=== PATIENT | male | born 1945 | race Hispanic/Latino ===

== ENCOUNTER 2016-06-27 02:05 | Inpatient (IN) | payer MEDICARE, OTHER ==
--- NOTE | 2016-06-27 02:25 | ED PDOC ---
Arrival/HPI - General Chief Complaint: Shortness Of Breath Time Seen by Provider: 06/27/16 02:22 Historian: Patient - History of Present Illness Narrative History of Present Illness (Text): 06/27/16 02:25 Kishor Osuna is a 70 year old male, whose past medical history includes CHF, atrial fibrillation, hypertension, hyperlipidemia, and diabetes, who presents to the emergency department after he woke up tonight with shortness of breath and some orthopnea. Patient states he has been compliant with his medications. Patient denies any fever, chills, chest pain, nausea, vomiting, diarrhea, urinary symptoms, back pain, neck pain, headache, dizziness, or any other complaints. PMD: Dr. Kaylee Ling Aerodynamic Consultant: Dr. Chris, Dr. Moss Time/Duration: Other (tonight) Symptom Onset: Gradual Symptom Course: Unchanged Activities at Onset: Rest, Light Context: Home Past Medical History - Provider Review Nursing Documentation Reviewed: Yes - Infectious Disease Hx of Infectious Diseases: None - Tetanus Immunization Tetanus Immunization: Unknown - Cardiac Hx Cardiac Arrhythmia: Yes Hx Congestive Heart Failure: Yes Hx Hypertension: Yes Other/Comment: stents - Pulmonary Hx Respiratory Disorders: Yes Other/Comment: smoker- 1PPD - Neurological Hx Neurological Disorder: Yes (SYNCOPE 08-20-12) Hx Dizziness: Yes - HEENT Hx HEENT Disorder: Yes (LASER SURGERY /CATARACTS BILATERAL) Hx Deafness: No - Renal Hx Renal Disorder: Yes - Endocrine/Metabolic Hx Diabetes Mellitus Type 2: Yes - Hematological/Oncological Other/Comment: h/o RLE DVT - Integumentary Hx Dermatological Disorder: No - Musculoskeletal/Rheumatological Hx Falls: No - Gastrointestinal Hx Gastrointestinal Disorders: Yes (gerd) - Genitourinary/Gynecological Hx Genitourinary Disorders: (pt denies) - Psychiatric Hx Emotional Abuse: No Hx Physical Abuse: No Hx Substance Use: No - Surgical History Hx Cardiac Catheterization: Yes Hx Coronary Stent: Yes Other/Comment: pt denies laser eye sx, left upper arm picc for iv abx in hospital and for home abx for r great toe infection/gangrene - Anesthesia Hx Anesthesia: Yes Hx Anesthesia Reactions: No Hx Malignant Hyperthermia: No - Suicidal Assessment Feels Threatened In Home Enviroment: No Family/Social History - Physician Review Nursing Documentation Reviewed: Yes Family/Social History: No Known Family HX Smoking Status: Former Smoker Hx Alcohol Use: Yes (social) Hx Substance Use: No Allergies/Home Meds Allergies/Adverse Reactions: Allergies No Known Allergies Allergy (Verified 01/03/16 07:11) Home Medications: Home Meds Medication Instructions Recorded Confirmed Atorvastatin [Lipitor] 20 mg PO DAILY 07/19/15 01/03/16 Carvedilol [Coreg] 3.12 mg PO BID 07/19/15 01/06/16 Aspirin [Ecotrin] 81 mg PO DAILY 08/26/15 01/06/16 Warfarin Sodium [Jantoven] 6 mg PO DAILY 08/26/15 01/03/16 Isosorbide Mononitrate [Imdur] 30 mg PO DAILY 08/28/15 01/06/16 Furosemide [Lasix] 40 mg PO TID 01/03/16 01/06/16 Review of Systems - Physician Review All systems were reviewed & negative as marked: Yes - Review of Systems Constitutional: Normal. absent: Fevers Eyes: Normal ENT: Normal Respiratory: SOB. absent: Cough Cardiovascular: Normal. absent: Chest Pain Gastrointestinal: Normal. absent: Abdominal Pain, Diarrhea, Nausea, Vomiting Genitourinary Male: Normal. absent: Dysuria, Frequency, Hematuria, Urinary Output Changes Musculoskeletal: Normal. absent: Back Pain Skin: Normal. absent: Rash Neurological: Normal. absent: Headache, Dizziness Endocrine: Normal Hemo/Lymphatic: Normal Psychiatric: Normal Physical Exam Vital Signs Reviewed: Yes Vital Signs Temp Pulse Resp BP Pulse Ox 06/27/16 04:15 178/64 H 06/27/16 04:13 60 16 175/64 H 97 06/27/16 02:16 98.8 F 67 20 185/77 H 95 Temperature: Afebrile Blood Pressure: Hypertensive Pulse: Regular Respiratory Rate: Normal Appearance: Positive for: Well-Appearing, Non-Toxic, Comfortable Pain Distress: None Mental Status: Positive for: Alert and Oriented X 3 - Systems Exam Head: Present: Atraumatic, Normocephalic Pupils: Present: PERRL Extroacular Muscles: Present: EOMI Conjunctiva: Present: Normal Ears: Present: NORMAL TM Mouth: Present: Moist Mucous Membranes Neck: Present: Normal Range of Motion Respiratory/Chest: Present: Rales (fine crepitations at bases). No: Respiratory Distress, Accessory Muscle Use Cardiovascular: Present: Regular Rate and Rhythm, Normal S1, S2. No: Murmurs Abdomen: Present: Normal Bowel Sounds. No: Tenderness, Distention, Peritoneal Signs Back: Present: Normal Inspection Upper Extremity: Present: Normal Inspection. No: Cyanosis, Edema Lower Extremity: Present: Normal Inspection. No: Edema Neurological: Present: GCS=15, CN II-XII Intact, Speech Normal Skin: Present: Warm, Dry, Normal Color. No: Rashes Psychiatric: Present: Alert, Oriented x 3, Normal Insight, Normal Concentration Medical Decision Making ED Course and Treatment: 06/27/16 02:25 Impression: 70 year old male complaining of shortness of breath tonight. Differential Diagnosis include but are not limited to: CHF Plan: -- EKG -- CXR -- Labs, cardiac enzymes, BNP -- Reassess and disposition Prior Visits: Notes and results from previous visits were reviewed. Progress Notes: Reviewed EKG, a fib at 80 bpm. Occasional PVC. Non-specific ST/T wave changes. 06/27/16 03:23 Reviewed radiology, CXR shows minimally increased pulmonary vascular markings. 06/27/16 04:00 Reviewed labs, BNP: [id number]. 06/27/16 04:[address] Ling, who is aware and agrees with plan. Accepts pt in her service. Pt will be admitted to Telemetry for CHF. Requests Dr. Moss on consult. - Lab Interpretations Lab Results: 06/27/16 02:55 06/27/16 02:55 Lab Results 06/27/16 02:55: WBC 7.9, RBC 3.52, Hgb 8.6 L, Hct 27.3 L, MCV 77.6 L, MCH 24.4 L , MCHC 31.5, RDW 18.6 H, Plt Count 233, MPV 11.0, PT 37.0 H*, INR 3.43 H, APTT 43.6 H, Sodium 144, Potassium 4.3, Chloride 102, Carbon Dioxide 24, Anion Gap 22 H, BUN 93 H, Creatinine 2.2 H, Est GFR ( Amer) 36, Est GFR (Non-Af Amer) 30, Random Glucose 183 H, Calcium 8.7, Total Bilirubin 0.8, AST 20, ALT 29 , Alkaline Phosphatase 92, Lactate Dehydrogenase 604, Total Creatine Kinase 98, Troponin I Pending, NT-Pro-B Natriuret Pep 22121 H, Total Protein 7.4, Albumin 4.0, Globulin 3.5, Albumin/Globulin Ratio 1.1 I have reviewed the lab results: Yes - RAD Interpretation Radiology Orders: 06/27/16 02:25 CHEST PORTABLE [RAD] Stat Fruit Worker: ED Physician - EKG Interpretation Interpreted by ED Physician: Yes Type: 12 lead EKG - Medication Orders Current Medication Orders: Discontinued Medications Furosemide (Lasix) 40 mg IVP ONCE ONE Stop: 06/27/16 04:10 Last Admin: 06/27/16 04:15 Dose: 40 MG MAR Blood Pressure Document 06/27/16 04:15 EKEOO (Rec: 06/27/16 04:15 [id number]) Blood Pressure Blood Pressure (100/60-150/90 mm Hg) 178/64 IVP Administration Document 06/27/16 04:15 EKEOO (Rec: 06/27/16 04:15 [email or web address] [id number]) Charges for Administration # of IVP Administrations 1 - Scribe Statement The provider has reviewed the documentation as recorded by the Juan Carlos Martin Provider Attestation: All medical record entries made by the Laviniaibcalvin were at my direction and personally dictated by me. I have reviewed the chart and agree that the record accurately reflects my personal performance of the history, physical exam, medical decision making, and the department course for this patient. I have also personally directed, reviewed, and agree with the discharge instructions and disposition. Disposition/Present on Arrival - Present on Arrival Any Indicators Present on Arrival: No History of DVT/PE: No History of Uncontrolled Diabetes: No Urinary Catheter: No History of Decub. Ulcer: No History Surgical Site Infection Following: None - Disposition Have Diagnosis and Disposition been Completed?: Yes Diagnosis: Congestive heart failure Disposition: HOSPITALIZED Disposition Time: 04:30 Patient Plan: Admission Condition: STABLE Discharge Instructions (ExitCare): Heart Failure (ED)
[2016-06-27 03:19] LABS: HEMATOCRIT 27.3 % (42.0-52.0); MEAN CELL VOLUME 77.6 fL (80.0-105.0); MEAN CORPUSCULAR HEMOGLOBIN 24.4 pg (25.0-35.0); MEAN CORPUSCULAR HGB CONC 31.5 g/dl (31.0-37.0); RED CELL DISTRIBUTION WIDTH 18.6 % (11.5-14.5); WHITE BLOOD COUNT 7.9 10^3/ul (4.5-11.0)
[2016-06-27 03:27] LABS: INR 3.43 (0.93-1.08); PARTIAL THROMBOPLASTIN TIME 43.6 Seconds (23.7-30.8)
[2016-06-27 03:38] LABS: ALB/GLOB RATIO 1.1 (1.1-1.8); BILIRUBIN,TOTAL 0.8 mg/dL (0.2-1.3); CALCIUM 8.7 mg/dL (8.4-10.5); POTASSIUM 4.3 mmol/L (3.6-5.0); TOTAL PROTEIN 7.4 g/dL (5.8-8.3)
[2016-06-27 04:46] LABS: TROPONIN I 0.1 ng/mL
[2016-06-27 08:16] VITALS: BMI 36.4
--- NOTE | 2016-06-27 08:42 | RAD ---
HISTORY: sob COMPARISON: 01/03/2016 FINDINGS: LUNGS: No active pulmonary disease. PLEURA: No significant pleural effusion identified, no pneumothorax apparent. CARDIOVASCULAR: Mild cardiomegaly OSSEOUS STRUCTURES: No significant abnormalities. VISUALIZED UPPER ABDOMEN: Normal. OTHER FINDINGS: None. IMPRESSION: No active disease.
--- NOTE | 2016-06-27 10:08 | CON ---
DATE: 06/27/2016 INDICATIONS: Shortness of breath. This is a 70-year-old man, known to me, admitted through the Emergency Room with episodes of shortness of breath, first on Monday and then last night, which woke him from sleep. There was no chest pain. There was some palpitations noted. The shortness of breath subsided. This morning, he is resting comfortably in bed, without symptoms. There was no orthopnea, PND, syncope, presyncope, lightheadedness, dizziness, vertigo, edema, claudication, abdominal pain, nausea, vomiting, diarrhea, constipation, melena, fever, chills , cough, sputum production, hemoptysis. PAST MEDICAL HISTORY: Complex. He has known coronary artery disease. He underwent a cardiac catheterization with coronary intervention in 07/2015. At that time, 2 drug-eluting stents were placed in the LAD. At that time, he was also noted to have moderate diffuse coronary disease involving other vessels and moderate LV dysfunction. His ejection fraction at that time was about 33%. Echocardiogram showed mild to moderate aortic stenosis, but there was no significant gradient noted at the time of catheterization. He has atrial fibrillation, diabetes, hypertension, hyperlipidemia, obesity, peripheral vascular disease, peripheral vascular intervention, osteomyelitis, discogenic disease, carpal tunnel syndrome, Dupuytren's contracture. He is a former smoker. There is no history of rheumatic fever, stroke, TIA or gout. MEDICATIONS: At the time of admission include hydralazine, aspirin, Imdur, warfarin, Lasix. ALLERGIES: There are no medication allergies. SOCIAL HISTORY: He lives at home. He is a former smoker. He does not drink alcohol. He is ambulatory. FAMILY HISTORY: Noncontributory. REVIEW OF SYSTEMS: Ten-point otherwise unremarkable except as noted above. PHYSICAL EXAMINATION: GENERAL: He is a well-developed male, sitting on his bed, in the intensive care unit, in no acute distress. VITAL SIGNS: Notable for atrial fibrillation at 53-67 beats per minute. He is afebrile. Blood pressure 169/72, respirations 16-24, O2 sat 95%-90% on room air. HEENT: Reveals no neck vein distention, thyromegaly, or carotid bruits. Mucous membranes moist. Conjunctivae pink. NECK: Supple. CHEST: Lung cornelius clear. HEART: Revealed an irregular rhythm, normal first and second heart sounds. Soft systolic murmur along the left sternal border and in the aortic space. PMI not palpable. ABDOMEN: Soft, obese, benign. Bowel sounds present. No mass, organomegaly, tenderness, rebound, guarding, CVA tenderness, palpable abdominal aortic aneurysm. EXTREMITIES: Revealed no cyanosis, clubbing, or edema. NEUROLOGIC: Awake, alert, oriented and intact. PSYCHIATRIC: Normal as to mood and affect. SKIN: Warm and dry. No rash or cellulitis. IMAGING AND LABORATORY RESULTS: A chest x-ray is a portable study. It reveals no active disease. EKG demonstrates atrial fibrillation with ST segment depression in V5, V6, increased as compared to an old EKG. White count normal, platelet count normal, hemoglobin 8.6, hematocrit 27.3. INR 3.43, PT 37, PTT 43.6. Electrolytes, BUN noted. BUN is 93, creatinine is 2.2. Blood sugar 183. LFTs unremarkable. CK 98. Troponin 0.10. BNP 10,600. IMPRESSION: The patient is a 70-year-old man admitted with a couple of episodes of nocturnal dyspnea. He has a history of coronary artery disease and left anterior descending stents about a year ago. He also has left ventricular dysfunction, hypertension, diabetes, obesity, atrial fibrillation on warfarin, chronic kidney disease, peripheral vascular disease. At this time, I agree with plans. He is in the intensive care unit. We will get serial EKGs and cardiac enzymes. I will review his old records. I will continue his usual medications including hydralazine, aspirin, Imdur and furosemide IV. I will hold warfarin. We will monitor INRs. I will get an echocardiogram. I will follow along with you. I will make additional recommendations based on his clinical course. At this point, it is likely that we will recommend cardiac catheterization to clarify his current coronary anatomy given the symptoms and EKG changes. Fredi Moss MD cc: [id number] TT: 06/27/2016 10:07:53 Confirmation # [id number] Dictation # [id number] en ROCKY
[2016-06-27] MEDS: Insulin Reg-LOW-Coverage SC SCH ×3 (11:09→21:39)
[2016-06-27 11:17] LABS: IRON 24 ug/dL (45-180)
--- NOTE | 2016-06-27 12:19 | HP ---
HISTORY OF PRESENT ILLNESS: This is a 70-year-old male was examined in ICU bed 6. He presented to the [facility] Emergency Room with shortness of breath, which first occurred on Monday evening, and then recurred last evening, awakening him from a sound sleep. He denied any chest pain or palpitation. He stated in the Emergency Room, after receiving parenteral Lasix, the shortness of breath subsided, and the patient was admitted for further evaluation of the above. PAST MEDICAL HISTORY: Extensive and includes atherosclerotic heart disease, status post coronary artery catheterization in 07/2015 at which time he had 2 drug-eluting stents placed in his left anterior descending coronary artery. He has a history of moderate diffuse coronary artery disease, moderate left ventricular dysfunction with an ejection fraction calculated at approximately 33 %. He has valvular heart disease including aortic stenosis, chronic atrial fibrillation for which he takes Coumadin, diabetes mellitus, chronic hypertension, hyperlipidemia, morbid obesity, peripheral vascular disease, chronic renal failure - stage IV, peripheral vascular intervention with stenting for osteomyelitis of his right great toe. He has a history of spinal arthritis, carpal tunnel syndrome, degenerative arthritis, and gout. SOCIAL HISTORY: The patient is a social drinker, a former smoker. No history of IV drug misuse. He is a retired postal employee. FAMILY HISTORY: Noncontributory. ALLERGIES: He has no known allergies to medications. OUTPATIENT MEDICATIONS: Included Ecotrin 81 mg p.o. daily, Imdur 30 mg p.o. daily, Lasix 80 mg p.o. t.i.d., Coumadin 6 mg p.o. daily, Imdur 30 mg p.o. daily , and hydralazine 100 mg p.o. t.i.d. It should be noted that the patient could not tolerate LUIS inhibitors secondary to hyperkalemia nor beta-blockers secondary to bradycardia. REVIEW OF SYSTEMS: HEAD: No headache or seizure. EYES: No change in visual acuity. EARS: No hearing loss. THROAT: No swallowing difficulty. NECK: No stiffness. CARDIOVASCULAR: Chronic atrial fibrillation, chronic hypertension, atherosclerotic heart disease, status post coronary artery stenting. PULMONARY: No hemoptysis. GASTROINTESTINAL: No hematemesis, no melena. GENITOURINARY: Chronic renal failure, stage IV. VASCULAR: History of peripheral vascular disease and stenting. ENDOCRINE: History of diabetes mellitus, hyperlipidemia. HEMATOLOGIC: Chronic anemia. NEUROLOGIC: Spinal arthritis. No knowledge of stroke. PHYSICAL EXAMINATION: VITAL SIGNS: Temperature 98.1. Monitor shows atrial fibrillation, respirations 24, pulse 50, blood pressure 169/72, pulse ox 96%. HEENT: Normocephalic, atraumatic. Eyes: No icterus. Ears clear. Throat not injected. NECK: Supple. HEART: Irregular S1, S2 with a soft systolic ejection murmur at the left sternal border. LUNGS: With occasional rhonchi and basilar crackles. ABDOMEN: Obese, nontender, without palpable organomegaly. EXTREMITIES: 1+ edema. VASCULAR: Legs warm to touch. PSYCHOLOGIC: Alert and anxious. NEUROLOGIC: Grossly intact. LABORATORY DATA: White count 7900, hemoglobin 8.6, hematocrit 27.3, MCV 77.6, platelets 233,000. PT/INR elevated at 3.43. Sodium 144, K 4.3, chloride 102, bicarb 24. BUN 93, creatinine 2.2. Estimated GFR 30 mL per minute. Random blood sugar 183, bilirubin 0.8, AST 20, ALT 29, alk phos 92. BNP 10,600. CPK normal at 98. Troponin 0.1. EKG reportedly shows nonspecific ST-T wave changes, chronic atrial fibrillation. Chest x-ray showed no active pulmonary disease. IMPRESSION: A 70-year-old male with nocturnal dyspnea, atherosclerotic heart disease, history of coronary artery stents, left ventricular dysfunction, chronic hypertension, diabetes mellitus, obesity, atrial fibrillation on Coumadin, chronic renal insufficiency - stage IV, peripheral vascular disease, anemia of chronic disease, hyperlipidemia, degenerative arthritis, morbid obesity. PLAN: To maintain the patient in critical care. He will need serial EKGs, cardiac isoenzymes. Cardiology, Dr. Moss, is on his case reviewing his old medical records and agrees with continuing medications as outlined including hydralazine, Ecotrin, Imdur, and IV Lasix. Oral Coumadin is on hold pending PT/ INR. He is ordering an echocardiogram and feels that the patient may need a coronary catheterization given his symptomatology. I have ordered ferritin, folic acid, iron, and TIBC, vitamin B12 levels for completeness sake. He will have a fasting lipid level in the morning. He will have a repeat serum and urine immunoelectrophoresis, a repeat CBC in the morning, and INR daily. Patient has repeatedly declined endoscopy and colonoscopy in the past. Pending the results of his anemia workup, I will review this with Dr. Abiel Mcdonald from hematology and discuss whether or not the patient will need to be started on Procrit through his guidance. All of this was reviewed in detail with Dr. Moss, the patient and his nurse, Cherry Bernstein, and the patient's overall prognosis is stable at present. Meena Ling MD cc: [id number] TT: 06/27/2016 12:18:26 jn MTDD
[2016-06-27 12:31] LABS: TROPONIN I 0.46 ng/mL
--- NOTE | 2016-06-27 12:54 | CARD ---
APPROVED REPORT EKG Measurement Heart [id number] <Conclusion> Atrial fibrillation with premature ventricular or aberrantly conducted complexes ST & T wave abnormality, consider lateral ischemia or digitalis effect Abnormal ECG
[2016-06-27 17:01] LABS: FOLATE 17.5 ng/mL
[2016-06-28 06:25] LABS: HEMATOCRIT 28.2 % (42.0-52.0); MEAN CELL VOLUME 77.5 fL (80.0-105.0); MEAN CORPUSCULAR HEMOGLOBIN 24.2 pg (25.0-35.0); MEAN CORPUSCULAR HGB CONC 31.2 g/dl (31.0-37.0); RED CELL DISTRIBUTION WIDTH 18.4 % (11.5-14.5)
[2016-06-28 06:28] LABS: INR 3.04 (0.93-1.08)
[2016-06-28 07:27] LABS: CALCIUM 8.9 mg/dL (8.4-10.5); POTASSIUM 4.6 mmol/L (3.6-5.0)
[2016-06-28] MEDS ORDERED: Phytonadione 10 mg/ml Inj (Adult) SC ONE ×2 (08:00→13:00)
--- NOTE | 2016-06-28 08:26 | CP.PCM.PN ---
Subjective - Date & Time of Evaluation Date of Evaluation: 06/28/16 Time of Evaluation: 08:00 - Subjective Subjective: Stable on 3R now. No CP or SOB. He feels OK. V/S noted. PE: Lungs clear Cor.: S1S2, JAKOB Abd.: soft Ext.: no edema Neuro.: alert Labs noted. Trops + , INR 3.04, BMP noted. Cr. = 2.0. Lipids noted. LDL = 60. ECG today pending. Objective - Vital Signs/Intake and Output Vital Signs (last 24 hours): Temp Pulse Resp BP Pulse Ox 87.3 F L 61 20 135/56 L 97 06/27/16 16:00 06/28/16 02:00 06/27/16 16:00 06/27/16 18:35 06/27/16 16:00 Intake and Output: 06/28/16 06/28/16 06:59 18:59 Intake Total 540 Balance 540 - Medications Medications: Current Medications Acetylcysteine (Acetylcysteine 20%) 3 ml PO BID [facility] Aspirin (Aspirin Chewable) 81 mg PO DAILY [facility] Last Admin: 06/27/16 10:01 Dose: 81 mg Furosemide (Lasix) 80 mg PO TID [facility] Last Admin: 06/27/16 18:35 Dose: Not Given Hydralazine HCl (Apresoline) 100 mg PO TID [facility] Last Admin: 06/27/16 18:35 Dose: Not Given Insulin Human Regular (Humulin R Low) 0 units SC [facility] PRN Reason: Protocol Last Admin: 06/27/16 21:39 Dose: Not Given Isosorbide Mononitrate (Imdur) 30 mg PO DAILY [facility] Last Admin: 06/27/16 10:01 Dose: 30 mg Phytonadione (Vitamin K Inj) 10 mg SC ONCE ONE Stop: 06/28/16 13:01 - Labs Labs: 06/28/16 05:00 06/28/16 05:00 PT 32.8 Seconds (9.9-11.8) H* 06/28/16 05:00 INR 3.04 (0.93-1.08) H 06/28/16 05:00 APTT 43.6 Seconds (23.7-30.8) H 06/27/16 02:55 Assessment and Plan - Assessment and Plan (Free Text) Plan: Assessment: SOB/+ trops, R/O NE CAD/PCI LAD 07/19 LVD, EF ~ 33% , mild at cath 07/19 Echo 01/19: mild LVD, Mild to mod. ., Mild MR, Mild to moderate TR, Mod. to sev. PH AF on warfarin Anemia HBP CKD HLD AD/PVI Obesity Oseomyelitis Former Smoker Discogenic Disease Carpal Tunnel Syndrome Duputryen's Contracture Plan: Cardiac cath to define current cor. dalila. Increased renal risk D/W pt. and Dr. Ling. Vit K today- 2 doses. If INR reversed by AM will proceed with cath tomorrow AM. Case d/w Dr. Ling. Pre-cath prophylaxis for CKD as per Dr. Ling. Await ECG today. OOB ad alphonso.
[2016-06-28] MEDS: Insulin Reg-LOW-Coverage SC SCH ×4 (09:28→22:16)
--- NOTE | 2016-06-28 11:27 | CARD ---
APPROVED REPORT EKG Measurement Heart [id number] <Conclusion> Atrial fibrillation ST & T wave abnormality, consider lateral ischemia or digitalis effect Abnormal ECG
[2016-06-28] MEDS ORDERED: Iron Sucrose 100 mg/5 ml Inj IVP ONE (13:20)
--- NOTE | 2016-06-28 13:59 | CON ---
DATE: 06/28/2016 This is a 70-year-old man with anemia. PAST MEDICAL HISTORY: The patient has extensive medical history including stents and cardiac cathete rization, renal insufficiency, etc. and also anemia. PHYSICAL EXAMINATION: SKIN: No petechiae, no bruises. HEENT: Anicteric. NODES: None palpable in the axillary, cervical, supraclavicular or inguinal regions. LUNGS: Clear at present. No vertebral tenderness. The patient is able to lie down flat. HEART: S1, S2. ABDOMEN: Shows an obese man. No liver, no spleen, no tenderness, no ascites. EXTREMITIES: No edema. CENTRAL NERVOUS SYSTEM: No focal finding. Hemoglobin was 8.5 with an MCV of 77. Creatinine of 2 with a BUN of 82. Iron saturation of 7% with a ferritin 37. The issue here, as I explained to the patient and daughter, is his iron deficiency or his renal insuf ficiency. He has refused colonoscopy and upper endoscopy in the past. What we will do is give him I V iron. I started him on Venofer tonight. Probably give him a second shot tomorrow. I will see him as an outpatient. They have my phone number etc., to call me once he gets out of the hospital. We will recheck the iron levels and see if there is any response to the iron. If none, then I will arra nge for him to get Procrit as an outpatient, but first we have to give the iron first and the ferriti n could be high just as a nonspecific inflammatory process. So, he has my phone number and address t o get to my office and we are going to start him on the IV iron today and tomorrow. Abiel Harry VELEZ cc: [id number] TT: 06/28/2016 13:59:03 Confirmation # [id number] Dictation # [id number]
--- NOTE | 2016-06-28 15:15 | PN ---
DATE: 06/28/2016 This 70-year-old male was examined at his bedside and his case was reviewed in detail with his nurse, [place], his family at his bedside, as well as the patient. The patient has been chest pain free since admission. He was seen earlier today by Dr. Moss who is reading the patient for cardiac catheterization in the morning. Of note, his Coumadin is on hold and Dr. Moss is reversing his elevated PT/INR with subQ vitamin K. plate roller shows atrial fibrillation. PHYSICAL EXAMINATION: VITAL SIGNS: Temperature is 98.8, respirations 20, pulse 63 and blood pressure 138/84 with a pulse ox of 97% on room air. His urine output was 600 in with 450 mL out in the last shift. HEAD: Normocephalic, atraumatic. EYES: No icterus. EARS: Clear. THROAT: Noninjected. NECK: Supple. HEART: Irregular S1, S2. LUNGS: Decreased breath sounds at the bases. No wheezing. ABDOMEN: Obese, nontender. EXTREMITIES: 1+ edema. SKIN: Without rash. NEUROLOGIC: Intact. PSYCHOLOGICAL: Chronic anxiety. VASCULAR: Legs warm to touch. LABORATORY DATA: White count 11,000, hemoglobin 8.8, hematocrit 28.8, platelets 228,000. PT/INR 3.04. Sodium 142, K 4.6, chloride 103, bicarbonate 25, BUN 82, creatinine 2.0, random blood sugar was 116. Estimated GFR 33 mL per minute. Cholesterol 141, triglycerides 157, LDL 60. Vitamin B12 level 257 and folic acid 17.5, percent saturation 7, ferritin 37. IMPRESSION: A 70-year-old male with chronic atrial fibrillation and atherosclerotic heart disease, history of coronary stent, chronic atrial fibrillation with a supertherapeutic PT/INR and also chronic renal failure stage IV, with type 2 diabetes mellitus, anemia of probable iron deficiency and chronic disease, degenerative arthritis and elevated PT/INR on outpatient Coumadin. PLAN: At present is to consult Dr. Abiel Mcdonald from hematology to see if the patient will benefit from Procrit supplementation given his chronic renal failure and anemia. The patient is ordered to have vitamin K as per Dr. Moss. He will have a repeat PT/INR in the morning. He is being given Mucomyst to stabilize his renal function in the setting of a proposed-cardiac catheterization and his oral Lasix has been switched to IV Lasix in the setting of shortness of breath and trace edema of his legs. He will be given gentle IV fluids of 0.9 saline at 70 mL per hour starting 10 p.m. tonight precardiac cath and patient once again in the presence of his family has declined a GI evaluation for his anemia. They are all aware that this could be a sign of undiagnosed gastrointestinal cancer; however, the patient declines any further consideration of endoscopy or colonoscopy at this time. He will have a repeat PT/INR in the a.m., CBC in the a.m. and basic metabolic panel in the a.m., and I will discuss cardiac findings and additional recommendations as per cardiology and hematology with the patient after cardiac catheterization and pending his workup as outlined. This was all discussed with the family in detail. Meena Ling MD cc: [id number] TT: 06/28/2016 15:14:16 Confirmation # [id number] Dictation # [id number] [email or web address]
[2016-06-28 19:15] LABS: INR 2.81 (0.93-1.08)
[2016-06-28] MEDS ORDERED: Phytonadione 10 mg/ml Inj (Adult) SC STA (20:54)
[2016-06-28] MEDS: Sodium Chloride 0.9% 1,000 ML IV SCH (22:18)
[2016-06-29] MEDS ORDERED: Sodium Bicarbonate (8.4%) 50 Meq Syringe IVP ONE (04:36)
[2016-06-29 06:36] LABS: ADD MANUAL DIFF? NO
[2016-06-29 06:51] LABS: INR 1.81 (0.93-1.08)
[2016-06-29 06:57] LABS: POTASSIUM 4.3 mmol/L (3.6-5.0)
[2016-06-29] MEDS ORDERED: Lidocaine 2% Inj (20ml) ONE (07:07)
[2016-06-29] MEDS ORDERED: Midazolam 2 MG/2 ML VIAL ONE ×2 (07:07→08:00)
[2016-06-29] MEDS ORDERED: Iodixanol 320 MG/ML 200 ML BOTTLE IV ONE (07:08)
[2016-06-29] MEDS ORDERED: Iodixanol 320 MG/ML 100 ML BOTTLE IV ONE (07:08)
[2016-06-29] MEDS ORDERED: Iohexol 350mgl/ml 50 ML ONE (07:08)
[2016-06-29 07:13] LABS: BASO # 0.03 K/mm3 (0.0-2.0); BASO % 0.2 % (0.0-3.0); EOS # 0.1 (0.0-0.7); EOS % 0.8 % (1.5-5.0); GRAN # 9.95 (1.4-6.5); GRAN % 82.6 % (50.0-68.0); HEMATOCRIT 29.1 % (42.0-52.0); LYMPH # 0.5 (1.2-3.4); LYMPH % 4.1 % (22.0-35.0); MEAN CELL VOLUME 76.2 fL (80.0-105.0); MEAN CORPUSCULAR HEMOGLOBIN 23.6 pg (25.0-35.0); MEAN CORPUSCULAR HGB CONC 30.9 g/dl (31.0-37.0); MEAN PLATELET VOLUME 11.2 fl (7.0-11.0); MONO # 1.5 (0.1-0.6); MONO % 12.3 % (1.0-6.0); PLATELET COUNT 245 10^3/uL (120.0-450.0); RED CELL DISTRIBUTION WIDTH 18.6 % (11.5-14.5); WHITE BLOOD COUNT 12.1 10^3/ul (4.5-11.0)
[2016-06-29] MEDS: Insulin Reg-LOW-Coverage SC SCH ×4 (08:40→21:44)
[2016-06-29] MEDS ORDERED: Mannitol 12.5 gm/50 ml Inj IV ONE (08:54)
--- NOTE | 2016-06-29 11:21 | CARDCATH ---
PROCEDURE DATE: 06/29/2016 HISTORY: This is a 70-year-old man with a history of known coronary artery disease and chronic atria l fibrillation, as well as LV dysfunction, who was admitted with worsening dyspnea and mildly elevate d troponin. A cardiac catheterization was advised. He had undergone prior PCI of his LAD last year. INDICATION: As above. PROCEDURES: 1. Selective left and right coronary angiography. 2. Left ventriculography. 3. Right femoral arteriography. 4. Angio-Seal deployment. FINDINGS: HEMODYNAMICS: The aortic pressure was 180/70 with a left ventricular pressure of 190/30. A 10-mm ao rtic valve gradient was noted. CORONARY ANGIOGRAPHY: 1. The left mainstem showed some mild distal tapering. 2. Left anterior descending artery was moderately calcified throughout its course. Previously place d stents in the mid segment of the vessel were widely patent with no evidence of restenosis. Mild di ffuse irregularities were noted in the distal LAD. The diagonal branches had evidence of mild to mod erate diffuse disease. 3. Left circumflex artery was a moderate-sized vessel, and had a 40% lesion in its early mid portion . The first obtuse marginal branch was of moderate size and bifurcated into 2 moderate-sized vessels . The obtuse marginal had moderate diffuse disease throughout its course. The second obtuse margina l branch was fairly small. The third obtuse marginal branch was large and had minimal irregularities . 4. The right coronary artery was dominant and had mild calcifications present in the proximal segmen t. There was a 40% stenosis present in the mid portion of the vessel. The posterior descending will ry and posterolateral branches had mild disease. LEFT VENTRICULOGRAPHY: A hand injection was performed in the left ventricle revealing evidence of mo derately diffuse hypokinesis with an overall ejection fraction of 40%. Mitral regurgitation was not assessed. RIGHT FEMORAL ARTERIOGRAPHY: Right femoral arteriogram revealed no evidence of significant disease a nd appropriate level of arterial puncture. The puncture site was then closed with deployment of an A ngio-Seal device. CONCLUSION: 1. Patent LAD stents. Mild to moderate diffuse RCA and LAD disease. 2. Moderately-reduced LV systolic function. 3. Mild aortic stenosis. RECOMMENDATIONS: Intensified medical therapy is advised at this time. Repeat echocardiogram will be performed. Continued cardiac risk factor control is advised. Kishor Chris MD cc:Meena Ling MD [id number] TT: 06/29/2016 11:21:06 jn
[2016-06-29] MEDS: Acetylcysteine 20% Inhal Soln (4ml) PO SCH ×2 (11:22→17:36)
--- NOTE | 2016-06-29 11:34 | PN ---
DATE: 06/29/2016 SUBJECTIVE: This 70-year-old male was examined at his bedside and his case was reviewed with his family at the bedside and Dr. Kishor Chris from cardiology. He has completed his cardiac cath earlier this morning, which revealed mild to moderate coronary artery atherosclerotic disease. His 2 coronary stents were reportedly wide open and there was no evidence of new critical stenosis noted on this cardiac cath this morning. He is also noted to have mitral regurgitation and aortic stenosis and an ejection fraction of approximately 35% . Dr. Chris states that this will be treated with medication adjustment, and he is ordering a 2D echocardiogram to get a better evaluation of his cardiac valvular disease as well as his ejection fraction. The patient tolerated gentle IV hydration with IV bicarb, IV Lasix and IV mannitol pericardiac procedure because of his chronic renal insufficiency, stage IV. He was seen by Dr. Abiel Mcdonald from hematology, who is evaluating his anemia at present. PHYSICAL EXAMINATION: VITAL SIGNS: On the baker bench, he is in atrial fibrillation. His vital signs are temperature 98.6, respirations 18, pulse 68 and blood pressure 146/67 , pulse ox was 97% on room air. HEAD: Normocephalic, atraumatic. EYES: Show no icterus. EARS: Clear. THROAT: Noninjected. NECK: Supple. HEART: Irregular S1, S2. LUNGS: With decreased breath sounds at the bases. ABDOMEN: Obese. EXTREMITIES: Decreased edema. SKIN: Without rash. NEUROLOGIC: Intact. PSYCHOLOGICAL: Alert. VASCULAR: Legs warm to touch. LABORATORY DATA: White count 12,100, hemoglobin 9, hematocrit 29.1, platelets 245,000. PT/INR 1.81, Sodium 141, K 4.3, chloride 101, bicarb 22, BUN 78, creatinine 2.1, random blood sugar was 120, cholesterol 141, triglycerides 157, LDL 60, HDL 36. Serum immunoelectrophoresis showed no monoclonal proteins. IMPRESSION: A 70-year-old male with atherosclerotic heart disease; cardiomyopathy; chronic congestive heart failure; chronic renal failure, stage IV; chronic hypertension; atrial fibrillation on Coumadin; type 2 diabetes mellitus; degenerative arthritis; anemia; history of gout. PLAN: At present is to continue medications including Mucomyst 3 mL p.o. b.i.d. , which he will take for an additional 24 hours, hydralazine 100 mg p.o. t.i.d. , Ecotrin 81 mg p.o. daily, Coumadin 6 mg p.o. daily, regular low dose insulin coverage before meals and at bedtime, Imdur 60 mg p.o. daily, Lasix 80 mg IV t.i.d., metoprolol tartrate 25 mg b.i.d., 0.9 saline at 70 mL per hour until 10: 00 a.m. tomorrow. He continues on nasal O2 p.r.n. He has an order for a 2D echocardiogram, heart healthy renal diabetic diet. He has an order for a basic metabolic panel, a uric acid level and an INR. I will place a consultation with Dr. Miguel Angel Cosme from orthopedics regarding his degenerative knee arthritis complaints, and all of this has been reviewed with the patient and his family at the bedside. They are aware that they will need to follow up with Dr. Chris as an outpatient from a cardiac standpoint, Dr. Mcdonald from hematology, and that he will be monitored closely regarding his renal failure and may need dialysis in his future. This has been a chronic ongoing issue and he remains clinically stable at this time. Meena Ling MD cc: [id number] TT: 06/29/2016 11:33:32 Confirmation # [id number] Dictation # [id number] an [email or web address]
--- NOTE | 2016-06-29 11:36 | PN ---
DATE: 06/29/2016 SUBJECTIVE: The patient is seen resting comfortably. Cardiac catheterization is planned for this mo rning. He is somewhat anxious. CURRENT MEDICATIONS: Include Mucomyst, hydralazine, aspirin, warfarin which has been placed on hold, insulin coverage, Imdur 30 mg daily, Lasix 80 mg t.i.d. and IV fluids. OBJECTIVE: GENERAL: He is a middle-aged man who is comfortable at the present time. VITAL SIGNS: His blood pressure is 150/70, the pulse is 72, in atrial fibrillation, respirations are 14. Recent temperature is 99.2. HEENT: No JVD. CHEST: A few scattered rhonchi heard. HEART: PMI displaced laterally with an irregularly irregular rhythm. Systolic murmur at the base as well as at the lower left sternal border and apex. ABDOMEN: Soft, nontender, normoactive bowel sounds. EXTREMITIES: 1-2+ leg edema. His right ankle and first toe appear swollen and erythematous. LABORATORY DATA: Potassium 4.3, BUN and creatinine are 78 and 2.1, hemoglobin and hematocrit are 9 a nd 29.1 with a white count 12.1, platelet count 245,000. INR this morning is 1.8. IMPRESSION: 1. Recent decompensating congestive heart failure, acute on chronic. 2. Mildly elevated troponin, possibly consistent with mild myocardial injury. 3. Coronary artery disease, status post known coronary disease and percutaneous coronary interventio n of left anterior descending. 4. Left ventricular dysfunction. 5. Mild aortic stenosis. 6. Mitral and tricuspid regurgitation. 7. Chronic atrial fibrillation. 8. Anemia. RECOMMENDATIONS: Cardiac catheterization will be performed this morning. If there is evidence of in -stent restenosis or progression of coronary artery disease, PCI will be planned. Risks and benefits have been discussed with him and his daughters prior to proceeding. Further plans will be made base d upon those findings. Kishor Chris MD cc: [id number] TT: 06/29/2016 11:35:51 Confirmation # [id number] Dictation # [id number] lavon
[2016-06-29] MEDS: Sodium Chloride 0.9% 1,000 ML IV SCH (13:57)
[2016-06-29] MEDS ORDERED: Bupivacaine 0.5% Inj(30mL) IJ ONE (14:11)
[2016-06-29] MEDS ORDERED: MethylPREDNISolone Depo 40 mg/ml Inj IM ONE (14:11)
[2016-06-29] MEDS ORDERED: Morphine 2 mg/ml ISec IVP STA (17:27)
--- NOTE | 2016-06-29 18:38 | CON ---
DATE: 06/29/2016 ROOM: 360, bed 1. HISTORY OF PRESENT ILLNESS: Seen for right knee pain with past history of gout with swollen knee. He also has history of heart disease and because of tremendous pain in his right knee I sort of encouraged him to get the arthrocentesis done. Aspirated 60 mL of sero turbid fluid from the right knee. No signs of purulence, no signs of blood. Once we evacuated the right knee of the effusion the improvment was remarkable for symptomatic relief. I sent a specimen for culture, cell count, and crystals. Will start physical therapy tomorrow, but he just had a cardiac catheterization, so that will dictate what he does tomorrow. So, he should feel better from the effusion of his right knee and will wait for the culture, crystals, and cell count to come back in the morning. FINAL DIAGNOSES: 1. Inflammatory arthritis, right knee. 2. Suspect gouty srthritis. Miguel Angel Cosme DO cc: [id number] TT: 06/29/2016 18:38:30 Confirmation # [id number] Dictation # [id number] [email or web address] [email or web address]
[2016-06-29] MEDS ORDERED: Oxycodone/Acetaminophen 5/325 mg Tab PO STA (20:05)
[2016-06-30 08:00] LABS: HEMATOCRIT 29.1 % (42.0-52.0); MEAN CELL VOLUME 76.4 fL (80.0-105.0); MEAN CORPUSCULAR HEMOGLOBIN 23.6 pg (25.0-35.0); MEAN CORPUSCULAR HGB CONC 30.9 g/dl (31.0-37.0); MEAN PLATELET VOLUME 11.9 fl (7.0-11.0); RED CELL DISTRIBUTION WIDTH 18.5 % (11.5-14.5); WHITE BLOOD COUNT 16.2 10^3/ul (4.5-11.0)
[2016-06-30 08:07] LABS: INR 1.38 (0.93-1.08)
[2016-06-30 08:21] LABS: CALCIUM 8.8 mg/dL (8.4-10.5); POTASSIUM 4.4 mmol/L (3.6-5.0)
[2016-06-30] MEDS: Insulin Reg-LOW-Coverage SC SCH ×4 (09:15→21:51)
[2016-06-30] MEDS: Acetylcysteine 20% Inhal Soln (4ml) PO SCH (09:15)
--- NOTE | 2016-06-30 09:25 | CP.PCM.PN ---
Subjective - Date & Time of Evaluation Date of Evaluation: 06/30/16 Time of Evaluation: 07:00 - Subjective Subjective: Stable on 3R now. S/P cardiac cath yesterday. Results noted>continued medical therpy advised. No CP or SOB. He feels OK. Right knee tapped yesterday. V/S noted. PE: Lungs clear Cor.: S1S2, JAKOB Abd.: soft Ext.: no edema Neuro.: alert I/O= 2660/900 Labs noted.INR = 1.38, Cr.= 2.1 Cath data noted. Objective - Vital Signs/Intake and Output Vital Signs (last 24 hours): Temp Pulse Resp BP Pulse Ox 97.7 F 67 18 138/58 L 96 06/30/16 06:00 06/30/16 06:00 06/30/16 06:00 06/30/16 06:00 06/30/16 06:00 Intake and Output: 06/30/16 06/30/16 06:59 18:59 Intake Total 1660 Output Total 900 Balance 760 - Medications Medications: Current Medications Acetaminophen (Tylenol 325mg Tab) 650 mg PO Q6H PRN PRN Reason: Pain, severe (8-10) Last Admin: 06/29/16 09:07 Dose: 650 mg Acetylcysteine (Acetylcysteine 20%) 3 ml PO BID [facility] Last Admin: 06/29/16 17:36 Dose: 3 ml Aspirin (Aspirin Chewable) 81 mg PO DAILY [facility] Last Admin: 06/28/16 09:28 Dose: 81 mg Furosemide (Lasix) 80 mg IVP TID [facility] Last Admin: 06/29/16 17:16 Dose: 80 mg Hydralazine HCl (Apresoline) 100 mg PO TID [facility] Last Admin: 06/29/16 17:16 Dose: 100 mg Sodium Chloride (Sodium Chloride 0.9%) 1,000 mls @ 70 mls/hr IV .[id number] [facility] Stop: 06/30/16 10:00 Last Admin: 06/29/16 13:57 Dose: 70 mls/hr Insulin Human Regular (Humulin R Low) 0 units SC ACHS [facility] PRN Reason: Protocol Last Admin: 06/29/16 21:44 Dose: Not Given Isosorbide Mononitrate (Imdur) 60 mg PO DAILY [facility] Last Admin: 06/29/16 11:21 Dose: 60 mg Metoprolol Tartrate (Lopressor) 25 mg PO BRKDIN [facility]AYL[facility] Last Admin: 06/29/16 17:16 Dose: 25 mg Warfarin Sodium (Coumadin) 6 mg PO 1800 [facility] PRN Reason: Protocol Last Admin: 06/29/16 17:16 Dose: 6 mg - Labs Labs: 06/30/16 06:30 06/30/16 07:00 PT 14.9 Seconds (9.9-11.8) H 06/30/16 06:30 INR 1.38 (0.93-1.08) H 06/30/16 06:30 APTT 43.6 Seconds (23.7-30.8) H 06/27/16 02:55 Assessment and Plan - Assessment and Plan (Free Text) Plan: Assessment: SOB/+ trops, R/O SC Cath 06/29/16: Patent stents and moderate diffuse CAD, Mild CAD/PCI LAD 07/19 LVD, EF ~ 33% , mild at cath 07/19, 06/29/16 Echo 01/19: mild LVD, Mild to mod. ., Mild MR, Mild to moderate TR, Mod. to sev. PH AF on warfarin Anemia HBP CKD HLD AD/PVI Obesity Oseomyelitis Former Smoker Discogenic Disease Carpal Tunnel Syndrome Duputryen's Contracture Right knee effusion, R/O gout, etc. Plan: Resume warfarin > 10 mg. today. Monitor INRs. Monitor renal fx. , I/O, labs, etc. Renal protection therapy as per Dr. Ling As per Dr. Mcdonald and Ortho. Continue medical tx. for CAD and LVD Cardiology F/U as out-pt.
[2016-06-30 11:47] LABS: FLUID TYPE SYNOVIAL FLUID
[2016-06-30 12:00] LABS: SYNOVIAL FLUID LYMPHOCYTE 5.7 % (0-0); SYNOVIAL FLUID NEUTROPHIL 94.3 % (0-0)
[2016-06-30 12:01] LABS: SYNOVIAL FLUID TOTAL COUNT 100 (0-0)
--- NOTE | 2016-06-30 12:51 | PN ---
DATE: 06/30/2016 This 70-year-old male was examined at the bedside in the presence of his daughter Gisella and his wif calvin. The patient was out of bed to chair and his case was also reviewed in detail with his nurse, Adelita Valdes. The patient remains chest pain free, status post cardiac catheterization yesterday which revealed moderate coronary artery disease, stable atherosclerotic heart disease, patent coronary ender nts and valvular heart disease. The patient has chronic cardiomyopathy, congestive heart failure and is being treated with parenteral Lasix in the setting of right heart failure and peripheral edema. The patient required an emergent orthopedic evaluation by Dr. Miguel Angel Cosme yesterday because o f pain in his right knee felt to be consistent with acute gouty arthritis. The patient underwent flu id drainage and an installation of cortisone and at present is able to ambulate with a walker. PHYSICAL EXAMINATION: VITAL SIGNS: He remains in an atrial fibrillation rhythm on the monitor. His temperature is 97.7, r espirations 18, pulse 67, and blood pressure 138/58. Pulse ox is 96% on room air. HEAD: Normocephalic, atraumatic. EYES: Show no icterus. EARS: Clear. THROAT: Noninjected. NECK: Supple. HEART: Irregular S1, S2. LUNGS: Clear. ABDOMEN: Obese, nontender, no palpable organomegaly, no rebound, no guarding, no tenderness. EXTREMITIES: Decreased edema. SKIN: Without rash or ulcer. VASCULAR: Legs warm to touch. PSYCHOLOGICAL: Alert. NEUROLOGIC: Intact. LABORATORY DATA: White count 16,200, hemoglobin 9, hematocrit 29.1, platelets 251,000. PT/INR 1.38. Sodium 140, K 4.4, chloride 101, bicarb 22, BUN 82, creatinine 2.1, random blood sugar 151. IMPRESSION: A 70-year-old male with atherosclerotic heart disease, chronic congestive heart failure, cardiomyopathy, aortic stenosis, mitral regurgitation, chronic renal failure stage IV, anemia of chr onic disease, history of degenerative arthritis, peripheral vascular disease, recurrent gout, atrial fibrillation on oral Coumadin, now with a subtherapeutic PT/INR, improving pedal edema, chronic hyper tension and now with a newly noted elevated white blood cell count in the absence of obvious fever or source of infection. PLAN: At present, as discussed with the patient, his family and nurse will be to obtain a blood and urine culture while awaiting his right knee fluid culture results as well. He is ordered to have a d ose of Coumadin 10 mg p.o. today and a repeat PT/INR in the a.m. He will have a basic metabolic pane l and a CBC in the a.m. I have ordered a consultation with Dr. Miguel Lopez from infectious disease [facility] because of newly noted elevated white blood cell count. He will be followed by Joe Cosme from orthopedics, Dr. Abiel Mcdonald from hematology regarding his anemia, Dr. Flores from cardiology, and will have physical therapy for ambulation safety. He remains on his a ntihypertensives including hydralazine, baby aspirin, colchicine 0.3 mg p.o. daily for an elevated ur ic acid level yesterday of 13.9, and painful right knee arthritis. He also continues on Coumadin wit h daily PT/INR, regular low dose insulin protocol a.c. meals and at bedtime, Imdur 60 mg p.o. daily, Lasix 80 mg IV t.i.d., metoprolol tartrate 25 mg p.o. b.i.d. He has an order for a heart healthy astrid al diabetic diet. He has orders for Ever bandages to both legs daily to remove at bedtime. Ultimate plan will be for discharge to home when medically stable. The patient and his family are aware of hi s multiple medical problems including cardiomyopathy, congestive heart failure, atherosclerotic heart disease, chronic renal failure stage IV, and anemia in the setting of peripheral vascular disease an d that dialysis will be in his future. They were apprised of all of the above and their need to foll ow up with the consultants as outlined. Meena Ling MD cc: [id number] TT: 06/30/2016 12:50:52 Confirmation # [id number] Dictation # [id number] [email or web address]
--- NOTE | 2016-06-30 20:24 | CP.PCM.CON ---
History of Present Illness - History of Present Illness History of Present Illness: Infectious Disease Consultation: June 30, 2016 70 yo male who presented with severe SOB on initial admission. The patient had elevation of WBC. Yesterday the patient had cardiac cath as well as aspiration of the right knee. Supportive care. Started on Rocephin for the time being. PMHx: hypertension, obesity, diabetes mellitus, hyperlipidemia, chronic renal insufficiency, atherosclerotic heart disease, chronic atrial fibrillation, degenerative arthritis PSHx: debridement of the foot. Social Hx: positive tobacco, and social EtOH use. No illicit drug use. Retired postal employee. Allergies: NKDA Active Medications Acetylcysteine (Acetylcysteine 20%) 3 ml PO BID [facility] Stop: 11/18/14 18:00 Amlodipine Besylate (Norvasc) 10 mg PO DAILY [facility] Last Admin: 11/14/14 11:38 Dose: 10 mg Atorvastatin Calcium (Lipitor) 10 mg PO DIN [facility] Hydralazine HCl (Apresoline) 50 mg PO TID [facility] Sodium Chloride (Sodium Chloride 0.45%) 1,000 mls @ 75 mls/hr IV .[id number] [facility] Last Admin: 11/14/14 11:39 Dose: 75 mls/hr Ampicillin Sodium/Sulbactam (Sodium 3 gm/ Sodium Chloride) 100 mls @ 200 mls/ hr IVPB Q6 [facility] Insulin Human Regular (Humulin R Low) 0 units SC ACHS [facility] PRN Reason: Protocol Last Admin: 11/14/14 12:44 Dose: Not Given Lisinopril (Zestril) 10 mg PO DAILY [facility] Last Admin: 11/14/14 11:38 Dose: 10 mg Mupirocin (Bactroban Ointment) 0 gm TOP BID [facility] Nicotine (Nicoderm Cq) 1 patch TD DAILY [facility] Family Hx: none given ROS: no fevers, chills, cough, nausea, vomiting, diarrhea, headaches, dizziness, chest pain, abdominal pain, loss of consciousness, vision loss, hearing loss, melena, hematuria, hematemesis, hematochezia, depression, or anxiety. Past Patient History - Infectious Disease Hx of Infectious Diseases: None - Tetanus Immunizations Tetanus Immunization: Unknown - Past Social History Smoking Status: Former Smoker - CARDIAC Hx Congestive Heart Failure: Yes Hx Hypertension: Yes - PULMONARY Hx Respiratory Disorders: Yes Other/Comment: smoker- 1PPD - NEUROLOGICAL Hx Neurological Disorder: Yes (SYNCOPE 08-20-12) Hx Dizziness: Yes - HEENT Hx HEENT Problems: Yes (LASER SURGERY /CATARACTS BILATERAL) Hx Deafness: No - RENAL Hx Chronic Kidney Disease: Yes - ENDOCRINE/METABOLIC Hx Diabetes Mellitus Type 2: Yes - HEMATOLOGICAL/ONCOLOGICAL Hx Blood Transfusions: No Hx Blood Transfusion Reaction: No - INTEGUMENTARY Hx Dermatological Problems: No - MUSCULOSKELETAL/RHEUMATOLOGICAL Hx Falls: No - GASTROINTESTINAL Hx Gastrointestinal Disorders: Yes (gerd) - GENITOURINARY/GYNECOLOGICAL Hx Genitourinary Disorders: (pt denies) - PSYCHIATRIC Hx Substance Use: No - SURGICAL HISTORY Hx Surgeries: Yes - ANESTHESIA Hx Anesthesia Reactions: No Hx Malignant Hyperthermia: No Meds Allergies/Adverse Reactions: Allergies Allergy/AdvReac Type Severity Reaction Status Date / Time No Known Allergies Allergy Verified 01/03/16 07:11 - Medications Medications: Current Medications Acetaminophen (Tylenol 325mg Tab) 650 mg PO Q6H PRN PRN Reason: Pain, severe (8-10) Last Admin: 06/29/16 09:07 Dose: 650 mg Aspirin (Aspirin Chewable) 81 mg PO DAILY [facility] Last Admin: 06/30/16 09:13 Dose: 81 mg Colchicine (Colocrys) 0.3 mg PO DAILY [facility] Furosemide (Lasix) 80 mg IVP TID [facility] Last Admin: 06/30/16 18:00 Dose: 80 mg Hydralazine HCl (Apresoline) 100 mg PO TID [facility] Last Admin: 06/30/16 17:58 Dose: 100 mg Insulin Human Regular (Humulin R Low) 0 units SC ACHS [facility] PRN Reason: Protocol Last Admin: 06/30/16 17:53 Dose: Not Given Isosorbide Mononitrate (Imdur) 60 mg PO DAILY [facility] Last Admin: 06/30/16 09:14 Dose: 60 mg Metoprolol Tartrate (Lopressor) 25 mg PO BRKDIN [facility] Last Admin: 06/30/16 17:58 Dose: 25 mg Warfarin Sodium (Coumadin) 6 mg PO 1800 [facility] PRN Reason: Protocol Last Admin: 06/29/16 17:16 Dose: 6 mg Physical Exam - Constitutional Appears: Non-toxic, No Acute Distress, Chronically Ill - Head Exam Head Exam: ATRAUMATIC, NORMOCEPHALIC - Eye Exam Eye Exam: EOMI, PERRL Pupil Exam: NORMAL ACCOMODATION, PERRL - ENT Exam ENT Exam: Mucous Membranes Moist, Normal External Ear Exam, TM's Normal Bilaterally - Neck Exam Neck exam: Positive for: Full Rom, Normal Inspection - Respiratory Exam Respiratory Exam: Clear to Auscultation Bilateral, NORMAL BREATHING PATTERN. absent: Rales, Rhonchi, Wheezes - Cardiovascular Exam Cardiovascular Exam: REGULAR RHYTHM, RRR, +S1, +S2 - GI/Abdominal Exam GI & Abdominal Exam: Normal Bowel Sounds, Soft. absent: Distended, Tenderness - Extremities Exam Extremities exam: Positive for: full ROM. Negative for: joint swelling, pedal edema - Neurological Exam Neurological exam: Alert, CN II-XII Intact, Oriented x3 - Psychiatric Exam Psychiatric exam: Normal Affect, Normal Mood - Skin Skin Exam: Intact, Normal Color Results - Vital Signs Recent Vital Signs: Last Vital Signs Temp 97.7 F 06/30/16 06:00 Pulse 61 06/30/16 18:00 Resp 18 06/30/16 06:00 BP 125/68 06/30/16 18:00 Pulse Ox 96 06/30/16 06:00 - Labs Result Diagrams: 06/30/16 06:30 06/30/16 07:00 Labs: Laboratory Results - last 24 hr 06/29/16 06/30/16 06/30/16 16:35 06:30 06:30 WBC 16.2 H D RBC 3.81 Hgb 9.0 L Hct 29.1 L MCV 76.4 L MCH 23.6 L MCHC 30.9 L RDW 18.5 H Plt Count 251 MPV 11.9 H PT 14.9 H INR 1.38 H Sodium Potassium Chloride Carbon Dioxide Anion Gap BUN Creatinine Est GFR ( Amer) Est GFR (Non-Af Amer) Random Glucose Calcium Fluid Type Synovial fluid Fluid Source Cancelled Fluid Appearance Cancelled Fluid WBC Cancelled Fluid RBC Cancelled Fluid Tot Cell Count Cancelled Fluid Neutrophils Cancelled Fluid Lymphocytes Cancelled Fld Monocyte/Macrophag Cancelled Fluid Comment Cancelled Synovial WBC 97094.0 H Synovial RBC 90274.0 H Synovial Neutrophils 94.3 H Synovial Lymphocytes 5.7 H Synov Monos/Macrophage Synovial Fluid Comment 06/30/16 07:00 WBC RBC Hgb Hct MCV MCH MCHC RDW Plt Count MPV PT INR Sodium 140 Potassium 4.4 Chloride 101 Carbon Dioxide 21 Anion Gap 22 H BUN 82 H Creatinine 2.1 H Est GFR ( Amer) 38 Est GFR (Non-Af Amer) 31 Random Glucose 151 H Calcium 8.8 Fluid Type Fluid Source Fluid Appearance Fluid WBC Fluid RBC Fluid Tot Cell Count Fluid Neutrophils Fluid Lymphocytes Fld Monocyte/Macrophag Fluid Comment Synovial WBC Synovial RBC Synovial Neutrophils Synovial Lymphocytes Synov Monos/Macrophage Synovial Fluid Comment Assessment & Plan - Assessment and Plan (Free Text) Assessment: 70 yo male with several procedures performed yesterday. The patient with leukocytosis up to 16.2 today. The elevation may be secondary to the procedures done that includes cardiac cath and aspiration of the right knee. The right knee aspiration is strongly suggestive of gout. Rocephin started empirically. The patient's active gout can also elevate the patient's WBC. Otherwise, the patient has no major complaints. He was initially admitted for Shortness of Breath. Thank you for allowing me to participate in the care of the patient, we will follow with you.
[2016-06-30] MEDS: Sodium Chloride 0.9% 1,000 ML IV SCH (23:40)
[2016-07-01 06:19] LABS: ADD MANUAL DIFF? NO
[2016-07-01 06:23] LABS: BASO # 0.01 K/mm3 (0.0-2.0); BASO % 0.1 % (0.0-3.0); EOS % 0.1 % (1.5-5.0); GRAN # 12.83 (1.4-6.5); GRAN % 89.1 % (50.0-68.0); HEMATOCRIT 27.2 % (42.0-52.0); LYMPH # 0.5 (1.2-3.4); LYMPH % 3.6 % (22.0-35.0); MEAN CELL VOLUME 75.6 fL (80.0-105.0); MEAN CORPUSCULAR HEMOGLOBIN 23.9 pg (25.0-35.0); MEAN CORPUSCULAR HGB CONC 31.6 g/dl (31.0-37.0); MEAN PLATELET VOLUME 11.8 fl (7.0-11.0); MONO % 7.1 % (1.0-6.0); PLATELET COUNT 261 10^3/uL (120.0-450.0); RED CELL DISTRIBUTION WIDTH 18.4 % (11.5-14.5); WHITE BLOOD COUNT 14.4 10^3/ul (4.5-11.0)
[2016-07-01 06:36] LABS: INR 1.24 (0.93-1.08)
[2016-07-01 06:58] LABS: CALCIUM 8.7 mg/dL (8.4-10.5); POTASSIUM 4.3 mmol/L (3.6-5.0)
[2016-07-01] MEDS: Insulin Reg-LOW-Coverage SC SCH ×4 (08:41→22:06)
--- NOTE | 2016-07-01 14:39 | PN ---
DATE: 07/01/2016 This 70-year-old male was examined at his bedside and his case was reviewed in detail with his nurse, Meena Stroud. The patient had an episode of dizziness last evening associated with atrial fibrillation and bradycardia. He was seen by the house doctor. No orders were adjusted and the patient states the vertigo is improved; however, on the director of cardiac cath lab, his pulse rate remains in the low to mid 40s. He was restarted on beta blockers by Dr. Chris after cardiac cath. The patient denies any active chest pain. I have spoken with Dr. Chris and he agrees with stopping Metoprolol given his symptomatic bradycardia status. PHYSICAL EXAMINATION: VITAL SIGNS: Temperature is afebrile, respirations are 16, pulse 42, blood pressure 125/68, pulse ox is 100%. HEAD: Normocephalic, atraumatic. EYES: No icterus. EARS: Clear. THROAT: Not injected. NECK: Supple. HEART: Irregular S1, S2. LUNGS: With no wheezing. ABDOMEN: Obese. EXTREMITIES: Decreased edema. SKIN: Without rash. NEUROLOGIC: Intact. PSYCHOLOGICAL: Alert and anxious. VASCULAR: Legs warm to touch. LABORATORY DATA: White count 14,400, previously 16,200, hemoglobin 8.6, hematocrit 27.2, platelets 261,000. PT/INR 1.24. Sodium 134, K 4.3, chloride 95, bicarb 22, BUN 103, creatinine 2.8. Estimated GFR 23 mL per minute. IMPRESSION: A 70-year-old male with multiple medical problems including congestive heart failure, cardiomyopathy, atherosclerotic heart disease, valvular heart disease, chronic hypertension, now with bradycardia, acute gout, subtherapeutic PT/INR on oral Coumadin, type 2 diabetes mellitus, leukocytosis, chronic hypertension, chronic renal failure stage IV, anemia, degenerative arthritis and obesity. PLAN: I have asked Nurse Meena Stroud to stop his Metoprolol given his symptomatic bradycardia. The patient will continue on hydralazine 100 mg p.o. t.i.d., Ecotrin 81 mg p.o. daily, colchicine 0.3 mg p.o. daily, dose reduced for his renal failure. He will receive Coumadin 15 mg p.o. x 1 dose today with an INR in the a.m. He continues on regular low dose insulin coverage before meals and at bedtime, Imdur 60 mg p.o. daily. His Lasix has been switched to p.o., 80 mg p.o. t.i.d. He continues on 1 gram of IV Rocephin daily. His microbiology reports showed blood cultures with no growth at 24 hours and synovial fluid with no growth at 48 hours and a urine culture is pending. Tomorrow morning, he will need a basic metabolic panel with CBC and INR and pending his clinical progress, discharge planning will be entertained. I did review all of the above with Dr. Chris who agrees the patient should remain hospitalized given his symptomatic bradycardia at present and risk of fall. Meena Ling MD cc: [id number] TT: 07/01/2016 14:38:55 Confirmation # [id number] Dictation # [id number] tn MTDD
--- NOTE | 2016-07-01 16:59 | CP.PCM.PN ---
Subjective - Date & Time of Evaluation Date of Evaluation: 07/01/16 Time of Evaluation: 15:15 - Subjective Subjective: Infectious Disease Follow Up: July 01, 2016 70 yo male who presented with severe SOB on initial admission. The patient had elevation of WBC. Yesterday the patient had cardiac cath as well as aspiration of the right knee. Supportive care. Started on Rocephin for the time being. Awaiting final cultures. Mild leukocytosis. Reported as still having symptomatic bradycardia. Objective - Vital Signs/Intake and Output Vital Signs (last 24 hours): Temp Pulse Resp BP Pulse Ox 98.6 F 44 L 18 136/82 100 06/30/16 16:00 07/01/16 05:55 06/30/16 16:00 07/01/16 09:14 06/30/16 16:00 Intake and Output: 07/01/16 07/01/16 06:59 18:59 Intake Total 540 840 Output Total 600 300 Balance -60 540 - Medications Medications: Current Medications Acetaminophen (Tylenol 325mg Tab) 650 mg PO Q6H PRN PRN Reason: Pain, severe (8-10) Last Admin: 06/30/16 20:19 Dose: 650 mg Aspirin (Aspirin Chewable) 81 mg PO DAILY [facility] Last Admin: 07/01/16 09:15 Dose: 81 mg Colchicine (Colocrys) 0.3 mg PO DAILY [facility] Last Admin: 07/01/16 09:16 Dose: 0.3 mg Furosemide (Lasix) 80 mg PO TID [facility] Last Admin: 07/01/16 14:33 Dose: Not Given Hydralazine HCl (Apresoline) 100 mg PO TID [facility] Last Admin: 07/01/16 14:32 Dose: Not Given Ceftriaxone Sodium (Rocephin 1 Gram Ivpb) 1 gm in 100 mls @ 100 mls/hr IVPB DAILY [facility] PRN Reason: Protocol Insulin Human Regular (Humulin R Low) 0 units SC ACHS [facility] PRN Reason: Protocol Last Admin: 07/01/16 12:35 Dose: 1 units Isosorbide Mononitrate (Imdur) 60 mg PO DAILY [facility] Last Admin: 07/01/16 09:16 Dose: 60 mg Warfarin Sodium (Coumadin) 6 mg PO 1800 [facility] PRN Reason: Protocol Last Admin: 06/29/16 17:16 Dose: 6 mg Warfarin Sodium (Coumadin) 15 mg PO 1800 [facility] PRN Reason: Protocol - Labs Labs: 07/01/16 06:00 07/01/16 06:00 PT 13.4 Seconds (9.9-11.8) H 07/01/16 06:00 INR 1.24 (0.93-1.08) H 07/01/16 06:00 APTT 43.6 Seconds (23.7-30.8) H 06/27/16 02:55 - Constitutional Appears: Non-toxic, No Acute Distress, Chronically Ill - Head Exam Head Exam: ATRAUMATIC, NORMOCEPHALIC - Eye Exam Eye Exam: EOMI, PERRL Pupil Exam: NORMAL ACCOMODATION, PERRL - ENT Exam ENT Exam: Mucous Membranes Moist, Normal External Ear Exam, TM's Normal Bilaterally - Neck Exam Neck Exam: Full ROM, Normal Inspection - Respiratory Exam Respiratory Exam: Clear to Ausculation Bilateral, NORMAL BREATHING PATTERN. absent: Rales, Rhonchi, Wheezes - Cardiovascular Exam Cardiovascular Exam: Bradycardia, +S1, +S2 - GI/Abdominal Exam GI & Abdominal Exam: Soft, Normal Bowel Sounds. absent: Distended, Tenderness - Extremities Exam Extremities Exam: Full ROM, Normal Inspection - Neurological Exam Neurological Exam: Alert, Awake, CN II-XII Intact, Oriented x3 - Psychiatric Exam Psychiatric exam: Normal Affect, Normal Mood - Skin Skin Exam: Intact, Normal Color Assessment and Plan - Assessment and Plan (Free Text) Assessment: 70 yo male with several procedures performed two days ago as well as active gout. The patient with leukocytosis up to 14.0 today compared to 16.2 yesterday. The elevation may be secondary to the procedures done that includes cardiac cath and aspiration of the right knee. The right knee aspiration is strongly suggestive of gout. Rocephin started empirically. The patient's active gout can also elevate the patient's WBC. Otherwise, the patient has no major complaints. He was initially admitted for Shortness of Breath. Still with symptomatic bradycardia. Thank you for allowing me to participate in the care of the patient, we will follow with you.
--- NOTE | 2016-07-01 18:38 | PN ---
DATE: 07/01/2016 SUBJECTIVE: The patient is seen sitting in bed on 3R. He had some lightheadedness last evening and was noted to have a marked bradycardia with a ventricular rate in the 30s. He feels somewhat better this morning. He denies any chest pain. His leg edema is improved. His right knee pain has also im proved following intra-articular injection. CURRENT MEDICATIONS: Include hydralazine 100 mg t.i.d., aspirin, colchicine, Coumadin, insulin cover age, Imdur 60 mg daily, Lasix 80 mg t.i.d., Rocephin, and metoprolol 25 mg b.i.d. OBJECTIVE: GENERAL: He is a middle-aged man who appears comfortable at rest. VITAL SIGNS: His blood pressure is 136/82 with a pulse of 46 in atrial fibrillation, respirations ar e 14. HEENT: No JVD. CHEST: A few scattered rhonchi heard. HEART: PMI displaced laterally with diminished tones noted. A systolic murmur is noted at the base radiating to the carotids as well as a systolic murmur at the lower left sternal border. ABDOMEN: Soft, nontender, normoactive bowel sounds. EXTREMITIES: Revealed mild cellulitic changes with 1+ ankle edema. DIAGNOSTIC DATA: Potassium 4.3, BUN and creatinine are 103 and 2.8. White count 14.4, hemoglobin an d hematocrit 8.6 and 27.2 with a MCV of 75, and platelet count is 261,000. IMPRESSION: 1. Recent decompensated congestive heart failure, clinically improved. 2. Coronary artery disease with patent stents noted at catheterization. 3. Mild aortic stenosis. 4. Pulmonary hypertension with mild to moderate tricuspid regurgitation and mild mitral regurgitatio n. 5. Chronic atrial fibrillation with a slow ventricular response due to excessive sensitivity to beta rola. 6. Chronic renal insufficiency, somewhat worsened possibly due to recent contrast exposure as well a s continued diuretic use. RECOMMENDATIONS: Metoprolol will be discontinued at this time. All negative chronotropic agents argenis l be avoided. Furosemide will be held for now and a repeat BMP ordered for the morning. Continued m edical therapy for his coronary and valvular heart disease is advised at this time. We will continue to follow and make further recommendations as appropriate. Kishor Chris MD cc: [id number] TT: 07/01/2016 18:37:41 Confirmation # [id number] Dictation # [id number] cn
[2016-07-02 08:06] LABS: HEMATOCRIT 28.3 % (42.0-52.0); MEAN CELL VOLUME 75.3 fL (80.0-105.0); MEAN CORPUSCULAR HEMOGLOBIN 23.7 pg (25.0-35.0); MEAN CORPUSCULAR HGB CONC 31.4 g/dl (31.0-37.0); MEAN PLATELET VOLUME 11.7 fl (7.0-11.0); RED CELL DISTRIBUTION WIDTH 18.6 % (11.5-14.5); WHITE BLOOD COUNT 10.1 10^3/ul (4.5-11.0)
[2016-07-02 08:09] LABS: INR 1.23 (0.93-1.08)
[2016-07-02] MEDS: Insulin Reg-LOW-Coverage SC SCH ×4 (08:22→21:59)
[2016-07-02 08:35] LABS: CALCIUM 8.3 mg/dL (8.4-10.5); POTASSIUM 4.3 mmol/L (3.6-5.0)
[2016-07-02] MEDS: cefTRIAXone 1 gm 1 GM/100 ML BAG IVPB SCH (09:55)
--- NOTE | 2016-07-02 12:07 | PN ---
DATE: 07/02/2016 SUBJECTIVE: The patient is seen sitting in a chair on remote telemetry. He is feeling better. He i s anxious to go home. His knee pain is improved. He has had no recurrent lightheadedness. He remai ns bradycardiac. His BUN and creatinine had risen yesterday and his Lasix was placed on hold. CURRENT MEDICATIONS: Include hydralazine 100 mg t.i.d., aspirin, colchicine, Coumadin, insulin cover age, Imdur 60 mg daily, Lasix was 80 mg t.i.d., but placed on hold, Rocephin and Tylenol. OBJECTIVE: GENERAL: He is a middle-aged man who appears comfortable at rest. VITAL SIGNS: His blood pressure is 160/70 with a pulse of 46 in atrial fibrillation, respirations ar e 16. He is afebrile. HEENT: No JVD. CHEST: A few scattered rhonchi were heard. No rales noted. HEART: PMI displaced laterally with diminished heart tones and a systolic murmur at the base radiati ng to the carotids as well as a systolic murmur over the lower left sternal border. ABDOMEN: Soft, nontender with normoactive bowel sounds. EXTREMITIES: 1+ ankle edema. DIAGNOSTIC DATA: Potassium 4.3, BUN and creatinine are 117 and 2.7, white count is 10.1, hemoglobin and hematocrit 8.9 and 28.7 with platelet count of 283,000. IMPRESSION: 1. Recent decompensated congestive heart failure, acute on chronic, predominantly systolic, clinical ly improved at present. 2. Coronary artery disease with patent coronary stents. 3. Mild aortic stenosis. 4. Pulmonary hypertension with mild to moderate tricuspid regurgitation. 5. Chronic atrial fibrillation with slow ventricular response. 6. Chronic renal insufficiency, mildly worsened after recent intensified diuretic therapy and contra st exposure. RECOMMENDATIONS: His current cardiac medications should continue and negative chronotropic agents wi ll be withheld. Compression stocking use was advised. Sodium restriction should continue. Resumpti on of diuretic therapy once his renal function has plateaued would be appropriate. From a cardiac st andpoint, he appears stable for discharge home and close outpatient followup will be arranged. Kishor Chris MD cc: [id number] TT: 07/02/2016 12:07:10 Confirmation # [id number] Dictation # [id number] tn
[2016-07-02] MEDS ORDERED: Oxycodone/Acetaminophen 5/325 mg Tab PO PRN (12:29)
--- NOTE | 2016-07-02 12:45 | PN ---
DATE: 07/02/2016 This 70-year-old male was examined at his bedside. His case was reviewed with his 2 daughters, Chiquis and Gisella, who were at the bedside as well. I have also reviewed this case in detail with Dr. Kishor Chris from cardiology. At present, the patient has had his metoprolol discontinued in the setting of symptomatic bradycardia. The patient also is growing gram-negative zoe in his urine culture, sensitivity and identification to follow. This is of concern since he had a fever and elevated white count post-cardiac catheterization and is now on IV Rocephin under the direction of Dr. Miguel Lopez from infectious disease. His PT/INR remains subtherapeutic after his Coumadin was reversed with vitamin K and the patient is now receiving daily dosing of Coumadin with daily INR levels. The patient denied any chest pain, shortness of breath and is now being followed by Dr. Abiel Mcdonald from hematology because of anemia in the setting of advanced renal insufficiency. highway design engineer shows chronic atrial fibrillation. PHYSICAL EXAMINATION VITAL SIGNS: Pulse rate is 45. Temperature 97.5, respirations 17, blood pressure 165/71 with a pulse ox of 99% on room air. HEAD: Normocephalic, atraumatic. EYES: No icterus. EARS: Clear. THROAT: Noninjected. NECK: Supple. HEART: Irregular S1, S2. LUNGS: Clear. ABDOMEN: Obese. EXTREMITIES: No edema. SKIN: Without rash. NEUROLOGIC: Intact. PSYCHOLOGICAL: Alert and anxious. VASCULAR: Feet warm to touch. LABORATORY DATA: PT/INR 1.23. White count 10,100, hemoglobin 8.9, hematocrit 28.3, platelets 283,000. Sodium 135, K 4.3, chloride 98, bicarbonate 20, BUN 117, creatinine 2.7, random blood sugar is 111, estimated GFR is 24 mL per minute. IMPRESSION: A 70-year-old male with atherosclerotic heart disease, status post coronary catheterization which revealed patent coronary stents, cardiomyopathy, medical coronary artery disease, valvular heart disease including mitral regurgitation, tricuspid regurgitation and aortic stenosis with comorbidities of chronic renal failure stage IV, anemia of chronic disease, acute gouty arthritis, chronic atrial fibrillation with a subtherapeutic INR at present, type 2 diabetes mellitus, chronic hypertension, urinary tract infection, anxiety neurosis, obesity. PLAN: At present is to continue hydralazine 100 mg p.o. t.i.d., colchicine 0.3 mg p.o. daily for an additional 24 hours. He will receive Coumadin 15 mg p.o. tonight with a PT/INR level for the morning. He continues on insulin coverage a.c. meals and at bedtime, Imdur 60 mg p.o. daily, Lasix 80 mg p.o. t.i.d is presently on hold. and Rocephin 1 gram IV q. 24 pending urine C and S ID and sensitivity. He continues on a heart healthy renal diabetic diet. As discussed with Dr. Chris from cardiology, we will lower his Lasix to 80 mg b.i.d.when resumed given his recent bump in the BUN consistent with prerenal azotemia and as discussed with his 2 daughters we will repeat his basic metabolic panel, INR in a.m. and once sensitivities are revealed for his urinary infection, we will switch him to oral antibiotics and hopefully discharge to home. The patient and daughters are aware that they will need to closely follow up with cardiology and hematology has outpatient as well given his anemia and cardiomyopathy and that dialysis is in his future. Meena Ling MD cc: [phone] TT: 07/02/2016 12:44:39 Confirmation # [id number] Dictation # [id number] jn MTDD
[2016-07-02] MEDS: Oxycodone/Acetaminophen 5/325 mg Tab PO PRN (12:58)
--- NOTE | 2016-07-02 16:45 | CP.PCM.PN ---
Subjective - Date & Time of Evaluation Date of Evaluation: 07/02/16 Time of Evaluation: 16:00 - Subjective Subjective: Infectious Disease Follow Up: July 02, 2016 70 yo male who presented with severe SOB on initial admission. The patient had elevation of WBC. Yesterday the patient had cardiac cath as well as aspiration of the right knee. Supportive care. Started on Rocephin for the time being. Awaiting final cultures. Mild leukocytosis. Reported as still having symptomatic bradycardia. The patient's urine cultures are showing gram negative rods > 100,000 CFU/ml. The patient is denying complaints. Objective - Vital Signs/Intake and Output Vital Signs (last 24 hours): Temp Pulse Resp BP Pulse Ox 97.8 F 53 L 18 144/66 98 07/02/16 16:06 07/02/16 16:06 07/02/16 16:06 07/02/16 16:06 07/02/16 16:06 Intake and Output: 07/02/16 07/02/16 06:59 18:59 Intake Total 540 840 Output Total 600 Balance -60 840 - Medications Medications: Current Medications Acetaminophen (Tylenol 325mg Tab) 650 mg PO Q6H PRN PRN Reason: Pain, severe (8-10) Last Admin: 07/01/16 17:00 Dose: 650 mg Colchicine (Colocrys) 0.3 mg PO DAILY [facility] Last Admin: 07/02/16 09:56 Dose: 0.3 mg Furosemide (Lasix) 80 mg PO BID [facility] Hydralazine HCl (Apresoline) 100 mg PO TID [facility] Last Admin: 07/02/16 13:00 Dose: 100 mg Ceftriaxone Sodium (Rocephin 1 Gram Ivpb) 1 gm in 100 mls @ 100 mls/hr IVPB DAILY [facility] PRN Reason: Protocol Last Admin: 07/02/16 09:55 Dose: 100 mls/hr Insulin Human Regular (Humulin R Low) 0 units SC ACHS [facility] PRN Reason: Protocol Last Admin: 07/02/16 11:42 Dose: 3 units Isosorbide Mononitrate (Imdur) 60 mg PO DAILY [facility] Last Admin: 07/02/16 09:55 Dose: 60 mg Oxycodone/Acetaminophen (Percocet 5/325 Mg Tab) 1 tab PO Q12H PRN PRN Reason: Pain, severe (8-10) Stop: 07/05/16 12:46 Last Admin: 07/02/16 12:58 Dose: 1 tab Warfarin Sodium (Coumadin) 15 mg PO 1800 [facility] PRN Reason: Protocol Last Admin: 07/01/16 17:00 Dose: 15 mg - Labs Labs: 07/02/16 07:00 07/02/16 07:00 PT 13.3 Seconds (9.9-11.8) H 07/02/16 07:00 INR 1.23 (0.93-1.08) H 07/02/16 07:00 APTT 43.6 Seconds (23.7-30.8) H 06/27/16 02:55 - Constitutional Appears: Non-toxic, No Acute Distress, Chronically Ill - Head Exam Head Exam: ATRAUMATIC, NORMOCEPHALIC - Eye Exam Eye Exam: EOMI, PERRL Pupil Exam: NORMAL ACCOMODATION, PERRL - ENT Exam ENT Exam: Mucous Membranes Moist, Normal External Ear Exam, TM's Normal Bilaterally - Neck Exam Neck Exam: Full ROM, Normal Inspection - Respiratory Exam Respiratory Exam: Clear to Ausculation Bilateral, NORMAL BREATHING PATTERN. absent: Rales, Rhonchi, Wheezes - Cardiovascular Exam Cardiovascular Exam: Bradycardia, RRR, +S1, +S2 - GI/Abdominal Exam GI & Abdominal Exam: Soft, Normal Bowel Sounds. absent: Distended, Tenderness - Extremities Exam Extremities Exam: Full ROM, Normal Inspection - Neurological Exam Neurological Exam: Alert, Awake, CN II-XII Intact, Oriented x3 - Psychiatric Exam Psychiatric exam: Normal Affect, Normal Mood - Skin Skin Exam: Intact, Normal Color Assessment and Plan - Assessment and Plan (Free Text) Assessment: 70 yo male with several procedures performed two days ago as well as active gout. The patient with leukocytosis up to 14.0 today compared to 16.2 yesterday. The elevation may be secondary to the procedures done that includes cardiac cath and aspiration of the right knee. The right knee aspiration is strongly suggestive of gout. Rocephin started empirically. The patient's active gout can also elevate the patient's WBC. Otherwise, the patient has no major complaints. He was initially admitted for Shortness of Breath. Still with symptomatic bradycardia. Patient urine cultures today showed gram negative rods. Patient remains on Rocephin for antibiotic treatment. Awaiting final identification... usual length of treatment for uncomplicated UTI is 3-5 days. Thank you for allowing me to participate in the care of the patient, we will follow with you.
[2016-07-03 00:18] VITALS: RESP 20; O2SAT 99
[2016-07-03] MEDS: Oxycodone/Acetaminophen 5/325 mg Tab PO PRN ×2 (01:03→11:44)
[2016-07-03 07:38] LABS: INR 1.39 (0.93-1.08)
[2016-07-03 07:44] LABS: CALCIUM 8.3 mg/dL (8.4-10.5); POTASSIUM 4.3 mmol/L (3.6-5.0)
[2016-07-03] MEDS: Insulin Reg-LOW-Coverage SC SCH ×2 (07:54→12:08)
[2016-07-03 08:55] VITALS: BP 163/73; PULSE 61; TEMP 97.2
--- NOTE | 2016-07-03 09:07 | PN ---
DATE: 07/03/2016 SUBJECTIVE: The patient is seen lying in bed, on remote telemetry. He is comfortable at the present time. He has had no further lightheadedness. Morning labs are pending. His heart rate ranges from 45-65, in atrial fibrillation. Overall, he feels well except for his gouty pain. CURRENT MEDICATIONS: Remain hydralazine 100 mg t.i.d., colchicine 0.3 mg daily, Coumadin, insulin, I mdur 60 mg daily, Rocephin and Percocet. Lasix remains on hold. OBJECTIVE: GENERAL: He is an overweight, middle-aged man. VITAL SIGNS: His blood pressure is 168/70 with a pulse of 60, in atrial fibrillation, respirations a re 14. He is afebrile. HEENT: No JVD. CHEST: Clear to auscultation and percussion. HEART: PMI displaced laterally with a systolic murmur at the base as well as the lower left sternal border. ABDOMEN: Soft, obese, nontender with normoactive bowel sounds. EXTREMITIES: Revealed trace ankle edema. DIAGNOSTIC DATA: Morning blood work pending. IMPRESSION: 1. Recent decompensated congestive heart failure, acute on chronic, predominantly systolic. Appears clinically improved at present and euvolemic. 2. Coronary artery disease with patent coronary stents. 3. Mild aortic stenosis. 4. Chronic atrial fibrillation with a slow ventricular response, likely has intrinsic conduction sys tem disease. 5. Pulmonary hypertension. 6. Chronic renal insufficiency, worsened following contrast exposure and continued diuretic use. RECOMMENDATIONS: 1. His current cardiac medications should be continued. Chronotropic agents should be avoided. Out patient monitoring of his renal function is advised. As he appears euvolemic, I would advise withhol ding diuretic therapy for at least 1-2 days and monitoring renal function. 2. Continued sodium and fluid restriction was advised. Increased activity as able is recommended as well. Close outpatient followup will be arranged. From a cardiac standpoint, he appears stable for discharge home today. Kishor Chris MD cc: [phone] TT: 07/03/2016 09:07:04 Confirmation # [id number] Dictation # [id number]
[2016-07-03] MEDS: cefTRIAXone 1 gm 1 GM/100 ML BAG IVPB SCH (10:06)
--- NOTE | 2016-07-03 14:15 | CP.PCM.PN ---
Subjective - Date & Time of Evaluation Date of Evaluation: 07/03/16 Time of Evaluation: 11:55 - Subjective Subjective: Infectious Disease Follow Up: July 03, 2016 70 yo male who presented with severe SOB on initial admission. The patient had elevation of WBC. Yesterday the patient had cardiac cath as well as aspiration of the right knee. Supportive care. Started on Rocephin for the time being. Awaiting final cultures. Mild leukocytosis. Reported as still having symptomatic bradycardia. The patient's urine cultures are showing gram negative rods > 100,000 CFU/ml identified as Proteus sensitive to Ceftriaxone. The patient is denying complaints. Objective - Vital Signs/Intake and Output Vital Signs (last 24 hours): Temp Pulse Resp BP Pulse Ox 97.2 F L 61 20 163/73 H 99 07/03/16 06:00 07/03/16 10:07 07/03/16 06:00 07/03/16 10:07 07/03/16 06:00 Intake and Output: 07/03/16 07/03/16 06:59 18:59 Intake Total 300 Output Total 800 Balance -500 - Labs Labs: 07/02/16 07:00 07/03/16 07:00 PT 15.0 Seconds (9.9-11.8) H 07/03/16 07:00 INR 1.39 (0.93-1.08) H 07/03/16 07:00 APTT 43.6 Seconds (23.7-30.8) H 06/27/16 02:55 - Constitutional Appears: Non-toxic, No Acute Distress, Chronically Ill - Head Exam Head Exam: ATRAUMATIC, NORMOCEPHALIC - Eye Exam Eye Exam: EOMI, PERRL Pupil Exam: NORMAL ACCOMODATION, PERRL - ENT Exam ENT Exam: Mucous Membranes Moist, Normal External Ear Exam, TM's Normal Bilaterally - Neck Exam Neck Exam: Full ROM, Normal Inspection - Respiratory Exam Respiratory Exam: Clear to Ausculation Bilateral, NORMAL BREATHING PATTERN. absent: Rales, Rhonchi, Wheezes - Cardiovascular Exam Cardiovascular Exam: Bradycardia, REGULAR RHYTHM, RRR, +S1, +S2 - GI/Abdominal Exam GI & Abdominal Exam: Soft, Normal Bowel Sounds. absent: Distended, Tenderness - Extremities Exam Extremities Exam: Full ROM, Normal Inspection - Neurological Exam Neurological Exam: Alert, Awake, CN II-XII Intact, Oriented x3 - Psychiatric Exam Psychiatric exam: Normal Affect, Normal Mood - Skin Skin Exam: Intact, Normal Color Assessment and Plan - Assessment and Plan (Free Text) Assessment: 70 yo male with several procedures performed two days ago as well as active gout. The patient with leukocytosis up to 14.0 today compared to 16.2 yesterday. The elevation may be secondary to the procedures done that includes cardiac cath and aspiration of the right knee. The right knee aspiration is strongly suggestive of gout. Rocephin started empirically. The patient's active gout can also elevate the patient's WBC. Otherwise, the patient has no major complaints. He was initially admitted for Shortness of Breath. Still with symptomatic bradycardia. Patient urine cultures today showed gram negative rods. Patient remains on Rocephin for antibiotic treatment. Awaiting final identification... usual length of treatment for uncomplicated UTI is 3-5 days. Identification of Proteus in urine culture that was sensitive to Ceftriaxone. He is on day 4 of Rocephin and would not need any further antibiotics on discharge. Thank you for allowing me to participate in the care of the patient, we will follow with you.
--- NOTE | 2016-07-03 18:25 | DS ---
FINAL DIAGNOSES: Congestive heart failure, improved; chronic cardiomyopathy; stable atherosclerotic heart disease; mitral regurgitation; aortic stenosis; tricuspid regurgitation; chronic hypertension; acute gouty arthritis; chronic atrial fibrillation on Coumadin; type 2 diabetes mellitus; chronic renal failure stage IV; urinary infection, anemia; obesity. DISPOSITION: Home. FOLLOWUP: With Dr. Abiel Mcdonald from hematology regarding chronic anemia. Follow up with Dr. Kishor Chris from cardiology. DISCHARGE DIET: Renal, 2 g sodium, 2 g potassium, 60 gram protein, 1200 mL p.o. fluid restriction daily. DISCHARGE MEDICATIONS: Keflex 500 mg p.o. b.i.d. #10, no refills, Imdur 60 mg p.o. daily, Lasix 80 mg p.o. b.i.d., Coumadin 12 mg p.o. daily x 3 days, then Coumadin 6 mg p.o. daily and hydralazine 100 mg p.o. t.i.d. SUMMARY: This is a 70-year-old male who was admitted to the [facility] with shortness of breath in the setting of decompensated congestive heart failure and concerns of unstable angina. The patient was treated with adjustment of cardiac medication, parenteral diuretics. He received cardiac catheterization, renal protocol with Mucomyst, IV Lasix, bicarbonate and mannitol and underwent cardiac catheterization that showed medical atherosclerotic heart disease. Medications were adjusted. The patient had a post-cardiac catheterization fever and leukocytosis that was evaluated by Dr. Miguel Lopez from infectious disease and felt to be consistent with gouty arthritis, and patient was also noted to have a urinary tract infection which at the time of discharge was Proteus mirabilis sensitive to cefazolin. This was discussed with Dr. Miguel Lopez, and the patient was given a prescription for Keflex 500 mg p.o. b.i.d. to complete an additional 5-day course and of note, the patient had received IV Rocephin while in the hospital for the past 5 days as well. The patient is also scheduled to follow up with Dr. Abiel Mcdonald from hematology regarding his anemia and further treatment options for the above including possible Procrit. At the time of discharge, temperature was 97.2, respirations 20, pulse 61 and blood pressure 163/73 with a pulse ox of 99% on room air. Discharge labs show white count 10,100, hemoglobin 8.9, hematocrit 28.3, platelets 283,000. PT/INR 1.39, sodium 136, K 4.3, chloride 102, bicarbonate 22 , BUN 116, creatinine 2.5, random blood sugar was 96. The patient had no monoclonal proteins noted on serum immunoelectrophoresis. He is ambulating independently. He will wear anti-embolism stockings and remove them at bedtime at home. All of the above has been reviewed in detail with the patient at his bedside as well as his nurse, Susie Coto, and the patient will be monitored closely as an outpatient in my office. As always, the patient has been told for any change in signs and symptoms to present directly to the [facility] ER. Overall prognosis remains stable at present. The patient and family are aware of all of his multiple comorbidities and that dialysis is in his future and that he may possibly need a permanent pacemaker given his episodes of bradycardia that will be treated with the discontinuation of all beta blockers, and of note, the patient can have no LUIS inhibitors given history of hyperkalemia with these drugs in the past as well. Patient was advised to schedule an outpatient urology follow up with Dr. Morales as well. Meena Ling MD cc: [phone] TT: 07/03/2016 18:24:41 mn [id number]
== END 2016-07-03 12:33 | disposition home or self-care (01) | DRG 286 ==
LOC: ED 02:05 → ERH 04:26 → CCU 07:34 → 3RNO 11:35 → 2RSO 06-29 08:37 → 3RNO 06-29 15:30
PROVIDERS: ADMIT Internal Medicine; ATTEND Internal Medicine
PROC: 4A023N7 Measurement of Cardiac Sampling and Pressure, Left Heart, Percutaneous Approach (ICD-10-PCS; principal; 2016-06-29)
PROC: B2051ZZ Plain Radiography of Left Heart using Low Osmolar Contrast (ICD-10-PCS; 2016-06-29)
PROC: B2011ZZ Plain Radiography of Multiple Coronary Arteries using Low Osmolar Contrast (ICD-10-PCS; 2016-06-29)
PROC: 0S9C3ZX Drainage of Right Knee Joint, Percutaneous Approach, Diagnostic (ICD-10-PCS; 2016-06-29)
DX: I13.0 Hypertensive heart and chronic kidney disease with heart failure and stage 1 through stage 4 chronic kidney disease, or unspecified chronic kidney disease (principal); I50.23 Acute on chronic systolic (congestive) heart failure; N18.4 Chronic kidney disease, stage 4 (severe); I42.9 Cardiomyopathy, unspecified; E11.51 Type 2 diabetes mellitus with diabetic peripheral angiopathy without gangrene; E11.22 Type 2 diabetes mellitus with diabetic chronic kidney disease; N39.0 Urinary tract infection, site not specified; I27.2 Other secondary pulmonary hypertension; I08.3 Combined rheumatic disorders of mitral, aortic and tricuspid valves; E11.69 Type 2 diabetes mellitus with other specified complication; I25.10 Atherosclerotic heart disease of native coronary artery without angina pectoris; I48.2 Chronic atrial fibrillation; M10.061 Idiopathic gout, right knee; E78.5 Hyperlipidemia, unspecified; F41.1 Generalized anxiety disorder; B96.4 Proteus (mirabilis) (morganii) as the cause of diseases classified elsewhere; D63.8 Anemia in other chronic diseases classified elsewhere; E66.9 Obesity, unspecified; M46.90 Unspecified inflammatory spondylopathy, site unspecified; Z68.36 Body mass index [BMI] 36.0-36.9, adult; Z95.5 Presence of coronary angioplasty implant and graft; Z87.891 Personal history of nicotine dependence

== ENCOUNTER 2016-07-14 12:18 | Inpatient (IN) | payer MEDICARE, OTHER ==
[2016-07-14 12:27] VITALS: BMI 36.3
[2016-07-14] MEDS ORDERED: Sodium Chloride 0.9% 1,000 ML IV STA (13:27)
--- NOTE | 2016-07-14 13:47 | ED PDOC ---
Arrival/HPI - General Chief Complaint: Dizziness/Lightheaded Time Seen by Provider: 07/14/16 12:42 Historian: Patient - History of Present Illness Narrative History of Present Illness (Text): 07/14/16 13:42 A 70 year old male, whose past medical history includes chronic kidney disease and anemia, presents to the emergency department complaining of nausea, lightheadedness and near-syncope prior to arrival. Patient reports his symptoms began after receiving an iron transfusion in his oncologist office. On evaluation, patient is asymptomatic and states his symptoms have spontaneously resolved. Patient denies any fever, chills, vomiting, abdominal pain, urinary symptoms, chest pain, shortness of breath, headache or any other complaints. PMD: Dr. Ling Time/Duration: Prior to Arrival Symptom Course: Resolved Quality: Other Context: Other Past Medical History - Provider Review Nursing Documentation Reviewed: Yes - Infectious Disease Hx of Infectious Diseases: None - Tetanus Immunization Tetanus Immunization: Unknown - Cardiac Hx Cardiac Disorders: Yes Hx Congestive Heart Failure: Yes Hx Hypertension: Yes - Pulmonary Hx Respiratory Disorders: No - Neurological Hx Neurological Disorder: Yes (SYNCOPE 08-20-12) Hx Dizziness: Yes - HEENT Hx HEENT Disorder: Yes (LASER SURGERY /CATARACTS BILATERAL) Hx Deafness: No - Renal Hx Renal Disorder: Yes - Endocrine/Metabolic Hx Endocrine Disorders: Yes Hx Diabetes Mellitus Type 2: Yes - Hematological/Oncological Hx Blood Disorders: Yes Hx Anemia: Yes Hx Blood Transfusions: No Hx Blood Transfusion Reaction: No - Integumentary Hx Dermatological Disorder: No - Musculoskeletal/Rheumatological Hx Musculoskeletal Disorders: No Hx Falls: No - Gastrointestinal Hx Gastrointestinal Disorders: Yes (gerd) - Genitourinary/Gynecological Hx Genitourinary Disorders: (pt denies) - Psychiatric Hx Psychophysiologic Disorder: No Hx Emotional Abuse: No Hx Physical Abuse: No Hx Substance Use: No - Surgical History Hx Cardiac Catheterization: Yes Hx Coronary Stent: Yes - Anesthesia Hx Anesthesia Reactions: No Hx Malignant Hyperthermia: No - Suicidal Assessment Feels Threatened In Home Enviroment: No Family/Social History - Physician Review Nursing Documentation Reviewed: Yes Family/Social History: No Known Family HX Smoking Status: Former Smoker Hx Alcohol Use: No Hx Substance Use: No Allergies/Home Meds Allergies/Adverse Reactions: Allergies No Known Allergies Allergy (Verified 07/14/16 12:26) Home Medications: Home Meds Medication Instructions Recorded Confirmed Warfarin Sodium [Jantoven] 6 mg PO DAILY 08/26/15 07/14/16 Furosemide [Lasix] 80 mg PO TID 06/27/16 07/14/16 Isosorbide Mononitrate [Imdur] 30 mg PO DAILY 07/03/16 07/14/16 Atorvastatin [Lipitor] 10 mg PO DAILY 07/14/16 07/14/16 Physical Exam - Physical Exam Narrative Physical Exam (Text): - Review of Systems Constitutional: Normal. absent: Fatigue, Weight Change, Fevers Eyes: Normal ENT: Normal Respiratory: Normal absent: SOB, Cough, Sputum Cardiovascular: (+) Near Syncope absent: Chest pain, Palpitations Gastrointestinal: (+) Nausea absent: Abdominal pain, Diarrhea, Vomiting Genitourinary: Normal. absent: Dysuria, Frequency, Hematuria Musculoskeletal: Normal. absent: Arthralgias, Back Pain, Neck Pain Skin: Normal Neurological: (+) Lightheadedness absent: Focal Weakness Endocrine: Normal Hemo/Lymphatic: Normal Psychiatric: Normal - Physical exam Patient appears age appropriate, speaking full sentences without difficulty - Systems Exam Head: Present: Atraumatic, Normocephalic Pupils: Present: PERRL Extraocular Muscles: Present: EOMI Conjunctiva: Present: Normal Mouth: Present: Moist Mucous Membranes Neck: Present: Normal Range of Motion. No: MIDLINE TENDERNESS, Paraspinal Tenderness Respiratory/Chest: Present: Clear to Auscultation, Good Air Exchange. No: Respiratory Distress, Accessory Muscle Use, Tachypnic Cardiovascular: Present: Regular Rate and Rhythm, Normal S1, S2, Peripheral Pulses Present. No: Murmurs Abdomen: Present: Normal Bowel Sounds, No: Tenderness, Peritoneal Signs, Rebound, Guarding, Distention Back: Present: Normal Inspection. No: Midline Tenderness, Paraspinal Tenderness Upper Extremity: Present: Normal Inspection. No: Cyanosis, Edema Lower Extremity: Present: Normal Inspection. No: Edema Neurological: Present: GCS=15, Speech Normal, cranial nerves II through XII fully intact with no cerebellar abnormality, neuro-sensory fully intact. No focal neurological deficits. Skin: Present: Warm, Dry, Normal Color. No: Rashes Lymphatic: Present: OX3, NI, NC Psychiatric: Present: Alert, Oriented x 3, Normal Insight, Normal Concentration Vital Signs Reviewed: Yes Vital Signs Temp Pulse Resp BP Pulse Ox 07/14/16 14:35 55 L 16 147/60 98 07/14/16 12:50 58 L 18 134/60 98 07/14/16 12:27 98.8 F 56 L 16 146/72 98 Temperature: Afebrile Blood Pressure: Normal Pulse: Bradycardic Respiratory Rate: Normal Appearance: Positive for: Well-Appearing, Non-Toxic, Comfortable Pain Distress: None Mental Status: Positive for: Alert and Oriented X 3 Finger Stick Blood Glucose: 128 Medical Decision Making ED Course and Treatment: 07/14/16 13:42 Impression: A 70 year old male with nausea, lightheadedness and near syncope after iron transfusion. On evaluation, patient feels better and states his symptoms have spontaneously resolved. Physical exam unremarkable. Differential Diagnosis included but are not limited to: Anemia vs. Dehydration vs. Near syncope Plan: -- Head CT -- Chest xray -- Labs -- Urinalysis -- IV fluids -- Reassess and disposition Progress Notes: EKG shows irregular bradycardia atrial fibrillation at [address]- segment elevations, normal intervals. Interpreted by me. Report Date : 07/14/2016 14:48:09 PROCEDURE: CT HEAD WITHOUT CONTRAST. Dictator : Nickolas Abdalla MD IMPRESSION: No intracranial mass, hemorrhage or evidence of acute infarct. 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 Old right basal ganglia lacunar infarct. 07/14/16 16:[address] Moss, pt's web production designer, recommends obs in the hospital pt aware of and agrees with plan awaiting callback from Dr. Ling 07/14/16 16:[address] Ling, asked to remote/tele obs under her service pt asymptomatic at this time - Lab Interpretations Lab Results: 07/14/16 13:50 07/14/16 13:50 Lab Results 07/14/16 15:30: Urine Color Light yellow, Urine Appearance Clear, Urine pH 6.0, Ur Specific [place] 1.015, Urine Protein Trace H, Urine Glucose (UA) Negative, Urine Ketones Negative, Urine Blood Negative, Urine Nitrate Negative, Urine Bilirubin Negative, Urine Urobilinogen 0.2, Ur Leukocyte Esterase Negative, Urine RBC 0 - 2, Urine WBC 0 - 2, Ur Epithelial Cells 0 - 2, Urine Bacteria Trace 07/14/16 13:50: PT 27.2 H, INR 2.52 H, APTT 44.6 H 07/14/16 13:50: Sodium 137, Potassium 4.7, Chloride 100, Carbon Dioxide 25, Anion Gap 17, BUN 77 H, Creatinine 2.4 H, Est GFR ( Amer) 33, Est GFR ( Non-Af Amer) 27, Random Glucose 115 H, Calcium 8.7, Total Bilirubin 0.6, AST 26 , ALT 29, Alkaline Phosphatase 77, Lactate Dehydrogenase 597, Total Creatine Kinase 81, Troponin I 0.06 D, Total Protein 7.6, Albumin 3.9, Globulin 3.7, Albumin/Globulin Ratio 1.1 07/14/16 13:50: WBC 9.6, RBC 3.80, Hgb 9.1 L, Hct 29.1 L, MCV 76.6 L, MCH 23.9 L , MCHC 31.3, RDW 19.3 H, Plt Count 214, MPV 11.9 H, Gran % 82.5 H, Lymph % (Auto ) 5.6 L, [place] % (Auto) 8.3 H, Eos % (Auto) 3.3, Baso % (Auto) 0.3, Gran # 7.95 H , Lymph # 0.5 L, [place] # 0.8 H, Eos # 0.3, Baso # 0.03 07/14/16 12:49: POC Glucose (mg/dL) 128 H I have reviewed the lab results: Yes - RAD Interpretation Radiology Orders: 07/14/16 13:27 HEAD W/O CONTRAST [CT] Stat 07/14/16 13:29 CHEST PORTABLE [RAD] Stat [place] Waitress/Waiter: Radiologist - Medication Orders Current Medication Orders: Discontinued Medications Sodium Chloride (Sodium Chloride 0.9%) 1,000 mls @ 1,000 mls/hr IV .Q1H STA Stop: 07/14/16 14:26 Last Admin: 07/14/16 13:58 Dose: 1,000 mls/hr - Scribe Statement The provider has reviewed the documentation as recorded by the Laviniaibcalvin Castrejon Provider Scribe Attestation: All medical record entries made by the Scribe were at my direction and personally dictated by me. I have reviewed the chart and agree that the record accurately reflects my personal performance of the history, physical exam, medical decision making, and the department course for this patient. I have also personally directed, reviewed, and agree with the discharge instructions and disposition. Disposition/Present on Arrival - Present on Arrival Any Indicators Present on Arrival: No History of DVT/PE: No History of Uncontrolled Diabetes: No Urinary Catheter: No History of Decub. Ulcer: No History Surgical Site Infection Following: None - Disposition Have Diagnosis and Disposition been Completed?: Yes Diagnosis: Near syncope Disposition: HOSPITALIZED Disposition Time: 16:12 Patient Plan: Observation Patient Problems: Current Active Problems Problem Status Onset Near syncope Acute Condition: FAIR Referrals: Meena Ling MD [Primary Care Provider] - Follow up with primary
[2016-07-14 14:07] LABS: ADD MANUAL DIFF? NO
[2016-07-14 14:12] LABS: BASO # 0.03 K/mm3 (0.0-2.0); BASO % 0.3 % (0.0-3.0); EOS # 0.3 (0.0-0.7); EOS % 3.3 % (1.5-5.0); GRAN # 7.95 (1.4-6.5); GRAN % 82.5 % (50.0-68.0); HEMATOCRIT 29.1 % (42.0-52.0); LYMPH # 0.5 (1.2-3.4); LYMPH % 5.6 % (22.0-35.0); MEAN CELL VOLUME 76.6 fL (80.0-105.0); MEAN CORPUSCULAR HEMOGLOBIN 23.9 pg (25.0-35.0); MEAN CORPUSCULAR HGB CONC 31.3 g/dl (31.0-37.0); MEAN PLATELET VOLUME 11.9 fl (7.0-11.0); MONO # 0.8 (0.1-0.6); MONO % 8.3 % (1.0-6.0); PLATELET COUNT 214 10^3/uL (120.0-450.0); RED CELL DISTRIBUTION WIDTH 19.3 % (11.5-14.5); WHITE BLOOD COUNT 9.6 10^3/ul (4.5-11.0)
[2016-07-14 14:21] LABS: ALB/GLOB RATIO 1.1 (1.1-1.8); BILIRUBIN,TOTAL 0.6 mg/dL (0.2-1.3); CALCIUM 8.7 mg/dL (8.4-10.5); POTASSIUM 4.7 mmol/L (3.6-5.0); TOTAL PROTEIN 7.6 g/dL (5.8-8.3)
[2016-07-14 14:33] LABS: TROPONIN I 0.06 ng/mL
--- NOTE | 2016-07-14 14:49 | CT ---
PROCEDURE: CT HEAD WITHOUT CONTRAST. HISTORY: near syncope COMPARISON: None available. TECHNIQUE: Axial computed tomography images were obtained through the head/brain without intravenous contrast. Radiation dose: Total exam DLP = 677.45 mGy-cm. This CT exam was performed using one or more of the following dose reduction techniques: Automated exposure control, adjustment of the mA and/or kV according to patient size, and/or use of iterative reconstruction technique. FINDINGS: HEMORRHAGE: No intracranial hemorrhage. BRAIN: No mass effect or edema. Mild diffuse age-appropriate cerebral atrophy. 2 old pontine lacunar infarcts, 1 right parasagittal 1 parasagittal. Old right basal ganglia lacune. No evidence of acute infarct. VENTRICLES: Unremarkable. No hydrocephalus. CALVARIUM: Unremarkable. PARANASAL SINUSES: Unremarkable as visualized. No significant inflammatory changes. MASTOID AIR CELLS: Unremarkable as visualized. No inflammatory changes. OTHER FINDINGS: None. IMPRESSION: No intracranial mass, hemorrhage or evidence of acute infarct. 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 Old right basal ganglia lacunar infarct.
[2016-07-14 15:05] LABS: INR 2.52 (0.93-1.08); PARTIAL THROMBOPLASTIN TIME 44.6 Seconds (23.7-30.8)
--- NOTE | 2016-07-14 15:34 | RAD ---
HISTORY: cough COMPARISON: 06/27/2016 FINDINGS: LUNGS: No active pulmonary disease. PLEURA: No significant pleural effusion identified, no pneumothorax apparent. CARDIOVASCULAR: Normal. OSSEOUS STRUCTURES: No significant abnormalities. VISUALIZED UPPER ABDOMEN: Normal. OTHER FINDINGS: None. IMPRESSION: No active disease.
[2016-07-14 16:02] LABS: URINE BILIRUBIN NEGATIVE (NEGATIVE); URINE BLOOD NEGATIVE (NEGATIVE); URINE GLUCOSE (UA) NEGATIVE (NEGATIVE); URINE KETONE NEGATIVE (NEGATIVE); URINE LEUKOCYTE ESTERASE NEGATIVE Leu/uL (NEGATIVE); URINE PROTEIN TRACE mg/dL (<30 mg/dL); URINE UROBILINOGEN 0.2 E.U./dL (<1 E.U./dL)
[2016-07-14 16:22] LABS: URINE APPEARANCE CLEAR (CLEAR); URINE COLOR LIGHT YELLOW (YELLOW)
[2016-07-14 16:23] LABS: URINE BACTERIA TRACE (NEG); URINE EPITHELIAL CELLS 0 - 2 /hpf (0-5); URINE RBC 0 - 2 /hpf (0-2); URINE WBC 0 - 2 /hpf (0-6)
[2016-07-14] MEDS ORDERED: Nitroglycerin 2% Ointment Foilpak UD TOP PRN (22:01)
--- NOTE | 2016-07-15 00:25 | HP ---
HISTORY OF PRESENT ILLNESS: This 70-year-old male was examined in the presence of his daughter, Chiquis, after presenting to the [facility] for a near syncopal episode. He was in Dr. Abiel Mcdonald's medical office earlier today receiving a parenteral iron infusion for his anemia when he suddenly became nauseous, lightheaded and dizzy and had a near syncopal episode. The patient was given fluids, orange juice. He declined ambulance transport and was brought to the [facility] ER by his family for further evaluation where he is now being admitted to the cardiac unit for a near syncopal episode. PAST MEDICAL HISTORY: Extensive and includes atherosclerotic heart disease, cardiomyopathy, chronic atrial fibrillation on Coumadin, chronic renal failure stage IV, anemia of chronic disease, history of degenerative arthritis, obesity , gout and repeated refusals for any further evaluation of anemia including endoscopy or colonoscopy despite repeated advisement to do so. The patient's family members are aware of his refusals for a GI workup as well. The patient is status post cataract repair. He has a history of peripheral vascular disease of the legs. He is status post a right leg stent. He is closely monitored by his outside sales inspector as well. REVIEW OF SYSTEMS: HEAD: As per HPI. EYES: Bilateral cataract repair. EARS: No hearing loss. THROAT: No swallowing difficulty. NECK: No stiffness. CARDIAC: Atherosclerotic heart disease, chronic hypertension, chronic atrial fibrillation on oral Coumadin, cardiomyopathy, history of congestive heart failure and mitral valve regurgitation, as well as mild aortic stenosis. PULMONARY: No cough, no hemoptysis. GASTROINTESTINAL: No hematemesis, no melena. GENITOURINARY: No history of hematuria. Chronic renal failure stage 4. SKIN: Without rash. NEUROLOGICAL: No knowledge of stroke. VASCULAR: He has peripheral vascular disease. ENDOCRINE: Has diet controlled diabetes mellitus. HEMATOLOGICAL: Has chronic anemia, follows with Dr. Abiel Mcdonald from hematology. SOCIAL HISTORY: He is a former smoker, social drinker, non-IV drug misuser. He is a retired postman. ALLERGIES: No known allergies to medication. OUTPATIENT MEDICATIONS: Including Imdur, Lasix, Coumadin, and hydralazine. FAMILY HISTORY: Noncontributory. PHYSICAL EXAMINATION: VITAL SIGNS: Temperature 98.8, respirations 16, pulse 65, blood pressure 140/76 , pulse ox 99% on room air. HEENT: Normocephalic, atraumatic. Eyes show no icterus. Ears are clear. Throat not injected. NECK: Supple. HEART: Irregular S1, S2. No pathological rubs, murmurs, or gallops. LUNGS: Clear. ABDOMEN: Obese. EXTREMITIES: No pitting edema, no cyanosis, no clubbing. SKIN: Without rash. NEUROLOGICAL: Intact. PSYCHOLOGICAL: Alert. VASCULAR: Legs warm to touch. LABORATORY DATA: White count 9600, hemoglobin 9.1, hematocrit 29.1, platelets 214,000. PT/INR 2.52. Sodium 137, K 4.7, chloride 100, bicarbonate 25, BUN 77 , creatinine 2.4, random blood sugar 128. All liver function testing normal including bilirubin 0.6, AST 26, ALT 29, alkaline phosphatase 77. CPK normal 81 , troponin 0.06. Urinalysis: Trace protein, 0-2 rbc's. compliance monitor shows Atrial fibrillation, CT of the head: No acute infarct. EKG: Chronic atrial fibrillation with nonspecific ST-T wave changes. Chest x-ray: No active disease. IMPRESSION: A 70-year-old male with a near syncopal episode while receiving IV iron infusion in the outpatient office of Dr. Abiel Mcdonald from hematology, also with comorbidities of chronic hypertension, chronic renal failure stage IV, chronic anemia, atrial fibrillation on outpatient Coumadin with therapeutic level, stable atherosclerotic heart disease, history of cardiomyopathy, congestive heart failure, mitral regurgitation, aortic stenosis, degenerative arthritis, peripheral vascular disease and diet controlled diabetes mellitus. PLAN: Admit to the cardiac unit. Recent lipid panel was acceptable. There is a consultation with Dr. Fredi Moss from cardiology requested regarding his near syncope. He will continue on hydralazine 100 mg p.o. t.i.d., Coumadin 6 mg p.o. daily, Imdur 60 mg p.o. daily, Lasix 80 mg p.o. t.i.d., nitroglycerin topically to chest wall p.r.n. accelerated hypertension, Tylenol p.r.n. pain or fever. I have ordered a carotid ultrasound for completeness sake. He has had his diet changed to renal, diabetic, heart healthy. He will be monitored for fall precautions and has an order for physical therapy, ambulation safety and additional testing will be entertained based on his clinical progress and test results. All of this has been discussed in great detail with the patient and his daughter at the bedside. Overall prognosis, though stable, remains guarded at present. Meena Ling MD cc: [id number] TT: 07/15/2016 00:25:09 everette HIDALGO
--- NOTE | 2016-07-15 09:05 | CON ---
DATE: 07/15/2016 INDICATIONS: Near syncope. This is a 70-year-old man known to me with episode of severe nausea, dizziness, near syncope at Dr. Mcdonald's office where he was receiving IV iron therapy. He received 1 bag of iron infused and then began noticing a nausea, weakness, diaphoresis and feeling that he might pass out. He did not pass out, however, although he does not remember some aspects of the episode. He was given orange juice and fluids. He gradually felt better. He was brought by his family to the Emergency Room. At that time of his arrival, he felt normal. He underwent evaluation and was admitted to remote telemetry for observation. This morning, he feels well without any symptoms whatsoever. There was no chest pain, orthopnea, PND, fever, chills, cough, sputum production, hemoptysis, abdominal pain, diarrhea, constipation, melena. He did experience shortness of breath and nausea, but he did not vomit. PAST MEDICAL HISTORY: Complex. He has known coronary artery disease. He underwent LAD coronary intervention with drug-eluting stents in 2016. More recently, he underwent a cardiac catheterization, which demonstrated patent stents, diffuse coronary disease, moderate LV dysfunction and mild aortic stenosis. He has chronic atrial fibrillation, diabetes, hypertension, anemia, hyperlipidemia, obesity, peripheral vascular disease with peripheral vascular intervention, osteoarthritis, discogenic disease, carpal tunnel syndrome, Dupuytren's contracture. He is a former smoker. CT scan of the head demonstrates lacunar infarcts, but no new changes. MEDICATIONS: At the time of admission include hydralazine, Imdur, warfarin, Lasix and Lipitor. ALLERGIES: There are no medication allergies. SOCIAL HISTORY: He lives at home. He is ambulatory. He is a former smoker. He does not drink alcohol significantly. FAMILY HISTORY: Noncontributory. REVIEW OF SYSTEMS: A 10-point is otherwise unremarkable except as noted above. PHYSICAL EXAMINATION: GENERAL: He is a well-developed male, sitting on his bed on 3R, in no acute distress. VITAL SIGNS: Unremarkable. He is in atrial fibrillation, sometimes with heart rates in the 40s, but also in the 80s. He is afebrile. Blood pressure 166/74, respirations 20, O2 sat 97%. HEENT: Reveals no neck vein distention, thyromegaly, carotid bruit. Mucous membranes moist. Conjunctivae pink. NECK: Supple. LUNG VARGAS: Clear. HEART: Revealed an irregular rhythm, normal first and second heart sounds, systolic ejection murmur in the aortic space and along the left sternal border. PMI not palpable. ABDOMEN: Benign. Bowel sounds present. No mass, organomegaly, tenderness, rebound, guarding, CVA tenderness or palpable abdominal aortic aneurysm. EXTREMITIES: Revealed no cyanosis, clubbing, or edema. NEUROLOGIC: He is awake, alert and oriented. PSYCHIATRIC: Normal as to mood and affect. SKIN: Warm and dry. No rash or cellulitis. LABORATORY AND IMAGING: CT scan of the head reveals no intracranial mass, hemorrhage or acute infarct, old pontine lacunar infarcts, old right basal ganglia lacunar infarct. Portable chest x-ray reveals no active disease. EKG is not available at this time. I will track it down. White count normal, platelet count normal, hemoglobin 9.1, hematocrit 29.1. PT 27.2, INR 2.52, PTT 44.6. Electrolytes unremarkable. BUN 77, creatinine 2.4, blood sugar 128. LFTs unremarkable. CK normal. Troponin normal. Urinalysis noted. IMPRESSION: The patient is a 70-year-old man who experienced nausea, shortness of breath, near syncope episode just after receiving intravenous IV infusion at Dr. Mcdonald's office. His symptoms slowly subsided. In the hospital, he has demonstrated atrial fibrillation with slow to medium heart rates. He has a history of coronary artery disease, left anterior descending stents and mild aortic stenosis. At this time, I agree with current plans. He is on telemetry. He will be checked for postural vital signs. His blood sugars will be monitored. Carotid ultrasound has been ordered. I will order an echocardiogram to follow up on what has been mild aortic stenosis. I will check his EKG. We will continue current medications including hydralazine, warfarin, isosorbide, Lasix. He got IV fluids. He will be followed by Dr. Mcdonald. We will check stool for occult blood. I will follow along with you and make additional recommendations based on his clinical course. Fredi Moss MD cc: [id number] TT: 07/15/2016 09:05:06 Confirmation # [id number] Dictation # [id number] en MTDJoe
--- NOTE | 2016-07-15 11:16 | PN ---
DATE: 07/15/2016 This 70-year-old male was examined at his bedside in the presence of his daughter, Chiquis, and his other daughter, Chelsey, and the case was reviewed with the patient, his family and Dr. Moss from cardiology. He was admitted with a near syncopal episode that occurred as an outpatient yesterday and since admission has been in chronic atrial fibrillation on the monitor with episodes of bradycardia where his pulse rate falls to the 40s and low 50s. This has happened on previous hospitalizations. The patient is on no beta blockers at present. The patient had a near syncopal episode yesterday in the outpatient office of Dr. Abiel Mcdonald. The patient denies any chest pain, shortness of breath, fever or chills and is in an atrial fibrillation rhythm on the monitor. PHYSICAL EXAMINATION: VITAL SIGNS: Latest vital signs showing a temperature 98.8, respirations 20, pulse 57 and blood pressure 151/65 with a pulse ox of 99%. HEAD: Normocephalic, atraumatic. EYES: Show no icterus. EARS: Clear. THROAT: Noninjected. NECK: Supple. HEART: Irregular S1, S2 with a soft systolic ejection murmur at the left sternal border. LUNGS: Clear. ABDOMEN: Obese. EXTREMITIES: No edema. SKIN: Without rash. NEUROLOGIC: Intact. PSYCHOLOGICAL: Alert. VASCULAR: Legs warm to touch. LABORATORY DATA: Show white count 9600, hemoglobin 9.1, hematocrit 29.1, platelets 214,000. PT/INR 2.52. Sodium 137, K 4.7, chloride 100, bicarbonate 25, BUN 77, creatinine 2.4, random blood sugar is 115. All liver function testing is normal including bilirubin 0.6, AST 26, ALT 29 and alkaline phosphatase 77. IMPRESSION: A 70-year-old male with a near syncopal episode as an outpatient with comorbidities of stable atherosclerotic heart disease, history of chronic atrial fibrillation on Coumadin with a therapeutic PT/INR at present, history of mitral regurgitation, aortic stenosis, cardiomyopathy, diet controlled diabetes mellitus, chronic renal failure, stage IV, chronic hypertension, anemia of chronic disease, degenerative arthritis and obesity. PLAN: At present, as discussed with Dr. Moss, is to maintain the patient on the cardiac unit. He will continue on hydralazine 100 mg p.o. t.i.d., Coumadin 6 mg p.o. daily, regular low dose insulin protocol a.c. meals and at bedtime, Imdur 60 mg p.o. daily, Lasix 80 mg p.o. t.i.d. and Tylenol p.r.n. pain. He has been ordered to have a carotid ultrasound, an EKG, a 2D echocardiogram and a heart healthy renal diet. He is ordered to have a stool for occult blood for completeness sake. He will be ambulated on the unit with the assistance of his family. He will have repeat laboratories in the morning and will be monitored cautiously regarding his cardiac rhythm and pulse rate on the cardiac cath rn. Ultimate interventions and decisions will be made pending his clinical progress and all the above was discussed in great detail with the patient, his family and Dr. Moss. Meena Ling MD cc: [id number] TT: 07/15/2016 11:15:35 Confirmation # [id number] Dictation # [id number] lavon HIDALGO
--- NOTE | 2016-07-15 11:48 | CARD ---
APPROVED REPORT EKG Measurement Heart [id number] <Conclusion> Atrial fibrillation PRWP Nonspecific T wave abnormality
[2016-07-15] MEDS: Insulin Reg-LOW-Coverage SC SCH ×3 (12:33→21:34)
--- NOTE | 2016-07-15 13:08 | CARD ---
APPROVED REPORT EKG Measurement Heart [id number] <Conclusion> Atrial fibrillation with slow ventricular response PRWP Nonspecific ST and T wave abnormality
--- NOTE | 2016-07-15 13:54 | CON ---
DATE: 07/15/2016 HISTORY OF PRESENT ILLNESS: This is a 70-year-old man with anemia. The patient has many medical prob lems including chronic renal insufficiency, arteriosclerosis affecting his heart. He has atrial fibr illation and he has stents put in. He was also shown to have anemia. This was secondary to both iro n deficiency as well as renal insufficiency, so we gave him IV iron while he was in the hospital [facility] 2 weeks ago. We also gave him a unit of blood. He came to the office yesterday for IV iron. He r eceived 1 full bag of the iron and was about to receive his 2nd when he suddenly started developing c lampy feelings and sweating and shortness of breath. His blood pressure dropped down to about 90/60, but more interestingly, his pulse was around 55 while that happened. We gave him the IV hydration a nd pretty quickly, within 5 minutes, the blood pressure came back up to about 120 and he felt better. Also gave him some sugar. We called the ambulance. He came here and interestingly enough, last ni ght his pulse dropped down to about 40 without symptoms. PHYSICAL EXAMINATION: SKIN: No petechiae, no bruises. HEENT: Anicteric. NODES: None palpable in the axillary, cervical, supraclavicular or inguinal regions. LUNGS: Clear at present. No vertebral tenderness. No rales, rhonchi, or wheezing. HEART: Irregularly irregular. ABDOMEN: Shows no liver, no spleen, no tenderness. EXTREMITIES: No edema. CENTRAL NERVOUS SYSTEM: No focal finding. It appears that his problems were really cardiac. This did not make sense for an iron reaction that usually manifests itself in a different way and it seems that he very well may need a pacemaker. I wi ll leave that to the biosolids management technician. The patient's family knows to call me in about 3 weeks to check h is iron and Procrit levels. Abiel Mcdonald MD cc: [id number] TT: 07/15/2016 13:53:54 Confirmation # [id number] Dictation # [id number] lavon
--- NOTE | 2016-07-15 18:10 | US ---
PROCEDURE: Bilateral carotid artery duplex ultrasound HISTORY: Carotid stenosis syncope PHYSICIAN(S): Nickolas Cespedes MD. TECHNIQUE: Duplex sonography and color-flow Doppler were used to evaluate the carotid bifurcations and limited segments of the vertebral arteries bilaterally. FINDINGS: There is mild to moderate smooth heterogeneous plaque noted at the carotid bifurcations bilaterally. The peak systolic velocity in the proximal right internal carotid artery is 91 cm/sec. This corresponds to a 20 to 39% proximal right ICA stenosis. Normal systolic velocities are noted in the proximal right external carotid artery. There is antegrade flow in the right vertebral artery. The proximal left internal carotid artery is obscured by shadowing plaque. The peak systolic velocity in the proximal left internal carotid artery is 89 cm/sec. This corresponds to a 20 to 39% proximal left ICA stenosis. Normal systolic velocities are noted in the proximal left external carotid artery. There is antegrade flow in the left vertebral artery. IMPRESSION: 1. Bilateral 20-39% proximal ICA stenoses. 2. Antegrade flow in both vertebral arteries.
[2016-07-16 07:28] LABS: HEMATOCRIT 27.7 % (42.0-52.0); MEAN CELL VOLUME 76.3 fL (80.0-105.0); MEAN CORPUSCULAR HGB CONC 31.4 g/dl (31.0-37.0); MEAN PLATELET VOLUME 11.6 fl (7.0-11.0); RED CELL DISTRIBUTION WIDTH 19.2 % (11.5-14.5); WHITE BLOOD COUNT 8.5 10^3/ul (4.5-11.0)
[2016-07-16 07:37] LABS: CALCIUM 8.6 mg/dL (8.4-10.5); POTASSIUM 4.3 mmol/L (3.6-5.0)
--- NOTE | 2016-07-16 07:37 | CP.PCM.PN ---
Subjective - Date & Time of Evaluation Date of Evaluation: 07/16/16 Time of Evaluation: 07:00 - Subjective Subjective: Stable on 3R. No CP or SOB. No dizziness or syncope. V/S noted. AF with VR 40 - 50's PE: Lungs: clear Cor.: irreg S1S2, sys. murmur Abd.: obese, benign Ext.: no edema Neuro.: alert I/O= 1440/850 Labs pending Echo: prelim: good LV fx. with mod. MR. See final report case D/W Dr. Ling yesterday. I contacted Dr. Lamas and he will implant PPM tentaively on Monday PM if all agree. I spoke with Mr. Osuna and his daughter today and they are in agreement. Objective - Vital Signs/Intake and Output Vital Signs (last 24 hours): Temp Pulse Resp BP Pulse Ox 98 F 58 L 18 122/51 L 98 07/15/16 16:00 07/16/16 06:00 07/15/16 16:00 07/15/16 17:52 07/15/16 16:00 Intake and Output: 07/16/16 07/16/16 06:59 18:59 Intake Total 840 Output Total 850 Balance -10 - Medications Medications: Current Medications Acetaminophen (Tylenol 325mg Tab) 650 mg PO Q6H PRN PRN Reason: pain or fever Last Admin: 07/16/16 05:28 Dose: 650 mg Furosemide (Lasix) 80 mg PO TID [facility] Last Admin: 07/15/16 17:52 Dose: 80 mg Hydralazine HCl (Apresoline) 100 mg PO TID [facility] Last Admin: 07/15/16 17:52 Dose: 100 mg Insulin Human Regular (Humulin R Low) 0 units SC ACHS [facility] PRN Reason: Protocol Last Admin: 07/15/16 21:34 Dose: Not Given Isosorbide Mononitrate (Imdur) 60 mg PO DAILY [facility] Last Admin: 07/15/16 10:52 Dose: 60 mg Lorazepam (Ativan) 0.5 mg PO HS [facility] PRN Reason: Protocol Last Admin: 07/15/16 21:07 Dose: 0.5 mg Nitroglycerin (Nitro-Bid 2% Oint) 1 ea TOP Q4H PRN PRN Reason: accelerated hypertension Warfarin Sodium (Coumadin) 6 mg PO 1800 [facility] PRN Reason: Protocol - Labs Labs: PT 27.2 Seconds (9.9-11.8) H 07/14/16 13:50 INR 2.52 (0.93-1.08) H 07/14/16 13:50 APTT 44.6 Seconds (23.7-30.8) H 07/14/16 13:50 Assessment and Plan - Assessment and Plan (Free Text) Plan: Assessment: Near syncopal episode after IV iron tx. (nausea, diaphoresis, SOB with hypotension and P 50's) AF with VR 40's - 50's CAD/OR/PCI 2015 , moderate Diabetes HBP Anemia, Fe deficiency HLD PVD/PVI Discogenic disease Carpal Tunnel surgery Duputryn's Contracture Former Smoker Plan: PPM planned for Monday PM with EP emery. by Dr. Lamas at [facility]. Continue tel. Hold warfarin. Monitor INR's Will check echo OOB Check AM labs. As per Dr. Ling and Dr. Mcdonald.
[2016-07-16] MEDS: Insulin Reg-LOW-Coverage SC SCH ×4 (07:39→21:07)
[2016-07-16 07:40] LABS: INR 2.31 (0.93-1.08)
--- NOTE | 2016-07-16 09:12 | CARD ---
APPROVED REPORT EXAM: Two-dimensional and M-mode echocardiogram with Doppler and color Doppler. INDICATION NEAR SYNCOPE/ 2D DIMENSIONS Left Atrium (2D)6.0 (1.6-4.0cm)IVSd1.3 (0.7-1.1cm) LVDd5.0 (3.9-5.9cm)LVOT Diameter2.4 (1.8-2.4cm) PWd1.3 (0.7-1.1cm)LVDs3.7 (2.5-4.0cm) FS (%) 25.9 %LVEF (%)50.0 (>50%) M-Mode DIMENSIONS Aortic Root3.70 (2.2-3.7cm)Aortic Cusp Exc.0.60 (1.5-2.0cm) Aortic Valve AoV Peak Tfvlrodq518.0cm/sAoV VTI83.1cmAO Peak GR.44mmHg LVOT Peak Geczfkcq73.0cm/sLVOT VTI18.90cmAO Mean GR.25mmHg FRENCH (VMAX)1.89fl0BSF (VTI)1.03cm2 Mitral Valve E/A ratio0.0 TDI E/Lateral E'0.0E/Medial E'0.0 Pulmonary Valve PV Peak Dxdecvdb32.5cm/sPV Peak Grad.3mmHg Tricuspid Valve TR Peak Nzevwikt656cz/sRAP UJHIYMRC60djBtIR Peak Gr.45mmHg [id number] LEFT VENTRICLE The left ventricle is normal size. There is mild concentric left ventricular hypertrophy. The left ventricular function is normal. The left ventricular ejection fraction is within the normal range. There is normal LV segmental wall motion. ATRIA The left atrium size is normal. The right atrium size is normal. The interatrial septum is intact with no evidence for an atrial septal defect. AORTIC VALVE The aortic valve is moderately calcified. There is moderate valvular aortic stenosis. MITRAL VALVE The mitral valve is normal in structure. The mitral valve is moderately thickened but opens well. Mitral annular calcification is moderate. Mitral regurgitation is mild to moderate. TRICUSPID VALVE The tricuspid valve is normal in structure. There is moderate tricuspid regurgitation. There is moderate pulmonary hypertension. PULMONIC VALVE The pulmonic valve is not well visualized. GREAT VESSELS The aortic root is normal in size. PERICARDIAL EFFUSION There is no pericardial effusion. <Conclusion> The left ventricle is normal size. There is mild concentric left ventricular hypertrophy. The left ventricular function is normal. The aortic valve is moderately calcified. There is moderate valvular aortic stenosis. Mitral regurgitation is mild to moderate. Mitral annular calcification is moderate. There is moderate tricuspid regurgitation. There is moderate pulmonary hypertension.
[2016-07-16] MEDS: guaiFENesin 100 mg/5 ml Syrup UD PO PRN (16:46)
--- NOTE | 2016-07-16 17:58 | PN ---
DATE: 07/16/2016 SUBJECTIVE: This 70-year-old male was examined at his bedside and his case was reviewed in detail with his nurse and his and daughter, Chiquis, at the bedside. The patient was seen earlier today by Dr. Fredi Moss from cardiology who has arranged for elective pacemaker placement for this patient on Tuesday 07/18. All questions were discussed and answered with the patient and family at bedside by Dr. Moss and the patient is in agreement with the elective placement of permanent pacemaker given his recurrent bradycardia and near syncope episodes. At present, he remains in atrial fibrillation rhythm on the groundwater monitoring technician. PHYSICAL EXAMINATION: VITAL SIGNS: Temperature 99.5, respirations 19, pulse 52, and blood pressure 149/60 with a pulse ox of 96% on room air. HEAD: Normocephalic, atraumatic. EYES: Show no icterus. EARS: Clear. THROAT: Noninjected. NECK: Supple. HEART: Irregular S1, S2. LUNGS: Clear. ABDOMEN: Obese, nontender, without palpable organomegaly. EXTREMITIES: Show no clubbing, no cyanosis, no edema. SKIN: His right ankle is showing evidence of recurrent gout. VASCULAR: Legs warm to touch. PSYCHOLOGICAL: Alert and oriented x 3. NEUROLOGIC: Grossly intact. LABORATORY DATA: Show white count 8500, hemoglobin 8.7, hematocrit 27.7, platelets 208,000 with a PT/INR 2.31. Uric acid level was indeed elevated at 13.5. Sodium 138, K 4.3, chloride 101, bicarb 22, BUN 70, creatinine 2.2. Random blood sugar 154. Urinalysis is unremarkable. Echocardiogram confirmed mitral regurgitation and aortic stenosis. Carotid ultrasound showed no evidence of carotid artery stenosis. Chest x-ray showed no active disease. EKG showed atrial fibrillation with nonspecific ST-T wave changes. IMPRESSION: A 70-year-old male with a near syncopal attack in the setting of recurrent bradyarrhythmias, chronic hypertension, chronic renal failure stage IV , acute gout, chronic atrial fibrillation, diet controlled type 2 diabetes mellitus, atherosclerotic heart disease, status post coronary artery stents, chronic hypertension, morbid obesity, degenerative arthritis and history of peripheral vascular disease. PLAN: At present is to continue renal heart healthy diabetic diet. He continues on hydralazine 100 mg p.o. t.i.d., colchicine 0.6 mg p.o. stat and 0.3 mg p.o. daily for the next few days, Coumadin 6 mg p.o. daily is on hold in anticipation of his permanent pacemaker placement on Monday and the Coumadin has been indeed stopped by Dr. Fredi Moss from cardiology in anticipation of this procedure. The patient will continue on regular low dose insulin coverage a.c. meals and at bedtime, Imdur 60 mg p.o. daily, Lasix 80 mg p.o. t.i.d., Robitussin 5 mL p.o. q. 6 hours p.r.n. cough and he is on fall precautions and is ordered to have a repeat PT/INR in the a.m. All of the above has been discussed in detail with the patient, his , his daughter, his nurse and Dr. Moss from cardiology. His overall prognosis remains stable at present. Meena Ling MD cc: [id number] TT: 07/16/2016 17:57:13 Confirmation # [id number] Dictation # [id number] MTDD
[2016-07-17 07:39] LABS: INR 1.87 (0.93-1.08)
--- NOTE | 2016-07-17 07:53 | CP.PCM.PN ---
Subjective - Date & Time of Evaluation Date of Evaluation: 07/17/16 Time of Evaluation: 07:00 - Subjective Subjective: Stable on 3R. No CP or SOB. No dizziness or syncope. V/S noted. AF with VR 50'2 - 80's PE: Lungs: clear Cor.: irreg S1S2, sys. murmur Abd.: obese, benign Ext.: no edema Neuro.: alert I/O= 480/900 Labs noted: H/H=8.7/27.7, INR = 1.87 Echo: NL LV fx. with mild conc. LVH, mod. , mild to mod. MR, mod. TR and PH. Objective - Vital Signs/Intake and Output Vital Signs (last 24 hours): Temp Pulse Resp BP Pulse Ox 99.0 F 81 18 142/64 96 07/17/16 00:00 07/17/16 06:00 07/17/16 00:00 07/17/16 00:00 07/17/16 00:00 Intake and Output: 07/17/16 07/17/16 06:59 18:59 Intake Total 480 Output Total 900 Balance -420 - Medications Medications: Current Medications Acetaminophen (Tylenol 325mg Tab) 650 mg PO Q6H PRN PRN Reason: pain or fever Last Admin: 07/16/16 22:06 Dose: 650 mg Colchicine (Colocrys) 0.3 mg PO DAILY [facility] Furosemide (Lasix) 80 mg PO TID [facility] Last Admin: 07/16/16 17:28 Dose: 80 mg Guaifenesin (Robitussin) 100 mg PO Q6H PRN PRN Reason: Cough Last Admin: 07/16/16 16:46 Dose: 100 mg Hydralazine HCl (Apresoline) 100 mg PO TID [facility] Last Admin: 07/16/16 17:25 Dose: 100 mg Insulin Human Regular (Humulin R Low) 0 units SC ACHS [facility] PRN Reason: Protocol Last Admin: 07/16/16 21:07 Dose: Not Given Isosorbide Mononitrate (Imdur) 60 mg PO DAILY [facility] Last Admin: 07/16/16 10:29 Dose: 60 mg Lorazepam (Ativan) 0.5 mg PO HS [facility] PRN Reason: Protocol Last Admin: 07/16/16 21:07 Dose: 0.5 mg Nitroglycerin (Nitro-Bid 2% Oint) 1 ea TOP Q4H PRN PRN Reason: accelerated hypertension Warfarin Sodium (Coumadin) 6 mg PO 1800 [facility] PRN Reason: Protocol - Labs Labs: 07/16/16 07:20 07/16/16 07:20 PT 20.2 Seconds (9.9-11.8) H 07/17/16 07:00 INR 1.87 (0.93-1.08) H 07/17/16 07:00 APTT 44.6 Seconds (23.7-30.8) H 07/14/16 13:50 Assessment and Plan - Assessment and Plan (Free Text) Plan: Assessment: Near syncopal episode after IV iron tx. (nausea, diaphoresis, SOB with hypotension and P 50's) AF with VR 40's - 50's H/O remote syncope CAD/AR/PCI LAD 2015 , moderate with mild/mod MR, mod. TR and PH on echo Diabetes HBP Anemia, Fe deficiency HLD PVD/PVI Discogenic disease Carpal Tunnel surgery Dupuytren's Contracture Former Smoker Plan: PPM planned for Monday PM with EP emery. by Dr. Lamas at [facility]. Continue tel. Hold warfarin. Monitor INR's OOB As per Dr. Ling and Dr. Mcdonald.
[2016-07-17] MEDS: Insulin Reg-LOW-Coverage SC SCH ×4 (08:11→22:07)
[2016-07-17] MEDS: guaiFENesin 100 mg/5 ml Syrup UD PO PRN (11:26)
--- NOTE | 2016-07-17 12:43 | US ---
PROCEDURE: Ultrasound of the Kidneys HISTORY: CRF COMPARISON: None available. TECHNIQUE: Sonogram of the kidneys. FINDINGS: RIGHT KIDNEY: Measures: 10.3 x 5.6 x 5.2 cm. Normal in size. Mild thinning of the cortex which appears minimally echogenic. No stone, solid mass lesion or hydronephrosis visualized. LEFT KIDNEY: Measures: 10.6 x 6.2 x 6.4 cm. Normal in size. Mild thinning of the cortex which appears minimally echogenic. No stone, solid mass lesion or hydronephrosis visualized. OTHER FINDINGS: None. IMPRESSION: No acute findings.
[2016-07-17 16:50] VITALS: RESP 18
--- NOTE | 2016-07-17 19:42 | PN ---
DATE: 07/17/2016 HISTORY OF PRESENT ILLNESS: This 70-year-old male was examined at his bedside. He remains on the ct rdiac unit in the setting of a near syncopal episode and recurrent bradyarrhythmia in the setting of chronic atrial fibrillation, atherosclerotic heart disease and valvular heart disease as well. The p atient is being readied for a permanent pacemaker placement under the direction of Dr. Fredi almaguer [facility] cardiology and the patient is aware and in agreement with this decision. Also, his Coumadin manav ins on hold given the preparation for a permanent pacemaker within the next 24 hours. The patient is feeling better on treatment for his acute gout episode. He remains in an atrial fibrillation rhythm on the cardiac cath tech. PHYSICAL EXAMINATION: VITAL SIGNS: His pulse at present is 60 and irregular. The remainder of his vital signs show temper ature 98.9, respirations 18, blood pressure 127/55 with a pulse ox of 95% on room air. HEAD: Normocephalic, atraumatic. EYES: No icterus. EARS: Clear. THROAT: Noninjected. NECK: Supple. HEART: Irregular S1, S2. LUNGS: Clear. ABDOMEN: Obese. EXTREMITIES: No edema. SKIN: Without rash. NEUROLOGIC: Intact. PSYCHOLOGICAL: Alert. VASCULAR: Legs warm to touch. LABORATORY DATA: White count 8500, hemoglobin 8.7, hematocrit 27.7, platelets 208,000. PT/INR 1.87 with Coumadin on hold. Sodium 138, K 4.3, chloride 101, bicarb 22, BUN 70, creatinine 2.2. Random b lood sugar 154. Uric acid level 13.5. Urinalysis unremarkable. Renal ultrasound consistent with me dical renal disease, no acute findings and no evidence of stone, solid mass, lesion or hydronephrosis . IMPRESSION: A 70-year-old male with near syncopal episode in the setting of recurrent bradyarrhythmi as on no beta blockers with comorbidities of chronic renal failure stage IV, anemia of chronic diseas e, chronic hypertension, atherosclerotic heart disease, status post coronary stents with history of a ortic stenosis, mitral regurgitation, acute gouty arthritis, chronic atrial fibrillation, diet-contro lled type 2 diabetes mellitus, degenerative arthritis, obesity and anxiety neurosis. PLAN: At present is to continue renal heart healthy diabetic diet. He will receive Lasix 80 mg p.o. t.i.d., indomethacin 25 mg p.o.d. for 3 doses only, Imdur 60 mg p.o. daily, regular low dose insulin coverage before meals and at bedtime, colchicine 0.3 mg p.o. daily for his acute gout attack, hydral azine 100 mg p.o. t.i.d. and Ativan 0.5 mg p.o. at bedtime. He remains on fall precautions, is being ambulated to the bathroom for bathroom privileges, is awaiting clearance from Dr. Moss for transpo rt to [facility] for his permanent pacemaker tomorrow and then will require close followup wi th Dr. Mcdonald from hematology regarding his anemia of chronic disease in the setting of chronic renal failure and the use of Procrit shots through his office as well. All of this has been explained in d etail to the patient, co-consultants and his family members at bedside. Meena Ling MD cc: [phone] TT: 07/17/2016 19:41:28 Confirmation # [id number] Dictation # [id number]
[2016-07-18] MEDS: Insulin Reg-LOW-Coverage SC SCH (07:30)
--- NOTE | 2016-07-18 08:17 | CP.PCM.PN ---
Subjective - Date & Time of Evaluation Date of Evaluation: 07/18/16 Time of Evaluation: 07:00 - Subjective Subjective: Stable on 3R. No CP or SOB. No dizziness or syncope. V/S noted. AF with VR 40'2 - 80's PE: Lungs: clear Cor.: irreg S1S2, sys. murmur Abd.: obese, benign Ext.: no edema Neuro.: alert Labs 07/16 noted: H/H=8.7/27.7, INR = 1.87 Echo: NL LV fx. with mild conc. LVH, mod. , mild to mod. MR, mod. TR and PH. Objective - Vital Signs/Intake and Output Vital Signs (last 24 hours): Temp Pulse Resp BP Pulse Ox 98.9 F 45 L 18 127/55 L 95 07/17/16 16:50 07/18/16 02:00 07/17/16 16:50 07/17/16 17:13 07/17/16 16:50 Intake and Output: 07/18/16 07/18/16 06:59 18:59 Intake Total 360 Output Total 800 Balance -440 - Medications Medications: Current Medications Acetaminophen (Tylenol 325mg Tab) 650 mg PO Q6H PRN PRN Reason: pain or fever Last Admin: 07/16/16 22:06 Dose: 650 mg Colchicine (Colocrys) 0.3 mg PO DAILY [facility] Last Admin: 07/17/16 10:37 Dose: 0.3 mg Furosemide (Lasix) 80 mg PO TID [facility] Last Admin: 07/17/16 17:13 Dose: 80 mg Guaifenesin (Robitussin) 100 mg PO Q6H PRN PRN Reason: Cough Last Admin: 07/17/16 11:26 Dose: 100 mg Hydralazine HCl (Apresoline) 100 mg PO TID [facility] Last Admin: 07/17/16 17:13 Dose: 100 mg Indomethacin (Indocin) 25 mg PO TID [facility] Stop: 07/18/16 10:00 Last Admin: 07/17/16 17:14 Dose: 25 mg Insulin Human Regular (Humulin R Low) 0 units SC ACHS [facility] PRN Reason: Protocol Last Admin: 07/17/16 22:07 Dose: Not Given Isosorbide Mononitrate (Imdur) 60 mg PO DAILY [facility] Last Admin: 07/17/16 10:37 Dose: 60 mg Lorazepam (Ativan) 0.5 mg PO HS [facility] PRN Reason: Protocol Last Admin: 07/17/16 22:10 Dose: 0.5 mg Warfarin Sodium (Coumadin) 6 mg PO 1800 [facility] PRN Reason: Protocol - Labs Labs: 07/16/16 07:20 07/16/16 07:20 PT 20.2 Seconds (9.9-11.8) H 07/17/16 07:00 INR 1.87 (0.93-1.08) H 07/17/16 07:00 APTT 44.6 Seconds (23.7-30.8) H 07/14/16 13:50 Assessment and Plan - Assessment and Plan (Free Text) Plan: Assessment: Near syncopal episode after IV iron tx. (nausea, diaphoresis, SOB with hypotension and P 50's) AF with VR 40's - 50's H/O remote syncope CAD/NE/PCI LAD 2015 , moderate with mild/mod MR, mod. TR and PH on echo Diabetes HBP Anemia, Fe deficiency HLD PVD/PVI Discogenic disease Carpal Tunnel surgery Dupuytren's Contracture Former Smoker Plan: PPM planned for later today with EP emery. by Dr. Lamas at [facility]. PPM F/U to be arranged. As per Dr. Ling and Dr. Mcdonald.
[2016-07-18] MEDS: guaiFENesin 100 mg/5 ml Syrup UD PO PRN (09:47)
[2016-07-18 09:48] VITALS: BP 152/71
[2016-07-18 09:59] VITALS: TEMP 97.5; O2SAT 100
[2016-07-18 11:11] VITALS: PULSE 48
--- NOTE | 2016-07-18 12:39 | CP.PCM.PN ---
Subjective - Date & Time of Evaluation Date of Evaluation: 07/18/16 Time of Evaluation: 12:35 - Subjective Subjective: Pt is being transferred to [facility] for EP evaluation and PPM insertion. Transfer form filled. Objective - Vital Signs/Intake and Output Vital Signs (last 24 hours): Temp Pulse Resp BP Pulse Ox 97.5 F L 48 L 18 152/71 H 100 07/18/16 06:00 07/18/16 11:05 07/18/16 06:00 07/18/16 09:46 07/18/16 06:00 Intake and Output: 07/18/16 07/18/16 06:59 18:59 Intake Total 360 Output Total 800 Balance -440 - Medications Medications: Current Medications Acetaminophen (Tylenol 325mg Tab) 650 mg PO Q6H PRN PRN Reason: pain or fever Last Admin: 07/16/16 22:06 Dose: 650 mg Colchicine (Colocrys) 0.3 mg PO DAILY [facility] Last Admin: 07/18/16 09:46 Dose: 0.3 mg Furosemide (Lasix) 80 mg PO TID [facility] Last Admin: 07/18/16 09:46 Dose: 80 mg Guaifenesin (Robitussin) 100 mg PO Q6H PRN PRN Reason: Cough Last Admin: 07/18/16 09:47 Dose: 100 mg Hydralazine HCl (Apresoline) 100 mg PO TID [facility] Last Admin: 07/18/16 09:45 Dose: 100 mg Insulin Human Regular (Humulin R Low) 0 units SC ACHS [facility] PRN Reason: Protocol Last Admin: 07/18/16 07:30 Dose: Not Given Isosorbide Mononitrate (Imdur) 60 mg PO DAILY [facility] Last Admin: 07/18/16 09:46 Dose: 60 mg Lorazepam (Ativan) 0.5 mg PO HS [facility] PRN Reason: Protocol Last Admin: 07/17/16 22:10 Dose: 0.5 mg Warfarin Sodium (Coumadin) 6 mg PO 1800 [facility] PRN Reason: Protocol - Labs Labs: 07/16/16 07:20 07/16/16 07:20 PT 20.2 Seconds (9.9-11.8) H 07/17/16 07:00 INR 1.87 (0.93-1.08) H 07/17/16 07:00 APTT 44.6 Seconds (23.7-30.8) H 07/14/16 13:50
--- NOTE | 2016-07-19 08:04 | DS ---
FINAL DIAGNOSES: Near syncope, chronic atrial fibrillation, bradyarrhythmia, chronic renal failure s tage IV, anemia of chronic disease, type 2 diabetes mellitus, stable atherosclerotic heart disease, h istory of moderate aortic stenosis, moderate mitral regurgitation, obesity, gout, degenerative arthri tis. DISPOSITION: [facility] to the service of Dr. Lamas, drum loader and unloader, for EP electrophysiologi nathan evaluation, as well as permanent pacemaker placement. CONSULTANTS: Dr. Fredi Moss from cardiology, Dr. Abiel Mcdonald from hematology. DISCHARGE MEDICATIONS: Includes hydralazine 100 mg p.o. t.i.d., Coumadin is currently on hold to be resumed at 6 mg p.o. daily when cleared by Dr. Lamas, Imdur 60 mg p.o. daily, Lasix 80 mg p.o. t.i.d . SUMMARY: This 70-year-old male was receiving an IV iron infusion at the office of Dr. Abiel Mcdonald whe n he became weak, dizzy, diaphoretic and was noted to have hypotension and a slow pulse and was sent to [facility] for further evaluation of the above. He was seen by Dr. Fredi Moss and m lissa on the cardiac kiran where he was noted to have episodes of bradyarrhythmia in the setting of chronic atrial fibrillation. It was decided by cardiology that the patient would benefit from an el ectrophysiological study as well as a permanent pacemaker placement at this time given his history of recurrent near syncope and bradyarrhythmia in his past. At the time of his transfer, his vital sign s were temperature 97.5, respirations 18, pulse 48, blood pressure 152/71 with a pulse ox of 100%. T he patient's labs showed white count 8500, hemoglobin 8.7, hematocrit 27.7, platelets 208,000. PT/IN R on 07/17 was 1.87. Sodium 138, K 4.3, chloride 101, bicarb 22, BUN 70, creatinine 2.2, random bloo d sugar 87. The patient had a renal ultrasound during this hospital admission which revealed echogen ic kidneys consistent with chronic medical renal disease with no evidence of hydronephrosis, mass, st one or any lesions. At the time of transfer, the patient and his daughter, Chiquis, was at his bedside . The patient will follow up in my office next week for a repeat PT/INR on Coumadin. He has instruc tions to follow up with Dr. Fredi Moss, his drum loader and unloader, and Dr. Abiel Mcdonald regarding his anemia o f chronic disease and Procrit shots through his office. All of this was discussed in detail and the patient was advised for any change in signs and symptoms to present directly to the [facility] enter ER. Meena Ling MD cc: [phone] TT: 07/18/2016 19:36:50 ri 07/19/2016 07:03:57
== END 2016-07-18 14:12 | disposition short-term general hospital (02) | DRG 309 ==
LOC: ED 12:18 → ERH 16:53 → 3RNO 20:09 → OBSVTOIN 22:00
PROVIDERS: ADMIT Internal Medicine; ATTEND Internal Medicine
DX: R00.1 Bradycardia, unspecified (principal); I48.2 Chronic atrial fibrillation; N18.4 Chronic kidney disease, stage 4 (severe); I13.0 Hypertensive heart and chronic kidney disease with heart failure and stage 1 through stage 4 chronic kidney disease, or unspecified chronic kidney disease; E11.22 Type 2 diabetes mellitus with diabetic chronic kidney disease; I50.9 Heart failure, unspecified; I42.9 Cardiomyopathy, unspecified; D63.1 Anemia in chronic kidney disease; D50.9 Iron deficiency anemia, unspecified; I25.10 Atherosclerotic heart disease of native coronary artery without angina pectoris; E66.01 Morbid (severe) obesity due to excess calories; M10.9 Gout, unspecified; E11.51 Type 2 diabetes mellitus with diabetic peripheral angiopathy without gangrene; E78.5 Hyperlipidemia, unspecified; I08.0 Rheumatic disorders of both mitral and aortic valves; M19.90 Unspecified osteoarthritis, unspecified site; Z79.01 Long term (current) use of anticoagulants; M72.0 Palmar fascial fibromatosis [Dupuytren]; Z68.36 Body mass index [BMI] 36.0-36.9, adult; Z95.5 Presence of coronary angioplasty implant and graft; Z87.891 Personal history of nicotine dependence

== ENCOUNTER 2016-11-01 06:19 | Inpatient (IN) | payer MEDICARE, OTHER ==
--- NOTE | 2016-11-01 06:47 | ED PDOC ---
Arrival/HPI - General Chief Complaint: Shortness Of Breath Time Seen by Provider: 11/01/16 06:29 - History of Present Illness Narrative History of Present Illness (Text): 11/01/16 06:40 Pt. to ED PMHX CHF,atrial fibrillation,pacemaker,HTN,hyperlipidemia,DM with c/o SOB this morning.Pt. denies any chest pain.States has been noticing increased edema of legs and hands.No leg pain.No hx. of any fever/chills or cough. Past Medical History - Provider Review Nursing Documentation Reviewed: Yes - Travel History Have you recently traveled outside [place] w/in the past 3 mons?: No - Infectious Disease Hx of Infectious Diseases: None - Tetanus Immunization Tetanus Immunization: Unknown - Cardiac Hx Cardiac Disorders: Yes Hx Cardiac Arrhythmia: Yes (afib, bradycardia) Hx Congestive Heart Failure: Yes Hx Hypertension: Yes - Pulmonary Hx Respiratory Disorders: No - Neurological Hx Neurological Disorder: No - HEENT Hx HEENT Disorder: No - Renal Hx Renal Disorder: Yes (renal insuffiency) - Endocrine/Metabolic Hx Endocrine Disorders: Yes Hx Diabetes Mellitus Type 2: Yes (diet controlled) - Hematological/Oncological Hx Blood Disorders: Yes Hx Anemia: Yes - Integumentary Hx Dermatological Disorder: No - Musculoskeletal/Rheumatological Hx Musculoskeletal Disorders: Yes Hx Falls: Yes Hx Gout: Yes (bilateral knees) Hx Unsteady Gait: Yes (weak knees from recent gout) - Gastrointestinal Hx Gastrointestinal Disorders: No - Genitourinary/Gynecological Hx Genitourinary Disorders: No - Psychiatric Hx Psychophysiologic Disorder: No Hx Substance Use: No - Surgical History Hx Cardiac Catheterization: Yes Hx Coronary Stent: Yes - Anesthesia Hx Anesthesia Reactions: No Hx Malignant Hyperthermia: No - Suicidal Assessment Feels Threatened In Home Enviroment: No Family/Social History - Physician Review Nursing Documentation Reviewed: Yes Family/Social History: Diabetes, Hypertension Smoking Status: Former Smoker Hx Alcohol Use: No Hx Substance Use: No Allergies/Home Meds Allergies/Adverse Reactions: Allergies No Known Allergies Allergy (Verified 11/01/16 06:52) Home Medications: Home Meds Medication Instructions Recorded Confirmed Warfarin Sodium [Jantoven] 3 mg PO DAILY 08/26/15 11/01/16 Furosemide [Lasix] 80 mg PO TID 06/27/16 11/01/16 Isosorbide Mononitrate [Imdur] 60 mg PO DAILY 07/03/16 11/01/16 Atorvastatin [Lipitor] 10 mg PO QPM 07/14/16 11/01/16 Review of Systems - Review of Systems Constitutional: Normal Eyes: Normal ENT: Normal Respiratory: SOB Cardiovascular: Normal Gastrointestinal: Normal Genitourinary Male: Normal Musculoskeletal: Normal Skin: Normal Neurological: Normal Endocrine: Normal Hemo/Lymphatic: Normal Psychiatric: Normal Physical Exam Vital Signs Temp Pulse Resp BP Pulse Ox 11/01/16 06:36 98.6 F 86 16 141/61 93 L Temperature: Afebrile Blood Pressure: Normal Pulse: Regular Respiratory Rate: Normal Appearance: Positive for: Well-Appearing, Non-Toxic, Comfortable Pain Distress: None Mental Status: Positive for: Alert and Oriented X 3 - Systems Exam Head: Present: Atraumatic, Normocephalic Pupils: Present: PERRL Extroacular Muscles: Present: EOMI Conjunctiva: Present: Normal Mouth: Present: Moist Mucous Membranes Pharnyx: Present: Normal Neck: Present: Normal Range of Motion Respiratory/Chest: Present: Good Air Exchange, Rhonchi. No: Respiratory Distress, Accessory Muscle Use Cardiovascular: Present: Regular Rate and Rhythm, Normal S1, S2. No: Murmurs Abdomen: Present: Normal Bowel Sounds. No: Tenderness, Distention, Peritoneal Signs Back: Present: Normal Inspection Upper Extremity: Present: Normal Inspection, Edema (hands). No: Cyanosis Lower Extremity: Present: Normal Inspection, Edema, Normal ROM, Neurovascularly Intact. No: Aldo's Sign Neurological: Present: GCS=15, CN II-XII Intact, Speech Normal, Motor Func Grossly Intact, Normal Sensory Function Skin: Present: Warm, Dry, Normal Color. No: Rashes Psychiatric: Present: Alert, Oriented x 3, Normal Insight, Normal Concentration Medical Decision Making ED Course and Treatment: 11/01/16 06:57 Diff.dx. CHF/pneumonia/acute coronary syndrome - RAD Interpretation Radiology Orders: 11/01/16 06:42 CHEST PORTABLE [RAD] Stat - EKG Interpretation EKG Interpretation (Text): 11/01/16 06:50 Sinus rhythm@ 71 1st degree av block/demand pacemaker Interpreted by ED Physician: Yes Type: 12 lead EKG - Transfer of Care Patient signed out to Dr:Bailee Hi Pending Labs:: Labs/CXR/reassess/final disposition Disposition/Present on Arrival - Present on Arrival Any Indicators Present on Arrival: No History of DVT/PE: No History of Uncontrolled Diabetes: Yes Urinary Catheter: No History Surgical Site Infection Following: None - Disposition Have Diagnosis and Disposition been Completed?: No Diagnosis: Dyspnea Disposition Time: 07:00 Condition: STABLE
[2016-11-01 07:15] LABS: HEMATOCRIT 24.8 % (42.0-52.0); MEAN CELL VOLUME 78.2 fl (80.0-105.0); MEAN CORPUSCULAR HEMOGLOBIN 23.7 pg (25.0-35.0); MEAN CORPUSCULAR HGB CONC 30.2 g/dl (31.0-37.0); MEAN PLATELET VOLUME 11.3 fl (7.0-11.0); RED CELL DISTRIBUTION WIDTH 19.6 % (11.5-14.5); WHITE BLOOD COUNT 8.6 10^3/ul (4.5-11.0)
--- NOTE | 2016-11-01 07:22 | ED PDOC ---
Physical Exam Vital Signs Temp Pulse Resp BP Pulse Ox 11/01/16 10:11 98.1 F 70 16 130/62 100 11/01/16 08:16 137/61 11/01/16 07:23 16 142/64 97 11/01/16 07:01 18 11/01/16 06:36 98.6 F 86 16 141/61 93 L Medical Decision Making ED Course and Treatment: 11/01/16 07:22 Signed out to me by Dr. Cote, follow-up on labs and Chest X-ray, reevaluate and disposition. 11/01/2016 08:29 Chest X-ray IMPRESSION: Worsening pulmonary venous congestion. Spot persistent severe cardiomegaly. Dictator : Radha Low MD 11/01/16 8:32 Patient's Hgb was low at 7.5. Rectal exam showed no hemorrohids but noted positive guaic. Brown stool. Case discussed with Dr. Ling who agreed to admit to remote telemetry for CHF and GI Bleed. 11/01/16 9:28 Hbg repeat still low in the 7's. 2 units of PRBC's ordered. Consent obtained by me with RN witness. Additional lasix was given since patient is on 80mg TID. Patient is now comfortable and will be admitted to remote telemetry. - Lab Interpretations Lab Results: 11/01/16 06:59 11/01/16 06:59 Lab Results 11/01/16 06:59: WBC 8.6, RBC 3.17 L, Hgb 7.5 L, Hct 24.8 L, MCV 78.2 L, MCH 23.7 L, MCHC 30.2 L, RDW 19.6 H, Plt Count 273, MPV 11.3 H 11/01/16 06:59: Sodium 144, Potassium 4.9, Chloride 106, Carbon Dioxide 21, Anion Gap 22 H, BUN 94 H, Creatinine 2.6 H, Est GFR ( Amer) 30, Est GFR ( Non-Af Amer) 25, Random Glucose 154 H, Calcium 8.4, Total Bilirubin 0.5, AST 32 , ALT 29, Alkaline Phosphatase 88, Lactate Dehydrogenase 707 H, Total Creatine Kinase 107, Troponin I 0.07, NT-Pro-B Natriuret Pep 51955 H, Total Protein 6.8, Albumin 3.7, Globulin 3.1, Albumin/Globulin Ratio 1.2 11/01/16 06:59: PT 20.2 H, INR 1.87 H, APTT 36.9 H I have reviewed the lab results: Yes - RAD Interpretation Radiology Orders: 11/01/16 06:42 CHEST PORTABLE [RAD] Stat - Medication Orders Current Medication Orders: Discontinued Medications Furosemide (Lasix) 40 mg IVP STAT [facility] Stop: 11/01/16 08:05 Last Admin: 11/01/16 08:16 Dose: 40 mg Furosemide (Lasix) 40 mg IVP STAT [facility] Stop: 11/01/16 10:09 Disposition/Present on Arrival - Present on Arrival Any Indicators Present on Arrival: No History of DVT/PE: No History of Uncontrolled Diabetes: Yes Urinary Catheter: No History of Decub. Ulcer: No History Surgical Site Infection Following: None - Disposition Have Diagnosis and Disposition been Completed?: Yes Diagnosis: Congestive heart failure, GI (gastrointestinal bleed) Disposition: HOSPITALIZED Disposition Time: 08:32 Patient Plan: Admission Patient Problems: Current Active Problems Problem Status Onset Dyspnea Acute Condition: STABLE
[2016-11-01 07:28] LABS: INR 1.87 (0.93-1.08); PARTIAL THROMBOPLASTIN TIME 36.9 Seconds (23.7-30.8)
[2016-11-01 07:31] LABS: ALB/GLOB RATIO 1.2 (1.1-1.8); BILIRUBIN,TOTAL 0.5 mg/dL (0.2-1.3); CALCIUM 8.4 mg/dL (8.4-10.5); POTASSIUM 4.9 mmol/L (3.6-5.0); TOTAL PROTEIN 6.8 g/dL (5.8-8.3)
[2016-11-01 07:42] LABS: TROPONIN I 0.07 ng/mL
--- NOTE | 2016-11-01 08:30 | RAD ---
HISTORY: Shortness of breath COMPARISON: 07/14/2016. FINDINGS: LUNGS: There is severe pulmonary venous congestion, worse since the prior examination. PLEURA: No significant pleural effusion identified, no pneumothorax apparent. CARDIOVASCULAR: There is persistent severe cardiomegaly and prominent central vasculature. There is a left-sided unipolar transvenous permanent pacing device. Atherosclerotic aortic arch calcifications are present. OSSEOUS STRUCTURES: No significant abnormalities. VISUALIZED UPPER ABDOMEN: Normal. OTHER FINDINGS: None. IMPRESSION: Worsening pulmonary venous congestion. Spot persistent severe cardiomegaly.
[2016-11-01 09:23] LABS: BASO # 0.04 K/mm3 (0.0-2.0); BASO % 0.4 % (0.0-3.0); EOS # 0.3 (0.0-0.7); EOS % 3.1 % (1.5-5.0); GRAN # 7.66 (1.4-6.5); GRAN % 83.7 % (50.0-68.0); HEMATOCRIT 24.9 % (42.0-52.0); LYMPH # 0.6 (1.2-3.4); LYMPH % 6.4 % (22.0-35.0); MEAN CELL VOLUME 77.6 fl (80.0-105.0); MEAN CORPUSCULAR HEMOGLOBIN 23.4 pg (25.0-35.0); MEAN CORPUSCULAR HGB CONC 30.1 g/dl (31.0-37.0); MEAN PLATELET VOLUME 10.9 fl (7.0-11.0); MONO # 0.6 (0.1-0.6); MONO % 6.4 % (1.0-6.0); RED CELL DISTRIBUTION WIDTH 19.7 % (11.5-14.5); WHITE BLOOD COUNT 9.2 10^3/ul (4.5-11.0)
[2016-11-01] MEDS ORDERED: Nitroglycerin 2% Ointment Foilpak UD TOP PRN (10:29)
--- NOTE | 2016-11-01 11:44 | CARD ---
APPROVED REPORT EKG Measurement Heart [id number] <Conclusion> Ventricular paced rhythm Underlying atrial fibrillation Baseline artifact Abnormal ECG
[2016-11-01] MEDS: Insulin Reg-LOW-Coverage SC SCH ×3 (11:47→21:57)
[2016-11-01 12:57] VITALS: BMI 36.1
[2016-11-01] MEDS ORDERED: Pneumococcal 23-Valent Vaccine IM ONE (12:57)
--- NOTE | 2016-11-01 15:04 | CP.PCM.CON ---
<Monique Lora - Last Filed: 11/01/16 15:01> History of Present Illness - History of Present Illness History of Present Illness: Seen and examined at this afternoon, chart reviewed. Request for GI consult is for GI bleed. HPI: This is a 70-year old male with a past medical Atrial Fibrillation on warfarin, CHF, CAD, status post cardiac, pacemaker chronic Anemia was brought to the ER by his son for complaints of shortness of breath this morning and increasing edema of. On admission, the patient had blood work drawn and found to have hbg of 7.5. The patient denies any melena, bright red blood pe, or hematemesis. on exam in the ER he was found to have positive guaiac. Currently he is receiving his first unit of PRBC. He denies nausea, vomiting , acid reflux, or abdominal pain. Denies weight loss or loss of appetite. He does complain knee pains and takes Excedrin, 2-3 doses as needed. He denies having endoscopy or colonoscopy. He tells me that he is only agreeable to have upper endoscopy done. Past medical history: atrial fibrillation, CHF, CAD, [place],, hypertension, renal insufficiency, diabetes mellitus type II/diet controlled, chronic anemia, gout Surgical history: Pacemaker, July 2016, cardiac catheterization: June 2016 reveal patent LAD, no new stents Family history: Diabetes mellitus and hypertension Social history: Former smoker, denies EtOH or substance abuse Medications: Reviewed as per MAR, significant for warfarin, last dose 10/31/16 ROS: Systems reviewed with positive findings, see HPI Past Patient History - Infectious Disease Hx of Infectious Diseases: None - Tetanus Immunizations Tetanus Immunization: Unknown - Past Social History Smoking Status: Never Smoked - CARDIAC Hx Cardiac Disorders: Yes Hx Cardia Arrhythmia: Yes (afib, bradycardia) Hx Congestive Heart Failure: Yes Hx Hypertension: Yes - PULMONARY Hx Respiratory Disorders: Yes (smoked cigarettes h/o ppd.quit.) - NEUROLOGICAL Hx Neurological Disorder: Yes (near syncope) - HEENT Hx HEENT Problems: No - RENAL Hx Chronic Kidney Disease: Yes (renal insuffiency,ckd 3) - ENDOCRINE/METABOLIC Hx Endocrine Disorders: Yes Hx Diabetes Mellitus Type 2: Yes (diet controlled) - HEMATOLOGICAL/ONCOLOGICAL Hx Blood Disorders: Yes Hx Anemia: Yes (Blood transfusion 11-01-16) - INTEGUMENTARY Hx Dermatological Problems: Yes Other/Comment: 11-01-16 Bilateral le edema pitting mainly to ankle area,stubbed fingers. - MUSCULOSKELETAL/RHEUMATOLOGICAL Hx Musculoskeletal Disorders: Yes Hx Falls: Yes Hx Gout: Yes (bilateral knees) Hx Osteomyelitis: Yes (right foot hallux) Hx Unsteady Gait: Yes (weak knees from recent gout) - GASTROINTESTINAL Hx Gastrointestinal Disorders: No - GENITOURINARY/GYNECOLOGICAL Hx Genitourinary Disorders: No - PSYCHIATRIC Hx Psychophysiologic Disorder: No Hx Substance Use: No - SURGICAL HISTORY Hx Surgeries: Yes (pacemaker left chest wall July 2016,cardiac stnets x 2 ,1 leg stent.) Hx Cardiac Catheterization: Yes Hx Coronary Stent: Yes (x2) - ANESTHESIA Hx Anesthesia Reactions: No Hx Malignant Hyperthermia: No Meds Allergies/Adverse Reactions: Allergies Allergy/AdvReac Type Severity Reaction Status Date / Time No Known Allergies Allergy Verified 11/01/16 11:30 - Medications Medications: Current Medications Acetaminophen (Tylenol 325mg Tab) 650 mg PO Q6H PRN PRN Reason: Fever >100.4 F Last Admin: 11/01/16 10:41 Dose: 650 mg Atorvastatin Calcium (Lipitor) 10 mg PO DIN [facility] Furosemide (Lasix) 80 mg IV Q8H [facility] Last Admin: 11/01/16 11:46 Dose: Not Given Hydralazine HCl (Apresoline) 100 mg PO TID [facility] Pantoprazole Sodium 20 mg/ (Sodium Chloride) 100 mls @ 400 mls/hr IV DAILY [facility] Insulin Human Regular (Humulin R Low) 0 units SC ACHS [facility] PRN Reason: Protocol Last Admin: 11/01/16 11:47 Dose: Not Given Isosorbide Mononitrate (Imdur) 60 mg PO DAILY [facility] Lorazepam (Ativan) 0.5 mg PO Q6H PRN PRN Reason: Anxiety Nitroglycerin (Nitro-Bid 2% Oint) 1 ea TOP Q4H PRN PRN Reason: accelerated hypertension Ondansetron HCl (Zofran Inj) 4 mg IVP Q6H PRN PRN Reason: Nausea/Vomiting Physical Exam - Constitutional Appears: No Acute Distress - Head Exam Head Exam: NORMOCEPHALIC - Eye Exam Eye Exam: Normal appearance. absent: Scleral icterus - ENT Exam ENT Exam: Mucous Membranes Moist - Neck Exam Neck exam: Positive for: Normal Inspection - Respiratory Exam Respiratory Exam: Decreased Breath Sounds, Rhonchi, NORMAL BREATHING PATTERN. absent: Wheezes, Respiratory Distress - Cardiovascular Exam Cardiovascular Exam: +S1, +S2 - GI/Abdominal Exam GI & Abdominal Exam: Normal Bowel Sounds, Soft. absent: Guarding ( daily stopping all 4 yesterday he had screening outside), Organomegaly, Rebound, Tenderness - Extremities Exam Extremities exam: Positive for: pedal edema, pedal pulses present. Negative for : calf tenderness - Neurological Exam Neurological exam: Alert, Oriented x3 - Skin Skin Exam: Dry, Warm Results - Vital Signs Recent Vital Signs: Last Vital Signs Temp 98.2 F 11/01/16 13:19 Pulse 71 11/01/16 13:19 Resp 20 11/01/16 13:19 BP 147/70 11/01/16 13:19 Pulse Ox 98 11/01/16 10:55 - Labs Result Diagrams: 11/01/16 09:15 11/01/16 06:59 Labs: Laboratory Results - last 24 hr 11/01/16 11/01/16 11/01/16 09:15 09:15 09:40 WBC 9.2 RBC 3.21 L Hgb 7.5 L Hct 24.9 L MCV 77.6 L MCH 23.4 L MCHC 30.1 L RDW 19.7 H Plt Count 274 MPV 10.9 Gran % 83.7 H Lymph % (Auto) 6.4 L [place] % (Auto) 6.4 H Eos % (Auto) 3.1 Baso % (Auto) 0.4 Gran # 7.66 H Lymph # 0.6 L [place] # 0.6 Eos # 0.3 Baso # 0.04 POC Glucose (mg/dL) Blood Type O POSITIVE Blood Type Confirm O POSITIVE Antibody Screen Negative Crossmatch See Detail BBK History Checked No verified bt 11/01/16 11:18 WBC RBC Hgb Hct MCV MCH MCHC RDW Plt Count MPV Gran % Lymph % (Auto) [place] % (Auto) Eos % (Auto) Baso % (Auto) Gran # Lymph # [place] # Eos # Baso # POC Glucose (mg/dL) 135 H Blood Type Blood Type Confirm Antibody Screen Crossmatch BBK History Checked Assessment & Plan - Assessment and Plan (Free Text) Assessment: Assessment: Anemia,could be multifactoral, renal insuffiency, rule out peptic ulcer disease , angiodysplasia Guaic positive Atrial fibrillation, on warfarin CHF, elevated BNP CAD, cardiac stents Pacemaker Gout DM, type II Renal insufficiency PLAN: blood transfusion in progress Continue low-dose Protonix monitor H/H off Warfarin Benefit from GI workup when optimal, patient will only agree to have EGD done, does not want colonoscopy will request for ct scan A&P w/ONLY oral contrast on Lasix monitor electrolytes Thank you for this consult and for allowing us to participate in your patient care, will make further recommendation based upon clinical course. Seen and discussed w/ Dr. Claudio. <Romi Claudio V - Last Filed: 11/02/16 01:07> Meds - Medications Medications: Current Medications Acetaminophen (Tylenol 325mg Tab) 650 mg PO Q6H PRN PRN Reason: Fever >100.4 F Last Admin: 11/01/16 18:38 Dose: 650 mg Atorvastatin Calcium (Lipitor) 10 mg PO DIN [facility] Last Admin: 11/01/16 18:39 Dose: 10 mg Furosemide (Lasix) 80 mg IVP Q8H [facility] Last Admin: 11/01/16 18:45 Dose: 80 mg Hydralazine HCl (Apresoline) 100 mg PO TID [facility] Last Admin: 11/01/16 18:38 Dose: 100 mg Pantoprazole Sodium 20 mg/ (Sodium Chloride) 100 mls @ 400 mls/hr IV DAILY [facility] Insulin Human Regular (Humulin R Low) 0 units SC ACHS [facility] PRN Reason: Protocol Last Admin: 11/01/16 21:57 Dose: Not Given Isosorbide Mononitrate (Imdur) 60 mg PO DAILY [facility] Lorazepam (Ativan) 0.5 mg PO Q6H PRN PRN Reason: Anxiety Nitroglycerin (Nitro-Bid 2% Oint) 1 ea TOP Q4H PRN PRN Reason: accelerated hypertension Ondansetron HCl (Zofran Inj) 4 mg IVP Q6H PRN PRN Reason: Nausea/Vomiting Results - Vital Signs Recent Vital Signs: Last Vital Signs Temp 98.6 F 11/01/16 18:25 Pulse 70 11/01/16 18:38 Resp 19 11/01/16 18:25 BP 134/70 11/01/16 18:45 Pulse Ox 98 11/01/16 10:55 - Labs Result Diagrams: 11/01/16 09:15 08/29/17 06:59 Labs: Laboratory Results - last 24 hr 11/01/16 11/01/16 11/01/16 09:15 09:15 09:40 WBC 9.2 RBC 3.21 L Hgb 7.5 L Hct 24.9 L MCV 77.6 L MCH 23.4 L MCHC 30.1 L RDW 19.7 H Plt Count 274 MPV 10.9 Gran % 83.7 H Lymph % (Auto) 6.4 L [place] % (Auto) 6.4 H Eos % (Auto) 3.1 Baso % (Auto) 0.4 Gran # 7.66 H Lymph # 0.6 L [place] # 0.6 Eos # 0.3 Baso # 0.04 POC Glucose (mg/dL) Blood Type O POSITIVE Blood Type Confirm O POSITIVE Antibody Screen Negative Crossmatch See Detail BBK History Checked No verified bt 11/01/16 11/01/16 11/01/16 11:18 16:08 21:53 WBC RBC Hgb Hct MCV MCH MCHC RDW Plt Count MPV Gran % Lymph % (Auto) [place] % (Auto) Eos % (Auto) Baso % (Auto) Gran # Lymph # [place] # Eos # Baso # POC Glucose (mg/dL) 135 H 148 H 115 H Blood Type Blood Type Confirm Antibody Screen Crossmatch BBK History Checked Attending/Attestation - Attestation I have personally seen and examined this patient.: Yes I have fully participated in the care of the patient.: Yes I have reviewed all pertinent clinical information: Yes Notes (Text): This patient was seen and evaluated earlier. This is an addendum to GI consultation report dictated by Monique Smith APN this 70-year-old patient with a history of diabetes mellitus, chronic kidney disease,hypertension admitted with shortness of breath. Patient was found to Elevated BNP, anemic with a hemoglobin of 10.5, and guaiac-positive stool. Patient denies any bright red blood per rectum, or melena. Patient never had endoscopy or colonoscopy before. Physical examination did not reveal any obvious mass or tenderness softly distended abdomen Impression 1 Symptomatic anemia and drop in blood count probably multifactorial patient has chronic kidney disease which could also contribute in addition to the occult GI bleeding 2. Occult GI bleeding 3. other comorbidities include Coronary artery disease CHF and chronic kidney disease diabetes mellitus plan 1. Follow the hemoglobin and hematocrit 2. Empiric therapy with the PPI 3. We'll request a CT of the abdomen and pelvis with only by mouth contrast 4. Would recommend EGD and colonoscopy after. Discussed with the patient at length . Patient was adamantly refusing colonoscopy but he is agreeable for upper GI endoscopy Thank you very much for allowing us to participate in the care of the patient
--- NOTE | 2016-11-01 15:32 | HP ---
DATE: 11/01/2016 HISTORY OF PRESENT ILLNESS: This 70-year-old male was examined at his bedside in the presence of his family. He presented to [facility] ER this morning complaining of shortness of breath where he was noted to have an advanced anemia in the setting of guaiac positive stools. The patient was admitted to the cardiac unit for acute systolic congestive heart failure in the setting of anemia secondary to GI bleeding and he awaiting blood cell transfusion at present. PAST MEDICAL HISTORY: Significant for arteriosclerotic heart disease, valvular heart disease, permanent pacemaker placement, history of systolic congestive heart failure, history of chronic atrial fibrillation for which the patient takes outpatient Coumadin and also with history of arteriosclerotic heart disease, hyperlipidemia, obesity, chronic renal failure stage IV, anemia of chronic disease. SOCIAL HISTORY: He is a current nonsmoker. He is a former social drinker and non IV drug misuser. He is a retired postal employee. FAMILY HISTORY: Noncontributory. ALLERGIES: HE HAS NO KNOWN ALLERGIES TO MEDICATIONS. REVIEW OF SYSTEMS: HEAD: Review, no headache or seizures. EYE: Review, no change in visual acuity. EAR: Review, no hearing loss. THROAT: Review, no swallowing difficulty. NECK: Review, no stiffness. CARDIAC: Review, As per HPI. PULMONARY: Mild shortness of breath. No cough. No hemoptysis. GASTROINTESTINAL: He denies hematemesis or melena. GENITOURINARY: Chronic renal failure stage IV. No dysuria. SKIN: Without rash. NEUROLOGICAL: No knowledge of stroke. VASCULAR: History of PVD and leg stents in his legs. OUTPATIENT MEDICATIONS: Include hydralazine, Coumadin, Imdur, Lasix and Lipitor. PHYSICAL EXAMINATION: GENERAL: At present, the patient is in atrial fibrillation on the director of cardiac rehabilitation. VITAL SIGNS: Show temperature 98, respirations 18, pulse 74, blood pressure 130/62 with a pulse ox of 100% on room air. HEENT: Head is normocephalic and atraumatic. Eyes, no icterus. Ears clear. Throat non-injected. NECK: Supple. HEART: Iregular, S1, S2. LUNGS: With basilar rales. ABDOMEN: Obese, nontender without palpable organomegaly. No rebound. No guarding. No tenderness. EXTREMITIES: No clubbing, no cyanosis, no edema. SKIN: Without rash. NEUROLOGICAL: Intact. PSYCHOLOGICAL: Alert and oriented x3. VASCULAR: Legs warm to touch. Stool was reportedly guaiac positive in ER by Dr. Hi. LABORATORY DATA: White count 9200, hemoglobin 7.5, hematocrit 24.9, and platelets 274,000. PT/INR 1.87, PTT 36.9. Sodium 144, potassium 4.9, chloride 106, bicarbonate 21, BUN 94, creatinine 2.6, and random blood sugar was 135. All liver function testing was normal including bilirubin 0.5, AST 32, ALT 29, and alkaline phosphatase 88. BNP 17,800. CPK normal 1.07. EKG showed atrial fibrillation. Chest x-ray showed cardiomegaly and congestive heart failure. IMPRESSION: This is a 70-year-old male with multiple medical problems as listed above, now with acute systolic congestive heart failure in the setting of anemia and guaiac positive stools with comorbidities of chronic hypertension, chronic renal failure stage IV, anemia of chronic disease, insulin dependent diabetes mellitus, atherosclerotic heart disease, valvular heart disease, permanent pacemaker placement and history of guaiac positive stools and acute on chronic anemia. PLAN: At present is to maintain the patient on the cardiac unit. He will have a renal heart-healthy diabetic diet. He is ordered to receive 2 units of packed red blood cells and medications including hydralazine 100 mg p.o. t.i.d., Ativan 0.5 mg p.o. 6 hours p.r.n anxiety, regular low-dose insulin protocol a.c. meals and bedtime, Imdur 60 mg p.o. daily, Lasix 80 mg IV q. 8, Lipitor 10 mg p.o. daily, Nitro paste 1 inch to chest wall q. 4 hours p.r.n accelerated hypertension, if systolic blood pressure greater than 160 or diastolic blood pressure greater than 100, Protonix 20 mg IV daily and laboratories including basic metabolic panel and hemoglobin and hematocrit in the a.m. I will place the consultation with Dr. Romi Claudio from . All of this has been discussed with the patient and his family members at the bedside. All questions were answered. Meena Ling MD [facility] # [id number] MTDD
--- NOTE | 2016-11-01 21:27 | CP.PCM.PN ---
Subjective - Date & Time of Evaluation Date of Evaluation: 11/01/16 Time of Evaluation: 21:26 - Subjective Subjective: Patient was seen at bedside. Complains of right hand and right shoulder pain for one week. Gives history of swelling of both ankles and gout. Received tylenol which is ineffective as per him. Has no other complaints at this time. ROS: Negative except as mentioned above. This 70 year old white male was admitted sob, guiac positive stool, anemia,CHF. Has PMH of ASHD, valvular heart disease, PPM,CHF, atrial fibrillation, HLD, obesity, anemia, chronic renal failure stage IV. Objective - Vital Signs/Intake and Output Vital Signs (last 24 hours): Temp Pulse Resp BP Pulse Ox 98.6 F 70 19 134/70 98 11/01/16 18:25 11/01/16 18:38 11/01/16 18:25 11/01/16 18:45 11/01/16 10:55 Intake and Output: 11/01/16 11/02/16 18:59 06:59 Intake Total 830 Output Total 780 Balance 50 - Medications Medications: Current Medications Acetaminophen (Tylenol 325mg Tab) 650 mg PO Q6H PRN PRN Reason: Fever >100.4 F Last Admin: 11/01/16 18:38 Dose: 650 mg Atorvastatin Calcium (Lipitor) 10 mg PO DIN [facility] Last Admin: 11/01/16 18:39 Dose: 10 mg Furosemide (Lasix) 80 mg IVP Q8H [facility] Last Admin: 11/01/16 18:45 Dose: 80 mg Hydralazine HCl (Apresoline) 100 mg PO TID [facility] Last Admin: 11/01/16 18:38 Dose: 100 mg Pantoprazole Sodium 20 mg/ (Sodium Chloride) 100 mls @ 400 mls/hr IV DAILY [facility] Insulin Human Regular (Humulin R Low) 0 units SC ACHS [facility] PRN Reason: Protocol Last Admin: 11/01/16 16:11 Dose: Not Given Isosorbide Mononitrate (Imdur) 60 mg PO DAILY [facility] Lorazepam (Ativan) 0.5 mg PO Q6H PRN PRN Reason: Anxiety Nitroglycerin (Nitro-Bid 2% Oint) 1 ea TOP Q4H PRN PRN Reason: accelerated hypertension Ondansetron HCl (Zofran Inj) 4 mg IVP Q6H PRN PRN Reason: Nausea/Vomiting - Labs Labs: 11/01/16 09:15 PT 20.2 Seconds (9.9-11.8) H 11/01/16 06:59 INR 1.87 (0.93-1.08) H 11/01/16 06:59 APTT 36.9 Seconds (23.7-30.8) H 11/01/16 06:59 Most Recent Lab Values WBC 9.2 10^3/ul (4.5-11.0) 11/01/16 09:15 RBC 3.21 10^6/uL (3.5-6.1) L 11/01/16 09:15 Hgb 7.5 g/dL (14.0-18.0) L 11/01/16 09:15 Hct 24.9 % (42.0-52.0) L 11/01/16 09:15 MCV 77.6 fl (80.0-105.0) L 11/01/16 09:15 MCH 23.4 pg (25.0-35.0) L 11/01/16 09:15 MCHC 30.1 g/dl (31.0-37.0) L 11/01/16 09:15 RDW 19.7 % (11.5-14.5) H 11/01/16 09:15 Plt Count 274 10^3/uL (120.0-450.0) 11/01/16 09:15 MPV 10.9 fl (7.0-11.0) 11/01/16 09:15 Gran % 83.7 % (50.0-68.0) H 11/01/16 09:15 Lymph % (Auto) 6.4 % (22.0-35.0) L 11/01/16 09:15 Johnson % (Auto) 6.4 % (1.0-6.0) H 11/01/16 09:15 Eos % (Auto) 3.1 % (1.5-5.0) 11/01/16 09:15 Baso % (Auto) 0.4 % (0.0-3.0) 11/01/16 09:15 Gran # 7.66 (1.4-6.5) H 11/01/16 09:15 Lymph # 0.6 (1.2-3.4) L 11/01/16 09:15 Johnson # 0.6 (0.1-0.6) 11/01/16 09:15 Eos # 0.3 (0.0-0.7) 11/01/16 09:15 Baso # 0.04 K/mm3 (0.0-2.0) 11/01/16 09:15 PT 20.2 Seconds (9.9-11.8) H 11/01/16 06:59 INR 1.87 (0.93-1.08) H 11/01/16 06:59 APTT 36.9 Seconds (23.7-30.8) H 11/01/16 06:59 Sodium 144 mmol/L (132-148) 11/01/16 06:59 Potassium 4.9 mmol/L (3.6-5.0) 11/01/16 06:59 Chloride 106 mmol/L (98-107) 11/01/16 06:59 Carbon Dioxide 21 mmol/L (21-33) 11/01/16 06:59 Anion Gap 22 (10-20) H 11/01/16 06:59 BUN 94 mg/dL (7-21) H 11/01/16 06:59 Creatinine 2.6 mg/dL (0.5-1.4) H 11/01/16 06:59 Est GFR ( Amer) 30 11/01/16 06:59 Est GFR (Non-Af Amer) 25 11/01/16 06:59 POC Glucose (mg/dL) 115 mg/dL (65-110) H 11/01/16 21:53 Random Glucose 154 mg/dL (70-110) H 11/01/16 06:59 Calcium 8.4 mg/dL (8.4-10.5) 11/01/16 06:59 Total Bilirubin 0.5 mg/dL (0.2-1.3) 11/01/16 06:59 AST 32 U/L (15-59) 11/01/16 06:59 ALT 29 U/L (7-56) 11/01/16 06:59 Alkaline Phosphatase 88 U/L (38-133) 11/01/16 06:59 Lactate Dehydrogenase 707 U/L (333-699) H 11/01/16 06:59 Total Creatine Kinase 107 U/L (35-230) 11/01/16 06:59 Troponin I 0.07 ng/mL 11/01/16 06:59 NT-Pro-B Natriuret Pep 49455 pg/mL (0-450) H 11/01/16 06:59 Total Protein 6.8 g/dL (5.8-8.3) 11/01/16 06:59 Albumin 3.7 g/dL (3.0-4.8) 11/01/16 06:59 Globulin 3.1 gm/dL 11/01/16 06:59 Albumin/Globulin Ratio 1.2 (1.1-1.8) 11/01/16 06:59 Blood Type O POSITIVE 11/01/16 09:15 Blood Type Confirm O POSITIVE 11/01/16 09:40 Antibody Screen Negative 11/01/16 09:15 Crossmatch See Detail 11/01/16 09:15 BBK History Checked No verified bt 11/01/16 09:15 - Constitutional Appears: Well, No Acute Distress - Head Exam Head Exam: ATRAUMATIC, NORMAL INSPECTION, NORMOCEPHALIC Additional comments: Obese person. - Eye Exam Eye Exam: Normal appearance - ENT Exam ENT Exam: Normal External Ear Exam - Respiratory Exam Respiratory Exam: NORMAL BREATHING PATTERN - Cardiovascular Exam Cardiovascular Exam: absent: JVD - GI/Abdominal Exam GI & Abdominal Exam: absent: Distended - Rectal Exam Rectal Exam: Deferred - Exam Additional comments: Deferred. - Extremities Exam Extremities Exam: Normal Inspection Additional comments: Right shoulder and right wrist examinations are normal. - Back Exam Back Exam: NORMAL INSPECTION - Neurological Exam Neurological Exam: Alert, Awake, Oriented x3 - Psychiatric Exam Psychiatric exam: Normal Affect, Normal Mood - Skin Skin Exam: Normal Color Assessment and Plan - Assessment and Plan (Free Text) Assessment: Right shoulder pain. Right wrist pain. Gout. Obesity. ASHD. Valvular heart disease. PPM. CHF. Atrial fibrillation. HLD. Anemia. Chronic renal failure state IV. Plan: Ultram 50 mg PO stat. Continue present management.
[2016-11-02 07:20] LABS: HEMATOCRIT 29.5 % (42.0-52.0)
[2016-11-02 07:24] LABS: POTASSIUM 4.7 mmol/L (3.6-5.0)
[2016-11-02] MEDS ORDERED: Barium Sulfate Susp 2.1% w/v, 2.0% w/w 450 mL Bottle PO ONE ×2 (07:24)
[2016-11-02] MEDS: Insulin Reg-LOW-Coverage SC SCH ×4 (08:07→21:25)
[2016-11-02] MEDS: Pantoprazole 20 MG in Sodium Chloride 0.9% 100 ML IV SCH (09:22)
[2016-11-02 12:21] LABS: RETIC% 1.43 % (0.5-1.5)
--- NOTE | 2016-11-02 12:35 | CT ---
PROCEDURE: CT Abdomen and Pelvis without intravenous contrast HISTORY: gi bleed/anemia COMPARISON: None. TECHNIQUE: Without contrast.. Contrast Dose: Radiation dose: Total exam DLP = 1237 mGy-cm. This CT exam was performed using one or more of the following dose reduction techniques: Automated exposure control, adjustment of the mA and/or kV according to patient size, and/or use of iterative reconstruction technique. FINDINGS: LOWER THORAX: Unremarkable. LIVER: Unremarkable. No gross lesion or ductal dilatation. GALLBLADDER AND BILE DUCTS: Unremarkable. PANCREAS: Unremarkable. No gross lesion or ductal dilatation. SPLEEN: Unremarkable. ADRENALS: Unremarkable. No mass. KIDNEYS AND URETERS: Unremarkable. No hydronephrosis. No solid mass. VASCULATURE: Unremarkable. No aortic aneurysm. BOWEL: Unremarkable. No obstruction. No gross mural thickening. Mild diverticulosis. APPENDIX: Unremarkable. Normal appendix. PERITONEUM: Unremarkable. No free fluid. No free air. LYMPH NODES: Unremarkable. No enlarged lymph nodes. BLADDER: Unremarkable. REPRODUCTIVE: Unremarkable. BONES: Disc degeneration and anterior subluxation L5-S1 OTHER FINDINGS: None. IMPRESSION: No acute findings
[2016-11-02 12:48] LABS: IRON 28 ug/dL (45-180)
--- NOTE | 2016-11-02 14:40 | CP.PCM.PN ---
Subjective - Date & Time of Evaluation Date of Evaluation: 11/02/16 Time of Evaluation: 09:20 - Subjective Subjective: Seen and examined at the bedside earlier today. The chart was reviewed. No acute overnight events reported. He was drinking oral contrast for CT scan of abdomen and pelvis. no reports of overt GI bleed, the patient stated he had a bowel movement did not notice any melena or bright red blood per rectum. Denies nausea, vomiting, or abdominal pain. Occasional SOB on exertion, but improved. Objective - Vital Signs/Intake and Output Vital Signs (last 24 hours): Temp Pulse Resp BP Pulse Ox 98.8 F 70 18 134/73 100 11/02/16 13:54 11/02/16 13:59 11/02/16 13:54 11/02/16 13:59 11/02/16 06:00 Intake and Output: 11/02/16 11/02/16 06:59 18:59 Intake Total 780 Output Total 880 Balance -100 - Medications Medications: Current Medications Acetaminophen (Tylenol 325mg Tab) 650 mg PO Q6H PRN PRN Reason: Fever >100.4 F Last Admin: 11/01/16 18:38 Dose: 650 mg Atorvastatin Calcium (Lipitor) 10 mg PO DIN [facility] Last Admin: 11/01/16 18:39 Dose: 10 mg Furosemide (Lasix) 80 mg IVP Q8H [facility] Last Admin: 11/02/16 11:22 Dose: 80 mg Hydralazine HCl (Apresoline) 100 mg PO TID [facility] Last Admin: 11/02/16 13:59 Dose: 100 mg Pantoprazole Sodium 20 mg/ (Sodium Chloride) 100 mls @ 400 mls/hr IV DAILY [facility] Last Admin: 11/02/16 09:22 Dose: 400 mls/hr Insulin Human Regular (Humulin R Low) 0 units SC ACHS [facility] PRN Reason: Protocol Last Admin: 11/02/16 11:44 Dose: Not Given Isosorbide Mononitrate (Imdur) 60 mg PO DAILY [facility] Last Admin: 11/02/16 09:22 Dose: 60 mg Lorazepam (Ativan) 0.5 mg PO Q6H PRN PRN Reason: Anxiety Last Admin: 11/02/16 13:13 Dose: 0.5 mg Nitroglycerin (Nitro-Bid 2% Oint) 1 ea TOP Q4H PRN PRN Reason: accelerated hypertension Ondansetron HCl (Zofran Inj) 4 mg IVP Q6H PRN PRN Reason: Nausea/Vomiting - Labs Labs: 11/02/16 06:30 11/02/16 06:30 PT 20.2 Seconds (9.9-11.8) H 11/01/16 06:59 INR 1.87 (0.93-1.08) H 11/01/16 06:59 APTT 36.9 Seconds (23.7-30.8) H 11/01/16 06:59 - Constitutional Appears: No Acute Distress - Eye Exam Eye Exam: Normal appearance. absent: Scleral icterus - ENT Exam ENT Exam: Mucous Membranes Moist - Respiratory Exam Respiratory Exam: Decreased Breath Sounds, Rales, NORMAL BREATHING PATTERN. absent: Wheezes, Respiratory Distress - Cardiovascular Exam Cardiovascular Exam: +S1, +S2 - GI/Abdominal Exam GI & Abdominal Exam: Soft, Normal Bowel Sounds. absent: Guarding, Tenderness, Rebound - Extremities Exam Extremities Exam: Normal Capillary Refill, Pedal Edema. 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 Patient still refuses colonoscopy, only agree for endoscopy. Discussed w/ Dr. Escobar covering Dr. Claudio.
--- NOTE | 2016-11-02 15:54 | PN ---
SUBJECTIVE: This 70-year-old male was examined at his bedside. His case was reviewed with himself, his family, and nursing, Nan Cameron, registered nurse. The patient remains in an atrial fibrillation rhythm alternating with paced rhythm and denies any chest pain, fever, shortness of breath, chills, nausea, vomiting, hematemesis or melena. Of note, he has been seen by Dr. Romi Claudio from , who was recommended endoscopy, colonoscopy, and abdominal and pelvic CAT scan with oral contrast. The patient at present is refusing any endoscopy or colonoscopy, but has completed the CT of the abdomen,results of which are currently pending. He denies any bright red blood per rectum. He has received 2 units of packed red blood cells and denies any shortness of breath. PHYSICAL EXAMINATION: VITAL SIGNS: Temperature 98, respirations 16, pulse 61, and blood pressure 156/70 with a pulse ox of 100% on room air. HEENT: Head is normocephalic and atraumatic. Eyes no icterus. Ears clear. Throat non-injected. NECK: Supple. HEART: Irregular. S1 and S2. LUNGS: Have no wheezing, no rales. ABDOMEN: Obese, nontender. No palpable organomegaly. EXTREMITIES: No clubbing, no cyanosis, no edema. SKIN: Without rash. NEUROLOGICAL: Intact. PSYCHOLOGICAL: Alert and oriented x3. VASCULAR: Legs are warm to touch. LABORATORY DATA: Hemoglobin initially 7.5 with hematocrit of 24.8, status post 2 units of packed red blood cells, hemoglobin 8.9, hematocrit 29.5. PT/INR 1.87. Sodium 143, potassium 4.7, chloride 105, bicarbonate 22, BUN 81, creatinine 2.2, and random blood sugar was 113. All liver function testing was normal including bilirubin 0.5, AST 32, ALT 29, and alkaline phosphatase 88. IMPRESSION: A 70-year-old male admitted with decompensated acute systolic congestive heart failure in the setting of advanced anemia and guaiac positive stools, cause of gastrointestinal bleeding undetermined at present in a patient with [id number] anemia in the setting of chronic renal failure stage IV, chronic hypertension, stable arteriosclerotic heart disease, history of coronary artery stent, history of permanent pacemaker placement and valvular heart disease, as well as chronic congestive heart failure, stable, also with hyperlipidemia, degenerative arthritis. PLAN: At present is to proceed with an additional 1 unit packed red blood cell for O2 carrying capacity in this patient with high risk for cardiac compromise given his cardiac risk factors. Also, we will continue hydralazine 100 mg p.o. t.i.d., insulin protocol, low dose regular insulin protocol a.c. meals and at bedtime, Imdur 60 mg p.o. daily, Lasix 80 mg IV q.8, Lipitor 10 mg p.o. at dinnertime, Protonix 20 mg IV daily, and Zofran 4 mg IV q.6 hours p.r.n. nausea and vomiting. The patient is awaiting the result of abdominopelvic CT with oral contrast. He continues on renal diabetic heart healthy diet. He is ordered to receive physical and occupational therapy for reconditioning and gait training and has stated he will sign AMA after the blood cell transfusion which I have asked the patient in the presence of his family to reconsider and to cooperate with GI regarding testing as outlined. If the patient does sign AMA, he has been advised for any change in signs and symptoms to present directly to the [facility] ER. Meena Ling MD MTDD
--- NOTE | 2016-11-03 00:13 | CP.PCM.PN ---
Subjective - Date & Time of Evaluation Date of Evaluation: 11/03/16 Time of Evaluation: 00:12 - Subjective Subjective: Patient seen because he complained of right hand and right shoulder pain. Pain is mild , has been present for about a week. States that his PMD told him that he has gout. Has no other complaints. Denies weakness, numbness. Medical record was reviewed. This 70 year old white male was admitted sob, guiac positive stool, anemia,CHF. Has PMH of ASHD, valvular heart disease, PPM,CHF, atrial fibrillation, HLD, obesity, anemia, chronic renal failure stage IV. Objective - Vital Signs/Intake and Output Vital Signs (last 24 hours): Temp Pulse Resp BP Pulse Ox 99 F 71 16 142/82 100 11/02/16 20:48 11/02/16 22:00 11/02/16 17:46 11/02/16 18:30 11/02/16 06:00 Intake and Output: 11/02/16 11/03/16 18:59 06:59 Intake Total 1105 Output Total 880 Balance 225 - Medications Medications: Current Medications Acetaminophen (Tylenol 325mg Tab) 650 mg PO Q6H PRN PRN Reason: Fever >100.4 F Last Admin: 11/02/16 20:48 Dose: 650 mg Atorvastatin Calcium (Lipitor) 10 mg PO DIN [facility] Last Admin: 11/02/16 18:31 Dose: 10 mg Furosemide (Lasix) 80 mg IVP Q8H [facility] Last Admin: 11/02/16 18:30 Dose: 80 mg Hydralazine HCl (Apresoline) 100 mg PO TID [facility] Last Admin: 11/02/16 18:29 Dose: 100 mg Pantoprazole Sodium 20 mg/ (Sodium Chloride) 100 mls @ 400 mls/hr IV DAILY [facility] Last Admin: 11/02/16 09:22 Dose: 400 mls/hr Insulin Human Regular (Humulin R Low) 0 units SC ACHS [facility] PRN Reason: Protocol Last Admin: 11/02/16 21:25 Dose: Not Given Isosorbide Mononitrate (Imdur) 60 mg PO DAILY [facility] Last Admin: 11/02/16 09:22 Dose: 60 mg Lorazepam (Ativan) 0.5 mg PO Q6H PRN PRN Reason: Anxiety Last Admin: 11/02/16 20:50 Dose: 0.5 mg Nitroglycerin (Nitro-Bid 2% Oint) 1 ea TOP Q4H PRN PRN Reason: accelerated hypertension Ondansetron HCl (Zofran Inj) 4 mg IVP Q6H PRN PRN Reason: Nausea/Vomiting - Labs Labs: 11/02/16 06:30 11/02/16 06:30 PT 20.2 Seconds (9.9-11.8) H 11/01/16 06:59 INR 1.87 (0.93-1.08) H 11/01/16 06:59 APTT 36.9 Seconds (23.7-30.8) H 11/01/16 06:59 - Constitutional Appears: Well, No Acute Distress - Head Exam Head Exam: ATRAUMATIC, NORMAL INSPECTION, NORMOCEPHALIC Additional comments: Obese. - Eye Exam Eye Exam: Normal appearance - ENT Exam ENT Exam: Mucous Membranes Dry - Neck Exam Neck Exam: Normal Inspection - Respiratory Exam Respiratory Exam: NORMAL BREATHING PATTERN - Cardiovascular Exam Cardiovascular Exam: absent: JVD - GI/Abdominal Exam GI & Abdominal Exam: absent: Distended - Rectal Exam Rectal Exam: Deferred - Exam Additional comments: Deferred. - Extremities Exam Extremities Exam: Normal Inspection - Back Exam Back Exam: NORMAL INSPECTION - Neurological Exam Neurological Exam: Alert, Oriented x3 - Psychiatric Exam Psychiatric exam: Normal Affect, Normal Mood - Skin Skin Exam: Normal Color Assessment and Plan - Assessment and Plan (Free Text) Assessment: Right hand pain. Right shoulder pain. History of gout. CHF. Anemia. ASHD. PPM. Atrial fibrillation. Valvular heart disease. HLD. Obesity. Chronic renal failure.Stage IV. Plan: Ultram 50 mg PO stat. Continue present management.
[2016-11-03 06:23] LABS: HEMATOCRIT 32.3 % (42.0-52.0)
[2016-11-03 06:28] LABS: INR 1.68 (0.93-1.08)
[2016-11-03] MEDS: Insulin Reg-LOW-Coverage SC SCH ×2 (08:38→12:34)
[2016-11-03] MEDS ORDERED: Etomidate 20 mg/10ml Inj IV ONE (10:07)
[2016-11-03 10:17] VITALS: TEMP 97
[2016-11-03 10:30] VITALS: RESP 23; O2SAT 99
[2016-11-03] MEDS ORDERED: Sodium Chloride 0.9% 1,000 ML IV SCH (10:30)
[2016-11-03 11:09] VITALS: BP 151/73
[2016-11-03] MEDS: Pantoprazole 20 MG in Sodium Chloride 0.9% 100 ML IV SCH (13:08)
[2016-11-03 14:51] VITALS: PULSE 73
--- NOTE | 2016-11-03 23:17 | DS ---
FINAL DIAGNOSES: Anemia of gastrointestinal bleeding; anemia of chronic disease; guaiac positive stools; endoscopy reportedly revealing gastritis; esophagitis, chronic hypertension; chronic renal failure stage IV; insulin dependent diabetes mellitus; hyperlipidemia; coronary artery disease, stable; history of permanent pacemaker; history of coronary stents; history of peripheral vascular disease; degenerative arthritis; morbid obesity and congestive heart failure. DISPOSITION: Home. Followup with my office within 1 week. The patient advised to follow up with Dr. Claudio of regarding incomplete GI testing while in the hospital and for pathology reports from his endoscopy. DISCHARGE DIET: 2 g sodium, heart healthy, renal diabetic. DISCHARGE MEDICATIONS: Lipitor 10 mg p.o. at bedtime, Lasix 80 mg p.o. t.i.d., Imdur 60 mg p.o. daily, Coumadin 4 mg p.o. at dinner time, as approved by , hydralazine 100 mg p.o. t.i.d., Pepcid 20 mg p.o. daily and ferrous gluconate 324 mg p.o. daily. SUMMARY: This is a 70-year-old male was admitted to [facility] with decompensated acute systolic congestive heart failure in the setting of anemia and guaiac positive stools. The patient had an abdominal CT with oral contrast that was unremarkable and underwent a upper endoscopy that reportedly showed gastritis, esophagitis and no other significant pathology. Despite multiple recommendations for colonoscopy in the setting of guaiac positive stools the patient adamantly refused this testing and he is clearly aware of the risks of colon cancer being undiagnosed with the lack of colonoscopy. I have discussed this case in detail with the patient's family, nursing and Dr. Claudio from . The patient has been cleared to resume Coumadin 4 mg p.o. daily while monitoring INR and hemoglobin and hematocrit. The patient has been advised for any obvious bright red blood per rectum or melanotic stools to represent to the [facility] ER for further evaluation of the above. He did receive blood cell transfusion in the hospital and at the time of discharge, he is in atrial fibrillation and paced rhythm on the quality assurance monitor body with temperature of 97, respirations 23, pulse 71, blood pressure 151/73 and pulse ox 99% on room air. Current labs showed hemoglobin 9.9, hematocrit 32.3, admission hemoglobin was 7.5 and hematocrit 24.8. PT/INR was 1.68 and iron was low at 28, TIBC 346 and percent saturation 8. Ferritin 64, B12 339 and folic acid 11. Random blood sugar at the time of discharge of was 106 and electrolytes showed sodium 143, K 4.7, chloride 105, bicarbonate 22, BUN 81, creatinine 2.2, and estimated GFR 30 mL per minute. The patient is discharged to home since he refuses to do any further testing and he is aware of undiagnosed cause of GI bleeding, risk for colon cancer and he desires to be treated in a supportive and compassionate conservative way at present. His family is aware of his decision as well. Meena Ling MD MTDD
== END 2016-11-03 15:53 | disposition home or self-care (01) | DRG 377 ==
LOC: ED 06:19 → ERH 08:32 → 2RSO 11:07
PROVIDERS: ADMIT Internal Medicine; ATTEND Internal Medicine
PROC: 30233N1 Transfusion of Nonautologous Red Blood Cells into Peripheral Vein, Percutaneous Approach (ICD-10-PCS; 2016-11-01)
PROC: 0DJ08ZZ Inspection of Upper Intestinal Tract, Via Natural or Artificial Opening Endoscopic (ICD-10-PCS; principal; 2016-11-03 10:30)
DX: K92.2 Gastrointestinal hemorrhage, unspecified (principal); I50.23 Acute on chronic systolic (congestive) heart failure; N18.4 Chronic kidney disease, stage 4 (severe); I13.0 Hypertensive heart and chronic kidney disease with heart failure and stage 1 through stage 4 chronic kidney disease, or unspecified chronic kidney disease; K25.9 Gastric ulcer, unspecified as acute or chronic, without hemorrhage or perforation; K20.9 Esophagitis, unspecified; K44.9 Diaphragmatic hernia without obstruction or gangrene; K29.70 Gastritis, unspecified, without bleeding; E11.22 Type 2 diabetes mellitus with diabetic chronic kidney disease; I48.2 Chronic atrial fibrillation; E11.51 Type 2 diabetes mellitus with diabetic peripheral angiopathy without gangrene; I25.10 Atherosclerotic heart disease of native coronary artery without angina pectoris; E78.5 Hyperlipidemia, unspecified; M10.9 Gout, unspecified; M25.511 Pain in right shoulder; M25.531 Pain in right wrist; M19.90 Unspecified osteoarthritis, unspecified site; D50.0 Iron deficiency anemia secondary to blood loss (chronic); D63.1 Anemia in chronic kidney disease; E66.01 Morbid (severe) obesity due to excess calories; Z79.01 Long term (current) use of anticoagulants; Z95.0 Presence of cardiac pacemaker; Z95.5 Presence of coronary angioplasty implant and graft; I25.2 Old myocardial infarction; Z68.36 Body mass index [BMI] 36.0-36.9, adult; Z79.4 Long term (current) use of insulin; Z87.891 Personal history of nicotine dependence

== ENCOUNTER 2016-12-14 05:16 | Inpatient (IN) | payer MEDICARE, OTHER ==
[2016-12-14 05:22] VITALS: BMI 34.4
[2016-12-14 05:56] LABS: BASO # 0.03 K/mm3 (0.0-2.0); BASO % 0.4 % (0.0-3.0); EOS # 0.4 (0.0-0.7); EOS % 4.6 % (1.5-5.0); GRAN # 6.27 (1.4-6.5); GRAN % 81.5 % (50.0-68.0); HEMATOCRIT 27.4 % (42.0-52.0); LYMPH # 0.6 (1.2-3.4); LYMPH % 7.9 % (22.0-35.0); MEAN CELL VOLUME 81.5 fl (80.0-105.0); MEAN CORPUSCULAR HGB CONC 30.7 g/dl (31.0-37.0); MEAN PLATELET VOLUME 10.9 fl (7.0-11.0); MONO # 0.4 (0.1-0.6); MONO % 5.6 % (1.0-6.0); RED CELL DISTRIBUTION WIDTH 20.4 % (11.5-14.5); WHITE BLOOD COUNT 7.7 10^3/ul (4.5-11.0)
[2016-12-14 06:01] LABS: VENOUS BLOOD GAS BASE EXCESS -5.9 mmol/L (0.0-2.0)
[2016-12-14 06:07] LABS: INR 2.3 (0.93-1.08); PARTIAL THROMBOPLASTIN TIME 43.9 Seconds (23.7-30.8)
[2016-12-14 06:08] LABS: ALB/GLOB RATIO 1.2 (1.1-1.8); BILIRUBIN,TOTAL 0.4 mg/dL (0.2-1.3); CALCIUM 8.5 mg/dL (8.4-10.5); POTASSIUM 4.6 mmol/L (3.6-5.0); TOTAL PROTEIN 6.7 g/dL (5.8-8.3)
[2016-12-14 06:20] LABS: TROPONIN I 0.08 ng/mL
--- NOTE | 2016-12-14 08:20 | RAD ---
HISTORY: sob COMPARISON: 11/01/2016 FINDINGS: LUNGS: The central pulmonary venous congestion is similar. No interval consolidation PLEURA: No significant pleural effusion identified; small right costophrenic angle pleural effusion not excluded-per its clipping No pneumothorax apparent. CARDIOVASCULAR: Cardiomegaly-unchanged unipolar pacemaker device in place as before OSSEOUS STRUCTURES: Thoracic spondylosis. VISUALIZED UPPER ABDOMEN: Normal. OTHER FINDINGS: None. IMPRESSION: Symmetrical pulmonary venous congestion-similar . Cardiomegaly-similar. Findings consistent with mild CHF. Pacemaker device in place as before
--- NOTE | 2016-12-14 10:13 | CARD ---
APPROVED REPORT EKG Measurement Heart [id number] <Conclusion> Atrial fibrillation ST & T wave abnormality, consider lateral ischemia or digitalis effect Abnormal ECG
[2016-12-14 10:35] LABS: IRON 38 ug/dL (45-180)
[2016-12-14] MEDS: Insulin Reg-LOW-Coverage SC SCH ×3 (11:55→21:28)
[2016-12-14] MEDS ORDERED: Nitroglycerin 2% Ointment Foilpak UD TOP PRN (12:12)
--- NOTE | 2016-12-14 15:23 | HP ---
HISTORY OF PRESENT ILLNESS: This 71-year-old male presented to the [facility] ER earlier this morning complaining of shortness of breath. His past medical history is extensive and includes congestive heart failure, atherosclerotic heart disease, status post coronary stents, history of diabetes mellitus, peripheral vascular disease, anemia of chronic disease, history of gastritis and esophagitis, hyperlipidemia, degenerative arthritis, and gout. The patient states that approximately 2 days ago, he noticed the onset of increased lower extremity swelling. This was accompanied by nocturnal dyspnea and caused him to present to the [facility] for further evaluation of the above. He denies any chest pain, hemoptysis, jaw pain, diaphoresis, admits to dietary noncompliance with fluid restriction, and states that his last dose of Lasix was at 3 o'clock in the afternoon the day prior to admission. REVIEW OF SYSTEMS: On head review, no headache or seizure. Eye review, no change in visual acuity. Ear review, no hearing loss. Throat review, no swallowing difficulty. Neck review, no stiffness. Cardiac review, he has a history of mild to moderate aortic stenosis, [id number] mitral regurgitation of longstanding congestive heart failure, atherosclerotic heart disease, status post coronary artery stenting, also with history of stage IV chronic renal failure, anemia of chronic disease, history of anemia of GI bleeding, and history of endoscopy report showing nonbleeding gastric ulcers, esophagitis, and recurrent refusal for colonoscopy or followup endoscopy, history of type 2 diabetes mellitus, insulin dependent, hyperlipidemia, peripheral vascular disease, stable, and degenerative arthritis. FAMILY HISTORY: Noncontributory. SOCIAL HISTORY: He is a former smoker. He is a nondrinker, non IV drug misuser, and a retired postal employee. MEDICATIONS: On outpatient medication review, he takes Coumadin, Lasix, Lipitor, hydralazine, Imdur. He did complete a course of oral antacids and was recommended to take ferrous gluconate 1 tablet p.o. daily. ALLERGIES: HE HAS NO KNOWN ALLERGIES TO MEDICATION. PHYSICAL EXAMINATION: GENERAL: At present, the patient is sitting on his emergency room cot. He is alert, oriented, denying any chest pain, no jaw pain, no diaphoresis. He is in an atrial fibrillation rhythm on the monitor. VITAL SIGNS: Temperature 99.1, respirations 20, pulse 77, blood pressure 129/72, and pulse oximetry 96% on room air. HEENT: Head is normocephalic, atraumatic. Eyes, no icterus. Ears clear. Throat non-injected. NECK: Supple. HEART: Has irregular S1, S2 with a soft systolic ejection murmur at left sternal border. No rubs. No gallops. LUNGS: Decreased breath sounds at both bases. ABDOMEN: Obese, nontender. No palpable organomegaly. No rebound. No guarding. No tenderness. RECTAL: Guaic negative brown stool. EXTREMITIES: 1+ pitting edema from his feet to his knees. VASCULAR: Legs warm to touch. PSYCHOLOGICAL: Alert and oriented x3. NEUROLOGIC: Grossly intact. LABORATORY DATA: Sodium 144, potassium 4.6, chloride 108, bicarb 21, BUN 73, creatinine 2.1, estimated GFR 26 mL per minute, random blood sugar 145. All liver function testing was normal including bilirubin 0.4, AST 48, ALT 26, alkaline phosphatase 113. Iron low 38, TIBC 277, percent saturation 14, BNP 17,200, CPK 106, troponin 0.08. White count 7700, hemoglobin 8.4, hematocrit 27.4, platelets 255,000, PT/INR 2.30. Chest x-ray was reviewed and shows no significant pleural effusion, no pneumothorax, permanent pacemaker in place with symmetrical pulmonary venous vascular congestion consistent with mild CHF. EKG is in atrial fibrillation with nonspecific ST-T wave changes. IMPRESSION: This is a 71-year-old male with congestive heart failure in the setting of aortic stenosis, mitral regurgitation, chronic, atrial fibrillation, atherosclerotic heart disease, stable, permanent pacemaker, chronic renal failure stage IV, and history of noncompliance with oral fluid restriction and diuretics, also with comorbidities of hyperlipidemia, peptic ulcer disease, anemia of chronic disease, history of gastrointestinal bleeding in the past with iron deficiency and guaiac-negative brown stool with rectal exam performed at the bedside in the presence of family and with his nurse. PLAN: The plan at present is to admit this patient to the Cardiac Unit. He will be put on a heart-healthy diabetic renal diet with 1000 mL p.o. fluid restriction. He will continue on Coumadin 4 mg p.o. daily while monitoring his INR daily and holding Coumadin for any INR greater than 3. He will have a repeat BMP and H and H in the morning. He is ordered to have hydralazine 100 mg p.o. t.i.d., insulin regular low-dose coverage before meals and at bedtime, Imdur 60 mg p.o. daily, Lasix 80 mg IV q. 6, Lipitor 10 mg p.o. at dinner time, Pepcid 20 mg p.o. at bedtime. The goal is to diurese this patient while monitoring his electrolytes, hemoglobin, hematocrit, and PT/INR while also enforcing his p.o. fluid restriction. The patient has repeatedly refused any consideration of repeat endoscopy or colonoscopy as recommended by Gastroenterology in the past. At present, he has guaiac-negative brown stools. We will monitor his H and H, and consider blood transfusion as needed. All of the above was discussed in detail with the patient, his daughter Chiquis, and his at the bedside. Greater than sixty minutes was spent in the care management and counseling of this patient today. Prognosis remains stable at present. Meena Ling MD MTDD
[2016-12-14] MEDS ORDERED: Pneumococcal 23-Valent Vaccine IM ONE (16:51)
--- NOTE | 2016-12-14 19:38 | ED PDOC ---
Arrival/HPI - General Chief Complaint: Shortness Of Breath Time Seen by Provider: 12/14/16 05:20 - History of Present Illness Narrative History of Present Illness (Text): 12/14/16 19:35 pt present with sob which atarted at 4 am, no chest pain or fever or chills or productive sputum, states took water pill did not help Time/Duration: 1/2 hour Symptom Course: Unchanged Past Medical History - Provider Review Nursing Documentation Reviewed: Yes - Infectious Disease Hx of Infectious Diseases: None - Tetanus Immunization Tetanus Immunization: Unknown - Cardiac Hx Cardiac Disorders: Yes Hx Cardiac Arrhythmia: Yes (afib, bradycardia) Hx Congestive Heart Failure: Yes Hx Hypertension: Yes Hx Pacemaker: Yes (07/25/16) Hx Peripheral Edema: Yes (+1 pitting ble edema) - Pulmonary Hx Respiratory Disorders: Yes (smoked cigarettes h/o ppd.quit.) - Neurological Hx Neurological Disorder: Yes (near syncope) Hx Dizziness: Yes - HEENT Hx Cataracts: Yes (pt uncertain about having sx) - Renal Hx Renal Disorder: Yes (renal insuffiency,ckd 3) - Endocrine/Metabolic Hx Endocrine Disorders: Yes Hx Diabetes Mellitus Type 2: Yes (diet controlled) Hx Hypothyroidism: Yes - Hematological/Oncological Hx Blood Disorders: Yes Hx Anemia: Yes (Blood transfusion 11-01-16) - Integumentary Hx Dermatological Disorder: Yes Other/Comment: 11-01-16 Bilateral le edema pitting mainly to ankle area,r hand 3rd finger stubbed, no open wounds noted to r ft, slight redness to bottom of ft. light skin discoloration to r inner thigh and left thigh cause unknown - Musculoskeletal/Rheumatological Hx Musculoskeletal Disorders: Yes Hx Arthritis: Yes (hands) Hx Falls: No Hx Gout: Yes (bilateral knees) Hx Osteomyelitis: Yes (r great toe necrosis 2015/r ankle swelling) Hx Unsteady Gait: Yes (weak knees from recent gout) Other/Comment: pt uses a walker when legs swell - Gastrointestinal Hx Gastrointestinal Disorders: Yes (obese) Hx Gastroesophageal Reflux: (pt denies) Other/Comment: endo 11/03/16 dx hiatal hernia, esophagitis, healed gastric ulcers - Genitourinary/Gynecological Hx Genitourinary Disorders: No - Psychiatric Hx Psychophysiologic Disorder: No Hx Substance Use: No - Surgical History Hx Cardiac Catheterization: Yes Hx Coronary Stent: Yes (x2 and 1 leg stent right) Other/Comment: ragini picc line for abx 2015, balloon angioplasty due to gangrene r ft hallux - Anesthesia Hx Anesthesia Reactions: No Hx Malignant Hyperthermia: No - Suicidal Assessment Plan: No Suicide Risk Precautions: None Family/Social History - Physician Review Nursing Documentation Reviewed: Yes Family/Social History: No Known Family HX Smoking Status: Former Smoker Hx Alcohol Use: No Hx Substance Use: No Allergies/Home Meds Allergies/Adverse Reactions: Allergies No Known Allergies Allergy (Verified 11/01/16 11:30) Home Medications: Home Meds Medication Instructions Recorded Confirmed Warfarin Sodium [Jantoven] 4 mg PO DAILY 08/26/15 12/14/16 Furosemide [Lasix] 80 mg PO TID 06/27/16 12/14/16 Isosorbide Mononitrate [Imdur] 60 mg PO DAILY 07/03/16 12/14/16 Atorvastatin [Lipitor] 10 mg PO QPM 07/14/16 12/14/16 Review of Systems - Review of Systems Constitutional: Normal Eyes: Normal ENT: Normal Respiratory: SOB Cardiovascular: absent: Chest Pain Gastrointestinal: Normal Genitourinary Male: Normal Musculoskeletal: Normal Skin: Normal Neurological: Normal Endocrine: Normal Hemo/Lymphatic: Normal Psychiatric: Normal Physical Exam Vital Signs Temp Pulse Pulse Resp BP Pulse Ox 12/14/16 18:00 97.2 F L 71 20 150/78 100 12/14/16 16:16 98.3 F 75 75 18 127/69 12/14/16 15:21 130/70 12/14/16 15:05 77 18 133/70 96 12/14/16 14:02 103 H 138/69 12/14/16 12:10 75 18 127/69 96 12/14/16 11:43 77 20 129/72 96 12/14/16 10:49 128/77 12/14/16 10:48 91 H 128/77 12/14/16 09:24 43 L 16 133/84 100 12/14/16 08:00 99.1 F 71 21 135/66 93 L 12/14/16 06:54 120/55 L 12/14/16 05:40 20 95 12/14/16 05:22 98.3 F 80 14 156/71 H 96 Temperature: Afebrile Blood Pressure: Normal Pulse: Regular Respiratory Rate: Normal Appearance: Positive for: Well-Appearing, Non-Toxic, Comfortable Pain Distress: None Mental Status: Positive for: Alert and Oriented X 3 Finger Stick Blood Glucose: 156 - Systems Exam Head: Present: Atraumatic, Normocephalic Pupils: Present: PERRL Extroacular Muscles: Present: EOMI Conjunctiva: Present: Normal Mouth: Present: Moist Mucous Membranes Neck: Present: Normal Range of Motion Respiratory/Chest: Present: Clear to Auscultation, Good Air Exchange, Rales. No : Respiratory Distress, Accessory Muscle Use Cardiovascular: Present: Normal S1, S2, Irregular Rhythm. No: Murmurs Abdomen: Present: Normal Bowel Sounds. No: Tenderness, Distention, Peritoneal Signs Back: Present: Normal Inspection Upper Extremity: Present: Normal Inspection. No: Cyanosis, Edema Lower Extremity: Present: Edema Neurological: Present: GCS=15, CN II-XII Intact, Speech Normal Skin: Present: Warm, Dry, Normal Color. No: Rashes Psychiatric: Present: Alert, Oriented x 3, Normal Insight, Normal Concentration Medical Decision Making ED Course and Treatment: 12/14/16 19:37 ekg a fibe no acute changes rate controlled chest xray chf case d/w dr jett accepts case - Lab Interpretations Lab Results: 12/14/16 05:40 12/14/16 05:40 Lab Results 12/14/16 05:40: Sodium 144, Chloride 108 H, Potassium 4.6, Carbon Dioxide 21, Anion Gap 20, BUN 73 H, Creatinine 2.5 H, Est GFR ( Amer) 31, Est GFR ( Non-Af Amer) 26, Random Glucose 145 H, Calcium 8.5, Total Bilirubin 0.4, AST 48 , ALT 26, Alkaline Phosphatase 113, Lactate Dehydrogenase 647, Total Creatine Kinase 106, Troponin I 0.08, NT-Pro-B Natriuret Pep 57235 H, Total Protein 6.7, Albumin 3.6, Globulin 3.1, Albumin/Globulin Ratio 1.2 12/14/16 05:40: pO2 80 H, VBG pH 7.30 L, VBG pCO2 41.0, VBG HCO3 20.2 L, VBG Total CO2 21.5 L, VBG O2 Sat (Calc) 95.4 H, VBG Base Excess -5.9 L, VBG Potassium 4.3, Sodium 139.0, Chloride 109.0 H, Glucose 150 H, Lactate 1.7, FiO2 21.0, Venous Blood Potassium 4.3 12/14/16 05:40: PT 24.8 H, INR 2.30 H, APTT 43.9 H 12/14/16 05:40: WBC 7.7, RBC 3.36 L, Hgb 8.4 L, Hct 27.4 L, MCV 81.5 D, MCH 25.0, MCHC 30.7 L, RDW 20.4 H, Plt Count 255, MPV 10.9, Gran % 81.5 H, Lymph % ( Auto) 7.9 L, [place] % (Auto) 5.6, Eos % (Auto) 4.6, Baso % (Auto) 0.4, Gran # 6.27 , Lymph # 0.6 L, [place] # 0.4, Eos # 0.4, Baso # 0.03 12/14/16 05:30: Iron 38 L, TIBC 277, % Saturation 14 L 12/14/16 05:30: Ferritin 176.0 - RAD Interpretation Radiology Orders: 12/14/16 05:28 CHEST PORTABLE [RAD] Stat - Medication Orders Current Medication Orders: Acetaminophen (Tylenol 325mg Tab) 650 mg PO Q6H PRN PRN Reason: Fever >100.4 F or pain Atorvastatin Calcium (Lipitor) 10 mg PO DIN [facility] Last Admin: 12/14/16 17:33 Dose: 10 mg Famotidine (Pepcid) 20 mg PO HS [facility] Furosemide (Lasix) 80 mg IV Q6H [facility] Last Admin: 12/14/16 15:21 Dose: 80 mg eMAR Start Stop Document 12/14/16 15:21 TNR (Rec: 12/14/16 15:22 [id number] Intravenous Solution Start Date 12/14/16 Start Time 15:21 End Date 12/14/16 End time 15:25 Total Infusion Time 4 MAR Blood Pressure Document 12/14/16 15:21 TNR (Rec: 12/14/16 15:22 [id number] Blood Pressure Blood Pressure (100/60-150/90) 130/70 Hydralazine HCl (Apresoline) 100 mg PO TID [facility] Last Admin: 12/14/16 17:33 Dose: 100 mg Insulin Human Regular (Humulin R Low) 0 units SC ACHS [facility] PRN Reason: Protocol Last Admin: 12/14/16 16:34 Dose: 1 units MAR Blood Glucose Document 12/14/16 16:34 LMN (Rec: 12/14/16 16:34 LMN [id number]) Blood Glucose Finger Stick Blood Glucose (70-120) 156 Subcutaneous Administrations Document 12/14/16 16:34 LMN (Rec: 12/14/16 16:34 LMN [id number]) Injection Site MAR Injection Site Left Abdomen Charges for Administration # of Subcutaneous Administrations 1 Isosorbide Mononitrate (Imdur) 60 mg PO DAILY [facility] Last Admin: 12/14/16 10:49 Dose: 60 mg Nitroglycerin (Nitro-Bid 2% Oint) 1 ea TOP Q4H PRN PRN Reason: accelerated hypertension Ondansetron HCl (Zofran Inj) 4 mg IVP Q6H PRN PRN Reason: Nausea/Vomiting Warfarin Sodium (Coumadin) 4 mg PO 1800 [facility] PRN Reason: Protocol Last Admin: 12/14/16 17:33 Dose: 4 mg Discontinued Medications Furosemide (Lasix) 40 mg IVP ONCE ONE Stop: 12/14/16 06:07 Last Admin: 12/14/16 06:54 Dose: 40 mg MAR Blood Pressure Document 12/14/16 06:54 RD (Rec: 12/14/16 06:54 RD [id number]) Blood Pressure Blood Pressure (100/60-150/90) 120/55 IVP Administration Document 12/14/16 06:54 RD (Rec: 12/14/16 06:54 RD [id number]) Charges for Administration # of IVP Administrations 1 Pneumococcal Polyvalent Vaccine (Pneumovax 23 Vaccine) 0.5 ml IM .ONCE ONE Stop: 12/14/16 16:52 Disposition/Present on Arrival - Present on Arrival Any Indicators Present on Arrival: No History of DVT/PE: No History of Uncontrolled Diabetes: No Urinary Catheter: No History of Decub. Ulcer: No History Surgical Site Infection Following: None - Disposition Have Diagnosis and Disposition been Completed?: Yes Diagnosis: Congestive heart failure Disposition: HOSPITALIZED Disposition Time: 07:00 Condition: FAIR
--- NOTE | 2016-12-15 01:45 | CP.PCM.PN ---
Subjective - Date & Time of Evaluation Date of Evaluation: 12/15/16 Time of Evaluation: 01:42 - Subjective Subjective: S:Patient was seen at bedside. He requested a sleeping pill. States that he has not been able to sleep since 4 AM. States that the patient in next bed is snoring and he can not sleep. Has no other complaints. Medical record was reviewed. O:VSS. Last Vital Signs 3 Temp 98.8 F 12/15/16 00:01 Pulse 74 12/15/16 00:01 Resp 20 12/15/16 00:01 BP 144/78 12/15/16 00:01 Pulse Ox 100 12/14/16 18:00 Awake, alert, not in distress. LUNGS:Normal breathing pattern. A:Adjustment insomnia. P:Benadryl 25 mg PO STAT. Objective - Vital Signs/Intake and Output Vital Signs (last 24 hours): Temp Pulse Resp BP Pulse Ox 98.8 F 74 20 144/78 100 12/15/16 00:01 12/15/16 00:01 12/15/16 00:01 12/15/16 00:01 12/14/16 18:00 Intake and Output: 12/14/16 12/15/16 18:59 06:59 Intake Total 300 Output Total 800 Balance -500 - Medications Medications: Current Medications Acetaminophen (Tylenol 325mg Tab) 650 mg PO Q6H PRN PRN Reason: Fever >100.4 F or pain Atorvastatin Calcium (Lipitor) 10 mg PO DIN [facility] Last Admin: 12/14/16 17:33 Dose: 10 mg Famotidine (Pepcid) 20 mg PO HS [facility] Last Admin: 12/14/16 21:07 Dose: 20 mg Furosemide (Lasix) 80 mg IV Q6H [facility] Last Admin: 12/14/16 21:05 Dose: 80 mg Hydralazine HCl (Apresoline) 100 mg PO TID [facility] Last Admin: 12/14/16 17:33 Dose: 100 mg Insulin Human Regular (Humulin R Low) 0 units SC ACHS [facility] PRN Reason: Protocol Last Admin: 12/14/16 21:28 Dose: Not Given Isosorbide Mononitrate (Imdur) 60 mg PO DAILY [facility] Last Admin: 12/14/16 10:49 Dose: 60 mg Nitroglycerin (Nitro-Bid 2% Oint) 1 ea TOP Q4H PRN PRN Reason: accelerated hypertension Ondansetron HCl (Zofran Inj) 4 mg IVP Q6H PRN PRN Reason: Nausea/Vomiting Warfarin Sodium (Coumadin) 4 mg PO 1800 [facility] PRN Reason: Protocol Last Admin: 12/14/16 17:33 Dose: 4 mg - Labs Labs: PT 24.8 Seconds (9.9-11.8) H 12/14/16 05:40 INR 2.30 (0.93-1.08) H 12/14/16 05:40 APTT 43.9 Seconds (23.7-30.8) H 12/14/16 05:40
[2016-12-15 06:19] LABS: HEMATOCRIT 28.8 % (42.0-52.0); INR 2.36 (0.93-1.08)
[2016-12-15 06:44] LABS: CALCIUM 8.9 mg/dL (8.4-10.5); POTASSIUM 4.3 mmol/L (3.6-5.0)
[2016-12-15] MEDS: Insulin Reg-LOW-Coverage SC SCH ×3 (08:26→16:57)
--- NOTE | 2016-12-16 01:33 | PN ---
DATE: 12/15/2016 SUBJECTIVE: This is a 71-year-old male who was examined at his bedside. His case was reviewed in detail with himself and his two daughters Chiquis and Chelsey also present at the bedside, also present for the discussion with his nurse Kim Wallace, registered nurse. The patient remains hospitalized on the cardiac unit for acute on chronic systolic congestive heart failure. The patient was admitted with shortness of breath and nocturnal dyspnea all in the setting of noncompliance with diet, fluid restriction, and diuretic medication. The patient presently is on a p.o. fluid restriction that has been reinforced at 1000 mL p.o. daily and he is receiving parenteral Lasix 80 mg IV q.6 hours. It should be noted that the patient has a history of mild aortic stenosis. This was reviewed from his cardiac catheterization earlier this year that showed mild aortic stenosis with a transvalvular gradient of 10 mmHg. The patient also had a 2D echocardiogram that showed normal left ventricular wall motion and ejection fraction. The patient has chronic renal failure stage IV, has a history of noncompliance with medication and p.o. fluid restriction and this has been reinforced with the patient and his family at the bedside today. At present, he denies any fever, chills, cough, hemoptysis, or hematemesis and a previous rectal exam done on the patient reveals guaiac-negative brown stools. The submarine operator shows an atrial fibrillation rhythm. OBJECTIVE: VITAL SIGNS: His temperature is 97.8, respirations 20, pulse 75 and blood pressure 132/89 with pulse ox 99% room air. HEENT: Head is normocephalic and atraumatic. Eyes: No icterus. Ears: Clear. Throat: Noninjected. NECK: Supple. HEART: Irregular S1 and S2. LUNGS: With decreased breath sounds both bases. ABDOMEN: Obese and nontender without palpable organomegaly. No rebound. No guarding. No tenderness. EXTREMITIES: With decreasing pedal edema. SKIN: Warm and dry. VASCULAR: Legs warm to touch. PSYCHOLOGICAL: Alert and anxious. NEUROLOGIC: Grossly intact. LABORATORY DATA: Hemoglobin 8.7, hematocrit 28.8 yesterday, hemoglobin 8.4, and hematocrit 27.4. PT/INR 2.36. Sodium 141, K 4.3, chloride 104, bicarb 25, BUN 69, creatinine 2.2, and estimated GFR 30 mL per minute. Blood sugar last evening 184 mg/dL. Chest x-ray was reviewed and is consistent with symmetrical pulmonary venous congestion, stable cardiomegaly, and pacemaker device in place as before. The findings are consistent with mild CHF. IMPRESSION: Recurrent acute on chronic systolic congestive heart failure, obesity, atherosclerotic heart disease stable, history of mild aortic stenosis, [id number] mitral regurgitation, chronic atrial fibrillation, on Coumadin therapy with therapeutic PT/INR, insulin-dependent diabetes mellitus, chronic renal failure stage IV, hyperlipidemia, degenerative arthritis, peptic ulcer disease, anemia of chronic disease, history of gastritis and esophagitis with iron-deficiency anemia, and history of gout. Current Iron levels are consistent with iron- deficiency anemia. BNP 17,200 is consistent with congestive heart failure. PLAN: As discussed with the patient's family at bedside and nursing is to enforced his 1000 mL p.o. fluid restriction as well as his diabetic heart-healthy renal diet. He will have a repeat basic metabolic panel and hemoglobin and hematocrit in the a.m. He continues on Coumadin 4 mg p.o. daily while monitoring PT/INR and holding Coumadin for any INR greater than three. He remains on regular low-dose insulin protocol a.c. meals and at bedtime, Imdur 60 mg p.o. daily, Lasix 80 mg IV q.6 hours, Lipitor 10 mg p.o. at dinnertime, metoprolol tartrate 50 mg p.o. b.i.d. and nitroglycerin ointment 1 inch to chest wall q.4 hours p.r.n. accelerated hypertension if his systolic blood pressure should be greater than 160 or diastolic blood pressure greater than 100. Pepcid 20 mg p.o. at bedtime, allopurinol 100 mg p.o. daily, Tylenol 650 mg p.o. q.6 hours p.r.n. pain or temperature greater than 101 and Zofran 4 mg IV q.6 hours p.r.n. nausea, vomiting. The patient will be monitored closely regarding his response to medical interventions regarding his multiple comorbidities. All this was explained in detail to the patient nurse and family at bedside. Greater than fifty minutes was spent in the care, management and counseling of this patient today. Meena Ling MD MTDJoe
[2016-12-16] MEDS: Insulin Reg-LOW-Coverage SC SCH ×5 (03:51→21:49)
[2016-12-16 06:13] LABS: CALCIUM 9.2 mg/dL (8.4-10.5); POTASSIUM 4.7 mmol/L (3.6-5.0)
--- NOTE | 2016-12-16 14:02 | PN ---
DATE: 12/16/2016 SUBJECTIVE: This 71-year-old male was examined at his bedside. His case was reviewed in detail with himself and his nurse, Khloe who was present for the interview. The patient is out of bed to chair. He still has a slight cough with shortness of breath. His pedal edema though improved, is persistent and he complains of anxiety and insomnia. The patient was admitted with acute on chronic congestive heart failure in the setting of chronic renal failure stage IV, anemia of chronic disease and history of permanent pacemaker placement for previous bradycardia, stable atherosclerotic heart disease with stents and history of mild aortic stenosis and [id number] mitral regurgitation. The patient denies any chest pain, hemoptysis, hematemesis, or melena and is cooperating with p.o. fluid restriction at present. PHYSICAL EXAMINATION: GENERAL: His diorama model maker shows that he is in a paced rhythm. VITAL SIGNS: His temperature is 98.2, respirations are 18, pulse is 71, and blood pressure is 117/60 with a pulse ox of 98% room air. HEENT: Head is normocephalic and atraumatic. Eyes: No icterus. Ears: Clear. Throat: Noninjected. NECK: Supple. HEART: Irregular S1 and S2. LUNGS: With decreased breath sounds at both bases. ABDOMEN: Obese and nontender without palpable organomegaly. No rebound. No guarding. No tenderness. EXTREMITIES: 1+ pedal edema from feet to knees. SKIN: Warm and dry. No ulcers. VASCULAR: Legs warm to touch. PSYCHOLOGICAL: Chronic anxiety. NEUROLOGICAL: Grossly intact. LABORATORY DATA: Hemoglobin 9.4 and hematocrit 31.0. PT/INR 2.36. Sodium 142, potassium 4.7, chloride 103, bicarb 25, BUN 77, creatinine 2.3, and random blood sugar 110, earlier 169. BNP 17,200. Iron 38, TIBC 277, and percent saturation 14. Chest xray was reviewed and shows CHF. IMPRESSION: This is a 71-year-old male with acute on chronic congestive heart failure in the setting of chronic renal failure stage IV, history of noncompliance with diet and medication including home diuretics and comorbidities of stable atherosclerotic heart disease, history of coronary artery stenting, history of permanent pacemaker, chronic hypertension, valvular heart disease with mild aortic stenosis, [id number] mitral regurgitation, history of chronic atrial fibrillation, on oral Coumadin, comorbidities of hyperlipidemia, morbid obesity, degenerative arthritis, gout, history of peptic ulcer disease, anemia of chronic disease and anemia of gastrointestinal bleeding in the past. PLAN: At present is to continue the patient on heart-healthy renal diabetic diet. He remains on p.o. fluid restriction of 1000 mL p.o. daily. He continues on allopurinol 100 mg p.o. daily, Pepcid 20 mg p.o. at bedtime, metoprolol tartrate 50 mg p.o. b.i.d., Lipitor 10 mg p.o. at dinner, he continues Lasix 80 mg IV q.8 hours, Imdur 60 mg p.o. daily, regular low-dose insulin protocol a.c.meals and HS, Coumadin 4 mg p.o. daily and we will check a basic metabolic panel and H and H in the a.m. as well as PT/INR in the a.m. I have instructed the nursing staff to hold all Coumadin should his INR be greater than 3. The patient is also being ambulated with assistance. He will have serial labs and hemoglobin/hematocrit. It should be noted that he has repeatedly refused to have a follow-up endoscopy or colonoscopy regarding the issue of his anemia and previous guaiac-positive stools that have now resolved and his family is aware of all of the above as well. Greater than fifty minutes was spent in the care management and counseling of this patient today. Prognosis is stable at present. Meena Ling MD MTDD
--- NOTE | 2016-12-17 00:02 | CP.PCM.PN ---
Subjective - Date & Time of Evaluation Date of Evaluation: 12/16/16 Time of Evaluation: 23:59 - Subjective Subjective: S:Requests a strong sleeping pill. States that he can not sleep because of the bed he is in. Also, states that they came to get BP at 9:45 PM instead of at 11:00 PM and he is upset about it. He is fully oriented. Medical record was reviewed. O: Last Vital Signs 3 Temp 97.1 F L 12/16/16 18:00 Pulse 76 12/16/16 22:00 Resp 20 12/16/16 18:00 Pulse Ox 99 12/16/16 09:00 Awake,alert,not in distress. LUNGS: Normal breathing pattern. A:Adjustment Insomnia. P:[id number] mg PO stat. Objective - Vital Signs/Intake and Output Vital Signs (last 24 hours): Temp Pulse Resp BP Pulse Ox 97.1 F L 76 20 129/69 99 12/16/16 18:00 12/16/16 22:00 12/16/16 18:00 12/16/16 18:27 12/16/16 09:00 Intake and Output: 12/16/16 12/17/16 18:59 06:59 Intake Total 240 Balance 240 - Medications Medications: Current Medications Acetaminophen (Tylenol 325mg Tab) 650 mg PO Q6H PRN PRN Reason: Fever >100.4 F or pain Last Admin: 12/16/16 22:49 Dose: 650 mg Allopurinol (Zyloprim) 100 mg PO DAILY [facility] Last Admin: 12/16/16 09:30 Dose: 100 mg Atorvastatin Calcium (Lipitor) 10 mg PO DIN [facility] Last Admin: 12/16/16 18:23 Dose: 10 mg Famotidine (Pepcid) 20 mg PO HS [facility] Last Admin: 12/16/16 22:39 Dose: 20 mg Furosemide (Lasix) 80 mg IV Q8H [facility] Last Admin: 12/16/16 18:27 Dose: 80 mg Insulin Human Regular (Humulin R Low) 0 units SC ACHS [facility] PRN Reason: Protocol Last Admin: 12/16/16 21:49 Dose: Not Given Isosorbide Mononitrate (Imdur) 60 mg PO DAILY [facility] Last Admin: 12/16/16 09:30 Dose: 60 mg Metoprolol Tartrate (Lopressor) 50 mg PO BRKDIN [facility] Last Admin: 12/16/16 18:23 Dose: 50 mg Nitroglycerin (Nitro-Bid 2% Oint) 1 ea TOP Q4H PRN PRN Reason: accelerated hypertension Ondansetron HCl (Zofran Inj) 4 mg IVP Q6H PRN PRN Reason: Nausea/Vomiting Warfarin Sodium (Coumadin) 4 mg PO 1800 [facility] PRN Reason: Protocol Last Admin: 12/16/16 18:23 Dose: 4 mg - Labs Labs: 12/16/16 05:40 12/16/16 05:40 PT 25.5 Seconds (9.9-11.8) H 12/15/16 05:30 INR 2.36 (0.93-1.08) H 12/15/16 05:30 APTT 43.9 Seconds (23.7-30.8) H 12/14/16 05:40
[2016-12-17 07:25] LABS: HEMATOCRIT 32.3 % (42.0-52.0)
[2016-12-17 07:31] LABS: INR 2.46 (0.93-1.08)
[2016-12-17 07:44] LABS: CALCIUM 9.3 mg/dL (8.4-10.5); POTASSIUM 4.6 mmol/L (3.6-5.0)
[2016-12-17] MEDS: Insulin Reg-LOW-Coverage SC SCH ×4 (07:44→22:12)
--- NOTE | 2016-12-17 22:07 | PN ---
DATE: 12/17/2016 SUBJECTIVE: This 71-year-old male was examined at his bedside. His case was reviewed in detail with himself and his nurse, Khloe Eaton, registered nurse. The patient remains weak and debilitated in the setting of acute on chronic congestive heart failure secondary to chronic renal failure stage IV, and history of noncompliance with diet and medication. The patient denies any active chest pain, is mildly short of breath with exertion but denies any palpitation, hematemesis, melena or hemoptysis. He has had no fever or chills. PHYSICAL EXAMINATION: VITAL SIGNS: Temperature is 98.4, respirations 20, pulse 72 and blood pressure 118/60. Pulse ox was 98% on room air. HEENT: Head is normocephalic, atraumatic. Eyes: No icterus. Ears: Clear. Throat: Noninjected. NECK: Supple. HEART: Irregular S1, S2. LUNGS: Decreased breath sounds at both bases. ABDOMEN: Obese, nontender. No palpable organomegaly. No rebound, no guarding. No tenderness. EXTREMITIES: No clubbing, no cyanosis, 1+ edema of feet, ankles and pretibial skin surfaces. VASCULAR: Legs warm to touch. PSYCHOLOGICAL: Alert and oriented x3. NEUROLOGICAL: Grossly intact. LABORATORY DATA: Hemoglobin 9.9, hematocrit 32.3. Admission hemoglobin 8.4, hematocrit 27.4. PT/INR 2.46. Sodium 142, potassium 4.6, chloride 103, bicarb 24, BUN 83, creatinine 2.3. Estimated GFR 28 mL per minute, blood sugar before lunch 196. IMPRESSION: A 71-year-old male with multiple medical problems including acute on chronic systolic congestive heart failure in the setting of chronic renal failure stage IV, stable atherosclerotic heart disease, history of coronary stents, history of chronic atrial fibrillation for which the patient takes chronic Coumadin therapy with now therapeutic PT/INR, also with history of mild aortic stenosis, [id number] mitral regurgitation, PPP, peptic ulcer disease, hyperlipidemia, obesity, degenerative arthritis, gout, anemia of chronic disease and history of anemia secondary to gastrointestinal bleeding with endoscopy in the past showing esophagitis and nonbleeding gastric ulcers. PLAN: At present, as discussed with the patient, family and nursing staff is to continue allopurinol 100 mg p.o. daily, Zofran 4 mg IV q.6 hours p.r.n. nausea, vomiting. I am adding Zaroxolyn 2.5 mg p.o. daily to assist in the diuresis of third space fluids in the setting of chronic renal failure stage IV. He will also have his Lasix increased to 80 mg IV q.6. He continues on Pepcid 20 mg p.o. at bedtime, nitroglycerin ointment 1 inch to chest wall q.4 hours p.r.n. accelerated hypertension if his systolic blood pressure should be greater than 160 or his diastolic blood pressure should be greater than 100. He continues on metoprolol tartrate 50 mg p.o. b.i.d., Lipitor 10 mg p.o. at bedtime, Imdur 60 mg p.o. daily, regular low-dose insulin protocol coverage a.c. meals and bedtime, Coumadin 4 mg p.o. daily. He is ordered to have a hemoglobin/hematocrit and PT/INR in the a.m. He is ordered to be ambulated with assistance and bathroom privileges with assistance. Body weight today was 226 pounds down from 240 pounds on admission. As discussed with the patient, he will need to remain on the cardiac unit, have cautious monitoring of I's and O's, body weight, electrolytes, blood pressures and cardiac rhythm. He will have his INRs monitored, his electrolytes, hemoglobin and hematocrit and ultimate plan will be for discharge to home when medically stable and chest x-ray shows resolution of congestive heart failure. It has been discussed upon this hospital visit as well as in the past with the patient and family that he will ultimately need to consider hemodialysis for volume management as well as uremia control in his future. Family is aware and in agreement with the above. Greater than fifty minutes was spent in the care management and counseling of this patient today. Meena Ling MD MTDD
[2016-12-18 06:55] LABS: HEMATOCRIT 32.2 % (42.0-52.0)
[2016-12-18 07:03] LABS: INR 2.74 (0.93-1.08)
[2016-12-18] MEDS: Insulin Reg-LOW-Coverage SC SCH ×4 (08:32→21:51)
[2016-12-18] MEDS: metOLazone 2.5 MG TAB PO SCH (09:46)
[2016-12-18] MEDS ORDERED: TraMADol/Apap 37.5/325 mg Tab PO PRN (13:58)
[2016-12-18] MEDS: ceFAZolin 1 gm in NS 1 GM/100 ML BAG IVPB SCH ×2 (14:29→21:21)
[2016-12-18] MEDS ORDERED: Oxycodone/Acetaminophen 10/325 mg Tab PO STA (20:36)
--- NOTE | 2016-12-18 22:23 | PN ---
DATE: 12/18/2016 SUBJECTIVE: This 71-year-old male was examined at his bedside in the presence of his , his son, and his two daughters. The patient was out of bed to chair and complaining of left foot pain and he noticed today the new onset of erythema and warmth of his dorsal surface of the left foot. He denied any fever or chills, chest pain, or shortness of breath and remains hospitalized on parenteral diuretics in the setting of anasarca, acute on chronic congestive heart failure, and stage IV chronic renal failure. The monitor shows atrial fibrillation rhythm. PHYSICAL EXAMINATION VITAL SIGNS: Temperature 98.5, respirations 20, pulse 80, and blood pressure 112/61 with a pulse ox of 94% on room air. HEENT: Head is normocephalic and atraumatic. Eyes: No icterus. Ears: Clear. Throat: Noninjected. NECK: Supple. HEART: Irregular S1, S2. LUNGS: Clear to auscultation. ABDOMEN: Obese, nontender without palpable organomegaly. No rebound, no guarding. No tenderness. EXTREMITIES: Show left forefoot with cellulitis involving his toes to his mid dorsal surface of the foot. He has 1+ pitting edema bilaterally. No ulcers. VASCULAR: Legs warm to touch. PSYCHOLOGICAL: Alert and oriented x3. NEURO: Grossly intact. LABORATORY DATA: Hemoglobin 9.9, hematocrit 32.2. PT/INR 2.74. Sodium 142, K 4.6, chloride 103, bicarb 24, BUN 83, creatinine 2.3, random blood sugar is 117. IMPRESSION: This is a 71-year-old male with decompensated systolic congestive heart failure; acute on chronic systolic congestive heart failure with comorbidities of morbid obesity; insulin-dependent diabetes mellitus; atherosclerotic heart disease, status post coronary artery stents; chronic hypertension; mild aortic stenosis; [id number] mitral regurgitation; history of permanent pacemaker placement; chronic renal failure stage IV; hyperlipidemia; anemia of chronic disease; peptic ulcer disease; degenerative arthritis; history of gout; and now with left foot cellulitis. PLAN: At present is to continue heart healthy renal diabetic diet. He continues on p.o. fluid restriction of 1000 mL p.o. daily. He will continue on allopurinol 100 mg p.o. daily, Zofran 4 mg IV q.6h. p.r.n. for nausea and vomiting, Zaroxolyn 2.5 mg p.o. daily, Lasix 80 mg IV q.6h. because of pain in his joints secondary to degenerative arthritis. He will be ordered to have Tylenol 650 p.o. q.6h. p.r.n. mild pain and Ultracet 1 tablet p.o. q.8h. p.r.n. severe pain. He continues on Pepcid 20 mg p.o. h.s., nitroglycerin to chest wall q.4h. p.r.n. accelerated hypertension if his systolic blood pressure should be greater than 163 or his diastolic blood pressure should be greater than 100. He continues on Lopressor 50 mg p.o. b.i.d., Lipitor 10 mg p.o. h.s., Imdur 60 mg p.o. daily, regular low-dose insulin coverage a.c. meals and h.s. Coumadin 4 mg p.o. daily, and he will start Ancef 1 g IV q.6h. for his cellulitis. I have instructed the patient in the presence of his family to make sure that he is wearing clean white socks daily, also foot wear and to elevate his legs as much as possible when out of bed to chair. Also been advised to ambulate the patient with assistance and he will be monitored on his clinical progress. The ultimate plan is for discharge to home when medically stable and he will as always follow with his functional skills tutor, Dr. Jesus Tyler, as an outpatient. The family and the patient were readvised of his future need for hemodialysis for volume and uremia control and they are aware and in agreement with this recommendation. Greater than fifty minutes was spent in the care management and counseling of this patient today. His case was reviewed in detail with his nurse, Yovanny. Meena Ling MD MTDJoe
--- NOTE | 2016-12-18 23:12 | CP.PCM.PN ---
Subjective - Date & Time of Evaluation Date of Evaluation: 12/18/16 Time of Evaluation: 23:11 - Subjective Subjective: Patient was seen at bedside. States that he has pain in both groins. Denies any injuries. States that he might have arthritis, pointing to his right shoulder. BP is 105/59 now. Received Ultracet earlier without much help. Medical record was reviewed. This 71 year old white male was with sob. Has PMH of CHF, CAD, Coronary stent placement, gastritis, esophagitis, DM, anemia of chronic disease, DM. Objective - Vital Signs/Intake and Output Vital Signs (last 24 hours): Temp Pulse Resp BP Pulse Ox 99.1 F 95 H 20 146/65 94 L 12/18/16 18:00 12/18/16 18:47 12/18/16 18:00 12/18/16 18:47 12/18/16 06:00 Intake and Output: 12/18/16 12/19/16 18:59 06:59 Intake Total 360 Output Total 1100 Balance -740 - Medications Medications: Current Medications Acetaminophen (Tylenol 325mg Tab) 650 mg PO Q6H PRN PRN Reason: Fever >100.4 F or pain Last Admin: 12/18/16 18:49 Dose: 650 mg Allopurinol (Zyloprim) 100 mg PO DAILY [facility] Last Admin: 12/18/16 09:46 Dose: 100 mg Atorvastatin Calcium (Lipitor) 10 mg PO DIN [facility] Last Admin: 12/18/16 18:47 Dose: 10 mg Diphenhydramine HCl (Benadryl) 25 mg PO HS PRN PRN Reason: Insomnia Last Admin: 12/17/16 00:25 Dose: 25 mg Famotidine (Pepcid) 20 mg PO HS [facility] Last Admin: 12/18/16 21:21 Dose: 20 mg Furosemide (Lasix) 80 mg IV Q6 [facility] Last Admin: 12/18/16 18:47 Dose: 80 mg Cefazolin Sodium (Ancef 1gm In Ns) 1 gm in 100 mls @ 100 mls/hr IVPB Q8 [facility] PRN Reason: Protocol Last Admin: 12/18/16 21:21 Dose: 100 mls/hr Insulin Human Regular (Humulin R Low) 0 units SC ACHS [facility] PRN Reason: Protocol Last Admin: 12/18/16 21:51 Dose: Not Given Isosorbide Mononitrate (Imdur) 60 mg PO DAILY [facility] Last Admin: 12/18/16 09:46 Dose: 60 mg Metolazone (Zaroxolyn) 2.5 mg PO DAILY [facility] Last Admin: 12/18/16 09:46 Dose: 2.5 mg Metoprolol Tartrate (Lopressor) 50 mg PO BRKDIN [facility] Last Admin: 12/18/16 18:47 Dose: 50 mg Nitroglycerin (Nitro-Bid 2% Oint) 1 ea TOP Q4H PRN PRN Reason: accelerated hypertension Ondansetron HCl (Zofran Inj) 4 mg IVP Q6H PRN PRN Reason: Nausea/Vomiting Tramadol/Acetaminophen (Ultracet 37.5/325 Mg) 1 tab PO Q8H PRN PRN Reason: Pain, severe (8-10) Last Admin: 12/18/16 14:27 Dose: 1 tab Warfarin Sodium (Coumadin) 4 mg PO 1800 [facility] PRN Reason: Protocol Last Admin: 12/18/16 18:47 Dose: 4 mg - Labs Labs: 12/18/16 06:20 12/17/16 07:00 PT 29.6 Seconds (9.9-11.8) H 12/18/16 06:20 INR 2.74 (0.93-1.08) H 12/18/16 06:20 APTT 43.9 Seconds (23.7-30.8) H 12/14/16 05:40 Laboratory Last Values WBC 7.7 10^3/ul (4.5-11.0) 12/14/16 05:40 RBC 3.36 10^6/uL (3.5-6.1) L 12/14/16 05:40 Hgb 9.9 g/dL (14.0-18.0) L 12/18/16 06:20 Hct 32.2 % (42.0-52.0) L 12/18/16 06:20 MCV 81.5 fl (80.0-105.0) D 12/14/16 05:40 MCH 25.0 pg (25.0-35.0) 12/14/16 05:40 MCHC 30.7 g/dl (31.0-37.0) L 12/14/16 05:40 RDW 20.4 % (11.5-14.5) H 12/14/16 05:40 Plt Count 255 10^3/uL (120.0-450.0) 12/14/16 05:40 MPV 10.9 fl (7.0-11.0) 12/14/16 05:40 Gran % 81.5 % (50.0-68.0) H 12/14/16 05:40 Lymph % (Auto) 7.9 % (22.0-35.0) L 12/14/16 05:40 Curry % (Auto) 5.6 % (1.0-6.0) 12/14/16 05:40 Eos % (Auto) 4.6 % (1.5-5.0) 12/14/16 05:40 Baso % (Auto) 0.4 % (0.0-3.0) 12/14/16 05:40 Gran # 6.27 (1.4-6.5) 12/14/16 05:40 Lymph # 0.6 (1.2-3.4) L 12/14/16 05:40 Curry # 0.4 (0.1-0.6) 12/14/16 05:40 Eos # 0.4 (0.0-0.7) 12/14/16 05:40 Baso # 0.03 K/mm3 (0.0-2.0) 12/14/16 05:40 PT 29.6 Seconds (9.9-11.8) H 12/18/16 06:20 INR 2.74 (0.93-1.08) H 12/18/16 06:20 APTT 43.9 Seconds (23.7-30.8) H 12/14/16 05:40 pO2 80 mm/Hg (30-55) H 12/14/16 05:40 VBG pH 7.30 (7.32-7.43) L 12/14/16 05:40 VBG pCO2 41.0 (40-60) 12/14/16 05:40 VBG HCO3 20.2 mmol/l (21-28) L 12/14/16 05:40 VBG Total CO2 21.5 mmol.L (22-28) L 12/14/16 05:40 VBG O2 Sat (Calc) 95.4 % (40-65) H 12/14/16 05:40 VBG Base Excess -5.9 mmol/L (0.0-2.0) L 12/14/16 05:40 VBG Potassium 4.3 mmol/L (3.6-5.2) 12/14/16 05:40 Sodium 139.0 mmol/L (132-148) 12/14/16 05:40 Chloride 109.0 mmol/L (98-107) H 12/14/16 05:40 Glucose 150 mg/dl (75-110) H 12/14/16 05:40 Lactate 1.7 mmol/L (0.7-2.1) 12/14/16 05:40 FiO2 21.0 % 12/14/16 05:40 Sodium 142 mmol/L (132-148) 12/17/16 07:00 Potassium 4.6 mmol/L (3.6-5.0) 12/17/16 07:00 Chloride 103 mmol/L (95-110) 12/17/16 07:00 Carbon Dioxide 24 mmol/L (21-33) 12/17/16 07:00 Anion Gap 20 (10-20) 12/17/16 07:00 BUN 83 mg/dL (7-21) H 12/17/16 07:00 Creatinine 2.3 mg/dL (0.8-1.5) H 12/17/16 07:00 Est GFR ( Amer) 34 12/17/16 07:00 Est GFR (Non-Af Amer) 28 12/17/16 07:00 POC Glucose (mg/dL) 196 mg/dL (65-110) H 12/16/16 11:28 Random Glucose 117 mg/dL (70-110) H 12/17/16 07:00 Calcium 9.3 mg/dL (8.4-10.5) 12/17/16 07:00 Iron 38 ug/dL (45-180) L 12/14/16 05:30 TIBC 277 ug/dL (261-462) 12/14/16 05:30 % Saturation 14 % (20-55) L 12/14/16 05:30 Ferritin 176.0 ng/mL 12/14/16 05:30 Total Bilirubin 0.4 mg/dL (0.2-1.3) 12/14/16 05:40 AST 48 U/L (17-59) 12/14/16 05:40 ALT 26 U/L (7-56) 12/14/16 05:40 Alkaline Phosphatase 113 U/L (38-126) 12/14/16 05:40 Lactate Dehydrogenase 647 U/L (333-699) 12/14/16 05:40 Total Creatine Kinase 106 U/L (35-230) 12/14/16 05:40 Troponin I 0.08 ng/mL 12/14/16 05:40 NT-Pro-B Natriuret Pep 29574 pg/mL (0-450) H 12/14/16 05:40 Total Protein 6.7 g/dL (5.8-8.3) 12/14/16 05:40 Albumin 3.6 g/dL (3.0-4.8) 12/14/16 05:40 Globulin 3.1 gm/dL 12/14/16 05:40 Albumin/Globulin Ratio 1.2 (1.1-1.8) 12/14/16 05:40 Venous Blood Potassium 4.3 mmol/L (3.6-5.2) 12/14/16 05:40 - Constitutional Appears: Well, No Acute Distress - Head Exam Head Exam: ATRAUMATIC, NORMAL INSPECTION, NORMOCEPHALIC - Eye Exam Eye Exam: Normal appearance - ENT Exam ENT Exam: Normal External Ear Exam - Neck Exam Neck Exam: Normal Inspection - Respiratory Exam Respiratory Exam: NORMAL BREATHING PATTERN - Cardiovascular Exam Cardiovascular Exam: absent: JVD - GI/Abdominal Exam GI & Abdominal Exam: absent: Distended - Rectal Exam Rectal Exam: Deferred - Exam Additional comments: Deferred. - Extremities Exam Extremities Exam: Normal Inspection Additional comments: ROM of both lower extremities is normal. - Back Exam Back Exam: NORMAL INSPECTION - Neurological Exam Neurological Exam: Alert, Awake - Psychiatric Exam Psychiatric exam: Normal Affect, Normal Mood - Skin Skin Exam: Normal Color Assessment and Plan - Assessment and Plan (Free Text) Assessment: Both Groin pain.-Arthritis? Dyspnea-Resolved. CHF. CAD. DM. Anemia of chronic diseases. PVD. Gastritis. Esophagitis. Plan: Percocet I PO stat. Continue present management.
[2016-12-19 01:00] VITALS: RESP 18; O2SAT 97
[2016-12-19] MEDS: ceFAZolin 1 gm in NS 1 GM/100 ML BAG IVPB SCH (05:52)
[2016-12-19 06:56] LABS: INR 2.73 (0.93-1.08)
[2016-12-19 07:12] LABS: CALCIUM 9.3 mg/dL (8.4-10.5); POTASSIUM 5.1 mmol/L (3.6-5.0)
[2016-12-19] MEDS: Insulin Reg-LOW-Coverage SC SCH ×2 (08:22→12:18)
[2016-12-19] MEDS: metOLazone 2.5 MG TAB PO SCH (09:40)
[2016-12-19 12:14] VITALS: BP 134/63; TEMP 98.7
[2016-12-19] MEDS ORDERED: Vancomycin 500mg in NS 500 MG/100 ML BAG IVPB ONE (12:30)
[2016-12-19 16:00] VITALS: PULSE 70
[2016-12-19] MEDS ORDERED: Vancomycin 500mg in NS 500 MG/100 ML BAG IVPB SCH (22:00)
[2016-12-19] MEDS ORDERED: Vancomycin 1 g Inj IVPB SCH (22:00)
--- NOTE | 2016-12-20 06:04 | DS ---
FINAL DIAGNOSES: Decompensated vcyih-ai-frueask systolic congestive heart failure in the setting of chronic renal failure stage IV, anasarca, chronic atrial fibrillation; on Coumadin therapy, history of atherosclerotic heart disease with stents, history of mild aortic stenosis, [id number] mitral regurgitation, permanent pacemaker, insulin-dependent diabetes mellitus, hyperlipidemia, anemia of chronic disease, peptic ulcer disease, degenerative arthritis, history of gout, morbid obesity. DISPOSITION: Transitional care rehab. DISCHARGE DIET: 2 g sodium, 2 g potassium, 60 g protein, diabetic, 1000 mL p.o. fluid restriction. DISCHARGE MEDICATIONS: Allopurinol 100 mg p.o. daily, Pepcid 20 mg p.o. h.s., nitroglycerin 1-inch to chest wall q.4 hours p.r.n. systolic blood pressure greater than 160, diastolic blood pressure greater than 100, Lopressor 50 mg p.o. b.i.d., Lipitor 10 mg p.o. h.s., Lasix 80 mg IV q.8, Imdur 60 mg p.o. daily, regular low-dose insulin coverage a.c. meals h.s., Coumadin 4 mg p.o. daily, monitoring INR and holding Coumadin for any INR greater than 3, and also the patient will be given vancomycin 500 mg IV q.12 and monitoring vancomycin trough levels for questionable right foot mild cellulitis. SUMMARY: This is a 71-year-old male who was admitted to [facility] with shortness of breath in the setting of clinical and radiographic congestive heart failure, in the setting of chronic renal failure and history of atherosclerotic heart disease, chronic hypertension, permanent pacemaker; atrial fibrillation, with valvular heart disease as well. The patient was treated with parenteral diuretics, while in the hospital developed a mild cellulitis of his right forefoot that is going to be treated with parenteral antibiotics. The patient is weak and deconditioned, is heading toward the need for hemodialysis for volume management and electrolyte balance, and at the time of the discharge, his temperature was 99, respirations 18, pulse 70 and blood pressure 116/63, with a pulse ox of 97% on room air. He is out of bed to chair, hemoglobin is stable at 9.9 with hematocrit of 32.2. PT/INR 2.73. Sodium 142, K 5.1, chloride 100, bicarb 25, BUN 100, creatinine 2.9. Estimated GFR 22 mL per minute. Random blood sugar 134. Ultimate plan is for discharge to home when medically stable. The patient declines any orthopedic consultations for consideration of cortisone injections for degenerative arthritis, history of gouty arthritis involving knees and hips. PROGNOSIS: Stable at present. Meena Ling MD MTDD
== END 2016-12-19 15:37 | DRG 291 ==
LOC: ED 05:16 → ERH 06:43 → OBSVTOIN 09:31 → ERH 14:58 → 2RNO 16:17
PROVIDERS: ADMIT Internal Medicine; ATTEND Internal Medicine
DX: I13.0 Hypertensive heart and chronic kidney disease with heart failure and stage 1 through stage 4 chronic kidney disease, or unspecified chronic kidney disease (principal); I50.23 Acute on chronic systolic (congestive) heart failure; N18.4 Chronic kidney disease, stage 4 (severe); L03.115 Cellulitis of right lower limb; E11.22 Type 2 diabetes mellitus with diabetic chronic kidney disease; E11.51 Type 2 diabetes mellitus with diabetic peripheral angiopathy without gangrene; E66.01 Morbid (severe) obesity due to excess calories; I25.10 Atherosclerotic heart disease of native coronary artery without angina pectoris; E78.5 Hyperlipidemia, unspecified; M1A.0690 Idiopathic chronic gout, unspecified knee, without tophus (tophi); M1A.05 Idiopathic chronic gout, hip; F51.02 Adjustment insomnia; I08.0 Rheumatic disorders of both mitral and aortic valves; D63.8 Anemia in other chronic diseases classified elsewhere; D50.9 Iron deficiency anemia, unspecified; I48.2 Chronic atrial fibrillation; M19.90 Unspecified osteoarthritis, unspecified site; K29.70 Gastritis, unspecified, without bleeding; K20.9 Esophagitis, unspecified; Z95.0 Presence of cardiac pacemaker; Z87.11 Personal history of peptic ulcer disease; Z91.14 Patient's other noncompliance with medication regimen; Z95.5 Presence of coronary angioplasty implant and graft; Z79.4 Long term (current) use of insulin; Z79.01 Long term (current) use of anticoagulants; Z87.891 Personal history of nicotine dependence; Z91.11 Patient's noncompliance with dietary regimen; Z91.19 Patient's noncompliance with other medical treatment and regimen

== ENCOUNTER 2016-12-19 15:40 | Inpatient (IN) | payer OTHER ==
[2016-12-19 16:00] VITALS: BMI 33.1
[2016-12-19] MEDS ORDERED: Nitroglycerin 2% Ointment Foilpak UD TOP PRN (16:15)
[2016-12-19] MEDS ORDERED: Oxycodone/Acetaminophen 5/325 mg Tab PO PRN (16:15)
[2016-12-19] MEDS ORDERED: Home Med 1 UNIT PO ONE (16:33)
[2016-12-19] MEDS: Insulin Reg-LOW-Coverage SC SCH (18:38)
[2016-12-19] MEDS ORDERED: Influenza Vaccine 60 mcg/0.5 mL SYR (4YR UP) IM ONE (19:29)
[2016-12-19] MEDS ORDERED: Pneumococcal 23-Valent Vaccine IM ONE (19:29)
[2016-12-19] MEDS: Vancomycin 500mg in NS 500 MG/100 ML BAG IVPB SCH (22:33)
[2016-12-20] MEDS: Insulin Reg-LOW-Coverage SC SCH ×5 (02:45→21:47)
[2016-12-20 08:04] LABS: HEMATOCRIT 30.4 % (42.0-52.0); MEAN CELL VOLUME 79.6 fl (80.0-105.0); MEAN CORPUSCULAR HEMOGLOBIN 24.9 pg (25.0-35.0); MEAN CORPUSCULAR HGB CONC 31.3 g/dl (31.0-37.0); MEAN PLATELET VOLUME 11.1 fl (7.0-11.0); RED CELL DISTRIBUTION WIDTH 19.5 % (11.5-14.5); WHITE BLOOD COUNT 13.5 10^3/ul (4.5-11.0)
[2016-12-20 08:10] LABS: INR 3.29 (0.93-1.08)
[2016-12-20 08:11] LABS: ALB/GLOB RATIO 1.3 (1.1-1.8); BILIRUBIN,TOTAL 0.6 mg/dL (0.2-1.3); CALCIUM 9.2 mg/dL (8.4-10.5); POTASSIUM 4.5 mmol/L (3.6-5.0); TOTAL PROTEIN 7.4 g/dL (5.8-8.3)
[2016-12-20] MEDS: Vancomycin 500mg in NS 500 MG/100 ML BAG IVPB SCH ×2 (12:39→21:40)
--- NOTE | 2016-12-20 20:38 | PN ---
DATE: 12/20/2016 HISTORY OF PRESENT ILLNESS: This 71-year-old male was examined at the bedside. His case was reviewed in detail with the nursing officer, Jolanta Brannon, registered nurse. The patient remains out of bed to chair. He remains discontent with his clinical progress and multiple medical comorbidities that have required him to remain hospitalized. Of note, he is having an acute exacerbation of his chronic gouty arthritis, which is also complicated by the fact that the patient has advanced renal insufficiency that make his management difficult. The patient refuses any consideration of intra-articular cortisone injections for this process, which at present are involving both his knees, hip, and left foot. The patient is also annoyed by the fact that he remains on fall precautions and is agitated state and has the need for multiple medications for comorbidities including chronic renal failure stage IV, atherosclerotic heart disease, congestive heart failure, chronic hypertension, hyperlipidemia, gastroesophageal reflux disease, anemia of chronic disease, and gouty arthritis as well as degenerative arthritis, PHYSICAL EXAMINATION GENERAL: At present, he is out of bed to chair, alert and oriented x3. Denying any chest pain, shortness of breath, hematemesis, melena, or diarrhea. VITAL SIGNS: Shows temperature 98.7, respirations 18, pulse 74, blood pressure 113/47 with a pulse ox of 97% room air. HEENT: Head is normocephalic, atraumatic. Eyes: No icterus. Ears: Clear. Throat: Noninjected. Neck: Supple. HEART: Irregular S1, S2. LUNGS: Without wheezing or rhonchi. ABDOMEN: Obese and nontender. EXTREMITIES: No clubbing, no cyanosis, no edema. SKIN: Without ulcers. Left foot cellulitis, improved. VASCULAR: Legs warm to touch. PSYCHOLOGIC: Alert and oriented x3. NEURO: Markedly deconditioned. LABORATORY DATA: White count 13,500; hemoglobin 9.5; hematocrit 30.4; and platelets 319,000. PT/INR 3.29. Sodium 135, K 4.5, chloride 98, bicarb 20, BUN 112, creatinine 2.9. Estimated GFR 22 mL per minute, random blood sugar 162. All liver function testing was normal including bilirubin 0.6, AST 25, ALT 37 and alk phos 91. IMPRESSION: This is a 71-year-old male with chronic renal failure stage IV, leukocytosis in the setting of improving left foot cellulitis on IV antibiotics as well as p.o. steroid taper for acute gouty arthritis, anemia of chronic disease, history of congestive heart failure, acute on chronic decompensated in the setting of chronic renal failure stage IV, and history of noncompliance with fluid restriction and medication at home, also with chronic gouty arthritis, acute exacerbation, atrial fibrillation, stable atherosclerotic heart disease, valvular heart disease with aortic stenosis, mild; mitral regurgitation, mild to moderate; insulin-dependent diabetes mellitus; degenerative arthritis; hyperlipidemia; gastroesophageal reflux disease; and the patient refusal for follow-up endoscopy for previous GI bleed where he was noted to have esophagitis and nonbleeding gastric ulcers and the patient has never had a colonoscopy and refuses to have one to make sure there are no colon polyps or colon cancers. PLAN: At present as discussed with the patient, family, and nursing is to continue renal diabetic heart-healthy diet with p.o. fluid restriction of 1000 mL daily. He continues on colchicine 0.3 mg p.o. daily dose reduced in the setting of chronic renal failure for his elevated uric acid level of 13. He also continues on allopurinol 100 mg p.o. daily and Solu-Medrol Dosepak dose reduction of cortisone over 5 days. He will have his Coumadin held for any INR greater than 3. He remains on regular low-dose insulin protocol a.c. meals h.s., Imdur 60 mg p.o. daily, Lasix 80 mg IV q. 8, Lipitor 10 mg p.o. daily, metoprolol will be decreased to 25 mg p.o. daily and held for any day that his blood pressure is less than 100 systolic. He also continues on Solu-Medrol taper, nitroglycerin 1-inch to chest wall q.4h. p.r.n. accelerated hypertension, if his systolic blood pressure is greater than 160 or diastolic blood pressure is greater than 100. He continues on Pepcid 20 mg p.o. h.s.. He is ordered to receive vancomycin 500 mg IV q.12h. dose reduced for chronic renal failure and allopurinol 100 mg p.o. daily. He is ordered to have antiembolism stockings daily to be removed h.s. He will have his electrolytes and CBCs monitored and for completeness sake, I will order blood and urine culture but feel that his elevated white blood cell count is on the basis of his recent steroid implementation for his acute gouty arthritis. All of the above has been discussed in detail with the patient and nursing. Greater than sixty minutes was spent in the care, management, counseling of patient today. All questions were answered Meena Ling MD MTDD
[2016-12-21] MEDS: Vancomycin 500mg in NS 500 MG/100 ML BAG IVPB SCH ×2 (05:30→17:52)
[2016-12-21 06:00] LABS: HEMATOCRIT 31.2 % (42.0-52.0); MEAN CELL VOLUME 78.8 fl (80.0-105.0); MEAN CORPUSCULAR HEMOGLOBIN 24.7 pg (25.0-35.0); MEAN CORPUSCULAR HGB CONC 31.4 g/dl (31.0-37.0); RED CELL DISTRIBUTION WIDTH 19.6 % (11.5-14.5); WHITE BLOOD COUNT 10.7 10^3/ul (4.5-11.0)
[2016-12-21 06:08] LABS: INR 2.8 (0.93-1.08)
[2016-12-21 06:12] LABS: CALCIUM 9.2 mg/dL (8.4-10.5); POTASSIUM 4.3 mmol/L (3.6-5.0)
[2016-12-21] MEDS: Insulin Reg-LOW-Coverage SC SCH ×4 (07:01→22:41)
--- NOTE | 2016-12-21 08:41 | RAD ---
HISTORY: r/o CHF COMPARISON: 12/14/2016 TECHNIQUE: Chest PA and lateral FINDINGS: LUNGS: No active pulmonary disease. PLEURA: No significant pleural effusion identified. No pneumothorax apparent. CARDIOVASCULAR: Mild cardiomegaly OSSEOUS STRUCTURES: No significant abnormalities. VISUALIZED UPPER ABDOMEN: Normal. OTHER FINDINGS: Single lead pacemaker IMPRESSION: No active disease.
[2016-12-22] MEDS: Vancomycin 500mg in NS 500 MG/100 ML BAG IVPB SCH ×2 (06:08→17:37)
[2016-12-22] MEDS: Insulin Reg-LOW-Coverage SC SCH ×4 (06:44→22:21)
[2016-12-22 08:06] LABS: INR 2.78 (0.93-1.08)
--- NOTE | 2016-12-22 08:43 | PN ---
DATE: 12/21/2016 SUBJECTIVE: This 71-year-old male was examined at his bedside. His case was reviewed with himself and his as well as the nursing staff. He remains hospitalized with multiple medical problems including decompensated systolic congestive heart failure in the setting of chronic renal failure stage IV, and history of noncompliance as an outpatient with p.o. fluid restriction and medication. Of note, the patient is also being treated for a left lower extremity foot cellulitis as well as acute on chronic gout. The patient was very agitated yesterday because of issues with his hospitalization and orders for fall precautions as well as fluid restrictions and today the patient seems much better adjusted to the issues at hand. He denies any fever, chills, chest pain, shortness of breath, hematemesis or melena. PHYSICAL EXAMINATION VITAL SIGNS: Show temperature 98.6, respirations 14, pulse 70 and blood pressure 126/72. Of note, his body weight is 231 pounds. HEENT: Head normocephalic, atraumatic. Eyes: No icterus. Ears: Clear. Throat: Noninjected. NECK: Supple. HEART: Irregular S1, S2. No pathological rubs, murmurs or gallops. LUNGS: Decreased breath sounds at the bases. ABDOMEN: Obese. EXTREMITIES: Trace edema, left foot cellulitis improving. VASCULAR: Legs warm to touch. PSYCHOLOGICAL: Alert and oriented x3. NEURO: Intact. LABORATORY DATA: White count 10,700, hemoglobin 9.8, hematocrit 31.2, platelets 313,000. PT/INR 2.8, previously 3.29. Sodium 135, K 4.3, chloride 97, bicarb 21, BUN 120, creatinine 2.7, estimated GFR is 23 mL per minute with a random blood sugar is 323. All liver function testing was normal including bilirubin 0.6, AST 25, ALT 37 and alk phos 91. Random vancomycin level was 10.1, normal range 20 to 40. IMPRESSION: This 71-year-old male with multiple medical problems including decompensated congestive heart failure in the setting of atherosclerotic heart disease, coronary artery stents, permanent pacemaker, chronic atrial fibrillation for which the patient is maintained on chronic Coumadin therapy with mild aortic stenosis, [id number] mitral regurgitation and comorbidities of gout, degenerative arthritis, chronic renal failure stage IV, insulin-dependent diabetes mellitus, anemia of chronic disease, hyperlipidemia, and gastroesophageal reflux disease. PLAN: At present is to continue allopurinol 100 mg p.o. daily, vancomycin 500 mg IV q. 12 hours, random vancomycin level that is probably low because the patient was just initiated to the vancomycin and a repeat level will be obtained in 48 hours. Also the patient is showing marked improvement in clinical cellulitis. Also the patient will continue on Pepcid 20 mg p.o. at bedtime, Medrol Dosepak taper today 4 mg p.o. q.i.d., metoprolol tartrate 25 mg p.o. b.i.d., Lipitor 10 mg p.o. daily, Lasix 60 mg IV q. 8 hours, Imdur 60 mg p.o. daily, regular low-dose insulin protocol a.c. meals and at bedtime, colchicine 0.3 mg p.o. daily dose reduced for his chronic renal insufficiency. He is ordered to have blood in urine cultures, results of which are pending. He has INRs ordered daily with instructions for Coumadin be held for any INR greater than three and a uric acid level will be obtained again in the a.m. The ultimate plan will be for discharge to home with family providing 24 hours supervision for this patient. Both the patient and family are aware that hemodialysis may be in his future given his advanced renal insufficiency issues with volume management and need for electrolyte balance. All of the above was discussed in detail with the patient and , nursing and Physical Therapy today. Meena Ling MD MTDD
--- NOTE | 2016-12-22 15:16 | PN ---
DATE: 12/22/2016 SUBJECTIVE: This 71-year-old male was examined at his bedside. His case was reviewed in detail with himself and his nurse, Erin Miranda, registered nurse. The patient is out of bed to chair. He remains anxious and hostile at times. He has very poor insight into his multiple medical problems and refused parenteral Lasix this morning being prescribed for both CHF and peripheral edema. I have had a lengthy discussion with the pharmacy regarding assistance in managing his hyperuricemia and gout given his chronic renal failure and history of noncompliance with medications as an outpatient. Of note, the patient refused his parenteral Lasix dosing this morning as reported by his nurse. He denies any fever, chills or chest pain. PHYSICAL EXAMINATION: VITAL SIGNS: Temperature is 98.1, respirations 20, pulse 72 and blood pressure 138/74 with a pulse ox of 96% on room air. Body weight was last recorded at 231 pounds. HEENT: Head: Normocephalic, atraumatic. Eyes: No icterus. Ears: Clear. Throat: Noninjected. NECK: Supple. HEART: Irregular S1, S2. LUNGS: With decreased breath sounds at the bases. ABDOMEN: Obese. EXTREMITIES: With trace edema today. VASCULAR: Legs warm to touch. Left foot cellulitis markedly improved. NEUROLOGICAL: Exam intact. PSYCHOLOGICAL: Alert and anxious. LABORATORY DATA: White count 10,700, hemoglobin 9.8, hematocrit 31.2, platelets 313,000. PT/INR 2.78, random blood sugar 396. Sodium 135, potassium 4.3, chloride 97, bicarb 21, BUN 20, creatinine 2.7, random calcium 9.2 and estimated GFR 23 mL per minute. Blood culture showed no growth at 24 hours. IMPRESSION: A 71-year-old male with multiple medical problems including decompensated systolic congestive heart failure in the setting of chronic renal failure, stage IV and noncompliance with outpatient medication and diet. Also with comorbidities of chronic gout, chronic hyperuricemia, stable atherosclerotic heart disease, history of coronary stents, history of bivalvular heart disease including mild aortic stenosis, [id number] mitral regurgitation, history of permanent pacemaker placement, hyperlipidemia, morbid obesity, chronic hypertension, anemia of chronic disease, gastroesophageal reflux disease, degenerative arthritis and improving cellulitis, leukocytosis in the setting of steroid use for gout. PLAN: Plan at present is to continue heart-healthy renal diabetic diet with 1000 mL p.o. fluid restriction. The patient continues on allopurinol 100 mg p.o. daily, Zofran 4 mg IV q. 6 hours p.r.n. nausea, vomiting, vancomycin 500 mg IV q. 12 hours, Pepcid 20 mg p.o. at bedtime, Solu-Medrol taper today, receiving Solu-Medrol 12 mg today, Lipitor 10 mg p.o. at dinner time, Lopressor 25 mg p.o. b.i.d., Lasix 80 mg IV q. 8 hours, Imdur 60 mg p.o. daily, regular low-dose insulin protocol a.c. meals and at bedtime, colchicine 0.3 mg p.o. daily. The plan is to continue physical and occupational therapy. His Coumadin remains on hold given his current INR. I will recheck his basic metabolic panel in the a.m. and ultimate plan will be for discharge to home when medically stable. All of the above was discussed in detail with the patient, nursing, physical therapy, family and pharmacy. Overall prognosis remains poor but stable at present. Hemodialysis was discussed with the patient and family. Meena Ling MD MTDD
[2016-12-23] MEDS: Vancomycin 500mg in NS 500 MG/100 ML BAG IVPB SCH ×2 (05:05→18:14)
[2016-12-23] MEDS: Insulin Reg-LOW-Coverage SC SCH ×4 (06:30→22:42)
[2016-12-23 08:01] LABS: CALCIUM 8.9 mg/dL (8.4-10.5); POTASSIUM 4.2 mmol/L (3.6-5.0)
[2016-12-23 08:11] LABS: INR 2.07 (0.93-1.08)
[2016-12-24] MEDS: Vancomycin 500mg in NS 500 MG/100 ML BAG IVPB SCH ×2 (05:13→17:42)
[2016-12-24] MEDS: Insulin Reg-LOW-Coverage SC SCH ×4 (06:46→21:56)
--- NOTE | 2016-12-24 06:57 | PN ---
DATE: 12/23/2016 SUBJECTIVE: This 71-year-old male was examined at his bedside. His case was reviewed in detail with his nurses, Jolanta Brannon, registered nurse as well as Holli Bruce. The patient continues to refuse medications including insulin coverage and parenteral Lasix. He remains easily agitated despite being counseled extensively regarding the gravity of his multiple medical comorbidities and risks for complications in the absence of medical treatment. PHYSICAL EXAMINATION: VITAL SIGNS: At present, his temperature is 98.7, respirations 18, pulse 73, blood pressure 152/82. Pulse ox 98%. HEENT: Head is normocephalic, atraumatic. Eyes, no icterus. Ears clear. Throat noninjected. NECK: Supple. HEART: Irregular S1, S2. LUNGS: Clear. ABDOMEN: Obese. EXTREMITIES: Decreased edema. SKIN: With improved cellulitis of his left foot. VASCULAR: Legs warm to touch. PSYCHOLOGICAL: Alert and oriented x3. Urine culture no growth. Blood cultures no growth. LABORATORY DATA: White count 10,700, hemoglobin 9.8, hematocrit 31.2, platelets 313,000. PT/INR 2.07. Sodium 137, K 4.2, chloride 97, bicarb 21, BUN 152, creatinine 2.9. Estimated GFR 22 mL per minute. Random blood sugar 394. Random vancomycin level 23.2, therapeutic. IMPRESSION: This is a 71-year-old male with multiple medical problems including left foot cellulitis improving daily on intravenous vancomycin therapy that has been dose reduced for his chronic renal failure stage IV with comorbidities of atherosclerotic heart disease status post coronary artery stents, history of chronic atrial fibrillation, on oral Coumadin as well as permanent pacemaker placement and [id number] mitral regurgitation and mild aortic stenosis, with hyperuricemia, acute on chronic gouty arthritis, insulin-dependent diabetes mellitus, hyperlipidemia, anemia of chronic disease, degenerative arthritis, history of gastroesophageal reflux disease as well as anxiety neurosis and noncompliance with diet, medication both in and out of hospital. PLAN: At present is to continue heart-healthy renal diabetic diet. The patient was encouraged to cooperate with insulin coverage a.c. meals and bedtime. He is receiving tapering doses of Solu-Medrol for his acute gouty arthritis attack and will continue on Zyloprim 100 mg p.o. daily, vancomycin 500 mg IV q. 12, Pepcid 20 mg p.o. at bedtime, Medrol dose tapering over 5 days, Lopressor 25 mg b.i.d., Lipitor 10 mg p.o. at dinner time, Lasix 80 mg IV daily, Imdur 60 mg p.o. daily, Coumadin 4 mg p.o. daily has been reinstituted while monitoring daily INR, colchicine 0.3 mg p.o. daily. He will have a repeat INR in the a.m. He continues on physical therapy for reconditioning and gait training, and ultimate plan will be for discharge to home to the care of his family who will provide 24-hour supervision. They are aware that he will probably need hemodialysis intervention in his future. He has multiple comorbidities that place him at increased risk for morbidity and mortality, especially if he is noncompliant with medical therapy. All of the above was reviewed in detail with the patient, nursing and family. Meena Ling MD MTDD
[2016-12-24 09:02] LABS: INR 1.86 (0.93-1.08)
--- NOTE | 2016-12-24 14:39 | PN ---
DATE: 12/24/2016 SUBJECTIVE: This 71-year-old male was examined at his bedside. His case was reviewed in detail with his nurse, Ilir Johnson, registered nurse. The patient is out of bed to chair. He is receiving parenteral antibiotics for improving left foot cellulitis. He remains uncooperative with insulin coverage as outlined and is in an improved mood and is conversant and less agitated today OBJECTIVE: VITAL SIGNS: Temperature 98.2, respirations 18, pulse 74, blood pressure 121/75, pulse ox 97% on room air. HEENT: Head normocephalic and atraumatic. Eyes: No icterus. Ears: Clear. Throat: Noninjected. NECK: Supple. HEART: Irregular S1 and S2. LUNGS: Clear. ABDOMEN: Obese. EXTREMITIES: No clubbing, no cyanosis, no edema. Left foot cellulitis improved. VASCULAR: Legs warm to touch. PSYCHOLOGICAL: Alert. NEUROLOGIC: Intact. LABORATORY DATA: White count 10,700; hemoglobin 9.8; hematocrit 31.2; platelets 313,000. PT/INR 1.86. Sodium 137, K 4.2, chloride 97, bicarb 21, BUN 152, creatinine 2.9, random blood sugar 394 with an estimated GFR of 22 mL per minute. Vancomycin level random, 23.2, therapeutic. IMPRESSION: A 71-year-old male with anemia of chronic disease; chronic atrial fibrillation with a mildly subtherapeutic PT/INR; chronic renal failure, stage IV, elevated BUN secondary to steroids for acute gout; uncontrolled insulin-dependent diabetes mellitus for which the patient is noncompliant with insulin coverage as outlined and comorbidities of [id number] gout, chronic atrial fibrillation, atherosclerotic heart disease, status post coronary artery stents, history of permanent pacemaker placement and aortic stenosis, mild; mitral regurgitation, [id number]; chronic hypertension; congestive heart failure secondary to chronic renal failure and noncompliance with p.o. fluid restrictions; hyperlipidemia; morbid obesity; gastroesophageal reflux disease; degenerative arthritis. PLAN: Continue heart-healthy renal diabetic diet. He continues to receive physical therapy for ambulation and gait training. He is ordered to wear antiembolism stockings during the day, to be removed at bedtime and will continue on Zyloprim, allopurinol 100 mg p.o. daily, vancomycin 500 mg IV q. 12, Pepcid 20 mg p.o. at bedtime and nitroglycerin to chest wall 1 inch q. 4 hours p.r.n. accelerated hypertension if systolic blood pressure greater than 160, diastolic blood pressure greater than 100. He continues on Solu-Medrol taper and is receiving and Medrol 4 mg p.o. today, Lopressor 25 mg p.o. b.i.d., Lipitor 10 mg p.o. at dinner time, Lasix 80 mg IV q. 8, Imdur 60 mg p.o. daily, regular low-dose insulin protocol a.c. meals and at bedtime was recommended to this patient to be compliant with, Coumadin 5 mg p.o. daily, colchicine 0.3 mg p.o. daily. He will have a repeat INR, hemoglobin, hematocrit and basic metabolic panel in the a.m. Of note, blood and urine cultures were negative in the setting of leukocytosis, probably secondary to steroids, now resolved. The ultimate plan will be for discharge to home when medically stable. All of the above was discussed in detail with the patient and nursing at bedside. Dialysis was reviewed with the patient and family and will be needed in his future most likely. Meena Ling MD MTDD
[2016-12-25] MEDS ORDERED: Oxycodone/Acetaminophen 5/325 mg Tab PO STA (01:18)
[2016-12-25] MEDS: Vancomycin 500mg in NS 500 MG/100 ML BAG IVPB SCH ×2 (06:05→18:11)
[2016-12-25 07:10] LABS: INR 1.74 (0.93-1.08)
[2016-12-25 07:11] LABS: CALCIUM 9.2 mg/dL (8.4-10.5); POTASSIUM 4.2 mmol/L (3.6-5.0)
[2016-12-25] MEDS: Insulin Reg-LOW-Coverage SC SCH ×4 (08:42→21:48)
[2016-12-25] MEDS ORDERED: Oxycodone/Acetaminophen 5/325 mg Tab PO ONE (11:02)
[2016-12-25] MEDS ORDERED: Vancomycin 1 g Inj IVPB SCH (20:00)
[2016-12-25] MEDS ORDERED: TraMADol/Apap 37.5/325 mg Tab PO STA (20:12)
[2016-12-25] MEDS ORDERED: TraMADol/Apap 37.5/325 mg Tab PO SCH (22:00)
[2016-12-25] MEDS: Vancomycin 250 MG in Sodium Chloride 0.9% 100 ML IV SCH (22:22)
--- NOTE | 2016-12-26 01:28 | CP.PCM.PN ---
Subjective - Date & Time of Evaluation Date of Evaluation: 12/26/16 Time of Evaluation: 01:28 - Subjective Subjective: Patient was seen at bedside. He complained of pain in right knee and right hip. Received Ultracet @ 9:25pm, tylenol @ 1:30 AM. Still in pain. Has no other complaints. This 71 year old white male was admitted with dyspnea/CHF. Has PMH of CHF, obesity ,DM II, PVD ,anemia of chronic disease, ASHD, HLD, DJD , gout. Objective - Vital Signs/Intake and Output Vital Signs (last 24 hours): Temp Pulse Resp BP Pulse Ox 98.1 F 70 18 128/69 97 12/25/16 10:00 12/25/16 18:10 12/25/16 10:00 12/25/16 21:00 12/25/16 10:00 - Medications Medications: Current Medications Acetaminophen (Tylenol 325mg Tab) 650 mg PO Q6H PRN; Protocol PRN Reason: Pain, Mild (1-3) Last Admin: 12/26/16 00:03 Dose: 650 mg Allopurinol (Zyloprim) 100 mg PO DAILY [facility] PRN Reason: Protocol Last Admin: 12/25/16 10:54 Dose: 100 mg Atorvastatin Calcium (Lipitor) 10 mg PO DIN [facility] PRN Reason: Protocol Last Admin: 12/25/16 18:09 Dose: 10 mg Colchicine (Colocrys) 0.3 mg PO DAILY [facility] Last Admin: 12/25/16 10:52 Dose: 0.3 mg Famotidine (Pepcid) 20 mg PO HS [facility] PRN Reason: Protocol Last Admin: 12/25/16 21:32 Dose: 20 mg Furosemide (Lasix) 80 mg PO Q8H [facility] Last Admin: 12/25/16 21:00 Dose: 80 mg Vancomycin HCl 250 mg/ Sodium (Chloride) 100 mls @ 120 mls/hr IV Q12H [facility] Last Admin: 12/25/16 22:22 Dose: 120 mls/hr Insulin Human Regular (Humulin R Low) 0 units SC ACHS [facility] PRN Reason: Protocol Last Admin: 12/25/16 21:48 Dose: Not Given Isosorbide Mononitrate (Imdur) 60 mg PO 0600 [facility] PRN Reason: Protocol Last Admin: 12/25/16 06:04 Dose: 60 mg Metoprolol Tartrate (Lopressor) 25 mg PO 0800,1800 [facility] PRN Reason: Protocol Last Admin: 12/25/16 18:10 Dose: 25 mg Nitroglycerin (Nitro-Bid 2% Oint) 1 ea TOP Q4H PRN; Protocol PRN Reason: Systolic Blood Pressure Ondansetron HCl (Zofran Inj) 4 mg IVP Q6H PRN; Protocol PRN Reason: Nausea/Vomiting Tramadol/Acetaminophen (Ultracet 37.5/325 Mg) 1 tab PO Q12 PRN; Protocol PRN Reason: Pain, severe (8-10) Warfarin Sodium (Coumadin) 7.5 mg PO 1800 [facility]ER PRN Reason: Protocol Last Admin: 12/25/16 18:09 Dose: 7.5 mg - Labs Labs: 12/25/16 06:00 12/25/16 06:00 PT 19.4 SECONDS (9.4-12.5) H 12/25/16 06:00 INR 1.74 (0.93-1.08) H 12/25/16 06:00 Laboratory Last Values WBC 10.7 10^3/ul (4.5-11.0) D 12/21/16 05:30 RBC 3.96 10^6/uL (3.5-6.1) 12/21/16 05:30 Hgb 9.9 g/dL (14.0-18.0) L 12/25/16 06:00 Hct 32.0 % (42.0-52.0) L 12/25/16 06:00 MCV 78.8 fl (80.0-105.0) L 12/21/16 05:30 MCH 24.7 pg (25.0-35.0) L 12/21/16 05:30 MCHC 31.4 g/dl (31.0-37.0) 12/21/16 05:30 RDW 19.6 % (11.5-14.5) H 12/21/16 05:30 Plt Count 313 10^3/uL (120.0-450.0) 12/21/16 05:30 MPV 11.0 fl (7.0-11.0) 12/21/16 05:30 PT 19.4 SECONDS (9.4-12.5) H 12/25/16 06:00 INR 1.74 (0.93-1.08) H 12/25/16 06:00 Sodium 138 mmol/L (132-148) 12/25/16 06:00 Potassium 4.2 mmol/L (3.6-5.0) 12/25/16 06:00 Chloride 98 mmol/L (98-107) 12/25/16 06:00 Carbon Dioxide 24 mmol/L (21-33) 12/25/16 06:00 Anion Gap 20 (10-20) 12/25/16 06:00 BUN 164 mg/dL (7-21) H* 12/25/16 06:00 Creatinine 2.6 mg/dL (0.8-1.5) H 12/25/16 06:00 Est GFR ( Amer) 30 12/25/16 06:00 Est GFR (Non-Af Amer) 25 12/25/16 06:00 POC Glucose (mg/dL) 384 mg/dL (65-110) H 12/22/16 10:59 Random Glucose 284 mg/dL (70-110) H 12/25/16 06:00 Uric Acid 14.3 mg/dL (3.5-8.5) H 12/22/16 05:00 Calcium 9.2 mg/dL (8.4-10.5) 12/25/16 06:00 Total Bilirubin 0.6 mg/dL (0.2-1.3) 12/20/16 07:57 AST 25 U/L (17-59) 12/20/16 07:57 ALT 37 U/L (7-56) 12/20/16 07:57 Alkaline Phosphatase 91 U/L (38-126) 12/20/16 07:57 Total Protein 7.4 g/dL (5.8-8.3) 12/20/16 07:57 Albumin 4.1 g/dL (3.0-4.8) 12/20/16 07:57 Globulin 3.2 gm/dL 12/20/16 07:57 Albumin/Globulin Ratio 1.3 (1.1-1.8) 12/20/16 07:57 Random Vancomycin 23.2 ug/mL (20.0-40.0) 12/23/16 07:48 - Constitutional Appears: Well, No Acute Distress - Head Exam Head Exam: ATRAUMATIC, NORMAL INSPECTION, NORMOCEPHALIC - Eye Exam Eye Exam: Normal appearance - ENT Exam ENT Exam: Normal External Ear Exam - Neck Exam Neck Exam: Normal Inspection - Respiratory Exam Respiratory Exam: NORMAL BREATHING PATTERN - Cardiovascular Exam Cardiovascular Exam: absent: JVD - GI/Abdominal Exam GI & Abdominal Exam: absent: Distended - Rectal Exam Rectal Exam: Deferred - Exam Additional comments: Deferred. - Extremities Exam Extremities Exam: Normal Inspection Additional comments: Right knee tenderness + unable to lift up right leg in sitting position. - Back Exam Back Exam: NORMAL INSPECTION - Neurological Exam Neurological Exam: Alert, Awake, Oriented x3 - Psychiatric Exam Psychiatric exam: Normal Affect, Normal Mood - Skin Skin Exam: Normal Color Assessment and Plan - Assessment and Plan (Free Text) Assessment: Right knee, hip pain. HTN. DM II. PVD. Obesity. CHF. Anemia of chronic disease. HLD. Plan: Ultram 50 mg PO x 1. Continue present management.
--- NOTE | 2016-12-26 01:38 | PN ---
DATE: 12/25/2016 SUBJECTIVE: This 71-year-old male was examined at his bedside and his case was reviewed in detail with himself and his family at the bedside. This included his two daughters, Chiquis and Jada and his . The patient is out of bed to chair. He was complaining of degenerative arthritic pain earlier, was medicated with Percocet and at present is feeling marked improvement in his hip and knee discomfort. PHYSICAL EXAMINATION: VITAL SIGNS: Temperature is 98.1, respirations 18, pulse 69, blood pressure 117/69 and pulse ox 97%. HEENT: Head is normocephalic, atraumatic. Eyes: No icterus. Ears: Clear. Throat: Noninjected. NECK: Supple. HEART: Irregular S1, S2. LUNGS: Clear. ABDOMEN: Soft. EXTREMITIES: Trace edema. SKIN: Without rash. NEUROLOGICAL: Intact. PSYCHOLOGICAL: Alert. VASCULAR: Legs warm to touch. Left foot was examined. Cellulitis of the left foot improved. LABORATORY DATA: Hemoglobin 9.9, hematocrit 32.0. PT/INR 1.74, subtherapeutic. Sodium 138, K 4.2, chloride 98, bicarb 24, BUN 164, creatinine 2.6, random blood sugar was 284, calcium 9.2, random vancomycin 23.2 therapeutic. IMPRESSION: This is a 71-year-old male with obesity, chronic renal failure stage IV, elevated BUN in the setting of tapering Solu-Medrol steroid dose pack for acute gouty arthritis with good clinical result and comorbidities of left foot cellulitis improving on IV vancomycin with therapeutic levels, acute on chronic gout, atrial fibrillation on Coumadin with a subtherapeutic level, insulin-dependent diabetes mellitus, atherosclerotic heart disease with stents, history of permanent pacemaker placement, congestive heart failure, aortic stenosis, mitral regurgitation, chronic hypertension, hyperlipidemia, gastroesophageal reflux disease, degenerative arthritis and anemia. PLAN: Heart-healthy renal diabetic diet 1000 mL p.o. fluid restriction. Continue allopurinol, IV vancomycin, Pepcid, Lopressor, Lipitor, Lasix, Imdur, insulin, adjusted Coumadin dosing, dose reduced colchicine and repeat PT/INR in a.m. Of note, the patient will complete his steroid taper today. He will be completing IV antibiotics dose adjusted for renal failure. Ultimate plan is for discharge to home with 24 hours supervision by his family upon discharge. He continues to decline wearing antiembolism stockings. He is receiving physical therapy for reconditioning and gait training. Alll of the above was discussed in detail with the patient, family and nursing. Greater than fifty minutes was spent in the care, counseling and management of this patient today. Meena Ling MD MTDD
[2016-12-26] MEDS: Insulin Reg-LOW-Coverage SC SCH ×4 (06:38→21:55)
[2016-12-26 07:24] LABS: INR 1.82 (0.93-1.08)
[2016-12-26] MEDS: TraMADol/Apap 37.5/325 mg Tab PO PRN ×2 (08:14→21:28)
[2016-12-26] MEDS: Vancomycin 250 MG in Sodium Chloride 0.9% 100 ML IV SCH (08:15)
[2016-12-26 15:51] VITALS: RESP 18; TEMP 98.1; O2SAT 98
--- NOTE | 2016-12-27 00:20 | PN ---
DATE: 12/26/2016 SUBJECTIVE: This 71-year-old male was examined at the bedside and the case was reviewed in detail with himself, nursing and family. He is completing IV antibiotics for left foot cellulitis and denies any active chest pain or shortness of breath. He remains on medical therapy for acute on chronic gouty arthritis, chronic atrial fibrillation, on oral Coumadin therapy, insulin-dependent diabetes mellitus, stable atherosclerotic heart disease in the setting of coronary artery stents, permanent pacemaker placement and history of chronic hypertension as well as mild aortic insufficiency and mild to moderate mitral regurgitation. He also has chronic hypertension, hyperlipidemia, morbid obesity, gastroesophageal reflux disease, degenerative arthritis and history of noncompliance with diet, medication and medical followup in his past. PHYSICAL EXAMINATION: GENERAL: At present he is out of bed to chair, denying chest pain or shortness of breath. VITAL SIGNS: With a temperature of 98.3, respirations of 20, pulse of 74 and blood pressure of 140/76 and pulse oximetry of 99% room air. HEENT: Head normocephalic and atraumatic. Eyes: No icterus. Ears: Clear. Throat: Noninjected. NECK: Supple. CARDIOVASCULAR: Heart is irregular, S1 and S2. No pathological logical rubs, murmurs or gallops. LUNGS: Clear. ABDOMEN: Obese. EXTREMITIES: Trace edema. VASCULAR: Legs warm to touch. Psychological alert and oriented x3. NEUROLOGIC: Intact. LABORATORY DATA: Hemoglobin of 9.9 and hematocrit of 32.0. INR is subtherapeutic at 1.82. Sodium is 138, potassium of 4.2, chloride of 98, bicarbonate of 24, BUN of 164, creatinine of 2.6, and random blood sugar of 284. Random vancomycin level 23.2, therapeutic. PLAN: At present is to continue colchicine dose reduced for renal insufficiency at 0.3 mg p.o. daily he will receive Coumadin 7.5 mg p.o. one dose tonight with a repeat INR ordered for the a.m. he will have regular low-dose insulin protocol a.c. meals and at bedtime, Imdur 60 mg p.o. daily, Lasix 80 mg p.o. daily, Lipitor 10 mg at dinner time, Lopressor 25 mg b.i.d., nitroglycerin 1 inch to chest wall q. 4 hours. p.r.n. systolic blood pressure greater than 160, diastolic blood pressure greater than 100. Pepcid 20 mg p.o. at bedtime and allopurinol 100 mg p.o. daily. He continues on a renal heart-healthy diabetic diet. He will continue physical therapy for ambulation safety. Ultimate plan is for INR recheck and basic metabolic panel at 5:00 a.m. in the morning. The patient will be discharged to home to the care of his family with close outpatient follow up in my office early next week. All of the above has been discussed in detail with the patient, nursing and family. Overall prognosis though poor, remains stable at present. Meena Ling MD MTDD
[2016-12-27] MEDS: Insulin Reg-LOW-Coverage SC SCH (06:34)
[2016-12-27 06:36] VITALS: BP 115/78
[2016-12-27 08:25] VITALS: PULSE 68
--- NOTE | 2016-12-27 13:46 | DS ---
FINAL DIAGNOSES: Left foot cellulitis, resolved; morbid obesity, chronic atrial fibrillation, on Coumadin therapy; history of stable atherosclerotic heart disease with stents; permanent pacemaker; history of mild aortic stenosis; doji-hu-pkranwfh mitral regurgitation; congestive heart failure secondary to chronic renal failure stage IV and noncompliance with p.o. fluid restriction and medications as outpatient; chronic hypertension; hyperlipidemia; peptic ulcer disease; anemia of chronic disease; acute on chronic gout; degenerative arthritis; and anxiety neurosis. DISPOSITION: Home with family providing 24 hours supervision. DISCHARGE DIET: Renal diabetic heart-healthy 1000 mL p.o. fluid restriction. DISCHARGE MEDICATIONS: Coumadin 4 mg p.o. daily, Imdur 60 mg p.o. daily, Lasix 40 mg p.o. b i.d., Lipitor 10 mg p.o. at bedtime, Lopressor 25 mg p.o. b.i.d., Pepcid 20 mg at bedtime and allopurinol 100 mg p.o. daily. FOLLOWUP: The patient advised to follow up in my office 01/02/2017. SUMMARY: This 71-year-old male was treated in the for multiple medical problems as listed above. He received physical and occupational therapy and at the time of discharge was afebrile with a blood pressure of 115/78, respirations 18, pulse 68, and temperature 98.1. He is discharged home to the care of his family. Discharge electrolytes show sodium 138, K 4.2, chloride 98, bicarb 24, BUN 164, and creatinine 2.6 in the setting of steroid taper for acute gouty arthritis. Hemoglobin 9.9 and hematocrit 32.2. INR 1.82 and the patient was advised to do insulin coverage a.c. meals and at bedtime. The patient was fully ambulatory, aware of his medications and dosages and the patient and family are both aware that dialysis may be in his near future. All of the above was discussed with the patient and family. Prognosis though poor, remains stable at present. Meena Ling MD MTDD
== END 2016-12-27 09:20 | disposition home or self-care (01) | DRG 291 ==
LOC: TRCU 15:40
PROVIDERS: ADMIT Internal Medicine; ATTEND Internal Medicine
PROC: F07Z9FZ Gait Training/Functional Ambulation Treatment using Assistive, Adaptive, Supportive or Protective Equipment (ICD-10-PCS; principal; 2016-12-19)
PROC: F07M6ZZ Therapeutic Exercise Treatment of Musculoskeletal System - Whole Body (ICD-10-PCS; 2016-12-19)
PROC: F08Z1ZZ Dressing Techniques Treatment (ICD-10-PCS; 2016-12-20)
PROC: F08Z2ZZ Grooming/Personal Hygiene Treatment (ICD-10-PCS; 2016-12-20)
PROC: F08Z0ZZ Bathing/Showering Techniques Treatment (ICD-10-PCS; 2016-12-20)
PROC: F08Z4ZZ Home Management Treatment (ICD-10-PCS; 2016-12-20)
DX: I13.0 Hypertensive heart and chronic kidney disease with heart failure and stage 1 through stage 4 chronic kidney disease, or unspecified chronic kidney disease (principal); I50.23 Acute on chronic systolic (congestive) heart failure; N18.4 Chronic kidney disease, stage 4 (severe); E11.22 Type 2 diabetes mellitus with diabetic chronic kidney disease; E11.51 Type 2 diabetes mellitus with diabetic peripheral angiopathy without gangrene; L03.116 Cellulitis of left lower limb; I48.2 Chronic atrial fibrillation; I08.0 Rheumatic disorders of both mitral and aortic valves; I25.10 Atherosclerotic heart disease of native coronary artery without angina pectoris; K21.9 Gastro-esophageal reflux disease without esophagitis; E78.5 Hyperlipidemia, unspecified; F41.1 Generalized anxiety disorder; M19.90 Unspecified osteoarthritis, unspecified site; M1A.9XX0 Chronic gout, unspecified, without tophus (tophi); T38.0X5A Adverse effect of glucocorticoids and synthetic analogues, initial encounter; Z79.01 Long term (current) use of anticoagulants; D63.8 Anemia in other chronic diseases classified elsewhere; E11.65 Type 2 diabetes mellitus with hyperglycemia; E66.01 Morbid (severe) obesity due to excess calories; Z79.4 Long term (current) use of insulin; Z87.11 Personal history of peptic ulcer disease; Z91.11 Patient's noncompliance with dietary regimen; Z91.14 Patient's other noncompliance with medication regimen; Z91.19 Patient's noncompliance with other medical treatment and regimen; Z95.0 Presence of cardiac pacemaker; Z95.5 Presence of coronary angioplasty implant and graft

== ENCOUNTER 2017-03-23 06:46 | Inpatient (IN) | payer MEDICARE, OTHER ==
--- NOTE | 2017-03-23 07:21 | ED PDOC ---
Arrival/HPI - General Chief Complaint: Shortness Of Breath Time Seen by Provider: 03/23/17 07:09 Historian: Patient - History of Present Illness Narrative History of Present Illness (Text): 03/23/17 07:21 A 71 year old male, whose past medical history includes diabetes, hypertension, hyperlipidemia, CHF, atrial fibrillation, and pacemaker, presents to the emergency department complaining of shortness of breath for the past 2 days. Patient reports he woke up feeling weak causing him to come in for further evaluation. He currently denies any shortness of breath. Patient denies any fever, chills, nausea, vomiting, abdominal pain, chest pain or any other complaints. PMD: Dr. Ling Time/Duration: Other (2 days) Context: Home Past Medical History - Provider Review Nursing Documentation Reviewed: Yes - Infectious Disease Hx of Infectious Diseases: None - Tetanus Immunization Tetanus Immunization: Unknown - Cardiac Hx Cardiac Disorders: Yes Hx Congestive Heart Failure: Yes Hx Hypertension: Yes Hx Pacemaker: Yes (07/2016) - Pulmonary Hx Respiratory Disorders: Yes (smoked cigarettes h/o ppd.quit.) - Neurological Hx Neurological Disorder: Yes (near syncope) Hx Dizziness: Yes - HEENT Hx Cataracts: Yes (pt uncertain about having sx) - Renal Hx Renal Disorder: Yes (renal insuffiency,ckd 3) - Endocrine/Metabolic Hx Endocrine Disorders: Yes Hx Diabetes Mellitus Type 2: Yes Hx Hypothyroidism: Yes - Hematological/Oncological Hx Blood Disorders: Yes Hx Anemia: Yes (Blood transfusion 11-01-16) - Integumentary Hx Dermatological Disorder: Yes Other/Comment: 11-01-16 Bilateral le edema pitting mainly to ankle area,r hand 3rd finger stubbed, no open wounds noted to r ft, slight redness to bottom of ft. light skin discoloration to r inner thigh and left thigh cause unknown - Musculoskeletal/Rheumatological Hx Musculoskeletal Disorders: Yes Hx Arthritis: Yes (Hands, shoulders) - Gastrointestinal Hx Gastrointestinal Disorders: No - Genitourinary/Gynecological Hx Genitourinary Disorders: Yes (CKD 3) Hx Reproductive Disorders: No - Psychiatric Hx Psychophysiologic Disorder: No Hx Substance Use: No - Surgical History Hx Cardiac Catheterization: Yes Hx Coronary Stent: Yes (x2 and 1 leg stent right) Other/Comment: ragini picc line for abx 2014, balloon angioplasty due to gangrene r ft hallux - Anesthesia Hx Anesthesia Reactions: No Hx Malignant Hyperthermia: No - Suicidal Assessment Feels Threatened In Home Enviroment: No Family/Social History - Physician Review Nursing Documentation Reviewed: Yes Family/Social History: No Known Family HX Smoking Status: Former Smoker Hx Alcohol Use: No Hx Substance Use: No Allergies/Home Meds Allergies/Adverse Reactions: Allergies No Known Allergies Allergy (Verified 12/19/16 17:14) Home Medications: Home Meds Medication Instructions Recorded Confirmed Febuxostat [Uloric] 80 mg PO DAILY 03/23/17 03/23/17 Furosemide [Lasix] 40 mg PO BID 03/23/17 03/23/17 Review of Systems - Physician Review All systems were reviewed & negative as marked: Yes - Review of Systems Constitutional: absent: Fevers, Night Sweats Respiratory: SOB (currently asymptomatic) Cardiovascular: absent: Chest Pain Gastrointestinal: absent: Abdominal Pain, Nausea, Vomiting Physical Exam Vital Signs Reviewed: Yes Vital Signs Temp Pulse Resp BP Pulse Ox 03/23/17 09:56 70 18 153/94 H 97 03/23/17 08:00 70 20 116/62 97 03/23/17 06:56 98.0 F 81 18 114/71 98 Temperature: Afebrile Blood Pressure: Normal Pulse: Regular Respiratory Rate: Normal Appearance: Positive for: Well-Appearing, Non-Toxic, Comfortable Pain Distress: None Mental Status: Positive for: Alert and Oriented X 3 - Systems Exam Head: Present: Atraumatic, Normocephalic Pupils: Present: PERRL Extroacular Muscles: Present: EOMI Conjunctiva: Present: Normal Mouth: Present: Moist Mucous Membranes Neck: Present: Normal Range of Motion Respiratory/Chest: Present: Clear to Auscultation, Good Air Exchange. No: Respiratory Distress, Accessory Muscle Use Cardiovascular: Present: Regular Rate and Rhythm, Normal S1, S2. No: Murmurs Abdomen: Present: Normal Bowel Sounds. No: Tenderness, Distention, Peritoneal Signs Upper Extremity: Present: Normal Inspection. No: Cyanosis, Edema Lower Extremity: Present: Normal Inspection. No: Edema Neurological: Present: GCS=15, CN II-XII Intact, Speech Normal Skin: Present: Warm, Dry, Normal Color. No: Rashes Psychiatric: Present: Alert, Oriented x 3, Normal Insight, Normal Concentration Medical Decision Making ED Course and Treatment: 03/23/17 07:21 Impression: A 71 year old male with weakness. Patient notes shortness of breath over the past 2 days, but currently asymptomatic. No chest pain. Plan: -- Chest xray -- EKG -- Labs -- Reassess and disposition Progress Notes: EKG shows NSR at 75 BPM with 1st degree AV block, right axis deviation. Interpreted by me. Report Date : 03/23/2017 08:50:54 Procedure: Chest xray Dictator : Miguel Angel Ivory MD IMPRESSION: Moderate cardiomegaly. Mild vascular congestion 03/23/17 10:[address] Ling, requests admission to remote telemetry under her service. - Lab Interpretations Lab Results: 03/23/17 07:10 03/23/17 07:10 Lab Results 03/23/17 07:10: Sodium 142, Potassium 5.0, Chloride 108 H, Carbon Dioxide 21, Anion Gap 19, BUN 78 H, Creatinine 2.0 H, Est GFR ( Amer) 40, Est GFR ( Non-Af Amer) 33, Random Glucose 139 H, Calcium 8.5, Total Bilirubin 0.6, AST 26 , ALT 36, Alkaline Phosphatase 63, Lactate Dehydrogenase 643, Total Creatine Kinase 93, Troponin I 0.07, NT-Pro-B Natriuret Pep Pending, Total Protein 6.6, Albumin 3.7, Globulin 2.9, Albumin/Globulin Ratio 1.3 03/23/17 07:10: PT 21.9 H, INR 1.88 H 03/23/17 07:10: WBC 8.7, RBC 3.88, Hgb 10.4 L, Hct 34.9 L, MCV 89.9 D, MCH 26.8 , MCHC 29.8 L, RDW 19.7 H, Plt Count 173, MPV 12.2 H, Gran % 84.1 H, Lymph % ( Auto) 7.0 L, [place] % (Auto) 7.7 H, Eos % (Auto) 0.9 L, Baso % (Auto) 0.3, Gran # 7.28 H, Lymph # 0.6 L, [place] # 0.7 H, Eos # 0.1, Baso # 0.03 I have reviewed the lab results: Yes - RAD Interpretation Radiology Orders: 03/23/17 07:21 CHEST PORTABLE [RAD] Stat - Medication Orders Current Medication Orders: Discontinued Medications Sodium Polystyrene Sulfonate (Kayexalate Susp) 30 gm PO STAT STA Stop: 03/23/17 09:25 Last Admin: 03/23/17 09:35 Dose: 30 gm - PA / SISAL PICKER / Resident Statement MD/DO has reviewed & agrees with the documentation as recorded. - Scribe Statement The provider has reviewed the documentation as recorded by the Scribe Arti Castrejon Provider Scribe Attestation: All medical record entries made by the Scribe were at my direction and personally dictated by me. I have reviewed the chart and agree that the record accurately reflects my personal performance of the history, physical exam, medical decision making, and the department course for this patient. I have also personally directed, reviewed, and agree with the discharge instructions and disposition. Disposition/Present on Arrival - Present on Arrival Any Indicators Present on Arrival: No History of DVT/PE: No History of Uncontrolled Diabetes: No Urinary Catheter: No History of Decub. Ulcer: No History Surgical Site Infection Following: None - Disposition Have Diagnosis and Disposition been Completed?: Yes Diagnosis: Congestive heart failure Disposition: HOSPITALIZED Disposition Time: 10:45 Patient Plan: Admission, Telemetry Condition: GOOD Discharge Instructions (ExitCare): Heart Failure (ED) Referrals: Michelle Stover, [Non-Staff] - Follow up with primary Forms: [employer] ([place])
[2017-03-23 07:50] LABS: BASO # 0.03 K/mm3 (0.0-2.0); BASO % 0.3 % (0.0-3.0); EOS # 0.1 (0.0-0.7); EOS % 0.9 % (1.5-5.0); GRAN # 7.28 (1.4-6.5); GRAN % 84.1 % (50.0-68.0); HEMOGLOBIN 10.4 g/dL (14.0-18.0); LYMPH # 0.6 (1.2-3.4); MEAN CELL VOLUME 89.9 fl (80.0-105.0); MEAN CORPUSCULAR HEMOGLOBIN 26.8 pg (25.0-35.0); MEAN CORPUSCULAR HGB CONC 29.8 g/dl (31.0-37.0); MEAN PLATELET VOLUME 12.2 fl (7.0-11.0); MONO # 0.7 (0.1-0.6); MONO % 7.7 % (1.0-6.0); RBC 3.88 10^6/uL (3.5-6.1); RED CELL DISTRIBUTION WIDTH 19.7 % (11.5-14.5); WHITE BLOOD COUNT 8.7 10^3/ul (4.5-11.0)
[2017-03-23 07:58] LABS: INR 1.88 (0.93-1.08); PROTHROMBIN TIME 21.9 SECONDS (9.4-12.5)
[2017-03-23 08:19] LABS: ALB/GLOB RATIO 1.3 (1.1-1.8); ALBUMIN 3.7 g/dL (3.0-4.8); CALCIUM 8.5 mg/dL (8.4-10.5)
[2017-03-23 08:27] LABS: TROPONIN I 0.07 ng/mL
--- NOTE | 2017-03-23 08:52 | RAD ---
HISTORY: increasing dyspnea COMPARISON: 12/20/2016 FINDINGS: LUNGS: No active pulmonary disease. PLEURA: No significant pleural effusion identified, no pneumothorax apparent. CARDIOVASCULAR: Moderate cardiomegaly. Mild vascular congestion OSSEOUS STRUCTURES: No significant abnormalities. VISUALIZED UPPER ABDOMEN: Normal. OTHER FINDINGS: None. IMPRESSION: Moderate cardiomegaly. Mild vascular congestion
[2017-03-23] MEDS ORDERED: Sod Polystyrene Sulf 15 gm/60 ml Susp PO STA (09:24)
[2017-03-23 13:03] VITALS: BMI 33.3
[2017-03-23] MEDS ORDERED: Pneumococcal 23-Valent Vaccine IM ONE (13:04)
[2017-03-23] MEDS ORDERED: Influenza Vaccine 60 mcg/0.5 mL SYR (4YR UP) IM ONE (13:04)
--- NOTE | 2017-03-23 13:06 | CARD ---
APPROVED REPORT EKG Measurement Heart [id number] <Conclusion> Probably V. Paced rhythm.
--- NOTE | 2017-03-23 13:56 | HP ---
HISTORY OF PRESENT ILLNESS: This 71-year-old male was admitted to the [facility] here. He presented earlier to the [facility] ER complaining of several hours of shortness of breath. The patient's past medical history is extensive and includes pebmx-ph-[id number] congestive heart failure, cardiomyopathy, history of stable atherosclerotic heart disease, history of coronary artery stents, permanent pacemaker placement, and mitral regurgitation and right heart failure in the past. The patient also has comorbidities of insulin-dependent diabetes mellitus, obesity, chronic renal failure stage IV, hyperlipidemia, chronic hypertension, and anemia of chronic disease as well as degenerative arthritis and gouty arthritis. The patient presented to the ER complaining of shortness of breath. He was found to be in congestive heart failure on chest x-ray and is admitted for treatment of the above. At present, he denies any active chest pain. There have been no reports of jaw pain, diaphoresis, nausea or vomiting. PAST MEDICAL HISTORY: As listed above. OUTPATIENT MEDICATIONS: Include Coumadin 4 mg p.o. daily, Lopressor 25 mg p.o. b.i.d., Imdur 60 mg p.o. daily, Lasix 40 mg p.o. b.i.d., Uloric 80 mg p.o. daily, and Lipitor 10 mg p.o. daily. SOCIAL HISTORY: The patient is a nondrinker, nonsmoker, non IV drug misuser. He is a retired mailman. FAMILY HISTORY: Noncontributory. ALLERGIES: HE DENIES ANY ALLERGIES TO MEDICATIONS. REVIEW OF SYSTEMS: CONSTITUTIONAL: He denied fever or chills. HEAD: No headache or seizure. EYE: No change in visual acuity. EAR: No hearing loss. THROAT: No swallowing difficulty. NECK: No stiffness. CARDIAC: Shortness of breath. No chest pain. History of chronic atrial fibrillation for which the patient is on oral Coumadin. He has a PPP. PULMONARY: No hemoptysis, no productive cough. GASTROINTESTINAL: History of peptic ulcer disease with GERD. GENITOURINARY: Chronic renal failure stage IV. HEMATOLOGIC: Anemia of chronic disease. VASCULAR: No claudication. PSYCHOLOGIC: Chronic anxiety. NEUROLOGIC: No knowledge of stroke. PHYSICAL EXAMINATION: VITAL SIGNS: Temperature 98, respirations 18, pulse 81, blood pressure 153/94, and pulse ox 97% on 2 liters nasal O2. HEENT: Head: Normocephalic, atraumatic. Eyes: No icterus. Ears: Clear. Throat: Noninjected. NECK: Supple. HEART: Irregular S1, S2. LUNGS: With rales at the bases. ABDOMEN: Obese. EXTREMITIES: 2+ pitting edema to the knees. No cyanosis. VASCULAR: Legs are warm to touch. PSYCHOLOGIC: Alert and anxious. NEUROLOGIC: Grossly intact. LABORATORY DATA: White count 8700, hemoglobin 10.4, hematocrit 34.9, and platelets 173,000. PT/INR 1.88. Sodium 142, K 5.0, chloride 108, bicarb 21, BUN 78, creatinine 2.0, and random blood sugar 139. All liver function testing was normal including bilirubin of 0.6, AST of 26, ALT of 36, and alkaline phosphatase of 63. BNP was 39,900. Chest x-ray was reviewed. It showed no infiltrate, no pleural effusion, no pneumothorax, but pulmonary vascular congestion. IMPRESSION AND PLAN: A 71-year-old male with wriji-fv-zfmcuoc congestive heart failure and comorbidities of chronic atrial fibrillation, permanent pacemaker placement, stable atherosclerotic heart disease and history of mitral regurgitation with anemia of chronic disease, insulin-dependent diabetes mellitus, chronic renal failure stage IV, hyperlipidemia, degenerative arthritis, and gout. The plan, as explained to the patient, and daughter at bedside, will be to admit this patient to the cardiac [facility]. His Coumadin will be increased to 5 mg p.o. daily given his subtherapeutic PT/INR. He continues on Uloric 80 mg p.o. daily from home for gout. He continues on regular low-dose insulin protocol a.c. meals and at bedtime, Imdur 60 mg p.o. daily, Lasix 40 mg IV q.12 hours, p.o. fluid restriction at 1200 mL daily, Lipitor 10 mg p.o. at bedtime, Lopressor 25 mg p.o. b.i.d., holding Lopressor for any BP systolic less than 100 or pulse less than 50. He is ordered to have a heart-healthy diabetic renal diet. He will have blood sugar checked a.c. meals and at bedtime and will continue on low-dose insulin protocol a.c. meals and at bedtime. He will have strict I's and O's, serial labs and adjustment of medication based on clinical progress. All of the above was discussed in detail with the patient, family and nursing at bedside. Greater than 75 minutes was spent in the care, review of x-rays, labs, medication, and discussion of this patient's progress with nurse, Justyna Dewitt, registered nurse and emergency room physician, Dr. Cezar Hernández, medical doctor. Meena Ling MD MTDD
[2017-03-23] MEDS: TraMADol/Apap 37.5/325 mg Tab PO PRN (16:39)
[2017-03-23] MEDS: Insulin Reg-LOW-Coverage SC SCH ×2 (17:48→21:20)
[2017-03-24] MEDS ORDERED: Oxycodone/Acetaminophen 10/325 mg Tab PO STA (00:59)
--- NOTE | 2017-03-24 06:30 | CP.PCM.PN ---
Subjective - Date & Time of Evaluation Date of Evaluation: 03/24/17 Time of Evaluation: 06:26 - Subjective Subjective: Patient was seen at bedside. He complained of dizziness. Has percocet earlier. Has no other complaints. States he gets some medication at home for dizziness. Denies nausea, vomiting, paraesthesia, weakness. Medical record was reviewed. This 71 year old white male was admitted with sob/CHF. Has PMH of CHF, atrial fibrillation, Pace maker insertion, IDD, MR, IDDM, CKD, hyperlipidemia,DJD,Obesity. Objective - Vital Signs/Intake and Output Vital Signs (last 24 hours): Temp Pulse Resp BP Pulse Ox 98.7 F 70 18 142/78 98 03/23/17 16:00 03/24/17 05:16 03/23/17 16:00 03/24/17 05:16 03/23/17 16:00 Intake and Output: 03/23/17 03/24/17 18:59 06:59 Intake Total 300 180 Output Total 720 Balance 300 -540 - Medications Medications: Current Medications Acetaminophen (Tylenol 325mg Tab) 650 mg PO Q6H PRN PRN Reason: Pain, moderate (4-7) Last Admin: 03/23/17 22:13 Dose: 650 mg Atorvastatin Calcium (Lipitor) 10 mg PO QPM [facility] Last Admin: 03/23/17 17:59 Dose: 10 mg Furosemide (Lasix) 40 mg IVP Q12 [facility] Last Admin: 03/23/17 22:13 Dose: 40 mg Home Med (Home Med) 1 unit PO DAILY [facility] Insulin Human Regular (Humulin R Low) 0 units SC [facility] PRN Reason: Protocol Last Admin: 03/23/17 21:20 Dose: Not Given Isosorbide Mononitrate (Imdur) 60 mg PO DAILY [facility] Last Admin: 03/23/17 13:04 Dose: 60 mg Metoprolol Tartrate (Lopressor) 25 mg PO 0800,1800 [facility] Last Admin: 03/23/17 17:59 Dose: 25 mg Ondansetron HCl (Zofran Inj) 4 mg IVP Q6H PRN PRN Reason: Nausea/Vomiting Tramadol/Acetaminophen (Ultracet 37.5/325 Mg) 1 tab PO Q12 PRN PRN Reason: Pain, severe (8-10) Last Admin: 03/23/17 16:39 Dose: 1 tab Warfarin Sodium (Coumadin) 5 mg PO 1800 [facility] PRN Reason: Protocol Last Admin: 03/23/17 17:58 Dose: 5 mg - Labs Labs: PT 21.9 SECONDS (9.4-12.5) H 03/23/17 07:10 INR 1.88 (0.93-1.08) H 03/23/17 07:10 Most Recent Lab Values WBC 8.7 10^3/ul (4.5-11.0) 03/23/17 07:10 RBC 3.88 10^6/uL (3.5-6.1) 03/23/17 07:10 Hgb 10.4 g/dL (14.0-18.0) L 03/23/17 07:10 Hct 34.9 % (42.0-52.0) L 03/23/17 07:10 MCV 89.9 fl (80.0-105.0) D 03/23/17 07:10 MCH 26.8 pg (25.0-35.0) 03/23/17 07:10 MCHC 29.8 g/dl (31.0-37.0) L 03/23/17 07:10 RDW 19.7 % (11.5-14.5) H 03/23/17 07:10 Plt Count 173 10^3/uL (120.0-450.0) 03/23/17 07:10 MPV 12.2 fl (7.0-11.0) H 03/23/17 07:10 Gran % 84.1 % (50.0-68.0) H 03/23/17 07:10 Lymph % (Auto) 7.0 % (22.0-35.0) L 03/23/17 07:10 [place] % (Auto) 7.7 % (1.0-6.0) H 03/23/17 07:10 Eos % (Auto) 0.9 % (1.5-5.0) L 03/23/17 07:10 Baso % (Auto) 0.3 % (0.0-3.0) 03/23/17 07:10 Gran # 7.28 (1.4-6.5) H 03/23/17 07:10 Lymph # 0.6 (1.2-3.4) L 03/23/17 07:10 [place] # 0.7 (0.1-0.6) H 03/23/17 07:10 Eos # 0.1 (0.0-0.7) 03/23/17 07:10 Baso # 0.03 K/mm3 (0.0-2.0) 03/23/17 07:10 PT 21.9 SECONDS (9.4-12.5) H 03/23/17 07:10 INR 1.88 (0.93-1.08) H 03/23/17 07:10 Sodium 142 mmol/L (132-148) 03/23/17 07:10 Potassium 5.0 mmol/L (3.6-5.0) 03/23/17 07:10 Chloride 108 mmol/L (98-107) H 03/23/17 07:10 Carbon Dioxide 21 mmol/L (21-33) 03/23/17 07:10 Anion Gap 19 (10-20) 03/23/17 07:10 BUN 78 mg/dL (7-21) H 03/23/17 07:10 Creatinine 2.0 mg/dl (0.8-1.5) H 03/23/17 07:10 Est GFR ( Amer) 40 03/23/17 07:10 Est GFR (Non-Af Amer) 33 03/23/17 07:10 POC Glucose (mg/dL) 171 mg/dL (65-110) H 03/24/17 04:23 Random Glucose 139 mg/dL (70-110) H 03/23/17 07:10 Calcium 8.5 mg/dL (8.4-10.5) 03/23/17 07:10 Total Bilirubin 0.6 mg/dL (0.2-1.3) 03/23/17 07:10 AST 26 U/L (17-59) 03/23/17 07:10 ALT 36 U/L (7-56) 03/23/17 07:10 Alkaline Phosphatase 63 U/L (38-126) 03/23/17 07:10 Lactate Dehydrogenase 643 U/L (333-699) 03/23/17 07:10 Total Creatine Kinase 93 U/L (35-230) 03/23/17 07:10 Troponin I 0.07 ng/mL 03/23/17 07:10 NT-Pro-B Natriuret Pep 44267 pg/mL (0-450) H 03/23/17 07:10 Total Protein 6.6 g/dL (5.8-8.3) 03/23/17 07:10 Albumin 3.7 g/dL (3.0-4.8) 03/23/17 07:10 Globulin 2.9 gm/dL 03/23/17 07:10 Albumin/Globulin Ratio 1.3 (1.1-1.8) 03/23/17 07:10 - Constitutional Appears: Well, No Acute Distress - Head Exam Head Exam: ATRAUMATIC, NORMAL INSPECTION, NORMOCEPHALIC - Eye Exam Eye Exam: Normal appearance - ENT Exam ENT Exam: Normal External Ear Exam - Neck Exam Neck Exam: Normal Inspection - Respiratory Exam Respiratory Exam: NORMAL BREATHING PATTERN - Cardiovascular Exam Cardiovascular Exam: absent: JVD - GI/Abdominal Exam GI & Abdominal Exam: absent: Distended - Rectal Exam Rectal Exam: Deferred - Exam Additional comments: Deferred. - Extremities Exam Extremities Exam: Normal Inspection - Back Exam Back Exam: NORMAL INSPECTION - Neurological Exam Neurological Exam: Alert, Awake, Oriented x3 - Psychiatric Exam Psychiatric exam: Normal Affect, Normal Mood - Skin Skin Exam: Normal Color Assessment and Plan - Assessment and Plan (Free Text) Assessment: Dizziness. CHF. Atrial fibrillation. Pace maker insertion. IDDM. CKD. HLD. Plan: Antivert 25 mg PO x 1. Continue present management.
[2017-03-24 06:57] LABS: INR 2.16 (0.93-1.08); PROTHROMBIN TIME 25.2 SECONDS (9.4-12.5)
[2017-03-24 07:29] LABS: CALCIUM 8.9 mg/dL (8.4-10.5)
[2017-03-24] MEDS: Insulin Reg-LOW-Coverage SC SCH ×4 (08:04→22:35)
[2017-03-24] MEDS: ULORIC 80 MG PO SCH (09:57)
[2017-03-24] MEDS: TraMADol/Apap 37.5/325 mg Tab PO PRN ×2 (14:26→22:36)
[2017-03-25 08:20] LABS: CALCIUM 9.1 mg/dL (8.4-10.5)
[2017-03-25 09:08] LABS: INR 2.23 (0.93-1.08); PROTHROMBIN TIME 26.1 SECONDS (9.4-12.5)
[2017-03-25] MEDS: Insulin Reg-LOW-Coverage SC SCH ×4 (09:13→22:16)
[2017-03-25] MEDS: ULORIC 80 MG PO SCH (09:50)
[2017-03-25] MEDS ORDERED: Nitroglycerin 2% Ointment Foilpak UD TOP PRN (10:44)
[2017-03-25] MEDS: MethylPREDNISolone 40 mg Vial IV SCH ×2 (12:30→21:43)
[2017-03-25] MEDS: TraMADol/Apap 37.5/325 mg Tab PO PRN (14:43)
--- NOTE | 2017-03-25 21:41 | PN ---
DATE: 03/25/2017 SUBJECTIVE: This 71-year-old male was examined on the cardiac unit. He was examined in the presence of his family and his nurse, Massiel Naik, registered nurse. The patient was out of bed to chair. He was complaining of pain in his right wrist, both knees, and was noted to be somewhat fatigued. He had just received Ultracet for degenerative arthritic discomfort. He remains in an atrial fibrillation rhythm on the child monitor. He was admitted with decompensated cryac-nn-uqzmbhn systolic congestive heart failure with a history of valvular heart disease including mild aortic stenosis and moderate mitral and tricuspid regurgitation. The patient denied any chest pain or shortness of breath and on physical exam was noted to have a temperature of 98.5, respirations 20, pulse 70, and blood pressure 155/75 with a pulse ox of 99%. The family noted that since yesterday he has had more swelling in both his knees, his right wrist, and forearm and they deny any trauma to his affected joints. PHYSICAL EXAMINATION: VITAL SIGNS: child monitor shows atrial fibrillation. HEENT: Head: Normocephalic, atraumatic. Eyes: No icterus. Ears: Clear. Throat: Noninjected. NECK: Supple. HEART: Irregular S1, S2. LUNGS: No wheezing. ABDOMEN: Obese. EXTREMITIES: Right arm with swelling in the hand, wrist, and forearm. Both knees have swelling and right lower extremity is slightly more swollen than the left and also coolness to his right foot more than left. NEUROLOGICAL: Unchanged. PSYCHOLOGICAL: Anxiety. VASCULAR: Both limbs are warm to touch. LABORATORY DATA: White count 8700, hemoglobin 10.4, hematocrit 34.9, and platelets 173,000. PT/INR 2.23. Sodium 140, potassium 4.6, chloride 104, bicarb 21, BUN 76, creatinine 1.9, random blood sugar 189, and calcium 9.1. IMPRESSION: A 71-year-old male with multiple medical problems including acute on chronic systolic congestive heart failure with comorbidities of valvular heart disease including history of mild aortic stenosis, moderate mitral regurgitation, moderate tricuspid regurgitation which contribute to right heart failure and pedal edema with anasarca on a chronic basis with comorbidities of chronic hypertension, atrial fibrillation, history of atherosclerotic heart disease with coronary artery stents and a permanent pacemaker that was placed in the past as well as degenerative arthritis, gouty arthritis, insulin-dependent diabetes mellitus, chronic renal failure stage IV, chronic hypertension, hyperlipidemia, peptic ulcer disease with gastroesophageal reflux disease, and anemia of chronic disease. The plan as discussed with the patient, nurse, and family at bedside will be to maintain this patient on the cardiac kiran and he remains on a heart-healthy renal diabetic diet with 1000 mL p.o. fluid restriction daily while monitoring I's and O's daily. I have ordered a sling for his right arm given his painful limb and a stat uric acid level and the patient will continue on his Uloric 80 mg daily medication as recommended by his rn production, Dr. Simpson. He will remain now on fall precautions. He is ordered to have a 2D echocardiogram to reassess his valvular heart disease and ejection fraction. For completeness sake, I will order venous Dopplers of his bilateral lower extremities to rule out DVT, venous Doppler of his right upper extremity to rule out a DVT, and arterial Dopplers bilaterally to assess the patient for peripheral vascular disease. He will be continued on Solu-Medrol 20 mg IV q.12 for the next 24 hours while awaiting consultation with Dr. Miguel Angel Cosme from Orthopedics regarding his swollen wrist and bilateral knee findings. He continues on Pepcid 20 mg p.o. nightly., nitroglycerin 1 inch to chest wall q.4 hours p.r.n. accelerated hypertension if his systolic blood pressure should be greater than 160 or if his diastolic blood pressure should be greater than 100. He will continue on Lopressor 25 mg p.o. b.i.d., Lipitor 10 mg p.o. nightly, Lasix 80 mg IV q.12, Imdur 60 mg p.o. daily, regular low-dose insulin protocol before meals and nightly, Coumadin 5 mg p.o. daily while monitoring INR daily and holding Coumadin for any INR greater than 3, hydralazine 50 mg p.o. t.i.d. and Ultracet one q.12 hours. p.r.n. severe pain. He will have a repeat basic metabolic panel, hemoglobin/hematocrit and INR in the a.m. and all of the above was discussed in detail with the patient and family and nursing at bedside. Greater than 60 minutes was spent in the care management, review of x-rays, labs, medication, and orders for this patient today. All questions were answered. eMena Ling MD R[facility]
[2017-03-26 07:26] LABS: HEMOGLOBIN 12.2 g/dL (14.0-18.0)
[2017-03-26] MEDS ORDERED: Bupivacaine 0.5% Inj(30mL) IJ ONE (07:41)
[2017-03-26] MEDS ORDERED: MethylPREDNISolone Depo 40 mg/ml Inj IM ONE (07:41)
[2017-03-26 07:48] LABS: CALCIUM 9.3 mg/dL (8.4-10.5)
[2017-03-26 08:05] LABS: INR 2.51 (0.93-1.08); PROTHROMBIN TIME 29.4 SECONDS (9.4-12.5)
[2017-03-26] MEDS: Insulin Reg-LOW-Coverage SC SCH ×4 (09:16→22:11)
[2017-03-26] MEDS: MethylPREDNISolone 40 mg Vial IV SCH (09:28)
[2017-03-26] MEDS: ULORIC 80 MG PO SCH (09:31)
--- NOTE | 2017-03-26 13:05 | CON ---
DATE: 03/26/2017 ORTHOPEDIC CONSULTATION HISTORY OF PRESENT ILLNESS: The patient came into the hospital on 03/23/2017, which looks like a flare up of his arthritis, having pain in multiple joints, shoulder, elbow, forearm, and mainly the right wrist with evidence of an effusion. His knees, which were seen from previous visits, were not swollen today. He is on p.o. steroids and the most painful region of his body is the right wrist with evidence of an effusion, so we gave him an injection intra-articular of Depo-Medrol marking for symptomatic relief of the flare up of his arthritis occurring in his right wrist. He does have a past history of gouty arthritis from the previous visit when I saw him on 06/29/2016 and e aspirated fluid from his knee showing uric acid crystals, so in the mean time, we are hopeful that he feels better with the inflammation of his right wrist with the cortisone injection and application of right wrist and forearm splint. Miguel Angel Cosme DO R[facility]Y
[2017-03-27 06:58] LABS: INR 3.03 (0.93-1.08); PROTHROMBIN TIME 35.7 SECONDS (9.4-12.5)
--- NOTE | 2017-03-27 08:01 | PN ---
DATE: 03/24/2017 SUBJECTIVE: This 71-year-old male was examined on the cardiac kiran. This case was reviewed in detail with himself and his nurse, Massiel Naik, registered nurse. The patient was sitting at the side of his bed. He was mildly short of breath. He was complaining of pain in both of his legs, which on clinical exam have anasarca secondary to right heart failure and also the patient was complaining of pain in both his wrists in the setting of decompensated acute gouty arthritis. Of note, the patient takes Uloric 80 mg p.o. daily under the direction of Dr. Simpson, Rheumatology as an outpatient; however, the drug is nonformulary at the [facility]. I have advised the patient to have his family bring his medication in from home. At present, he is in distress over his edema, mild shortness of breath and remains in atrial fibrillation on the property assessment monitor. He denied any active chest pain or jaw pain or diaphoresis. PHYSICAL EXAMINATION VITAL SIGNS: Temperature was 98, respirations 20, pulse 72, blood pressure 148/81, pulse ox 97% on 2 liters nasal O2. Urine output was 720 mL yesterday with a negative fluid balance of 540 mL. front desk monitor: AFib. HEENT: Head is normocephalic, atraumatic. Eyes: No icterus. Ears: Clear. Throat: Noninjected. NECK: Supple. HEART: Irregular S1, S2. LUNGS: Basilar rales. ABDOMEN: Obese. EXTREMITIES: 2+ pitting edema to his knees. VASCULAR: Legs warm to touch. PSYCHOLOGICAL: Anxious. NEURO: Deconditioned. LABORATORY DATA: White count 8700, hemoglobin 10.4, hematocrit 34.9, platelets 173,000. PT/INR 2.16. Sodium 143, K 4.2, chloride 107, bicarb 23, BUN 69, creatinine 1.9, random blood sugar 183, calcium 8.9. BNP 39,900. Chest x-ray was reviewed. Congestive heart failure was noted. The patient has chronic cardiomegaly. There was no active infiltrate, no pneumothorax and no pleural effusion. EKG was reviewed. It showed a paced rhythm. IMPRESSION: A 71-year-old male with decompensated ouaru-ex-kaxflwr systolic congestive heart failure with comorbidities of stable atherosclerotic heart disease status post coronary artery stenting, permanent pacemaker placement, atrial fibrillation on chronic Coumadin therapy, chronic gout, degenerative arthritis, morbid obesity, insulin-dependent diabetes mellitus, hyperlipidemia, chronic renal failure stage IV, anemia of chronic disease. PLAN: As discussed with the patient and nurse includes continuing this patient on the cardiac unit. He remains on strict Is and Os and p.o. fluid restriction of 1200 mL daily while remaining on a heart-healthy renal diabetic diet with orders for Ultracet 1 tablet p.o. q. 12 p.r.n. severe pain and Tylenol 650 p.o. q. 6 hours p.r.n. mild pain or temperature greater than 101. He continues on Lopressor 25 mg p.o. b.i.d., Lipitor 10 mg p.o. at bedtime, Lasix 40 mg IV q. 12, Imdur 60 mg p.o. daily, regular low-dose insulin coverage a.c. meals and bedtime, Uloric 80 mg p.o. daily from home, Coumadin 5 mg p.o. daily while monitoring INR daily and holding Coumadin for any INR greater than 3. The patient will be scheduled for repeat basic metabolic panel and INR in the a.m. The patient requires diuresis and nasal O2 for treatment of right heart failure and decompensated uarxw-ne-qtywakk systolic congestive heart failure. Greater than 35 minutes was spent in the care, review of x-rays, labs and medication orders for this patient today. All questions were answered for him and nursing. Meena Ling MD MTDD
[2017-03-27] MEDS: Insulin Reg-LOW-Coverage SC SCH ×4 (08:04→21:19)
--- NOTE | 2017-03-27 08:09 | PN ---
DATE: 03/26/2017 SUBJECTIVE: This 71-year-old male was examined on the Cardiac Unit in the presence of his and 2 daughters. His case was reviewed in detail with his nurse Shaina Naik RN. 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 He was evaluated earlier this morning by Dr. Miguel Angel Cosme from Orthopedics. The patient was given a cortisone injection in his right wrist because of newly noted effusion by Dr. Miguel Angel Cosme and at present he is feeling better. He is also wearing a right wrist and forearm splint. He is able to move his fingers easily. At present, he is denying fever, chills, chest pain, or shortness of breath. PHYSICAL EXAMINATION: VITAL SIGNS: On the cash register operator his rhythm is atrial fibrillation with a temperature of 97.9, respirations 20, pulse 84, blood pressure 132/84 with a pulse oximetry of 100% on room air. INTAKE/OUTPUT: Urine output is 2200 mL thus far today with a negative fluid balance of 1700 mL. He remains on a heart-healthy renal diabetic diet with a 1000 mL p.o. fluid restriction. HEENT: Head, normocephalic, atraumatic. Eyes: No icterus. Ears: Clear. Throat: Noninjected. NECK: Supple. HEART: Irregular S1 and S2. LUNGS: Clear. ABDOMEN: Obese. EXTREMITIES: Decreased edema. SKIN: No rash. VASCULAR: No claudication. Legs warm to touch. PSYCHOLOGIC: Chronic anxiety. NEUROLOGIC: Grossly intact. LAB ORATORY DATA: Hemoglobin 12.2 and hematocrit 39.9. PT/INR 2.51, previously 2.23. Sodium 141, potassium 4.0, chloride 104, bicarbonate 23, BUN 79, creatinine 1.9, random blood sugar 226, estimated GFR 35 mL/minute, and calcium normal 9.3. IMPRESSION: This is a 71-year-old male with decompensated acute on chronic systolic congestive heart failure with comorbidities of atherosclerotic heart disease, status post coronary artery stenting, valvular heart disease with mild aortic stenosis, moderate mitral regurgitation, moderate tricuspid regurgitation and right heart failure with anasarca manifesting as bilateral lower extremity edema; also with permanent pacemaker placement, chronic atrial fibrillation, on oral Coumadin and additional comorbidities of obesity, chronic hypertension, gouty arthritis, degenerative arthritis, anemia of chronic disease, chronic renal failure stage IV, insulin dependent diabetes mellitus, anxiety neurosis, and history of peripheral vascular disease with right leg stent in the past. PLAN: The plan at present as discussed with the patient, family, nursing will be to maintain the patient on the cardiac kiran and he is ordered to have physical therapy for reconditioning, gait training, and ambulation safety. He continues on strict Is and Os. He is wearing right arm wrist splint. He remains on fall precautions and a heart-healthy renal diabetic diet. A 2D echocardiogram has been ordered to evaluate left ventricular wall motion and valvular heart disease stability. He is also ordered to have bilateral lower extremity venous Doppler studies, right upper extremity venous Doppler study, and bilateral lower extremity arterial Doppler studies to rule out DVT or worsening peripheral vascular disease. He will continue on Ultracet 1 tablet p.o. q.12 hours p.r.n. severe pain, Pepcid 20 mg p.o. at bedtime, nitroglycerin 1-inch to chest wall q.4 hours p.r.n. accelerated hypertension, if systolic blood pressure is greater than 160 or diastolic blood pressure is greater than 100. He continues on Lopressor 25 mg p.o. b.i.d., Lipitor 10 mg p.o. at bedtime, Lasix 80 mg IV q.12, and Imdur 60 mg p.o. daily, regular low dose insulin protocol before meals and at bedtime, Uloric 80 mg p.o. daily, Solu-Medrol parenterally has been discontinued. He will be lowered to Coumadin 4 mg p.o. daily while monitoring his INR daily and holding Coumadin for any INR greater than 3 and continues on hydralazine 50 mg p.o. t.i.d. I will await the results of his above testing before entertaining additional workup or consultations. Greater than 60 minutes was spent in the care, management, discussion, and review of x-rays, labs, and medications with the patient, family, and nursing today. All questions were answered. Meena Ling MD [facility]
[2017-03-27 08:30] VITALS: RESP 20
--- NOTE | 2017-03-27 09:24 | PN ---
DATE: 03/27/2017 SUBJECTIVE: The patient underwent a cortisone injection for his right wrist dorsal radial approach to instill Depo-Medrol, effusion of the right wrist, suspect inflammatory arthritis from gout until he still has pain in the right shoulder, but being that he has a high blood sugar, I am reluctant to give another cortisone injection to the shoulder, but he does complain of pain and AC joint impingement of the right shoulder and he also has pain in his right forearm, but the right wrist is much better. He will use of wrist splint a little less and will send it for x-ray of the right shoulder, right forearm, and right wrist, but will not inject with cortisone since the blood sugar is over 200 . Miguel Angel Cosme DO ROCKY
--- NOTE | 2017-03-27 10:30 | RAD ---
PROCEDURE: Right Wrist Radiographs. HISTORY: Wrist pain COMPARISON: None. FINDINGS: BONES: There is no acute displaced fracture or bone destruction. Bone alignment is normal. There is diffuse bone demineralization. JOINTS: There is degenerative osteoarthrosis in the intercarpal joints with subarticular erosions, reduced joint spaces subarticular lucencies which likely represent geodes. There is also degenerative osteoarthrosis in the radiocarpal joint. SOFT TISSUES: Normal. OTHER FINDINGS: There are advanced atherosclerotic vascular calcifications. IMPRESSION: Moderate degenerative osteoarthrosis in the intercarpal and radiocarpal joints.
[2017-03-27] MEDS: ULORIC 80 MG PO SCH (10:31)
--- NOTE | 2017-03-27 14:59 | RAD ---
PROCEDURE: Radiographs of the Right Shoulder HISTORY: pain rt shoulder COMPARISON: No prior. FINDINGS: BONES: Normal. No fracture. JOINTS: Normal. Glenohumeral and acromioclavicular joints preserved. No osteoarthritis. SOFT TISSUES: Small calcifications are seen posterior to the humeral head which could represent calcific tendinitis or bursitis OTHER FINDINGS: None. IMPRESSION: No acute findings
--- NOTE | 2017-03-27 15:01 | RAD ---
PROCEDURE: Radiographs of the Right Forearm HISTORY: rt forearm pain COMPARISON: None available. TECHNIQUE: Frontal and lateral views obtained. FINDINGS: BONES: No fracture or destructive lesion. JOINT SPACES: Unremarkable. OTHER FINDINGS: None. IMPRESSION: Unremarkable radiographs of the right forearm.
--- NOTE | 2017-03-27 15:15 | US ---
PROCEDURE: Lower extremity RAHEL exam HISTORY: Peripheral vascular disease with pain and claudication. Diabetes. Previous smoker. PHYSICIAN(S): Nickolas Cespedes MD. FINDINGS: The exam is limited by calcified, noncompressible vessels distally. The right resting RAHEL is not obtainable. The left resting RAHEL is inaccurate, 0.69 The high thigh pressures and waveforms are relatively normal. The calf PVR waveforms are moderately blunted and do not augment. The findings are consistent with bilateral SFA disease. The ankle and metatarsal waveforms severely blunted and nearly flat. This is consistent with bilateral popliteal, trifurcation, and/ or tibial disease. IMPRESSION: 1. Limited study due to calcification. 2. Bilateral SFA occlusive disease. 3. Bilateral popliteal, trifurcation, and/ or tibial disease. The distal waveforms are severely blunted. 4. If clinically indicated, further evaluation with CTA runoff, MRA runoff, or conventional arteriogram can be considered.
--- NOTE | 2017-03-27 17:15 | US ---
HISTORY: Leg pain and swelling. Evaluate for DVT PHYSICIAN(S): Nickolas Cespedes MD. TECHNIQUE: Duplex sonography and color-flow Doppler with graded compression were used to evaluate the deep venous systems of both lower extremities. The tibial veins are not visualized due to swelling FINDINGS: The visualized deep venous systems of both lower extremities are sonographically normal and compressible. Normal wave forms and augmentation are seen. There is no sonographic evidence for deep venous thrombosis in the visualized segments of both lower extremities. IMPRESSION: No sonographic evidence for deep venous thrombosis in the visualized segments of both lower extremities.
--- NOTE | 2017-03-27 17:16 | US ---
PROCEDURE: Right upper extremity venous US CLINICAL HISTORY: Arm pain and swelling Evaluate for deep venous thrombosis. PHYSICIAN(S): Nickolas Cespedes M.D FINDINGS: The visualized rightinternal jugular vein is sonographically normal and compressible. No evidence of obstruction or thrombus is seen. The visualized segments of the right subclavian vein are patent with normal waveforms. No sonographic evidence of obstruction or thrombosis is seen. The visualized deep venous system of the proximal right upper extremity is sonographically normal and compressible. IMPRESSION: 1. No sonographic evidence for deep venous thrombosis in the visualized segments of the right upper extremity.
--- NOTE | 2017-03-28 02:14 | CON ---
DATE: 03/27/2017 TIME: 7:50 p.m. CHIEF COMPLAINT AND HISTORY OF PRESENT ILLNESS: This is a 71-year-old gentleman who was admitted with shortness of breath and congestive heart failure. His past medical history is significant for congestive heart failure/cardiomyopathy, stable coronary artery disease (post stents) and pacemaker placement. The patient is diabetic. He has chronic stage IV renal insufficiency. He also has a history of PVD. In 11/2014, I performed a peripheral angiogram on Mr. Osuna. At that point in time, he had gangrene of the right great toe. The angiogram revealed bilateral popliteal artery occlusions and severe tibial disease. His right popliteal occlusion was recanalized and stented with one-vessel anterior tibial runoff. Currently, Mr. Osuna's lower extremity exam is consistent with chronic PVD. He denies rest pain. No sores are present. His femoral pulses are difficult to palpate, but present. His popliteal and distal pulses are absent. His RAHEL/PVR exam on this admission demonstrates bilateral SFA, popliteal and tibial disease. His distal wave forms are nearly flat. Currently, Mr. Osuna's creatinine is approximately 2. His INR is 3. Clinically, his distal foot perfusion looks better than his RAHEL exam. Given the extent and nature of his previously documented PVD, I would be somewhat hesitant to put him through an arteriogram at this time. His renal insufficiency and distribution of disease would be very challenging and he is not having rest pain or tissue loss. His main lower extremity complaint is swelling. We will try using class 1 compression stockings to aide in his swelling. However, we must be careful that compression does not worsen his lower extremity perfusion and cause rest pain. Nickolas Cespedes MD R[facility]Y
[2017-03-28 06:25] LABS: HEMOGLOBIN 10.9 g/dL (14.0-18.0); MEAN CELL VOLUME 88.8 fl (80.0-105.0); MEAN CORPUSCULAR HEMOGLOBIN 27.1 pg (25.0-35.0); MEAN CORPUSCULAR HGB CONC 30.5 g/dl (31.0-37.0); MEAN PLATELET VOLUME 11.5 fl (7.0-11.0); RBC 4.02 10^6/uL (3.5-6.1); RED CELL DISTRIBUTION WIDTH 18.7 % (11.5-14.5); WHITE BLOOD COUNT 12.9 10^3/ul (4.5-11.0)
[2017-03-28 06:53] LABS: INR 2.99 (0.93-1.08); PROTHROMBIN TIME 35.2 SECONDS (9.4-12.5)
[2017-03-28 07:06] LABS: ALB/GLOB RATIO 1.2 (1.1-1.8); ALBUMIN 3.5 g/dL (3.0-4.8); CALCIUM 8.7 mg/dL (8.4-10.5)
--- NOTE | 2017-03-28 08:07 | PN ---
DATE: 03/27/2017 SUBJECTIVE: This 71-year-old male was examined on the cardiac kiran and his case was reviewed in detail with himself, his and daughter at the bedside and his nurse, Lynsey Vasques, Registered Nurse. The patient has been seen earlier today by Dr. Miguel Angel Cosme. Because of persistent pain in his right wrist and forearm, he has ordered x-rays that are pending at the time of this dictation. Also extremity ultrasounds including venous Dopplers of both lower extremities, arterial Dopplers of both lower extremities and right upper extremity venous Doppler are pending as is a consultation with Dr. Nickolas Cespedes from [facility]. It should be noted that the patient has had a right leg arterial stent placed by Dr. Nickolas Cespedes in the past in his right lower extremity. Of note today, the patient has less edema, but his right lower leg is somewhat cooler to touch than his left and he is awaiting evaluation regarding the above. He denies any active chest pain or palpitation. PHYSICAL EXAMINATION: VITAL SIGNS: He is in a paced rhythm on the hospital monitor with temperature of 97.7, respirations 20, pulse 69 and blood pressure 144/80 and pulse ox of 96%. HEENT: Head: Normocephalic, atraumatic. Eyes: No icterus. Ears: Clear. Throat: Noninjected. NECK: Supple. HEART: Irregular S1, S2. LUNGS: Clear. ABDOMEN: Obese. EXTREMITIES: Decreased edema. VASCULAR: Right leg cooler than left. NEURO: Grossly intact. PSYCHOLOGICAL: Chronic anxiety. SKIN: Without rash. LABORATORY DATA: Hemoglobin 12.2, hematocrit 39.9. PT/INR 3.03, random blood sugar 305. IMPRESSION: This is a 71-year-old male with multiple medical problems including acute on chronic systolic congestive heart failure, history of right heart failure, anasarca, pedal edema, history of mild aortic stenosis, moderate mitral and tricuspid regurgitation, chronic hypertension. Stable atherosclerotic heart disease with coronary artery stents in the past as well as chronic atrial fibrillation on Coumadin and a permanent pacemaker placement, also with insulin-dependent diabetes mellitus, chronic renal failure stage IV, anemia of chronic disease, degenerative arthritis, gouty arthritis, peripheral vascular disease, hyperlipidemia, anxiety neurosis, peptic ulcer disease with gastroesophageal reflux disease. At present, the patient continues on the cardiac kiran. He is ordered to have Physical Therapy for reconditioning and gait training and remains on I and O, fall protocol, insulin coverage a.c. meals and at bedtime and a heart-healthy renal diabetic diet with 1200 mL p.o. fluid restriction. A 2-D echocardiogram that has been ordered, remains pending. He continues on Ultracet p.r.n. severe pain, Tylenol for mild pain, Pepcid, nitroglycerin topically for accelerated hypertension, Lopressor, Lipitor, IV Lasix, Imdur, insulin, Uloric and hydralazine. He will have a comprehensive metabolic panel, CBC, PT/INR in the a.m. he is awaiting evaluation by Dr. Nickolas Cespedes from [facility] and also Dr. Miguel Angel Cosme from Orthopedics. We are awaiting the results of his arterial and venous Dopplers and echo and based on those additional testing and recommendations will be made. All the above was discussed in detail with the patient, family and nursing at bedside. All questions were answered. Meena Ling MD ROCKY
[2017-03-28 08:41] VITALS: BP 140/84; PULSE 70; TEMP 97.6; O2SAT 98
[2017-03-28] MEDS: Insulin Reg-LOW-Coverage SC SCH (09:32)
[2017-03-28] MEDS: ULORIC 80 MG PO SCH (09:42)
[2017-03-28] MEDS ORDERED: Sodium Chloride 0.45% 1,000 ML IV SCH (10:00)
[2017-03-28] MEDS ORDERED: Insulin Reg-MEDIUM-Coverage SC SCH (11:30)
--- NOTE | 2017-03-28 14:23 | CARD ---
APPROVED REPORT EXAM: Two-dimensional and M-mode echocardiogram with Doppler and color Doppler. INDICATION EDEMA/R/O VALVULAR HEART DISEASE 2D DIMENSIONS Left Atrium (2D)5.7 (1.6-4.0cm)IVSd1.5 (0.7-1.1cm) LVDd5.3 (3.9-5.9cm)LVOT Diameter2.3 (1.8-2.4cm) PWd1.4 (0.7-1.1cm)LVDs4.6 (2.5-4.0cm) FS (%) 13.2 %LVEF (%)28.2 (>50%) M-Mode DIMENSIONS Aortic Root3.20 (2.2-3.7cm)Aortic Cusp Exc.0.80 (1.5-2.0cm) Aortic Valve AoV Peak Oycftrfo458.0cm/sAoV VTI53.9cmAO Peak GR.30mmHg LVOT Peak Ihqbkmhp14.3cm/sLVOT VTI11.40cmAO Mean GR.14mmHg FRENCH (VMAX)0.05be9EYW (VTI)0.88cm2 Mitral Valve E/A ratio0.0 TDI E/Lateral E'0.0E/Medial E'0.0 Tricuspid Valve TR Peak Hxijnaov690fm/sRAP [id number] Peak Gr.43mmHg [id number] LEFT VENTRICLE The left ventricle is normal size. There is moderate concentric left ventricular hypertrophy. The systolic function is severely impaired. Severly hypokinetic Septum No left ventricle thrombus noted on this study. RIGHT VENTRICLE The right ventricle is normal size. There is normal right ventricular wall thickness. RV Systolic function is mildly reduced. There is a pacemaker lead in the right ventricle. ATRIA The left atrium is moderately dilated. The right atrium is moderately dilated. AORTIC VALVE The aortic valve is moderately calcified. There is trace aortic regurgitation. There is moderate valvular aortic stenosis. MITRAL VALVE The mitral valve is moderately thickened. Mitral regurgitation is mild to moderate. TRICUSPID VALVE There is moderate pulmonary hypertension. GREAT VESSELS The aortic root is normal in size. The IVC collapses <50% with inspiration. PERICARDIAL EFFUSION There is a trace loculated anterior pericardial effusion. <Conclusion> The left ventricle is normal size. There is moderate concentric left ventricular hypertrophy. The systolic function is severely impaired. Severly hypokinetic Septum No definite left ventricle thrombus noted on this study. The aortic valve is moderately calcified. There is moderate valvular aortic stenosis. Mitral regurgitation is mild to moderate. There is moderate pulmonary hypertension.
--- NOTE | 2017-03-28 16:59 | IP.NPCORE ---
Heart Failure Core Measure LUIS Inhibitor Prescribed: No Contraindication/Reason for not providing: renal inufficiency Beta-Yan Prescribed: Metoprolol Succinate Angiotensin II Receptor Yan Prescribed: No Contraindication/Reason for not providing: renal insufficiency AnticoagulationTherapy for Atrial Fibrillation/Atrialflutter: Yes Aldosterone Antagonist Prescribed: No Contraindication/Reason for not providing: patient receiving Lasix 40 bid Hydralazine Nitrate Prescribed: No Contraindication/Reason for not providing: patient receiving Lasix Implantable Cardioverter Defibrillator Therapy: No Contraindication/Reason for not providing: to be followed as outpatient Cardiac Resynchronization Therapy Prescribed: No Contraindication/Reason for not providing: to be followed as outpatient - Follow up Will be discharged to: Home Follow Up Date (must be within 7 days from discharge): 04/04/17 Follow Up Time: 09:00
--- NOTE | 2017-03-29 02:27 | DS ---
FINAL DIAGNOSES: Acute on chronic decompensated systolic congestive heart failure, chronic hypertension, stable atherosclerotic heart disease, history of permanent pacemaker placement, history of coronary artery stents, chronic atrial fibrillation, on oral Coumadin therapy, morbid obesity, chronic renal failure stage IV, anemia of chronic disease, degenerative arthritis, gouty arthritis, hyperlipidemia, history of aortic stenosis, mitral and tricuspid regurgitation, chronic hypertension, hyperlipidemia, anemia of chronic disease, peptic ulcer disease with gastroesophageal reflux disease. DISPOSITION: Home with family providing 24-hour supervision. CONSULTANTS: Dr. Miguel Angel Cosme from Orthopedics, Dr. Nickolas Cespedes from Interventional Radiology. DISCHARGE DIET: Heart-healthy, soft bland, renal, diabetic. DISCHARGE MEDICATIONS: Coumadin 4 mg p.o. at dinner time to resume , 03/30/2017; Imdur 60 mg p.o. daily; Lasix 40 mg p.o. b.i.d.; Uloric 80 mg p.o. daily; Lipitor 10 mg p.o. at bedtime; hydralazine 50 mg p.o. t.i.d.; Lopressor 25 mg p.o. b.i.d.; Lipitor 10 mg p.o. at bedtime. Outpatient followup with myself on 04/03/2017, Dr. Zachary Simpson MD, Rheumatology; Dr. Miguel Angel Cosme, Orthopedics; Dr. Nickolas Cespedes, Interventional Radiology. Dr. Nicholson, Cardiology. SUMMARY: This is a 71-year-old male who was admitted to [facility] with acute on chronic decompensated congestive heart failure and was admitted to the cardiac unit where he received parenteral diuretics, p.o. fluid restrictions, and was diuresed. Because of complaints of right leg coolness in the setting of anasarca secondary to right heart failure and chronic valvular heart disease, he was scheduled for bilateral venous Dopplers and bilateral arterial Dopplers of the lower extremities which showed no evidence of thrombosis but chronic peripheral vascular disease. The patient was seen in consultation by Dr. Nickolas Cespedes who in 11/2014 had performed a right popliteal artery stent. At that time, the patient had right great toe gangrene and an angio had revealed bilateral popliteal artery occlusion and severe tibial disease. It was Dr. Nickolas Cespedes's opinion that at present the patient's lower extremity exam is consistent with chronic peripheral vascular disease. The patient has no rest pain. He has no ulcerations but has positive femoral pulses but no popliteal or distant pulses present. It was his opinion that given the distribution of his peripheral vascular disease, it would be very challenging in the absence of rest pain or tissue loss to investigate his vascular status at present, and he feels the patient would benefit with conservative therapy with class I compression stockings at the present time. This was reviewed with the patient and family, especially his daughter,Chiquis Osuna, who is aware of all of the above. The patient and family are aware to monitor the patient daily for any signs of gangrene or leg or foot ulcers at which time they are to call Dr. Nickolas Cespedes immediately. The patient also has routine podiatric care with Dr. Duckworth. At the time of discharge, the patient's 2D echocardiogram has been done but it is pending, and results will be reviewed as an outpatient in my office. He is in a chronic atrial fibrillation with occasional pacing episodes. Temperature is 97.6, respirations 20, pulse 70 and blood pressure 140/84 with pulse ox 98% on room air. Discharge labs show white count 12,900, hemoglobin 10.9, hematocrit 35.7, platelets 188,000. It should be noted that the patient was given IV Solu-Medrol and cortisone injection for acute gouty arthropathy and all, and blood cultures were drawn for completeness sake, but are pending at present. The patient had no localizing signs of infection. PT/INR was 2.99, as a result his Coumadin will be held until and dose reduced to 4 mg daily. His sodium is 137, K 4.1, chloride 102, bicarb 22, BUN 105, creatinine 2.1, random blood sugar 249, and all liver function testing was normal including bilirubin 0.3, AST 39, ALT 36, and alk phos 100. The patient's chest x-ray showed no infiltrate. Wrist, shoulder, and forearm x-ray showed no fracture, and the patient will be monitored closely on a outpatient basis. The patient and family have been advised for any change in signs and symptoms to present directly to the closest emergency room. Meena Ling MD [facility] # [id number]
== END 2017-03-28 13:56 | disposition home or self-care (01) | DRG 291 ==
LOC: ED 06:46 → ERH 10:46 → 3RNO 11:33
PROVIDERS: ADMIT Internal Medicine; ATTEND Internal Medicine
PROC: 3E0U33Z Introduction of Anti-inflammatory into Joints, Percutaneous Approach (ICD-10-PCS; principal; 2017-03-26)
DX: I13.0 Hypertensive heart and chronic kidney disease with heart failure and stage 1 through stage 4 chronic kidney disease, or unspecified chronic kidney disease (principal); I50.23 Acute on chronic systolic (congestive) heart failure; N18.4 Chronic kidney disease, stage 4 (severe); E11.22 Type 2 diabetes mellitus with diabetic chronic kidney disease; E11.52 Type 2 diabetes mellitus with diabetic peripheral angiopathy with gangrene; I08.1 Rheumatic disorders of both mitral and tricuspid valves; D63.8 Anemia in other chronic diseases classified elsewhere; E03.9 Hypothyroidism, unspecified; E66.9 Obesity, unspecified; E78.5 Hyperlipidemia, unspecified; F41.1 Generalized anxiety disorder; I08.3 Combined rheumatic disorders of mitral, aortic and tricuspid valves; I25.10 Atherosclerotic heart disease of native coronary artery without angina pectoris; I42.9 Cardiomyopathy, unspecified; I48.2 Chronic atrial fibrillation; I50.82 Biventricular heart failure; I70.203 Unspecified atherosclerosis of native arteries of extremities, bilateral legs; K21.9 Gastro-esophageal reflux disease without esophagitis; K27.9 Peptic ulcer, site unspecified, unspecified as acute or chronic, without hemorrhage or perforation; M19.042 Primary osteoarthritis, left hand; M19.041 Primary osteoarthritis, right hand; M19.012 Primary osteoarthritis, left shoulder; M19.011 Primary osteoarthritis, right shoulder; M1A.9XX0 Chronic gout, unspecified, without tophus (tophi); Z79.01 Long term (current) use of anticoagulants; Z79.4 Long term (current) use of insulin; Z79.899 Other long term (current) drug therapy; Z87.11 Personal history of peptic ulcer disease; Z95.0 Presence of cardiac pacemaker; Z95.5 Presence of coronary angioplasty implant and graft; H26.9 Unspecified cataract; R40.2412 Glasgow coma scale score 13-15, at arrival to emergency department; Z68.33 Body mass index [BMI] 33.0-33.9, adult

== ENCOUNTER 2017-04-04 05:31 | Inpatient (IN) | payer MEDICARE, OTHER ==
[2017-04-04 05:31] VITALS: BMI 33.3
--- NOTE | 2017-04-04 05:55 | ED PDOC ---
Arrival/HPI - General Chief Complaint: Shortness Of Breath Time Seen by Provider: 04/04/17 05:38 Historian: Patient - History of Present Illness Narrative History of Present Illness (Text): 04/04/17 05:52 Kishor Osuna is a 71 year old male, whose past medical history includes CHF, CAD with stents, pacemaker, mitral regurgitation, diabetes, chronic renal failure, hyperlipidemia, hypertension, and anemia, who presents to the Emergency department complaining of shortness of breath and abdominal discomfort. Patient states he has been experiencing mild shortness of breath with cough since yesterday. Patient also reports vague left-sided abdominal discomfort and nausea. Patient denies any fever, chills, chest pain, vomiting, diarrhea, urinary symptoms, back pain, neck pain, headache, dizziness, or any other complaints. Symptom Onset: Gradual Symptom Course: Unchanged Activities at Onset: Light Context: Home Past Medical History - Provider Review Nursing Documentation Reviewed: Yes - Infectious Disease Hx of Infectious Diseases: None - Tetanus Immunization Tetanus Immunization: Unknown - Cardiac Hx Cardiac Disorders: Yes (cardiac cath, coronary stents, pacemaker, afib) Hx Congestive Heart Failure: Yes Hx Hypertension: Yes - Pulmonary Hx Respiratory Disorders: Yes (smoked cigarettes h/o ppd.quit.) - Neurological Hx Neurological Disorder: Yes (near syncope) Hx Dizziness: Yes - HEENT Hx Cataracts: Yes (pt uncertain about having sx) - Renal Hx Renal Disorder: Yes (renal insuffiency,ckd 3) - Endocrine/Metabolic Hx Hypothyroidism: Yes - Hematological/Oncological Hx Blood Disorders: Yes Hx Anemia: Yes (Blood transfusion 11-01-16) Other/Comment: pt had blood transfusions x3 prior to pacemaker insertion as per pt - Integumentary Hx Dermatological Disorder: Yes Other/Comment: 11-01-16 Bilateral le edema pitting ,r hand 3rd finger stubbed, no open wounds noted to b/l feet, light skin discoloration to r inner thigh and left thigh cause unknown, dark skin discoloration to r foot - Musculoskeletal/Rheumatological Hx Arthritis: Yes - Gastrointestinal Hx Gastrointestinal Disorders: (obese) Hx Gastroesophageal Reflux: (denies reflux) Other/Comment: egd 11/03/16 dx hiatal hernia, esophagitis, healed gastric ulcer - Genitourinary/Gynecological Hx Genitourinary Disorders: Yes (CKD 3) - Psychiatric Hx Psychophysiologic Disorder: No Hx Substance Use: No - Surgical History Hx Cardiac Catheterization: Yes (06/29/16) Hx Coronary Stent: Yes (x2 and 1 leg stent right) Other/Comment: ragini picc line for abx 2014, balloon angioplasty due to gangrene r ft hallux - Anesthesia Hx Anesthesia Reactions: No Hx Malignant Hyperthermia: No - Suicidal Assessment Feels Threatened In Home Enviroment: No Family/Social History - Physician Review Nursing Documentation Reviewed: Yes Family/Social History: Unknown Family HX Smoking Status: Former Smoker Hx Alcohol Use: Yes (stopped social drinking 4 yrs ago) Hx Substance Use: No Allergies/Home Meds Allergies/Adverse Reactions: Allergies No Known Allergies Allergy (Verified 12/19/16 17:14) Home Medications: Home Meds Medication Instructions Recorded Confirmed Febuxostat [Uloric] 80 mg PO DAILY 03/23/17 04/04/17 Methylprednisolone [Medrol Dose 4 mg PO QOTHERDAY 03/23/17 04/04/17 Pack (21 tabs)] Review of Systems - Physician Review All systems were reviewed & negative as marked: Yes - Review of Systems Constitutional: Normal. absent: Fevers Eyes: Normal ENT: Normal Respiratory: SOB, Cough Cardiovascular: Normal. absent: Chest Pain Gastrointestinal: Abdominal Pain, Nausea. absent: Diarrhea, Vomiting Genitourinary Male: Normal. absent: Dysuria, Frequency, Hematuria, Urinary Output Changes Musculoskeletal: Normal. absent: Back Pain, Neck Pain Skin: Normal. absent: Rash Neurological: Normal. absent: Headache, Dizziness Endocrine: Normal Hemo/Lymphatic: Normal Psychiatric: Normal Physical Exam Vital Signs Reviewed: Yes Vital Signs Temp Pulse Resp BP Pulse Ox 04/04/17 05:36 99.3 F 76 18 151/93 H 99 Temperature: Afebrile Blood Pressure: Normal Pulse: Regular Respiratory Rate: Normal Appearance: Positive for: Well-Appearing, Non-Toxic, Comfortable Pain Distress: None Mental Status: Positive for: Alert and Oriented X 3 - Systems Exam Head: Present: Atraumatic, Normocephalic Pupils: Present: PERRL Extroacular Muscles: Present: EOMI Conjunctiva: Present: Normal Mouth: Present: Moist Mucous Membranes Neck: Present: Normal Range of Motion Respiratory/Chest: Present: Clear to Auscultation, Good Air Exchange. No: Respiratory Distress, Accessory Muscle Use Cardiovascular: Present: Regular Rate and Rhythm, Normal S1, S2. No: Murmurs Abdomen: Present: Normal Bowel Sounds. No: Tenderness, Distention, Peritoneal Signs Back: Present: Normal Inspection Upper Extremity: Present: Normal Inspection. No: Cyanosis, Edema Lower Extremity: Present: Normal Inspection. No: Edema Neurological: Present: GCS=15, CN II-XII Intact, Speech Normal Skin: Present: Warm, Dry, Normal Color. No: Rashes Psychiatric: Present: Alert, Oriented x 3, Normal Insight, Normal Concentration Medical Decision Making ED Course and Treatment: 04/04/17 05:52 Impression: 71 year old male complaining of shortness of breath, cough, and abdominal pain. Plan: -- EKG -- Chest X-ray -- Labs, lipase, BNP, cardiac enzymes -- Reassess and disposition Prior Visits: Notes and results from previous visits were reviewed. On 03/23/2017, pt was seen in the Emergency department for shortness of breath and weakness. Pt was admitted to the hospital for further evaluation. Progress Notes: - Lab Interpretations Lab Results: 04/04/17 06:15 Lab Results 04/04/17 06:15: WBC 12.1 H, RBC 4.15, Hgb 11.3 L, Hct 36.5 L, MCV 88.0, MCH 27.2 , MCHC 31.0, RDW 18.2 H, Plt Count 187, MPV 12.2 H 04/04/17 06:15: PT 18.9 H, INR 1.63 H, APTT 26.8 - RAD Interpretation Radiology Orders: 04/04/17 06:06 CHEST PORTABLE [RAD] Stat 04/04/17 06:54 ABD & PELVIS W/O PO OR IV CONT [CT] Stat - Transfer of Care Patient signed out to Dr:: Elan Pending Labs:: Labs/CT abdomen/Pelvis/reassess/final disposition - Scribe Statement The provider has reviewed the documentation as recorded by the Juan Carlos Martin Provider Scribe Attestation: All medical record entries made by the Scribe were at my direction and personally dictated by me. I have reviewed the chart and agree that the record accurately reflects my personal performance of the history, physical exam, medical decision making, and the department course for this patient. I have also personally directed, reviewed, and agree with the discharge instructions and disposition. Disposition/Present on Arrival - Present on Arrival Any Indicators Present on Arrival: No History of DVT/PE: No History of Uncontrolled Diabetes: No Urinary Catheter: No History of Decub. Ulcer: No History Surgical Site Infection Following: None - Disposition Have Diagnosis and Disposition been Completed?: No Diagnosis: Abdominal pain, SOB (shortness of breath) Disposition Time: 07:00 Condition: STABLE Forms: [employer] (Filipino)
[2017-04-04 06:39] LABS: HEMOGLOBIN 11.3 g/dL (14.0-18.0); MEAN CORPUSCULAR HEMOGLOBIN 27.2 pg (25.0-35.0); MEAN PLATELET VOLUME 12.2 fl (7.0-11.0); RBC 4.15 10^6/uL (3.5-6.1); RED CELL DISTRIBUTION WIDTH 18.2 % (11.5-14.5); WHITE BLOOD COUNT 12.1 10^3/ul (4.5-11.0)
[2017-04-04 06:50] LABS: INR 1.63 (0.93-1.08); PARTIAL THROMBOPLASTIN TIME 26.8 Seconds (25.1-36.5); PROTHROMBIN TIME 18.9 SECONDS (9.4-12.5)
[2017-04-04 07:17] LABS: ALB/GLOB RATIO 1.1 (1.1-1.8); ALBUMIN 3.6 g/dL (3.0-4.8); CALCIUM 8.9 mg/dL (8.4-10.5); TROPONIN I 0.12 ng/mL
--- NOTE | 2017-04-04 07:51 | ED PDOC ---
Physical Exam Vital Signs Reviewed: Yes Vital Signs Temp Pulse Resp BP Pulse Ox 04/04/17 06:15 18 04/04/17 05:36 99.3 F 76 18 151/93 H 99 Temperature: Afebrile Blood Pressure: Hypertensive Pulse: Regular Respiratory Rate: Normal Appearance: Positive for: Well-Appearing, Non-Toxic, Comfortable Pain Distress: None Mental Status: Positive for: Alert and Oriented X 3 Medical Decision Making ED Course and Treatment: 04/04/17 07:51 Case signed out to me by Dr. Cote. Pending labs, CT abd/pelvis, reassessment and final disposition. CT Abdomen and Pelvis Without Intravenous Contrast FINDINGS: Lower thorax: Left basilar infiltrate may reflect pneumonia. ABDOMEN: Liver: Unremarkable. Gallbladder and bile ducts: Unremarkable. No calcified stones. No ductal dilation. Pancreas: Unremarkable. No ductal dilation. Spleen: Unremarkable. No splenomegaly. Adrenals: Unremarkable. No mass. Kidneys and ureters: Unremarkable. No obstructing stones. No hydronephrosis. Stomach and bowel: Minimal diverticulitis involving the junction of the descending and sigmoid colon. No obstruction. Appendix: No findings to suggest acute appendicitis. PELVIS: Bladder: Unremarkable. No stones. Reproductive: Unremarkable as visualized. ABDOMEN and PELVIS: Intraperitoneal space: Unremarkable. No free air. No significant fluid collection. 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 No dislocation. Soft tissues: Unremarkable. Vasculature: Unremarkable. No abdominal aortic aneurysm. Lymph nodes: Unremarkable. No enlarged lymph nodes. IMPRESSION: 1. Left basilar infiltrate may reflect pneumonia. 2. Minimal diverticulitis involving the junction of the descending and sigmoid colon. Dictated and Authenticated by: Nickolas Woods MD 04/04/2017 7:46 AM Eastern Time ([place] & [place]) NOTE: This CT was reread by inhouse radiology as diverticulosis without evidence of diverticulitis. Dr. Ling accepts patient to remote telemetry for community acquired pneumonia, recommends Ceftriaxone QD, Azithro QD, Xopenex treatments. - Lab Interpretations Lab Results: 04/04/17 06:15 04/04/17 06:15 Lab Results 04/04/17 07:23: Influenza Typ A,B (EIA) Negative for flu a/b 04/04/17 06:15: WBC 12.1 H, RBC 4.15, Hgb 11.3 L, Hct 36.5 L, MCV 88.0, MCH 27.2 , MCHC 31.0, RDW 18.2 H, Plt Count 187, MPV 12.2 H 04/04/17 06:15: Sodium 141, Potassium 4.6, Chloride 105, Carbon Dioxide 21, Anion Gap 18, BUN 79 H, Creatinine 1.8 H, Est GFR ( Amer) 45, Est GFR ( Non-Af Amer) 37, Random Glucose 186 H, Calcium 8.9, Total Bilirubin 0.8, AST 23 , ALT 35, Alkaline Phosphatase 75, Lactate Dehydrogenase 645, Total Creatine Kinase 44, Troponin I 0.12 D, NT-Pro-B Natriuret Pep 18219 H, Total Protein 6.7 , Albumin 3.6, Globulin 3.1, Albumin/Globulin Ratio 1.1, Lipase 80 04/04/17 06:15: PT 18.9 H, INR 1.63 H, APTT 26.8 I have reviewed the lab results: Yes - RAD Interpretation Radiology Orders: 04/04/17 06:06 CHEST PORTABLE [RAD] Stat 04/04/17 06:54 ABD & PELVIS W/O PO OR IV CONT [CT] Stat - Medication Orders Current Medication Orders: Ceftriaxone Sodium (Rocephin 1 Gram Ivpb) 1 gm in 100 mls @ 100 mls/hr IVPB DAILY TAYLER PRN Reason: Protocol Levalbuterol HCl (Xopenex) 1.25 mg IH Q4H TAYLER Disposition/Present on Arrival - Present on Arrival Any Indicators Present on Arrival: No History of DVT/PE: No History of Uncontrolled Diabetes: No Urinary Catheter: No History of Decub. Ulcer: No History Surgical Site Infection Following: None - Disposition Have Diagnosis and Disposition been Completed?: Yes Diagnosis: Pneumonia Disposition: HOSPITALIZED Disposition Time: 07:51 Patient Plan: Admission, Telemetry Patient Problems: Current Active Problems Problem Status Onset Abdominal pain Acute SOB (shortness of breath) Acute Condition: FAIR Referrals: Meena Ling MD [Primary Care Provider] - Follow up with primary Forms: [employer] ([place]i)
--- NOTE | 2017-04-04 08:29 | RAD ---
HISTORY: sob COMPARISON: 03/23/2017 FINDINGS: LUNGS: No active pulmonary disease. PLEURA: No significant pleural effusion identified, no pneumothorax apparent. CARDIOVASCULAR: Mild cardiomegaly. Permanent pacemaker. No congestive change. OSSEOUS STRUCTURES: No significant abnormalities. VISUALIZED UPPER ABDOMEN: Normal. OTHER FINDINGS: None. IMPRESSION: No active disease.
--- NOTE | 2017-04-04 08:51 | CT ---
PROCEDURE: CT Abdomen and Pelvis without intravenous contrast HISTORY: left sided abdominal pain COMPARISON: 11/02/2016 TECHNIQUE: Without contrast. Contrast Dose: Radiation dose: Total exam DLP = 1078 mGy-cm. This CT exam was performed using one or more of the following dose reduction techniques: Automated exposure control, adjustment of the mA and/or kV according to patient size, and/or use of iterative reconstruction technique. FINDINGS: LOWER THORAX: Patchy infiltrates are seen at the left lung base with mild bronchiectasis. Coronary artery calcifications are seen. LIVER: Unremarkable. No gross lesion or ductal dilatation. GALLBLADDER AND BILE DUCTS: Unremarkable. PANCREAS: Unremarkable. No gross lesion or ductal dilatation. SPLEEN: Unremarkable. ADRENALS: Unremarkable. No mass. KIDNEYS AND URETERS: Unremarkable. No hydronephrosis. No solid mass. VASCULATURE: Unremarkable. No aortic aneurysm. BOWEL: There is diverticulosis of the sigmoid and descending colon without evidence of diverticulitis. APPENDIX: Unremarkable. Normal appendix. PERITONEUM: Unremarkable. No free fluid. No free air. LYMPH NODES: Unremarkable. No enlarged lymph nodes. BLADDER: Unremarkable. REPRODUCTIVE: Unremarkable. BONES: Multilevel degenerative changes are seen. There is mild spondylolisthesis at L5-S1. There is spondylolysis at L5. OTHER FINDINGS: None. IMPRESSION: There is diverticulosis of the sigmoid and descending colon without evidence of diverticulitis.
[2017-04-04] MEDS ORDERED: Levalbuterol 1.25 MG/3 ML Inhal Soln UD IH SCH (09:30)
[2017-04-04] MEDS: cefTRIAXone 1 gm 1 GM/100 ML BAG IVPB SCH (10:00)
[2017-04-04] MEDS: Azithromycin 500MG/NS 250ml 500 MG/250 ML BAG IVPB SCH (10:25)
[2017-04-04 10:31] LABS: URINE BILIRUBIN NEGATIVE (NEGATIVE); URINE BLOOD NEGATIVE (NEGATIVE); URINE GLUCOSE (UA) NEGATIVE (NEGATIVE); URINE LEUKOCYTE ESTERASE NEGATIVE Leu/uL (NEGATIVE); URINE NITRATE NEGATIVE (NEGATIVE); URINE PROTEIN 100 mg/dL (<30 mg/dL); URINE UROBILINOGEN 0.2 E.U./dL (<1 E.U./dL)
[2017-04-04 10:38] LABS: URINE APPEARANCE CLEAR (CLEAR); URINE COLOR YELLOW (YELLOW)
--- NOTE | 2017-04-04 10:54 | CARD ---
APPROVED REPORT EKG Measurement Heart [id number] <Conclusion> V paced Rhythm underlying possibly A fib.
[2017-04-04 11:20] LABS: URINE BACTERIA TRACE (NEG); URINE EPITHELIAL CELLS 0 - 2 /hpf (0-5); URINE RBC 0 - 2 /hpf (0-2); URINE WBC NEGATIVE /hpf (0-6)
[2017-04-04] MEDS: Levalbuterol 0.63 MG/3 ML Inhal Soln UD IH SCH ×2 (14:02→19:39)
[2017-04-04] MEDS: guaiFENesin DM 100 mg-10 mg/5 ml UD PO PRN (15:50)
[2017-04-04] MEDS ORDERED: Influenza Vaccine 60 mcg/0.5 mL SYR (4YR UP) IM ONE (19:45)
[2017-04-04] MEDS ORDERED: Pneumococcal 23-Valent Vaccine IM ONE (19:45)
[2017-04-04] MEDS ORDERED: Nitroglycerin 2% Ointment Foilpak UD TOP PRN (22:15)
--- NOTE | 2017-04-05 02:04 | HP ---
DATE OF EVALUATION: 04/04/2017 HISTORY OF PRESENT ILLNESS: This 71-year-old male is on the cardiac kiran where he was admitted with shortness of breath and left lower lobe pneumonia. His past medical history is extensive and includes chronic systolic congestive heart failure, valvular heart disease with mild aortic stenosis and moderate mitral and tricuspid regurgitation in the setting of right heart failure, anasarca and pedal edema. The patient is also treated for chronic atrial fibrillation, is managed with oral Coumadin and has a history of permanent pacemaker placement, stable atherosclerotic heart disease and coronary artery stents. Past medical history is also significant for hyperlipidemia, chronic hypertension, chronic renal failure stage IV, anemia of chronic disease, degenerative arthritis and gout. The patient presented to the [facility] ER today complaining of shortness of breath, diffuse abdominal discomfort and of note has multiple family members with respiratory complaints in his home including his and daughter. The patient denied any diarrhea, vomiting or hemoptysis. REVIEW OF SYSTEMS: HEAD REVIEW: No headache or seizure. EYE REVIEW: No change in visual acuity. EAR REVIEW: No hearing loss. THROAT REVIEW: No swallowing difficulty. NECK REVIEW: No stiffness. CARDIAC REVIEW: As per HPI. PULMONARY REVIEW: Cough and congestion, shortness of breath. No productive sputum at present. GI: As per HPI. : Chronic renal failure stage IV. HEME: Anemia of chronic disease. VASCULAR: History of stable peripheral vascular disease, status post right leg popliteal stent in the past. SKIN: Without rash or ulceration. NEURO: No knowledge of stroke. FAMILY HISTORY: Noncontributory. SOCIAL HISTORY: He is a former drinker, a former smoker and he is a retired workers compensation administrator. PHYSICAL EXAMINATION: VITAL SIGNS: Temperature 99.3, respirations 18, pulse 76 and blood pressure 151/93 with a pulse ox of 99%. HEENT: Head: Normocephalic, atraumatic. Eyes: No icterus. Ears: Clear. Throat: Noninjected. NECK: Supple. HEART: Irregular S1, S2. LUNGS: Rhonchi at the left base. ABDOMEN: Obese. EXTREMITIES: 1+ edema. SKIN: Without rash. NEUROLOGIC: Deconditioned. VASCULAR: Legs warm to touch. PSYCHOLOGIC: Chronic anxiety. LABORATORY DATA: White count 12,100, hemoglobin 11.3, hematocrit 36.1, platelets 187,000. PT/INR 1.63. Sodium 141, K 4.6, chloride 105, bicarb 21, BUN 79, creatinine 1.8, random blood sugar 186. Bilirubin 0.8, AST 23, ALT 35, alk phos 75. CPK normal 44. BNP 48,100. Urinalysis showed trace bacteria. Influenza A and B serology was negative. Chest x-ray was reviewed. It showed no pneumothorax, no congestive heart failure, no pleural effusion but cardiomegaly and his CT of the abdomen and pelvis showed a left lower lobe lung infiltrate with diverticulosis and no evidence of diverticulitis and EKG showed a paced rhythm with underlying atrial fibrillation. IMPRESSION: A 71-year-old male admitted with cough, shortness of breath and left lower lung pneumonia with comorbidities of chronic hypertension, stable atherosclerotic heart disease, history of chronic systolic congestive heart failure, valvular heart disease, atherosclerotic heart disease with coronary artery stents, permanent pacemaker placement, chronic hypertension, hyperlipidemia, chronic renal failure stage IV, right heart failure, anasarca, peripheral vascular disease, degenerative arthritis, gouty arthritis, anemia of chronic disease and insulin-dependent diabetes mellitus. PLAN: The plan as reviewed with the patient, nursing and family is to admit this patient to the Cardiac Unit where he is ordered to have a heart-healthy bland renal diabetic diet with medium insulin coverage before meals and at bedtime as well as cultures of blood and urine that have been ordered and then to start Zithromax 500 mg IV q. 24 h., Rocephin 1 g IV q. 24 h., Xopenex inhalational therapy 0.63 mg IV inhalational t.i.d., 2 liters nasal O2 p.r.n., Tylenol 650 p.o. q. 6 hours p.r.n. temperature greater than 101, Robitussin DM 5 mL p.o. q. 6 hours p.r.n. cough, Lopressor 25 mg p.o. b.i.d., Lipitor 10 mg p.o. at dinner time, Lasix 40 mg IV q. 12 h., Imdur 60 mg p.o. daily, Coumadin 5 mg p.o. daily while monitoring PT/INR daily and holding Coumadin for any INR greater than 3 and hydralazine 50 mg p.o. t.i.d. The patient will have serial labs and medications and orders adjusted based on his clinical progress. All of the above was discussed in detail and greater than 75 minutes was spent in the care, management, review of x-rays, ordering of labs, treatments and medications for this patient today. All questions were answered. Meena Ling MD MTDD
[2017-04-05 06:50] LABS: HEMOGLOBIN 11.1 g/dL (14.0-18.0); MEAN CORPUSCULAR HEMOGLOBIN 27.1 pg (25.0-35.0); MEAN CORPUSCULAR HGB CONC 30.4 g/dl (31.0-37.0); MEAN PLATELET VOLUME 11.8 fl (7.0-11.0); RBC 4.1 10^6/uL (3.5-6.1); RED CELL DISTRIBUTION WIDTH 18.3 % (11.5-14.5); WHITE BLOOD COUNT 9.8 10^3/ul (4.5-11.0)
[2017-04-05 07:01] LABS: INR 1.73 (0.93-1.08); PROTHROMBIN TIME 20.1 SECONDS (9.4-12.5)
[2017-04-05] MEDS: Levalbuterol 0.63 MG/3 ML Inhal Soln UD IH SCH ×3 (07:53→19:39)
[2017-04-05] MEDS: Insulin Reg-MEDIUM-Coverage SC SCH ×4 (08:05→21:24)
[2017-04-05] MEDS: Azithromycin 500MG/NS 250ml 500 MG/250 ML BAG IVPB SCH (09:47)
[2017-04-05] MEDS: ULORIC 80 MG PO SCH (09:57)
[2017-04-05] MEDS: Sodium Chloride 0.45% 1,000 ML IV SCH (12:34)
[2017-04-05] MEDS: cefTRIAXone 1 gm 1 GM/100 ML BAG IVPB SCH (12:36)
--- NOTE | 2017-04-05 16:10 | PN ---
DATE: 04/05/2017 SUMMARY: This 71-year-old male was examined at his bedside. He remains on the cardiac unit in a paced, alternating with atrial fibrillation rhythm on the case monitor. He is running fevers in the setting of left lung pneumonia and has a poor appetite and is being started on IV fluids. The patient denies any chest pain, hemoptysis, or shaking chills; and is lying in bed, looking deconditioned on physical exam. case monitor shows atrial fibrillation. PHYSICAL EXAMINATION: VITAL SIGNS: Temperature 100.3, respirations 20, pulse 69, and blood pressure 136/91. Pulse ox 100% with 2 L nasal O2. Urine output 150 mL recorded yesterday. HEENT: Head: Normocephalic, atraumatic. Eyes: No icterus. Ears: Clear. Throat: Noninjected. NECK: Supple. HEART: Irregular S1, S2. LUNGS: Rhonchi at the left base. ABDOMEN: Obese. No rebound. EXTREMITIES: 2+ edema. SKIN: No rash. VASCULAR: Legs warm to touch. PSYCHOLOGIC: Alert. NEUROLOGIC: Deconditioned. LABORATORY DATA: White count 9800, previously 12,100; hemoglobin 11.1; hematocrit 36.5; and platelets 170,000. PT/INR is subtherapeutic at 1.73, previously 1.63. Sodium 139, K 4.3, chloride 102, bicarb 23, BUN 79, creatinine 2.0. Estimated GFR 33 mL per minute. Random blood sugar 107. BNP 48,100. All liver function testing was normal including bilirubin 0.8, AST 23, ALT 35, and alk phos 75. Urinalysis showed trace bacteria. Influenza A, B serology was negative. Blood cultures show no growth at 24 hours. Urine culture is pending. IMPRESSION: A 71-year-old male admitted with left lung pneumonia, fevers, deconditioning, and comorbidities of acute on chronic renal failure stage 4 in the setting of insulin-dependent diabetes mellitus, chronic systolic congestive heart failure with right heart failure, anasarca, and pedal edema as well as stable atherosclerotic heart disease with coronary artery stents, chronic atrial fibrillation, for which the patient takes oral Coumadin, now with a subtherapeutic INR level, being treated with daily Coumadin adjustment dosing and INR levels daily, holding any Coumadin dose for an INR greater than 3. Also, with permanent pacemaker placement and history of mild aortic stenosis and moderate mitral and tricuspid regurgitation with comorbidities of anemia of chronic disease, chronic hypertension, chronic obstructive pulmonary disease, degenerative disk arthritis, and gout. PLAN: As discussed with the patient, nursing, and family will be to encourage this patient to be out of bed to chair and order physical therapy for ambulation safety while maintaining him on a soft bland, heart-healthy diabetic renal diet and nasal O2 p.r.n. He will continue on Zithromax 500 mg IV q. 24; Xopenex inhalational therapy 0.63 mg inhalational t.i.d.; Tylenol 650 p.o. q. 6 hours p.r.n. pain or temperature greater than 101; Rocephin 1 g IV q. 24; Robitussin DM 5 mL p.o. q. 6 hours p.r.n. cough; nitroglycerin 1 inch to chest wall q. 4 hours p.r.n. accelerated hypertension, if systolic blood pressure should be greater than 160 or diastolic blood pressure should be greater than 100; Lopressor 25 mg p.o. b.i.d.; Lipitor 10 mg p.o. at bedtime; Lasix 40 mg IV q. 12; Imdur 60 mg p.o. daily; medium insulin coverage protocol before meals and at bedtime; Uloric 80 mg p.o. daily from home; Coumadin 6 mg p.o. daily, monitoring INR daily and holding Coumadin for any INR greater than 3; hydralazine 50 mg p.o. t.i.d.; and 0.45 saline at 70 mL/hour. All of the above was reviewed in detail with the patient; his nurse, Germaine; his daughter, Jada; and all questions were answered. The patient will remain on the cardiac kiran and treated aggressively. Meena Ling MD MTDD
[2017-04-05] MEDS: guaiFENesin DM 100 mg-10 mg/5 ml UD PO PRN (16:48)
[2017-04-06] MEDS: guaiFENesin DM 100 mg-10 mg/5 ml UD PO PRN ×2 (02:45→09:26)
[2017-04-06] MEDS: Sodium Chloride 0.45% 1,000 ML IV SCH ×2 (05:49→20:10)
[2017-04-06 06:43] LABS: INR 2.01 (0.93-1.08); PROTHROMBIN TIME 23.4 SECONDS (9.4-12.5)
[2017-04-06] MEDS: Levalbuterol 0.63 MG/3 ML Inhal Soln UD IH SCH ×3 (07:09→19:42)
[2017-04-06] MEDS: Insulin Reg-MEDIUM-Coverage SC SCH ×4 (08:12→21:40)
[2017-04-06] MEDS: Azithromycin 500MG/NS 250ml 500 MG/250 ML BAG IVPB SCH (09:25)
[2017-04-06] MEDS: ULORIC 80 MG PO SCH (09:30)
[2017-04-06] MEDS: cefTRIAXone 1 gm 1 GM/100 ML BAG IVPB SCH (12:42)
[2017-04-06] MEDS ORDERED: Atropine-Diphenoxylate 0.025-2.5 mg Tab PO PRN (12:46)
--- NOTE | 2017-04-06 14:51 | IP.NPCORE ---
Pneumonia Progress Notes - Oxygenation Assessment (REQUIRED) O2 Saturation: 96 Oxygen Delivery Method: Nasal Cannula Date: 04/06/17 - Blood Cultures (REQUIRED) Culture drawn: Yes Date:: 04/04/17 Time:: 09:30 - Initial Antibiotic Initial Antibiotic given within Four Hours:: Yes Date:: 04/04/17 Time:: 09:30 - Appropriate Antibiotic Appropriate Antibiotic within 24 hours of Admission:: Yes Current Antibiotic: Zithromax, Rocephin No change in antibiotics: Yes - Pneumonia Vaccine Pneumonia Vaccine: No (refused) - Smoking Cessation Smoking Cessation counseling provided:: No Ex-Smoker (has not smoked in the last 12 months): No Current Smoker - smoking cessation education provided: No
--- NOTE | 2017-04-07 02:01 | PN ---
DATE: 03/06/2017 SUBJECTIVE: This 71-year-old male was examined at the bedside. This case was reviewed in detail with himself, his nurse Germaine Root, registered nurse and family. The patient remains hospitalized in the setting of left lung pneumonia and he remains deconditioned and has a decreased appetite. He is being encouraged to eat solids and drink p.o. fluids. He denies any chest pain, palpitation, vomiting, hemoptysis or hematemesis and was noted to have a temperature of 99.1 earlier this morning. He remains in atrial fibrillation rhythm on the library monitor. PHYSICAL EXAMINATION: VITAL SIGNS: Respirations 19, temperature 99.1, pulse 63, blood pressure 114/75, pulse ox 96%. HEENT: Head is normocephalic, atraumatic. Eyes: No icterus. Ears: Clear. Throat: Noninjected. NECK: Supple. HEART: Irregular, S1, S2. LUNGS: With rhonchi in the left posterior lung cornelius. ABDOMEN: Soft. EXTREMITIES: 1+ edema, decreased. VASCULAR. Legs warm to touch. PSYCHOLOGIC: Alert. NEUROLOGIC: Grossly intact, but deconditioned. LABORATORY DATA: Stool for C. diff antigen and toxin are negative. Blood culture show no growth at 48 hours. Urine culture is unremarkable. White count 9800, hemoglobin 11.1, hematocrit 36.5, platelets 170,000. PT/INR 2.01. Sodium 139, K 4.3, chloride 102, bicarb 23, BUN 79, creatinine 2.0, calcium 9,blood sugar 118. Urinalysis unremarkable. Influenza A and B serology negative x2. X-ray shows a left lung base pneumonia. IMPRESSION: A 71-year-old male with community-acquired left lung pneumonia, comorbidities of chronic renal failure stage IV, chronic systolic congestive heart failure, chronic hypertension, history of permanent pacemaker, chronic atrial fibrillation, on Coumadin, now with therapeutic PT/INR, history of stable atherosclerotic heart disease with coronary artery stents, history of degenerative arthritis, gout, insulin-dependent diabetes mellitus, hyperlipidemia, anemia of chronic disease, anxiety neurosis, and deconditioning. PLAN: The plan as discussed with the patient, nursing and family, will be to continue Is and Os, IV fluids of 0.45 saline at 70 mL/hour while encouraging the patient to eat his heart-healthy diabetic renal diet and monitoring Is and Os. He continues on 2 liters of nasal O2 p.r.n., incentive spirometry q. 1 hour, Zithromax 500 mg IV q. 24, Xopenex inhalational therapy t.i.d., Rocephin 1 g IV q. 24, nitroglycerin 1 inch to chest wall q. 4 hours p.r.n. accelerated hypertension if systolic blood pressure greater than 160 or diastolic blood pressure greater than 100, Lopressor 25 mg p.o. b.i.d., Lomotil 1 tablet p.o. q. 6 hours p.r.n. diarrhea, Lipitor 10 mg p.o. at dinner time, Lasix 40 mg p.o. b.i.d., Imdur 60 mg p.o. daily, medium protocol regular insulin a.c. meals and at bedtime, Uloric 80 mg p.o. daily, Coumadin 6 mg p.o. daily while monitoring PT/INR daily and holding Coumadin for any INR greater than 3, hydralazine 50 mg p.o. t.i.d. The patient is ordered to have a basic metabolic panel and CBC in a.m., PT/INR in a.m. and he has been scheduled for physical therapy. Ultimate plan will be for discharge to home when medically stable, able to tolerate p.o. fluids, ambulate and be afebrile. All of the above was reviewed in detail with the patient and nursing. Greater than 35 minutes was spent in the care management, review of x-rays, labs and adjustment of orders for this patient today. All questions were answered. Meena Ling MD ROCKY
[2017-04-07 06:43] LABS: HEMOGLOBIN 10.8 g/dL (14.0-18.0); MEAN CELL VOLUME 88.5 fl (80.0-105.0); MEAN CORPUSCULAR HGB CONC 30.5 g/dl (31.0-37.0); MEAN PLATELET VOLUME 11.9 fl (7.0-11.0); RED CELL DISTRIBUTION WIDTH 18.2 % (11.5-14.5); WHITE BLOOD COUNT 7.7 10^3/ul (4.5-11.0)
[2017-04-07 06:44] LABS: CALCIUM 8.4 mg/dL (8.4-10.5)
[2017-04-07 06:46] LABS: INR 2.31 (0.93-1.08)
[2017-04-07] MEDS: Levalbuterol 0.63 MG/3 ML Inhal Soln UD IH SCH ×3 (07:33→20:05)
[2017-04-07] MEDS: Insulin Reg-MEDIUM-Coverage SC SCH ×4 (08:27→21:57)
[2017-04-07] MEDS: ULORIC 80 MG PO SCH (09:26)
[2017-04-07] MEDS: cefTRIAXone 1 gm 1 GM/100 ML BAG IVPB SCH (09:29)
[2017-04-07] MEDS: Sodium Chloride 0.45% 1,000 ML IV SCH (09:30)
[2017-04-07] MEDS: Azithromycin 500MG/NS 250ml 500 MG/250 ML BAG IVPB SCH (09:31)
[2017-04-08] MEDS: Sodium Chloride 0.45% 1,000 ML IV SCH (05:16)
[2017-04-08 07:19] LABS: HEMOGLOBIN 10.2 g/dL (14.0-18.0); MEAN CELL VOLUME 87.1 fl (80.0-105.0); MEAN CORPUSCULAR HEMOGLOBIN 26.8 pg (25.0-35.0); MEAN CORPUSCULAR HGB CONC 30.8 g/dl (31.0-37.0); MEAN PLATELET VOLUME 11.7 fl (7.0-11.0); RBC 3.8 10^6/uL (3.5-6.1); RED CELL DISTRIBUTION WIDTH 17.9 % (11.5-14.5); WHITE BLOOD COUNT 8.7 10^3/ul (4.5-11.0)
[2017-04-08 07:28] LABS: ALB/GLOB RATIO 1.1 (1.1-1.8); ALBUMIN 3.1 g/dL (3.0-4.8)
[2017-04-08 07:35] LABS: INR 2.66 (0.93-1.08); PROTHROMBIN TIME 31.2 SECONDS (9.4-12.5)
[2017-04-08] MEDS: Levalbuterol 0.63 MG/3 ML Inhal Soln UD IH SCH ×3 (07:38→19:38)
[2017-04-08] MEDS: ULORIC 80 MG PO SCH (09:18)
[2017-04-08] MEDS: Insulin Reg-MEDIUM-Coverage SC SCH ×4 (09:19→22:30)
[2017-04-08] MEDS: cefTRIAXone 1 gm 1 GM/100 ML BAG IVPB SCH (09:21)
[2017-04-08] MEDS: Azithromycin 500MG/NS 250ml 500 MG/250 ML BAG IVPB SCH (09:21)
--- NOTE | 2017-04-08 15:35 | RAD ---
HISTORY: cough COMPARISON: 04/04/2017 TECHNIQUE: Chest PA and lateral FINDINGS: LUNGS: There is a new infiltrate in the left lower lobe. This obscures the diaphragmatic border PLEURA: No significant pleural effusion identified. No pneumothorax apparent. CARDIOVASCULAR: Mild to moderate cardiomegaly OSSEOUS STRUCTURES: No significant abnormalities. VISUALIZED UPPER ABDOMEN: Normal. OTHER FINDINGS: None. IMPRESSION: New left lower lobe infiltrate
[2017-04-08 17:33] VITALS: RESP 20
[2017-04-09] MEDS: Levalbuterol 0.63 MG/3 ML Inhal Soln UD IH SCH ×3 (07:48→19:49)
[2017-04-09] MEDS: Insulin Reg-MEDIUM-Coverage SC SCH ×4 (08:23→21:59)
[2017-04-09 08:43] LABS: INR 2.38 (0.93-1.08); PROTHROMBIN TIME 27.9 SECONDS (9.4-12.5)
[2017-04-09] MEDS: Azithromycin 500MG/NS 250ml 500 MG/250 ML BAG IVPB SCH (10:36)
[2017-04-09] MEDS: ULORIC 80 MG PO SCH (10:41)
--- NOTE | 2017-04-09 17:52 | CP.PCM.CON ---
History of Present Illness - History of Present Illness History of Present Illness: Infectious Disease Consultation: April 09, 2017 71 yo male who presented with severe SOB on admission. The patient had mild elevation of WBC. Initial Chest X-ray showed no active disease but a repeat chest X-ray done yesterday showed a new infiltrate in the left lower lobe of the lung obscuring the diaphragmatic border. The patient has been agitated. Periods of confusion. Noted that the patient was recently in [facility] [place]. Negative for influenza. Patient with issues of renal insufficiency. Cultures negative. PMHx: hypertension, obesity, diabetes mellitus, hyperlipidemia, chronic renal insufficiency, atherosclerotic heart disease, chronic atrial fibrillation, degenerative arthritis, CKD Stage 4, gout. PSHx: debridement of the foot. Social Hx: positive tobacco, and social EtOH use. No illicit drug use. Retired postal employee. Allergies: NKDA Active Medications: Acetaminophen (Tylenol 325mg Tab) 650 mg PO Q6H PRN PRN Reason: Fever >100.4 F Last Admin: 04/09/17 07:24 Dose: 650 mg Atorvastatin Calcium (Lipitor) 10 mg PO DIN [facility] Last Admin: 04/08/17 17:15 Dose: 10 mg Diphenoxylate HCl/Atropine (Lomotil 0.025-2.5 Mg Tablet) 1 tab PO Q6 PRN PRN Reason: Diarrhea Furosemide (Lasix) 80 mg IV Q12H [facility] Guaifenesin/Dextromethorphan (Robitussin Dm) 5 ml PO Q6H PRN PRN Reason: Cough Last Admin: 04/06/17 09:26 Dose: 5 ml Home Med (Home Med) 1 unit PO DAILY [facility] Last Admin: 04/09/17 10:41 Dose: 1 unit Hydralazine HCl (Apresoline) 50 mg PO TID [facility] Last Admin: 04/09/17 14:40 Dose: 50 mg Azithromycin (Zithromax 500mg In Ns) 500 mg in 250 mls @ 167 mls/hr IVPB DAILY [facility] PRN Reason: Protocol Last Admin: 04/09/17 10:36 Dose: 167 mls/hr Ibuprofen (Motrin Tab) 400 mg PO Q6H PRN PRN Reason: Fever >100.4 F Last Admin: 04/08/17 11:47 Dose: 400 mg Insulin Human Regular (Humulin R Med) 0 units SC ACHS [facility] PRN Reason: Protocol Last Admin: 04/09/17 12:02 Dose: Not Given Isosorbide Mononitrate (Imdur) 60 mg PO DAILY [facility] Last Admin: 04/09/17 10:36 Dose: 60 mg Levalbuterol HCl (Xopenex) 0.63 mg IH TIDRESP [facility] Last Admin: 04/09/17 13:25 Dose: 0.63 mg Metoprolol Tartrate (Lopressor) 25 mg PO BID [facility] Last Admin: 04/09/17 10:35 Dose: 25 mg Nitroglycerin (Nitro-Bid 2% Oint) 1 ea TOP Q4H PRN PRN Reason: accelerated hypertension Ondansetron HCl (Zofran Inj) 4 mg IVP Q6H PRN PRN Reason: Nausea/Vomiting Warfarin Sodium (Coumadin) 3 mg PO 1800 [facility] Last Admin: 04/08/17 17:13 Dose: 3 mg Family Hx: none given ROS: Positive for productive cough and fevers. no chills, nausea, vomiting, diarrhea, headaches, dizziness, chest pain, abdominal pain, loss of consciousness, vision loss, hearing loss, melena, hematuria, hematemesis, hematochezia, depression, or anxiety. Past Patient History - Infectious Disease Hx of Infectious Diseases: None - Tetanus Immunizations Tetanus Immunization: Unknown - Past Social History Smoking Status: Former Smoker - CARDIAC Hx Cardiac Disorders: Yes (cardiac cath, coronary stents, pacemaker, afib) Hx Congestive Heart Failure: Yes Hx Hypertension: Yes - PULMONARY Hx Respiratory Disorders: Yes (smoked cigarettes h/o ppd.quit.) - NEUROLOGICAL Hx Neurological Disorder: Yes (near syncope) Hx Dizziness: Yes - HEENT Hx Cataracts: Yes (pt uncertain about having sx) - RENAL Hx Chronic Kidney Disease: Yes (renal insuffiency,ckd 3) - ENDOCRINE/METABOLIC Hx Hypothyroidism: Yes - HEMATOLOGICAL/ONCOLOGICAL Hx Blood Disorders: Yes Hx Anemia: Yes (Blood transfusion 11-01-16) Other/Comment: pt had blood transfusions x3 prior to pacemaker insertion as per pt - INTEGUMENTARY Hx Dermatological Problems: Yes Other/Comment: 11-01-16 Bilateral le edema pitting ,r hand 3rd finger stubbed, no open wounds noted to b/l feet, light skin discoloration to r inner thigh and left thigh cause unknown, dark skin discoloration to r foot - MUSCULOSKELETAL/RHEUMATOLOGICAL Hx Arthritis: Yes Hx Falls: Yes - GASTROINTESTINAL Hx Gastrointestinal Disorders: (obese) Hx Gastroesophageal Reflux: (denies reflux) Other/Comment: egd 11/03/16 dx hiatal hernia, esophagitis, healed gastric ulcer - GENITOURINARY/GYNECOLOGICAL Hx Genitourinary Disorders: Yes (CKD 3) - PSYCHIATRIC Hx Psychophysiologic Disorder: No Hx Substance Use: No - SURGICAL HISTORY Hx Surgeries: Yes Hx Cardiac Catheterization: Yes (06/29/16) Hx Coronary Stent: Yes (x2 and 1 leg stent right) Other/Comment: ragini picc line for abx 2014, balloon angioplasty due to gangrene r ft hallux - ANESTHESIA Hx Anesthesia Reactions: No Hx Malignant Hyperthermia: No Meds Allergies/Adverse Reactions: Allergies Allergy/AdvReac Type Severity Reaction Status Date / Time No Known Allergies Allergy Verified 04/04/17 16:51 - Medications Medications: Current Medications Acetaminophen (Tylenol 325mg Tab) 650 mg PO Q6H PRN PRN Reason: Fever >100.4 F Last Admin: 04/09/17 07:24 Dose: 650 mg Atorvastatin Calcium (Lipitor) 10 mg PO DIN [facility] Last Admin: 04/08/17 17:15 Dose: 10 mg Diphenoxylate HCl/Atropine (Lomotil 0.025-2.5 Mg Tablet) 1 tab PO Q6 PRN PRN Reason: Diarrhea Furosemide (Lasix) 80 mg IV Q12H [facility] Guaifenesin/Dextromethorphan (Robitussin Dm) 5 ml PO Q6H PRN PRN Reason: Cough Last Admin: 04/06/17 09:26 Dose: 5 ml Home Med (Home Med) 1 unit PO DAILY [facility] Last Admin: 04/09/17 10:41 Dose: 1 unit Hydralazine HCl (Apresoline) 50 mg PO TID [facility] Last Admin: 04/09/17 14:40 Dose: 50 mg Azithromycin (Zithromax 500mg In Ns) 500 mg in 250 mls @ 167 mls/hr IVPB DAILY [facility] PRN Reason: Protocol Last Admin: 04/09/17 10:36 Dose: 167 mls/hr Ibuprofen (Motrin Tab) 400 mg PO Q6H PRN PRN Reason: Fever >100.4 F Last Admin: 04/08/17 11:47 Dose: 400 mg Insulin Human Regular (Humulin R Med) 0 units SC ACHS [facility] PRN Reason: Protocol Last Admin: 04/09/17 12:02 Dose: Not Given Isosorbide Mononitrate (Imdur) 60 mg PO DAILY [facility] Last Admin: 04/09/17 10:36 Dose: 60 mg Levalbuterol HCl (Xopenex) 0.63 mg IH TIDRESP [facility] Last Admin: 04/09/17 13:25 Dose: 0.63 mg Metoprolol Tartrate (Lopressor) 25 mg PO BID [facility] Last Admin: 04/09/17 10:35 Dose: 25 mg Nitroglycerin (Nitro-Bid 2% Oint) 1 ea TOP Q4H PRN PRN Reason: accelerated hypertension Ondansetron HCl (Zofran Inj) 4 mg IVP Q6H PRN PRN Reason: Nausea/Vomiting Warfarin Sodium (Coumadin) 3 mg PO 1800 [facility] Last Admin: 04/08/17 17:13 Dose: 3 mg Physical Exam - Constitutional Appears: Non-toxic, No Acute Distress, Chronically Ill - Head Exam Head Exam: ATRAUMATIC, NORMOCEPHALIC - Eye Exam Eye Exam: EOMI, PERRL Pupil Exam: NORMAL ACCOMODATION, PERRL - ENT Exam ENT Exam: Mucous Membranes Moist, Normal External Ear Exam, TM's Normal Bilaterally - Neck Exam Neck exam: Positive for: Full Rom, Normal Inspection - Respiratory Exam Respiratory Exam: Decreased Breath Sounds, Rhonchi, NORMAL BREATHING PATTERN. absent: Rales, Wheezes - Cardiovascular Exam Cardiovascular Exam: Irregular Rhythm, +S1, +S2 - GI/Abdominal Exam GI & Abdominal Exam: Normal Bowel Sounds, Soft. absent: Distended, Tenderness - Extremities Exam Extremities exam: Positive for: joint swelling, pedal edema - Neurological Exam Neurological exam: Alert, CN II-XII Intact - Psychiatric Exam Psychiatric exam: Agitated, Anxious - Skin Skin Exam: Intact, Normal Color Results - Vital Signs Recent Vital Signs: Last Vital Signs Temp 98.8 F 04/09/17 16:46 Pulse 71 04/09/17 16:46 Resp 20 04/09/17 16:46 BP 114/67 04/09/17 16:46 Pulse Ox 97 04/09/17 16:46 - Labs Result Diagrams: 04/08/17 06:30 04/08/17 06:30 Labs: Laboratory Results - last 24 hr 04/08/17 04/09/17 04/09/17 21:22 07:00 07:34 PT 27.9 H INR 2.38 H POC Glucose (mg/dL) 105 94 04/09/17 04/09/17 11:56 16:11 PT INR POC Glucose (mg/dL) 145 H 143 H Assessment & Plan - Assessment and Plan (Free Text) Assessment: 71 yo male with productive cough and fevers. The patient with Influenza testing being negative. Left lower lobe pneumonia on most recent chest X-ray. On one dose of Rocephin and was continued on Azithromycin. Still with low grade fevers. Restart rocephin. Check procalcitonin levels. Will need repeat Chest X-ray. Supportive care. Thank you for allowing me to participate in the care of the patient, we will follow with you.
[2017-04-09] MEDS: cefTRIAXone 1 gm 1 GM/100 ML BAG IVPB SCH (18:08)
[2017-04-10 06:52] LABS: INR 2.76 (0.93-1.08); PROTHROMBIN TIME 32.4 SECONDS (9.4-12.5)
[2017-04-10 06:56] LABS: CALCIUM 8.2 mg/dL (8.4-10.5)
[2017-04-10] MEDS: Levalbuterol 0.63 MG/3 ML Inhal Soln UD IH SCH ×2 (07:46→13:29)
[2017-04-10] MEDS: Insulin Reg-MEDIUM-Coverage SC SCH ×2 (08:13→14:12)
--- NOTE | 2017-04-10 08:23 | PN ---
DATE: 04/07/2017 SUMMARY: This 71-year-old male was examined at his bedside in the presence of his daughter, Chiquis Osuna. This case was reviewed in detail with the patient, daughter, nurse, Megan Pennington, as well as nurse practitioner, Darcy Cope. The patient was sitting at the side of his bed. He was complaining of pain from a recently removed IV access. He had refused to let the nursing staff replace his IV, but this was discussed with him in the presence of his daughter and he now understands that he needs this intravenous for IV antibiotics for his left lower lung pneumonia. The patient has been running low-grade fever earlier today and fortunately, is now eating food and drinking fluids better. The daughter reports that he ate his breakfast in her presence and patient remains deconditioned in the setting of pneumonia and multiple comorbidities. PHYSICAL EXAMINATION: VITAL SIGNS: He is in atrial fibrillation with a temperature of 99.3, pulse 75, blood pressure 123/65 and respirations of 19 per minute with an O2 sat of 96%. Urine output was not recorded yesterday, but he is voiding today. HEENT: Head: Normocephalic, atraumatic. Eyes: No icterus. Ears: Clear. Throat: Noninjected. NECK: Supple. HEART: Irregular S1, S2. LUNGS: With rhonchi at the left base that clear with coughing. No wheezing, no rales. ABDOMEN: Obese, nontender. No palpable organomegaly. EXTREMITIES: Trace edema. SKIN: Without rash. NEUROLOGICAL: Deconditioned. VASCULAR: Legs warm to touch. PSYCHOLOGICAL: Chronic anxiety. LABORATORY DATA: White count 7700, hemoglobin 10.8, hematocrit 35.4, platelets 163,000. PT/INR 2.31, yesterday 2.01. Sodium 137, K 4.1, chloride 104, bicarb 22, BUN 68, creatinine 2.0. Estimated GFR 33 mL per minute, random blood sugar 160. Influenza A and B serology negative x2 and stool C. diff antigen and toxin negative. Blood culture, no growth in the last 24 hours and urine cultures no growth as well. IMPRESSION: This is a 71-year-old male with left lower lung pneumonia, comorbidities of acute on chronic renal failure; chronic renal failure, stage IV; anemia of chronic disease; chronic hypertension; stable atherosclerotic heart disease with coronary artery stents; history of permanent pacemaker placement; chronic atrial fibrillation for which the patient is on oral Coumadin with a therapeutic prothrombin time/international normalized ratio, and also history of permanent pacemaker placement, mild aortic stenosis and moderate mitral regurgitation and tricuspid regurgitation with history of right heart failure and anasarca, also with insulin-dependent diabetes mellitus, anemia of chronic disease, chronic anxiety, obesity, degenerative arthritis, gout and hyperlipidemia. PLAN: As discussed with the patient; daughter, Chiquis Osuna, at bedside; nurse, Megan Pennington, and nurse practitioner, Darcy Cope, is to replace the patient's IV so that he can continue to receive gentle IV fluids of 0.45 saline at 70 mL per hour until he is eating and drinking adequately. Also he will continue on Rocephin 1 g IV q. 24, Zithromax 500 mg IV q. 24, hydralazine 50 mg p.o. t.i.d., Ativan 0.5 mg p.o. q. 6 hours p.r.n. anxiety. Coumadin will be decreased from 6 mg to 5 mg p.o. daily while monitoring his PT/INR daily and holding Coumadin for any INR greater than 3. He continues on Uloric 80 mg p.o. daily, regular medium insulin coverage a.c. meals and at bedtime, Imdur 60 mg p.o. daily, Lasix 40 mg p.o. b.i.d., Lomotil 1 tablet p.o. q. 6 hours p.r.n. diarrhea, Lopressor 25 mg p.o. b.i.d., nitroglycerin 1 inch to chest wall q. 4 hours p.r.n. accelerated hypertension if his systolic blood pressure should be greater than 160 or his diastolic blood pressure should be greater than 100. He has an order for Robitussin DM 5 mL p.o. q. 6 hours p.r.n. cough, Rocephin 1 g IV q. 24, Tylenol 650 p.o. q. 6 hours p.r.n. temperature greater than 100, Xopenex inhalational therapy 0.63 mg t.i.d. and Zofran 4 mg IV q. 6 hours p.r.n. nausea, vomiting. The patient was encouraged to do incentive spirometry q. 1 hour, wear nasal O2 p.r.n., comply with his heart-healthy renal diabetic diet and to cooperate with the nursing staff regarding intake and output of urine. He is encouraged to ambulate with family and has been ordered for physical therapy for reconditioning and gait training with ultimate plan for discharge to home when medically stable and all of the above was reviewed for greater than 35 minutes with all of the care team as outlined above. All questions were answered. Meena Ling MD MTDJoe
--- NOTE | 2017-04-10 08:23 | PN ---
DATE: 04/08/2017 SUBJECTIVE: This 71-year-old male was examined on the cardiac kiran and the case was reviewed with himself and his nurse, Megan Pennington, registered nurse. The patient remains weak and deconditioned, but is ambulating independently and denies any fever, chills, chest pain, shortness of breath or hemoptysis. PHYSICAL EXAMINATION: With discussion with nurseGorge: VITAL SIGNS: Temperature was 98.4, respirations 20, pulse 73 and blood pressure 134/62 with a pulse ox of 95% on room air. conveyor monitor shows atrial fibrillation. HEENT: Head: Normocephalic, atraumatic. Eyes: No icterus. Ears: Clear. Throat: Noninjected. NECK: Supple. HEART: Irregular S1, S2. LUNGS: No wheezing, no rhonchi. ABDOMEN: Obese. EXTREMITIES: Chronic 2+ pitting edema. SKIN: Without rash. NEUROLOGIC: Intact, but deconditioned. VASCULAR: Legs warm to touch. PSYCHOLOGICAL: Chronic anxiety. LABORATORY DATA: White count 8700, hemoglobin 10.2, hematocrit 33.1, platelets 161,000. PT/INR 2.66, previously 2.31. Sodium 138, K 4.1, chloride 104, bicarb 18, BUN 68, creatinine 2.0. Estimated GFR 33 mL per minute. Random blood sugar 102. All liver function testing was normal including bilirubin 0.3, AST 47, ALT 46 and alk phos 77. Influenza A and B serologies negative x2. All blood, urine cultures negative to date and stool C. diff antigen and toxin negative. IMPRESSION: A 71-year-old male with community-acquired left lung pneumonia and comorbidities of chronic renal failure stage IV, chronic hypertension, stable atherosclerotic heart disease with coronary artery stents, history of stable systolic congestive heart failure with right heart failure secondary to valvular heart disease including mild aortic stenosis and moderate mitral and tricuspid regurgitation, also with history of permanent pacemaker placement, chronic hypertension, degenerative arthritis, gout, insulin-dependent diabetes mellitus, hyperlipidemia, obesity and anemia of chronic disease. PLAN: The plan as discussed with this patient who refuses any consideration of transitional care rehab for reconditioning and continued pulmonary toiletry and parenteral antibiotics, will be to repeat chest x-ray and if stable and patient remains afebrile, to switch him to oral antibiotics in a.m. and ready him for discharge to home. The patient was reinstructed to perform incentive spirometry q. 1 hour and to keep his fluid intake to 1000 mL p.o. daily while eating his heart-healthy renal diabetic diet. He continues out of bed to chair with assistance with ambulation with family and physical therapy. He also will continue on IV Zithromax, inhalational Xopenex, Robitussin DM, Lopressor, Lipitor, Lasix, Imdur, insulin, Uloric, Coumadin has been decreased to 3 mg today and will have a PT/INR in the a.m. He also continues on hydralazine 50 mg p.o. t.i.d. Since the patient is eating and drinking sufficiently, his IV fluids will be discontinued and ultimate plan will be for discharge to home when medically stable. Greater than 35 minutes was spent in the care, counseling, review of x-rays, labs and medication and discussion of the patient's orders with his nurse, Megan Pennington, today. All questions were answered. Meena Ling MD ROCKY
--- NOTE | 2017-04-10 08:38 | PN ---
PROCEDURE DATE: 04/09/2017 SUMMARY: This 71-year-old male was examined at the bedside. This case was reviewed with himself and his daughter, Oksana, and son, Raymundo, at the bedside. The patient has had a repeat chest x-ray that was reviewed. It confirms a left lower lobe infiltrate that was previously seen on CT of the lung and now is causing obliteration of his diaphragm. The patient at present remains afebrile with no elevation of white blood cell count and he continues to receive parenteral antibiotics. PHYSICAL EXAMINATION: VITAL SIGNS: Temperature 98.6, respiration 20, pulse 69, blood pressure 125/78. Pulse ox 98%. Urine output 1075 mL yesterday. Negative fluid balance noted. HEENT: Head, normocephalic, atraumatic. Eyes, no icterus; ears clear; throat noninjected. NECK: Supple. HEART: Irregular S1, S2. LUNGS: Decreased breath sounds at the left base. ABDOMEN: Obese. EXTREMITIES: 2+ edema. SKIN: Without rash. NEUROLOGICAL: Intact. VASCULAR: Legs warm to touch. PSYCHOLOGICAL: Chronic anxiety. LABORATORY DATA: White count 8700, hemoglobin 10.2, hematocrit 33.1, platelets 161,000. PT/INR 2.38. Sodium 138, K 4.1, chloride 104, bicarb 18, BUN 68, creatinine 2.0, random blood sugar 145. Influenza A and B serology negative. IMPRESSION: A 71-year-old male with community-acquired left lower lung pneumonia, comorbidities of chronic renal failure stage 4, anemia of chronic disease, chronic systolic congestive heart failure, history of right heart failure secondary to valvular heart disease including mild aortic stenosis and moderate mitral and tricuspid regurgitation, chronic hypertension, stable atherosclerotic heart disease with coronary artery stents, history of permanent pacemaker placement and chronic atrial fibrillation for which the patient is treated with oral Coumadin, now with therapeutic INR with comorbidities of obesity, degenerative arthritis, gout, insulin-dependent diabetes mellitus, hyperlipidemia. PLAN: As discussed with the patient, family and nursing, will be to maintain the patient on the Cardiac kiran while monitoring I's and O's and adjusting diuretics to Lasix 80 mg IV q.12h. while monitoring basic metabolic panel. He continues on heart-healthy renal diabetic diet, nasal O2 p.r.n. and incentive spirometry q.1h. He is ordered to receive Zithromax 500 mg IV daily, Xopenex inhalational therapy three times daily, Robitussin DM 5 mL p.o. q.6h. p.r.n. cough, nitroglycerin ointment 1 inch to chest wall q.4h. p.r.n. accelerated hypertension if systolic blood pressure greater than 160 or diastolic blood pressure greater than 100, Lopressor 25 mg p.o. b.i.d., Lipitor 10 mg p.o. at dinner time, Imdur 60 mg p.o. daily, regular medium insulin coverage protocol before meals and and at bedtime, Uloric 80 mg p.o. daily, warfarin 3 mg p.o. daily while monitoring INR daily and holding Coumadin for any INR greater than 3, hydralazine 50 mg p.o. t.i.d. I will ask Dr. Lopez from Infectious Disease to review the patient's x-ray and antibiotics and to define a discharge plan for oral antibiotics and duration. The patient refuses consideration for transitional care rehab and the patient will be cleared for discharge based on clinical progress and Infectious Disease input. All of the above was discussed in detail with the patient, nursing and family at bedside. All questions were answered. Meena Ling MD MTDJoe
[2017-04-10] MEDS: Azithromycin 500MG/NS 250ml 500 MG/250 ML BAG IVPB SCH (09:34)
[2017-04-10] MEDS: ULORIC 80 MG PO SCH (09:35)
[2017-04-10] MEDS: cefTRIAXone 1 gm 1 GM/100 ML BAG IVPB SCH (09:35)
--- NOTE | 2017-04-10 16:27 | CP.PCM.PN ---
Subjective - Date & Time of Evaluation Date of Evaluation: 04/10/17 Time of Evaluation: 14:00 - Subjective Subjective: Infectious Disease Follow Up: April 10, 2017 71 yo male who presented with severe SOB on admission. The patient had mild elevation of WBC. Initial Chest X-ray showed no active disease but a repeat chest X-ray done yesterday showed a new infiltrate in the left lower lobe of the lung obscuring the diaphragmatic border. The patient has been agitated. Periods of confusion. Noted that the patient was recently in [facility] in Mid-March 2017. Negative for influenza. Patient with issues of renal insufficiency. Cultures negative. Procalcitonin was 0.71 today. Clinically improving. Objective - Vital Signs/Intake and Output Vital Signs (last 24 hours): Temp Pulse Resp BP Pulse Ox 98.6 F 70 20 138/65 99 04/10/17 08:03 04/10/17 08:03 04/10/17 08:03 04/10/17 08:03 04/10/17 08:03 Intake and Output: 04/10/17 04/10/17 06:59 18:59 Intake Total 360 Output Total 925 Balance -565 - Medications Medications: Current Medications Acetaminophen (Tylenol 325mg Tab) 650 mg PO Q6H PRN PRN Reason: Fever >100.4 F Last Admin: 04/09/17 20:13 Dose: 650 mg Atorvastatin Calcium (Lipitor) 10 mg PO DIN [facility] Last Admin: 04/09/17 17:14 Dose: 10 mg Diphenoxylate HCl/Atropine (Lomotil 0.025-2.5 Mg Tablet) 1 tab PO Q6 PRN PRN Reason: Diarrhea Furosemide (Lasix) 80 mg IV 0600,1800 [facility] Last Admin: 04/10/17 05:35 Dose: 80 mg Guaifenesin/Dextromethorphan (Robitussin Dm) 5 ml PO Q6H PRN PRN Reason: Cough Last Admin: 04/06/17 09:26 Dose: 5 ml Home Med (Home Med) 1 unit PO DAILY [facility] Last Admin: 04/10/17 09:35 Dose: Not Given Hydralazine HCl (Apresoline) 50 mg PO TID [facility] Last Admin: 04/10/17 14:44 Dose: 50 mg Ceftriaxone Sodium (Rocephin 1 Gram Ivpb) 1 gm in 100 mls @ 100 mls/hr IVPB DAILY [facility] PRN Reason: Protocol Stop: 04/13/17 10:59 Last Admin: 04/10/17 09:35 Dose: 100 mls/hr Insulin Human Regular (Humulin R Med) 0 units SC ACHS [facility] PRN Reason: Protocol Last Admin: 04/10/17 14:12 Dose: Not Given Isosorbide Mononitrate (Imdur) 60 mg PO DAILY [facility] Last Admin: 04/10/17 09:35 Dose: 60 mg Levalbuterol HCl (Xopenex) 0.63 mg IH TIDRESP [facility] Last Admin: 04/10/17 13:29 Dose: Not Given Metoprolol Tartrate (Lopressor) 25 mg PO BID [facility] Last Admin: 04/10/17 09:35 Dose: 25 mg Nitroglycerin (Nitro-Bid 2% Oint) 1 ea TOP Q4H PRN PRN Reason: accelerated hypertension Ondansetron HCl (Zofran Inj) 4 mg IVP Q6H PRN PRN Reason: Nausea/Vomiting Warfarin Sodium (Coumadin) 1 mg PO 1800 [facility] - Labs Labs: 04/08/17 06:30 04/10/17 05:45 PT 32.4 SECONDS (9.4-12.5) H 04/10/17 05:45 INR 2.76 (0.93-1.08) H 04/10/17 05:45 APTT 26.8 Seconds (25.1-36.5) 04/04/17 06:15 - Constitutional Appears: Non-toxic, No Acute Distress, Chronically Ill - Head Exam Head Exam: ATRAUMATIC, NORMOCEPHALIC - Eye Exam Eye Exam: EOMI, PERRL Pupil Exam: NORMAL ACCOMODATION, PERRL - ENT Exam ENT Exam: Mucous Membranes Moist, Normal External Ear Exam, TM's Normal Bilaterally - Neck Exam Neck Exam: Full ROM, Normal Inspection - Respiratory Exam Respiratory Exam: Clear to Ausculation Bilateral, NORMAL BREATHING PATTERN. absent: Rales, Rhonchi, Wheezes - Cardiovascular Exam Cardiovascular Exam: REGULAR RHYTHM, RRR, +S1, +S2 - GI/Abdominal Exam GI & Abdominal Exam: Soft, Normal Bowel Sounds. absent: Distended, Tenderness - Extremities Exam Extremities Exam: Full ROM, Normal Inspection - Neurological Exam Neurological Exam: Alert, Awake, CN II-XII Intact, Oriented x3 - Psychiatric Exam Psychiatric exam: Normal Affect, Normal Mood - Skin Skin Exam: Intact, Normal Color Assessment and Plan - Assessment and Plan (Free Text) Assessment: 71 yo male with productive cough and fevers. The patient with Influenza testing being negative. Left lower lobe pneumonia on most recent chest X-ray. On one dose of Rocephin and was continued on Azithromycin. Still with low grade fevers. Procalcitonin of 0.71. Clinically improving. Supportive care. Thank you for allowing me to participate in the care of the patient, we will follow with you.
[2017-04-10 16:53] VITALS: BP 134/85; PULSE 77; TEMP 98.8; O2SAT 97
--- NOTE | 2017-04-11 11:16 | DS ---
DATE: 04/10/2017 FINAL DIAGNOSES: Left lower lung pneumonia improved, insulin-dependent diabetes mellitus, chronic renal failure stage IV, stable atherosclerotic heart disease with coronary artery stents, history of valvular heart disease with mild aortic stenosis and moderate mitral and tricuspid regurgitation, right heart failure, chronic pedal edema secondary to right heart failure, anasarca and chronic systolic congestive heart failure and chronic renal failure stage 4, hyperlipidemia, hypertension, chronic obstructive pulmonary disease, morbid obesity, anemia of chronic disease, chronic degenerative arthritis, gout and hyperlipidemia. DISPOSITION: Home. CONSULTANTS: Dr. Lopez from Infectious Disease. DISCHARGE MEDICINE: Hydralazine 50 mg p.o. t.i.d., Lopressor 25 mg p.o. b.i.d., Imdur 60 mg p.o. daily, Lasix 40 mg p.o. b.i.d., Uloric 80 mg p.o. daily, Lipitor 10 mg p.o. daily, Coumadin 1 mg p.o. daily. Antibiotic if any to be decided by Dr. Lopez, Infectious Disease at the time of this discharge. DISPOSITION: Home with family providing 24-hour supervision. SUMMARY: This is a 71-year-old male who was admitted to my medical service with a left lower lung infiltrate, cough, congestion and low-grade fever. He was noted on admission to have a white blood cell count of 12,100, which at the time of discharge was 8,700. Hospital course was notable for improvement in symptomatology and at the time of discharge, chest x-ray showed persistent left lower lung infiltrate, but the patient was cleared for discharge by Dr. Lopez from Infectious Disease. Vital signs at the time of this dictation were temperature 98.6, respirations 20, pulse 70, blood pressure 138/65 and pulse ox 99% room air. Sodium 137, K 4.1, chloride 106, bicarb 19, BUN 64, creatinine 1.7, estimated GFR 40 mL per minute, random blood sugar 137. PT/INR 2.76. White count 8700, hemoglobin 10.2, hematocrit 33.1, platelets 161,000. Urinalysis unremarkable. Influenza A and B serology negative. Chest x-ray dated 04/08/2017, showed left lower lobe infiltrate, no effusion, no pneumothorax, chronic mild cardiomegaly. Plan is for discharge to home. Nursing staff will be discussing any antibiotic medications with Dr. Lopez. DISCHARGE INSTRUCTIONS: The patient will continue on regular low-dose insulin coverage before meals and at bedtime and the patient has been advised to do incentive spirometry q.1 hour and to wear support hose stockings or Ever bandages to both lower extremities during the day to be removed at bedtime for pedal edema. All of the above was reviewed in detail with the patient, nursing and family at bedside. All questions were answered. Patient is scheduled for follow up in my office next week. He was advised to return to ER for any worsening signs or symptoms. Meena Ling MD MTDJoe
== END 2017-04-10 17:33 | disposition home or self-care (01) | DRG 194 ==
LOC: ED 05:31 → ERH 09:28 → INTOOBSV 09:28 → ERH 14:47 → 3RNO 16:24 → OBSVTOIN 22:14
PROVIDERS: ADMIT Internal Medicine; ATTEND Internal Medicine
DX: J18.9 Pneumonia, unspecified organism (principal); J44.0 Chronic obstructive pulmonary disease with (acute) lower respiratory infection; I13.0 Hypertensive heart and chronic kidney disease with heart failure and stage 1 through stage 4 chronic kidney disease, or unspecified chronic kidney disease; N18.4 Chronic kidney disease, stage 4 (severe); I50.22 Chronic systolic (congestive) heart failure; I50.82 Biventricular heart failure; I08.3 Combined rheumatic disorders of mitral, aortic and tricuspid valves; I48.2 Chronic atrial fibrillation; E11.22 Type 2 diabetes mellitus with diabetic chronic kidney disease; I25.10 Atherosclerotic heart disease of native coronary artery without angina pectoris; E78.5 Hyperlipidemia, unspecified; M19.90 Unspecified osteoarthritis, unspecified site; M10.9 Gout, unspecified; D63.8 Anemia in other chronic diseases classified elsewhere; F41.1 Generalized anxiety disorder; R19.7 Diarrhea, unspecified; E66.9 Obesity, unspecified; Z68.33 Body mass index [BMI] 33.0-33.9, adult; Z79.01 Long term (current) use of anticoagulants; Z87.891 Personal history of nicotine dependence; Z95.5 Presence of coronary angioplasty implant and graft; Z95.0 Presence of cardiac pacemaker

== ENCOUNTER 2017-04-14 06:12 | Emergency (ER) | payer MEDICARE, OTHER ==
[2017-04-14 06:21] VITALS: BMI 34.4
[2017-04-14 07:08] LABS: BASO # 0.02 K/mm3 (0.0-2.0); BASO % 0.3 % (0.0-3.0); EOS % 0.4 % (1.5-5.0); GRAN # 6.82 (1.4-6.5); GRAN % 86.8 % (50.0-68.0); LYMPH # 0.5 (1.2-3.4); LYMPH % 6.9 % (22.0-35.0); MEAN CELL VOLUME 89.5 fl (80.0-105.0); MEAN CORPUSCULAR HEMOGLOBIN 27.5 pg (25.0-35.0); MEAN CORPUSCULAR HGB CONC 30.7 g/dl (31.0-37.0); MONO # 0.4 (0.1-0.6); MONO % 5.6 % (1.0-6.0); WHITE BLOOD COUNT 7.9 10^3/ul (4.5-11.0)
[2017-04-14 07:22] LABS: VENOUS BLOOD GAS PO2 57 mm/Hg (30-55); VENOUS BLOOD PH 7.28 (7.32-7.43)
[2017-04-14 07:23] LABS: ALBUMIN 3.4 g/dL (3.0-4.8); CALCIUM 8.8 mg/dL (8.4-10.5)
--- NOTE | 2017-04-14 07:35 | ED PDOC ---
Arrival/HPI - General Chief Complaint: Shortness Of Breath Time Seen by Provider: 04/14/17 06:38 Historian: Patient - History of Present Illness Narrative History of Present Illness (Text): 04/14/17 07:30 71 year old male, whose past medical history includes CHF, CAD with stents, pacemaker, mitral regurgitation, diabetes, chronic renal failure, hyperlipidemia and anemia, presents to the Emergency department complaining of shortness of breath for couple hours. Patient denies any chest pain or associated symptoms. Patient denies any fever, chills, nausea, vomiting, diarrhea, abdominal pain or any other complaints. PMD: Dr. Ling Time/Duration: 1-3 hours Symptom Onset: Gradual Symptom Course: Unchanged Activities at Onset: Light Context: Home Past Medical History - Provider Review Nursing Documentation Reviewed: Yes - Infectious Disease Hx of Infectious Diseases: None - Tetanus Immunization Tetanus Immunization: Unknown - Cardiac Hx Cardiac Disorders: Yes (cardiac cath, coronary stents, pacemaker, afib) Hx Congestive Heart Failure: Yes Hx Hypertension: Yes Hx Pacemaker: Yes (2016) - Pulmonary Hx Respiratory Disorders: Yes (smoked cigarettes h/o ppd.quit.) - Neurological Hx Neurological Disorder: Yes (near syncope) Hx Dizziness: Yes - HEENT Hx Cataracts: Yes (pt uncertain about having sx) - Renal Hx Renal Disorder: Yes (renal insuffiency,ckd 3) - Endocrine/Metabolic Hx Hypothyroidism: Yes - Hematological/Oncological Hx Blood Disorders: Yes Hx Anemia: Yes (Blood transfusion 11-01-16) Other/Comment: pt had blood transfusions x3 prior to pacemaker insertion as per pt - Integumentary Hx Dermatological Disorder: Yes Other/Comment: 11-01-16 Bilateral le edema pitting ,r hand 3rd finger stubbed, no open wounds noted to b/l feet, light skin discoloration to r inner thigh and left thigh cause unknown, dark skin discoloration to r foot - Musculoskeletal/Rheumatological Hx Arthritis: Yes - Gastrointestinal Hx Gastrointestinal Disorders: (obese) Hx Gastroesophageal Reflux: (denies reflux) Other/Comment: egd 11/03/16 dx hiatal hernia, esophagitis, healed gastric ulcer - Genitourinary/Gynecological Hx Genitourinary Disorders: Yes (CKD 3) - Psychiatric Hx Psychophysiologic Disorder: No Hx Substance Use: No - Surgical History Hx Cardiac Catheterization: Yes (4/26/17) Hx Coronary Stent: Yes (x2 and 1 leg stent right) Other/Comment: ragini picc line for abx 2014, balloon angioplasty due to gangrene r ft hallux/pacemaker 07/2016 - Anesthesia Hx Anesthesia Reactions: No Hx Malignant Hyperthermia: No - Suicidal Assessment Feels Threatened In Home Enviroment: No Family/Social History - Physician Review Nursing Documentation Reviewed: Yes Family/Social History: No Known Family HX Smoking Status: Former Smoker Hx Alcohol Use: Yes (social) Hx Substance Use: No Allergies/Home Meds Allergies/Adverse Reactions: Allergies No Known Allergies Allergy (Verified 04/14/17 06:20) Home Medications: Home Meds Medication Instructions Recorded Confirmed Febuxostat [Uloric] 80 mg PO DAILY 03/23/17 04/14/17 methylPREDNISolone 4 mg PO DAILY 04/14/17 04/14/17 [Methylprednisolone] Review of Systems - Physician Review All systems were reviewed & negative as marked: Yes - Review of Systems Constitutional: Normal. absent: Fevers Eyes: Normal ENT: Normal Respiratory: SOB Cardiovascular: Normal. absent: Chest Pain Gastrointestinal: Normal. absent: Abdominal Pain, Diarrhea, Nausea, Vomiting Genitourinary Male: Normal Musculoskeletal: Normal Skin: Normal Neurological: Normal Endocrine: Normal Hemo/Lymphatic: Normal Psychiatric: Normal Physical Exam Vital Signs Reviewed: Yes Vital Signs Temp Pulse Pulse Resp BP Pulse Ox 04/14/17 14:10 131/69 04/14/17 13:51 98 F 74 74 22 132/72 04/14/17 11:19 74 22 132/72 97 04/14/17 09:43 91 H 20 128/73 98 04/14/17 08:31 143/78 04/14/17 06:38 18 100 04/14/17 06:21 98.0 F 82 23 149/87 96 Temperature: Afebrile Blood Pressure: Normal Pulse: Regular Respiratory Rate: Normal Appearance: Positive for: Well-Appearing, Non-Toxic, Comfortable Pain Distress: None Mental Status: Positive for: Alert and Oriented X 3 - Systems Exam Head: Present: Atraumatic, Normocephalic Pupils: Present: PERRL Extroacular Muscles: Present: EOMI Conjunctiva: Present: Normal Mouth: Present: Moist Mucous Membranes Neck: Present: Normal Range of Motion Respiratory/Chest: Present: Good Air Exchange, Other (Crackles at the bases). No: Respiratory Distress, Accessory Muscle Use Cardiovascular: Present: Regular Rate and Rhythm, Normal S1, S2. No: Murmurs Abdomen: Present: Normal Bowel Sounds. No: Tenderness, Distention, Peritoneal Signs Back: Present: Normal Inspection Upper Extremity: Present: Normal Inspection. No: Cyanosis, Edema Lower Extremity: Present: Normal Inspection. No: Edema Neurological: Present: GCS=15, CN II-XII Intact, Speech Normal Skin: Present: Warm, Dry, Normal Color. No: Rashes Psychiatric: Present: Alert, Oriented x 3, Normal Insight, Normal Concentration Medical Decision Making ED Course and Treatment: 04/14/17 07:45 Impression: 71 year old male presents to the Emergency department for shortness of breath. Plan: -- VBG -- EKG -- Labs -- CXR -- Reassess and disposition Progress Notes: 04/14/17 07:47 EKG: Ordered, reviewed, and independently interpreted the EKG. Rate : 72 BPM Rhythm : Normal pace maker rhythm Interpretation : No ST-segment elevations or depressions, no T-wave inversions. No interval changes from previous. 04/14/17 11:25 Chest X-ray reviewed, shows persistent heterogeneous opacity at the left lower lung may represent pneumonia or neoplasm. Further assessment by CT may be obtained if clinically warranted. Left perihilar heterogeneous infiltrate again noted. 04/14/17 11:[address] Ling regarding patient's x-ray. pt already on antibiotics.. Patient is currently stable and afebrile for admission, no white count anomaly. Patient is tolerating PO. 04/14/17 11:[address] Ling at bedside. Will be admitted to TCU. 04/14/17 14:55 - Lab Interpretations Lab Results: 04/14/17 06:45 04/14/17 06:45 Lab Results 04/14/17 11:56: POC Glucose (mg/dL) 100 04/14/17 06:45: pO2 57 H, VBG pH 7.28 L, VBG pCO2 44.0, VBG HCO3 20.7 L, VBG Total CO2 22.1, VBG O2 Sat (Calc) 92.1 H, VBG Base Excess -6.0 L, VBG Potassium 5.1, Sodium 138.0, Chloride 108.0 H, Glucose 173 H, Lactate 1.6, FiO2 21.0, Venous Blood Potassium 5.1 04/14/17 06:45: Sodium 142, Chloride 108 H, Potassium 5.5 H, Carbon Dioxide 21, Anion Gap 18, BUN 56 H, Creatinine 1.9 H, Est GFR ( Amer) 43, Est GFR ( Non-Af Amer) 35, Random Glucose 163 H, Calcium 8.8, Total Bilirubin 0.5, AST 38 , ALT 35, Alkaline Phosphatase 108, Lactate Dehydrogenase 921 H, Total Creatine Kinase 75, Troponin I 0.08 D, NT-Pro-B Natriuret Pep 47141 H, Total Protein 6.9 , Albumin 3.4, Globulin 3.5, Albumin/Globulin Ratio 1.0 L 04/14/17 06:45: PT 35.7 H, INR 3.03 H, APTT 33.8 04/14/17 06:45: WBC 7.9, RBC 4.00, Hgb 11.0 L, Hct 35.8 L, MCV 89.5, MCH 27.5, MCHC 30.7 L, RDW 18.0 H, Plt Count 232, MPV 12.0 H, Gran % 86.8 H, Lymph % (Auto ) 6.9 L, Cecil % (Auto) 5.6, Eos % (Auto) 0.4 L, Baso % (Auto) 0.3, Gran # 6.82 H , Lymph # (Auto) 0.5 L, Cecil # (Auto) 0.4, Eos # (Auto) 0.0, Baso # (Auto) 0.02 - RAD Interpretation Radiology Orders: 04/14/17 07:11 CXR [CHEST PORTABLE] [RAD] Stat - Medication Orders Current Medication Orders: Furosemide (Lasix) 40 mg IVP Q8 TAYLER Last Admin: 04/14/17 14:10 Dose: 40 mg MAR Blood Pressure Document 04/14/17 14:10 (Rec: 04/14/17 14:11 [email or web address] Blood Pressure Blood Pressure (100/60-150/90) 131/69 IVP Administration Document 04/14/17 14:10 (Rec: 04/14/17 14:11 [email or web address] Charges for Administration # of IVP Administrations 1 Insulin Human Lispro (Humalog Low) 0 units SC ACHS TAYLER PRN Reason: Protocol Discontinued Medications Furosemide (Lasix) 40 mg IVP STAT STA Stop: 04/14/17 08:16 Last Admin: 04/14/17 08:31 Dose: 40 mg MAR Blood Pressure Document 04/14/17 08:31 [place] (Rec: 04/14/17 08:31 [id number]) Blood Pressure Blood Pressure (100/60-150/90) 143/78 IVP Administration Document 04/14/17 08:31 [place] (Rec: 04/14/17 08:31 [id number] Charges for Administration # of IVP Administrations 1 Pneumococcal Polyvalent Vaccine (Pneumovax 23 Vaccine) 0.5 ml IM .ONCE ONE Stop: 04/14/17 14:04 - Scribe Statement The provider has reviewed the documentation as recorded by the Scribe Leonard Post. All medical record entries made by the Scribe were at my direction and personally dictated by me. I have reviewed the chart and agree that the record accurately reflects my personal performance of the history, physical exam, medical decision making, and the department course for this patient. I have also personally directed, reviewed, and agree with the discharge instructions and disposition. Disposition/Present on Arrival - Present on Arrival Any Indicators Present on Arrival: No History of DVT/PE: No History of Uncontrolled Diabetes: No Urinary Catheter: No History of Decub. Ulcer: No History Surgical Site Infection Following: None - Disposition Have Diagnosis and Disposition been Completed?: Yes Diagnosis: Congestive heart failure Disposition: TRANSITIONAL CARE UNIT Disposition Time: 07:00 Condition: STABLE Discharge Instructions (ExitCare): Heart Failure (ED)
[2017-04-14 07:41] LABS: INR 3.03 (0.93-1.08); PARTIAL THROMBOPLASTIN TIME 33.8 Seconds (25.1-36.5); PROTHROMBIN TIME 35.7 SECONDS (9.4-12.5)
[2017-04-14 09:52] LABS: TROPONIN I 0.08 ng/mL
--- NOTE | 2017-04-14 10:55 | RAD ---
HISTORY: sob COMPARISON: Comparison is made with 04/08/2017 FINDINGS: LUNGS: Patchy heterogeneous opacity again noted at the left lower lung. Findings may represent pneumonia or neoplasm. Mild pulmonary venous congestion is noted. There is left perihilar heterogeneous infiltrate again seen. PLEURA: Blunting of the left costophrenic angle is again noted. CARDIOVASCULAR: Mild cardiomegaly. Left-sided single wire defibrillator is again seen in place OSSEOUS STRUCTURES: No significant abnormalities. VISUALIZED UPPER ABDOMEN: Normal. OTHER FINDINGS: None. IMPRESSION: Persistent heterogeneous opacity at the left lower lung may represent pneumonia or neoplasm. Further assessment by CT may be obtained if clinically warranted. Left perihilar heterogeneous infiltrate again noted.
[2017-04-14] MEDS ORDERED: Pneumococcal 23-Valent Vaccine IM ONE (14:03)
[2017-04-14] MEDS ORDERED: Influenza Vaccine 60 mcg/0.5 mL SYR (4YR UP) IM ONE (14:03)
[2017-04-14 16:12] VITALS: BP 137/73; PULSE 76; RESP 21; TEMP 99; O2SAT 100
[2017-04-14] MEDS ORDERED: Insulin Lispro (humaLOG) LOW Coverage SC SCH (16:30)
[2017-04-14] MEDS ORDERED: metOLazone 2.5 MG TAB PO STA (19:13)
--- NOTE | 2017-04-14 23:43 | CARD ---
APPROVED REPORT EKG Measurement Heart [id number] <Conclusion> V paced Rhythm underlying possibly A fib.
--- NOTE | 2017-04-15 09:42 | HP ---
HISTORY OF PRESENT ILLNESS: This 71-year-old male was examined in the [facility] ER. He presented earlier this morning with a complaint of shortness of breath and was noted to be in pulmonary edema and once again was noted to have a left lower lung infiltrate on chest x-ray. The patient was recently discharged after a hospital course of IV antibiotics that was followed with Dr. Miguel Lopez from Infectious Disease. The patient upon discharge went home and was not compliant with p.o. fluid restriction and presented with shortness of breath and anasarca. Of note, the patient has a longstanding history of chronic systolic congestive heart failure, atherosclerotic heart disease with coronary artery stent, valvular heart disease and permanent pacemaker placement. He also has chronic renal failure, anemia of chronic disease, gout, chronic hypertension, obesity, hyperlipidemia, and is being admitted for treatment of the above. MEDICATIONS: Outpatient medications included hydralazine, Coumadin for chronic atrial fibrillation, Lopressor, Imdur, Lasix, Uloric and Lipitor. The patient is an insulin-dependent diabetic who is on low-dose regular insulin coverage a.c. meals and at bedtime. ALLERGIES: HE DENIES ANY ALLERGIES TO MEDICATION. SOCIAL HISTORY: He is a former smoker, social drinker, non IV drug misuser. He is a retired postal employee. FAMILY HISTORY: Noncontributory. PAST MEDICAL HISTORY: He is also status post a right popliteal artery stent several years ago and has chronic stable peripheral vascular disease. REVIEW OF SYSTEMS: CONSTITUTIONAL: He denied fever or chills. HEAD: He denied headache or seizures. EYES: No change in visual acuity. EARS: No hearing loss. THROAT: No swallowing difficulty. NECK: No stiffness. CARDIAC: As per HPI. PULMONARY: As per HPI. GI: Occasional GERD. : Chronic renal failure, stage III-IV. VASCULAR: Peripheral vascular disease, stable. SKIN: Denied rash. ENDOCRINE: Hyperlipidemia, insulin-dependent diabetes mellitus. HEMATOLOGIC: Anemia of chronic disease. MUSCULOSKELETAL: Degenerative arthritis and gout. PHYSICAL EXAMINATION VITAL SIGNS: Temperature 98, respirations 20, pulse 74, blood pressure 132/72. Pulse ox 97% on room air. HEAD: Normocephalic, atraumatic. EYES: No icterus. EARS: Clear. THROAT: Noninjected. NECK: Supple. HEART: Irregular S1, S2. LUNGS: With basilar rales. ABDOMEN: Obese. EXTREMITIES: A 3+ pitting edema from feet to knees. SKIN: No rash. VASCULAR: Legs warm to touch. PSYCHOLOGIC: Chronic anxiety. NEURO: Deconditioned. LABORATORY DATA: Sodium 142, K 5.5, chloride 108, bicarb 21, BUN is 56, creatinine 1.9, random blood sugar 163. Bilirubin 0.5, AST 38, ALT 35, alkaline phosphatase 108. BNP 43,900. White count 7900, hemoglobin of 11, hematocrit 35.8, platelets 232,000. PT/INR 3.03. Chest x-ray showed pulmonary vascular congestion and left lower lung pneumonic infiltrate, cardiomegaly and pacemaker defibrillator. IMPRESSION: A 71-year-old male with decompensated [id number] congestive heart failure, chronic hypertension, chronic renal failure stage III-IV, atherosclerotic heart disease with stents, atrial fibrillation on Coumadin, now with a supratherapeutic PT/INR, permanent pacemaker placement, valvular heart disease with history of aortic stenosis and mitral and tricuspid regurgitation, hyperlipidemia, degenerative arthritis, obesity and gout. PLAN: The plan is to admit this patient. He will be placed on a p.o. fluid restriction of 1000 mL daily while increasing Lasix to 40 mg IV q. 8 and monitoring I's and O's and aiming for negative fluid balance. He will also continue on hydralazine 50 mg p.o. t.i.d., Humalog insulin low-dose protocol coverage a.c. meals and at bedtime, Imdur 60 mg p.o. daily, Lipitor 10 mg p.o. daily, Lopressor 25 mg p.o. b.i.d., Pepcid 20 mg p.o. at bedtime. Coumadin will be held while monitoring INR daily and holding Coumadin for any INR greater than 3. He will have the basic metabolic panel and CBC repeated in the a.m. and further workup will be entertained based on the patient's clinical progress. All of the above was discussed in detail with the patient, family and nursing. All questions were answered. Meena Ling MD [facility] # [id number] MTDD
== END 2017-04-14 18:00 ==
LOC: ED 06:12 → ERH 09:56 → UNDOADMIN 09:56 → ED 18:00
DX: I11.0 Hypertensive heart disease with heart failure (principal); I50.9 Heart failure, unspecified

== ENCOUNTER 2017-04-14 18:04 | Inpatient (IN) | payer OTHER ==
[2017-04-14 06:21] VITALS: BMI 34.4
[2017-04-14] MEDS ORDERED: Insulin Lispro (humaLOG) LOW Coverage SC SCH (18:42)
[2017-04-14] MEDS ORDERED: metOLazone 5 MG TAB PO STA (19:21)
[2017-04-14] MEDS: Insulin Lispro (humaLOG) LOW Coverage SC SCH (22:16)
[2017-04-15] MEDS: Insulin Lispro (humaLOG) LOW Coverage SC SCH ×4 (06:31→21:48)
[2017-04-15 07:53] LABS: BASO # 0.02 K/mm3 (0.0-2.0); BASO % 0.3 % (0.0-3.0); EOS # 0.1 (0.0-0.7); EOS % 0.7 % (1.5-5.0); GRAN # 5.96 (1.4-6.5); GRAN % 84.4 % (50.0-68.0); HEMOGLOBIN 10.1 g/dL (14.0-18.0); LYMPH # 0.6 (1.2-3.4); LYMPH % 8.4 % (22.0-35.0); MEAN CORPUSCULAR HEMOGLOBIN 26.4 pg (25.0-35.0); MEAN PLATELET VOLUME 11.5 fl (7.0-11.0); MONO # 0.4 (0.1-0.6); MONO % 6.2 % (1.0-6.0); RBC 3.83 10^6/uL (3.5-6.1); RED CELL DISTRIBUTION WIDTH 17.7 % (11.5-14.5); WHITE BLOOD COUNT 7.1 10^3/ul (4.5-11.0)
[2017-04-15 07:58] LABS: INR 3.34 (0.93-1.08); PROTHROMBIN TIME 39.4 SECONDS (9.4-12.5)
[2017-04-15 08:16] LABS: CALCIUM 8.9 mg/dL (8.4-10.5)
[2017-04-15] MEDS: metOLazone 2.5 MG TAB PO SCH (10:18)
--- NOTE | 2017-04-15 23:00 | CON ---
DATE: 04/15/2017 REQUESTING PHYSICIAN: Meena Ling MD. REASON FOR CONSULTATION: Leg edema. HISTORY OF PRESENT ILLNESS: This is a 71-year-old man known to us with a history of diabetes, atrial fibrillation, conduction system disease, status post permanent pacemaker implant, who presented to the emergency room with increasing leg edema. He states he was recently discharged for similar problems. He claims compliance with medication at home. He states he was told to drink a good deal of water as well. He does have no coronary disease and underwent placement of a cardiac stent in 2016. He also has severe LV dysfunction and moderate aortic stenosis. He has a history of chronic atrial fibrillation, diabetes, hypertension, hyperlipidemia, chronic anemia and peripheral vascular disease with prior catheter-based interventions. He also has a history osteoarthritis, carpal tunnel syndrome and lumbar disc disease. CURRENT MEDICATIONS: Include hydralazine 50 mg t.i.d., Uloric 80 mg daily, insulin coverage, Imdur 60 mg daily, Lasix 40 mg three times daily, Lipitor 10 mg daily metoprolol 25 mg b.i.d., Pepcid and Zaroxolyn 2.5 mg daily. ALLERGIES: None. SOCIAL HISTORY: He is a former smoker. Denies alcohol abuse. FAMILY HISTORY: Both parents are from unknown cause. REVIEW OF SYSTEMS: A 10-point review of systems is notable mainly for problems mentioned above. PHYSICAL EXAMINATION: GENERAL: He is a chronically ill-appearing middle-aged man. His blood pressure is 120/72 with a pulse of 80, respirations are 14. He is currently afebrile. HEENT: Normocephalic, atraumatic. NECK: Supple. JVD is present at the angle of 0 and 90 degrees. CHEST: Bibasilar rales noted. HEART: PMI displaced laterally. Soft tones noted. Systolic murmurs noted at the base radiating to the carotids as well as at the lower left sternal border. ABDOMEN: Soft, obese, nontender with normoactive bowel sounds. EXTREMITIES: 3+ edema to the knees. The left leg is wrapped as he had some superficial erosion noted in the emergency room. NEUROLOGICAL: Alert and oriented x3. No gross motor or sensory deficit is appreciable. DIAGNOSTIC DATA: Potassium 4.7, BUN and creatinine 52 and 1.8, glucose is 118, hemoglobin and hematocrit 10.1 and 33.7. White count 7.1, platelet count is 230,000. Electrocardiogram is not currently on the chart. Chest x-ray: Reveals increased cardiac silhouette with bilateral effusions and left perihilar infiltrate. A single lead permanent pacemaker is in place. Electrocardiogram reveals a ventricular paced rhythm. A recent echocardiogram revealed moderate concentric LVH with normal LV size and severely reduced LV systolic function, moderate aortic stenosis was present with [id number] mitral regurgitation as well. IMPRESSION: 1. Decompensated congestive heart failure, predominantly right-sided, [id number], predominantly systolic. 2. Severe LV dysfunction. 3. Coronary disease status post remote percutaneous coronary intervention, stable at present. 4. Chronic atrial fibrillation with conduction system disease status post permanent pacemaker implant. RECOMMENDATIONS: His current medications should continue for now. IV Lasix will continue to be administered. Oral therapy should be continued and the dose may need to be increased. Compression stocking use would be advisable once physically possible. The need for sodium and fluid restriction was reviewed with him. Thank you for this consultation. We will be happy to follow through his hospital course. Kishor Chris MD
[2017-04-16] MEDS: Insulin Lispro (humaLOG) LOW Coverage SC SCH ×4 (06:36→22:25)
[2017-04-16 08:06] LABS: INR 2.54 (0.93-1.08); PROTHROMBIN TIME 29.8 SECONDS (9.4-12.5)
[2017-04-16] MEDS: metOLazone 2.5 MG TAB PO SCH (10:35)
--- NOTE | 2017-04-16 12:55 | PN ---
DATE: 04/16/2017 SUBJECTIVE: The patient is seen sitting in a chair in the Transitional Care Unit. His peripheral edema is lessened to some degree. He is complaining of frequent urination. He denies any chest pain or dyspnea. CURRENT MEDICATIONS: Include hydralazine 50 mg t.i.d., insulin coverage, Uloric, Imdur 60 mg daily, Lasix 40 mg t.i.d., Lipitor, metoprolol 25 mg b.i.d., Pepcid 20 mg daily, Zaroxolyn 2.5 mg daily. OBJECTIVE GENERAL: He is a middle-aged man who appears comfortable at rest. VITAL SIGNS: His blood pressure is 130/70 with pulse of 70, respirations are 16. He is afebrile. HEENT: No JVD. CHEST: Bilateral scattered rhonchi. HEART: PMI displaced laterally with soft tones noted. ABDOMEN: Soft, nontender with normoactive bowel sounds. EXTREMITIES: 2 to 3+ edema to the knees. Both lower extremities are wrapped. DIAGNOSTIC DATA: Potassium is 4.5, BUN and creatinine is 63 and 2.2. INR is 2.54. IMPRESSION 1. Decompensated congestive heart failure, predominantly right sided, systolic, acute on chronic. 2. Severe left ventricular dysfunction. 3. Coronary artery disease, status post remote percutaneous coronary intervention, clinically stable at present. 4. Chronic atrial fibrillation and conduction system disease, status post permanent pacemaker implant. 5. Uffhj-to-lgptkig renal insufficiency with increased prerenal component secondary to diuretic use. RECOMMENDATIONS: His current medications, should continue for now. Lasix and Zaroxolyn will be maintained. Compression stocking use would be appropriate once his edema is somewhat improved. The need for sodium and fluid restriction were discussed with him. Close monitoring of his electrolytes and renal function were advised. We will continue to follow and make further recommendations as appropriate. Kishor Chris MD
[2017-04-16] MEDS: guaiFENesin DM 100 mg-10 mg/5 ml UD PO SCH ×2 (15:08→20:52)
--- NOTE | 2017-04-16 21:48 | PN ---
DATE: 04/16/2017 SUBJECTIVE: This 71-year-old male was examined at the bedside and this case was reviewed in detail with himself, his nurse, Ceci Bocanegra, registered nurse and his daughter, Chiquis Osuna in detail. The patient was out of bed to chair. He is ambulating with physical therapy. He is diuresing and his anasarca demonstrated by bilateral pedal edema is starting to improve. The patient remains weak and deconditioned, but denies any active chest pain, shortness of breath, hemoptysis or fever or chills. PHYSICAL EXAMINATION: VITAL SIGNS: Temperature was 97.4, respirations 20, pulse 72, and blood pressure 142/69. Urine output was 900 mL yesterday. Negative fluid balance was noted. HEENT: Head: Normocephalic, atraumatic. Eyes: No icterus. Ears: Clear. Throat: Noninjected. NECK: Supple. HEART: Irregular S1, S2. LUNGS: Decreased breath sounds at the bases. ABDOMEN: Obese. EXTREMITIES: 3+ pitting edema from feet to knees. SKIN: Without rash. NEUROLOGICAL: Deconditioned. VASCULAR: Legs warm to touch. PSYCHOLOGICAL: Alert and oriented x3. LABORATORY DATA: White count 7100, hemoglobin 10.1, hematocrit 33.7, and platelets 230,000. PT/INR 2.54. Sodium 139, potassium 4.5, chloride 106, bicarb 21, BUN 63, creatinine 2.2. Estimated GFR 30 mL per minute. Random blood sugar 178. IMPRESSION: This is a 71-year-old male with [id number]-jf-ruafyjw decompensated systolic congestive heart failure, history of chronic atrial fibrillation, on chronic Coumadin therapy for anticoagulation with history of pacemaker placement, valvular heart disease with moderate aortic stenosis and moderate mitral and tricuspid regurgitation with right heart failure and anasarca chronically, also with history of atherosclerotic heart disease with coronary artery stents, chronic hypertension, degenerative arthritis, gout, peripheral vascular disease, insulin-dependent diabetes mellitus, hyperlipidemia, peptic ulcer disease with gastroesophageal reflux disease, anemia of chronic disease, and anxiety neurosis. PLAN: As discussed with the patient, nursing, family and Dr. Chris from Cardiology is to maintain this patient on p.o. fluid restriction of 1000 mL per day while trying to affect a negative fluid balance on oral Zaroxolyn and IV Lasix. He continues on fall risk protocol, heart-healthy soft bland diabetic renal diet. He will continue on hydralazine, Coumadin 2.5 mg p.o. daily, monitoring INR daily and holding Coumadin for any INR greater than 3, Uloric, insulin, Imdur, IV Lasix, p.o. Lipitor, metoprolol tartrate, Pepcid, Robitussin DM p.r.n. cough, and Zaroxolyn. The patient will have serial basic metabolic panel, hemoglobin, hematocrit and INR, and ultimate plan will be for discharge to home when medically stable. Greater than 35 minutes was spent in the care management, review of labs, medication orders, and discussion of this patient with himself, family, and nursing as well as Dr. Chris from Cardiology. All questions were answered. Meena Ling MD
[2017-04-16] MEDS ORDERED: Nitroglycerin 2% Ointment Foilpak UD TOP PRN (21:51)
[2017-04-17] MEDS: Insulin Lispro (humaLOG) LOW Coverage SC SCH ×4 (06:53→23:00)
[2017-04-17 07:38] LABS: CALCIUM 9.1 mg/dL (8.4-10.5)
[2017-04-17 07:41] LABS: INR 2.19 (0.93-1.08); PROTHROMBIN TIME 25.6 SECONDS (9.4-12.5)
[2017-04-17] MEDS: guaiFENesin DM 100 mg-10 mg/5 ml UD PO SCH ×4 (07:54→20:55)
--- NOTE | 2017-04-17 08:40 | PN ---
DATE: 04/15/2017 SUBJECTIVE: This 71-year-old male was examined at the bedside in the presence of his nurse, Cristina Osborne, registered nurse and present were his , his son and two daughters. The patient is feeling much better today. He has been placed on IV Lasix 40 mg q. 8 along with oral Zaroxolyn 2.5 mg p.o. daily. Of note, he has had 900 mL of urine output thus far today and remains on p.o. fluid restriction of 1000 mL orally daily. This was once again reviewed with the patient and family at bedside. At present, he denies any fever, chills, chest pain or shortness of breath. PHYSICAL EXAMINATION: VITAL SIGNS: On physical exam was noted to have a temperature of 97.4, respirations 20, pulse 73 and blood pressure of 123/77 with a pulse ox of 95% on room air. HEENT: Head normocephalic, atraumatic. Eyes: No icterus. Ears: Clear. Throat: Noninjected. NECK: Supple. HEART: Irregular S1, S2. LUNGS: With basilar rales. ABDOMEN: Obese. EXTREMITIES: 3+ edema, but improved from yesterday. VASCULAR: Legs warm to touch. PSYCHOLOGICAL: Alert and oriented x3. NEURO: Grossly intact. LABORATORY DATA: White count 7100, hemoglobin 10.1, hematocrit 33.7, platelets 230,000. PT/INR 3.34. Sodium 140, K 4.7, chloride 107, bicarb 22, BUN 52, creatinine 1.8, random blood sugar 173, calcium 8.9. IMPRESSION: A 71-year-old male with chronic systolic congestive heart failure, right heart failure, history of atherosclerotic heart disease with stents, permanent pacemaker and aortic stenosis and mitral and tricuspid regurgitation, chronic hypertension, hyperlipidemia, degenerative arthritis, gout, anemia of chronic disease, chronic renal failure stage 4, insulin-dependent diabetes mellitus, peptic ulcer disease with gastroesophageal reflux disease, anxiety, neurosis, anasarca secondary to right heart failure. PLAN: Discussed with the patient, nursing and family at bedside will be to continue oral p.o. fluid restriction of 1000 mL daily while trying to effect a negative fluid balance with IV Lasix and oral Zaroxolyn. The patient will continue to have I's and O's monitored and the patient's both legs were examined in the presence of family with nursing and myself applying an Ever bandages from forefoot to knee. This will be applied daily and removed at bedtime. The patient remains on fall protocol, heart-healthy soft bland diabetic, renal heart-healthy diabetic diet. He will continue on Zaroxolyn 2.5 mg p.o. daily Pepcid 20 mg p.o. at bedtime, Lopressor 25 mg p.o. b.i.d., Lipitor 10 mg p.o. daily, Lasix 40 mg IV q. 8 hours, Imdur 60 mg p.o. daily, regular low-dose insulin protocol before meals and at bedtime, Uloric 80 mg p.o. daily and hydralazine 50 mg p.o. t.i.d., Coumadin will be held for any INR greater than 3.0. The patient is ordered to have physical therapy for reconditioning and gait training. A consultation with Dr. Kishor Chris has been requested regarding his decompensated congestive heart failure, valvular heart disease and history of atherosclerotic heart disease and stents and all of the above was reviewed in detail with family, the patient and nursing at bedside. Greater than 35 minutes was spent in the care of this patient today. All questions were answered. Meena Ling MD
[2017-04-17] MEDS: metOLazone 2.5 MG TAB PO SCH (10:17)
--- NOTE | 2017-04-17 23:40 | PN ---
DATE: 04/17/2017 SUBJECTIVE: This 71-year-old male was examined at his bedside in the presence of his nurse, Ceci Bocanegra, registered nurse; his ; and grandson. The patient remains afebrile. He had an episode of shortness of breath last night that was treated with additional nitro paste to chest wall, Imdur, and IV Lasix with good results. He denied any chest pain, diaphoresis, jaw pain, or substernal chest pressure and at present is out of bed to chair with improving diuresis on IV antibiotics and p.o. fluid restriction. PHYSICAL EXAMINATION: VITAL SIGNS: Temperature 98.1, respirations 20, pulse 69, blood pressure 116/76, and a pulse ox of 97% room air. Urinary output 925 mL thus far today. HEENT: Head: Normocephalic, atraumatic. Eyes: No icterus. Ears: Clear. Throat: Noninjected. NECK: Supple. HEART: Irregular S1, S2. LUNGS: Clear. ABDOMEN: Obese. EXTREMITIES: Decreasing anasarca. No open sores. No cellulitis. VASCULAR: Legs warm to touch. PSYCHOLOGICAL: Alert and oriented x3. NEUROLOGICAL: Intact. SKIN; No rash or ulceration. LABORATORY DATA: Hemoglobin 10.1, hematocrit 33.7, platelets 230,000. PT/INR is 2.19. Sodium 140, K 4.0, chloride 104, bicarb 22, BUN 66, creatinine 2.1. Estimated GFR 31 mL per minute. Random blood sugar 143. IMPRESSION: This is a 71-year-old male with [id number]-[id number] decompensated systolic congestive heart failure, chronic hypertension, obesity, chronic atrial fibrillation, history of valvular heart disease, aortic stenosis, mitral and tricuspid regurgitation with right heart failure and anasarca, degenerative arthritis, gout, insulin-dependent diabetes mellitus, stable atherosclerotic heart disease with stents, history of hyperlipidemia, chronic renal failure stage III, anemia of chronic disease, peptic ulcer disease with gastroesophageal reflux disease and recent left lower lobe pneumonia. PLAN: Discussed with the patient, family, nursing at bedside. We have redressed his both legs with a Shanika dressing and then Ever bandaging from his foot to his knees. Will need to maintain negative fluid balance with p.o. fluid restriction of 1000 mL daily and the continuation of IV Lasix and oral Zaroxolyn. The patient also will have I's and O's measured daily. He will continue on a heart-healthy renal diabetic diet. He continues on Zaroxolyn, Robitussin DM p.r.n. cough, Pepcid, Lopressor, Lipitor, Lasix, Imdur, insulin, Uloric, Coumadin has been increased to 3 mg p.o. daily, and hydralazine. The patient will have a basic metabolic panel, CBC, and INR in the a.m. and is being followed by Dr. Chris from Cardiology. Greater than 35 minutes was spent in the care, discussion, management, review of x-rays, labs, and outlining of orders for this patient today. All questions were answered. Meena Ling MD MTDD
[2017-04-18] MEDS: guaiFENesin DM 100 mg-10 mg/5 ml UD PO SCH ×4 (02:24→23:44)
[2017-04-18] MEDS: Insulin Lispro (humaLOG) LOW Coverage SC SCH ×4 (06:52→22:02)
[2017-04-18 07:41] LABS: HEMOGLOBIN 10.8 g/dL (14.0-18.0); MEAN CELL VOLUME 87.6 fl (80.0-105.0); MEAN CORPUSCULAR HEMOGLOBIN 26.9 pg (25.0-35.0); MEAN CORPUSCULAR HGB CONC 30.7 g/dl (31.0-37.0); MEAN PLATELET VOLUME 11.5 fl (7.0-11.0); RBC 4.02 10^6/uL (3.5-6.1); RED CELL DISTRIBUTION WIDTH 17.8 % (11.5-14.5); WHITE BLOOD COUNT 9.2 10^3/ul (4.5-11.0)
[2017-04-18 07:59] LABS: INR 1.93 (0.93-1.08); PROTHROMBIN TIME 22.5 SECONDS (9.4-12.5)
[2017-04-18 08:21] LABS: CALCIUM 9.2 mg/dL (8.4-10.5)
[2017-04-18] MEDS: metOLazone 2.5 MG TAB PO SCH (10:35)
--- NOTE | 2017-04-18 19:32 | PN ---
DATE: SUBJECTIVE: This is a 71-year-old male was examined at the bedside in the presence of his nurse, Harrison Osborne, registered nurse. The patient remains highly anxious and has periods of agitation regarding his multiple medical problems including acute on chronic systolic congestive heart failure and recently worsened right-sided heart failure manifested by anasarca of his lower extremities. The patient is diuresing on adjusted parenteral antibiotics and oral Zaroxolyn, and today was noted to have a 850 mL urine output today. PHYSICAL EXAMINATION: VITAL SIGNS: Temperature 98.2, respirations 18, pulse 73 and blood pressure 139/70, with a pulse ox of 95% on room air. HEENT: Head normocephalic, atraumatic. Eyes: No icterus. Ears: Clear. Throat: Noninjected. NECK: Supple. HEART: Irregular S1 and S2. LUNGS: Clear. ABDOMEN: Obese. EXTREMITIES: Decreasing pedal edema. VASCULAR: Legs warm to touch. PSYCHOLOGIC: Alert and oriented x3. NEUROLOGIC: Grossly intact. LABORATORY DATA: White count 9200, hemoglobin 10.8, hematocrit 35.2, platelets 323,000. PT/INR 1.93. Sodium 138, K 4.7, chloride 101, bicarb 23, BUN 67, creatinine 2.0. Estimated GFR is 33 mL per minute. Random blood sugar 187. IMPRESSION: This is a 71-year-old male with [id number] systolic congestive heart failure, right heart failure, anasarca, chronic hypertension, obesity, stable atherosclerotic heart disease with stents, chronic atrial fibrillation, on oral Coumadin therapy, today with a subtherapeutic PT/INR, with permanent pacemaker placement, aortic stenosis, mitral and tricuspid regurgitation, chronic renal failure stage III, degenerative arthritis, gout, insulin-dependent diabetes mellitus, hyperlipidemia, peptic ulcer disease with gastroesophageal reflux disease, anemia of chronic disease, anxiety neurosis.. PLAN: As discussed with the patient, family, nursing and co-consultants from Cardiology, will be to continue soft bland renal diabetic heart-healthy diet with a 1000 mL p.o. fluid restriction daily. He continues on fall risk protocol and medications including Zaroxolyn, Pepcid, Medrol Dosepak, Lopressor, Lipitor, IV Lasix, Imdur, insulin, Uloric, Coumadin has been increased to 5 mg p.o. daily while monitoring PT/INR daily and holding Coumadin for any INR greater than 3, and hydralazine 50 mg p.o. t.i.d. The patient will have serial electrolytes, hemoglobin/hematocrit, and INR. Ultimate plan will be for discharge to home when medically stable. The patient will be started on a Medrol Dosepak because of worsening gouty arthritis despite being on Uloric 80 mg p.o. daily. Greater than 35 minutes was spent in the care management, review of x-rays, labs, medication, and discussion of this patient with family and nursing today. All questions were answered. Meena Ling MD MTDD
[2017-04-19] MEDS: guaiFENesin DM 100 mg-10 mg/5 ml UD PO SCH ×4 (05:17→20:23)
[2017-04-19] MEDS: Insulin Lispro (humaLOG) LOW Coverage SC SCH ×4 (06:37→23:54)
[2017-04-19 08:20] LABS: INR 1.86 (0.93-1.08); PROTHROMBIN TIME 21.7 SECONDS (9.4-12.5)
[2017-04-19] MEDS: metOLazone 2.5 MG TAB PO SCH (10:55)
--- NOTE | 2017-04-19 15:19 | PN ---
DATE: 04/19/2017 SUBJECTIVE: The patient is seen lying in bed, on telemetry. His leg edema is improved and his dyspnea is improved as well. He continues to diurese relatively well. His current medications include hydralazine 50 mg t.i.d., warfarin, insulin coverage, Uloric, Imdur 60 mg daily, Lasix 40 mg t.i.d., Lipitor 10 mg daily, metoprolol 25 mg b.i.d., Solu-Medrol, topical nitrates, Pepcid, Zaroxolyn 2.5 mg daily. PHYSICAL EXAMINATION: GENERAL: He is a middle-aged male, appears comfortable at rest. VITAL SIGNS: His blood pressure is 142/76 with a pulse of 70 and irregular, respirations are 16. He is afebrile. HEENT: No JVD. CHEST: Diminished breath sounds at the bases. HEART: PMI displaced laterally with soft tones noted and systolic murmur at the base and apex. ABDOMEN: Soft, nontender with normoactive bowel sounds. EXTREMITIES: 2+ edema to the mid calf. LABORATORY DATA: Morning blood work reveals an INR of 1.86, BUN and creatinine are pending. IMPRESSION: 1. Decompensated congestive heart failure, [id number], predominantly systolic. 2. Severe left ventricular systolic dysfunction. 3. History of hypertension. 4. Chronic atrial fibrillation. 5. Coronary artery disease, status post prior percutaneous coronary intervention. 6. Conduction system disease, status post permanent pacemaker implant. 7. Aortic stenosis. RECOMMENDATIONS: His current medications should be continued for now. Follow up renal function and potassium levels need to be monitored. Use of compression stockings is advised. The need for sodium and fluid restriction was discussed with him as well. His recent cardiac testing will be reviewed. We will be happy to follow along as needed. Kishor Chris MD MTDD
--- NOTE | 2017-04-19 16:14 | PN ---
DATE: 04/19/2017 SUBJECTIVE: This 71-year-old male was examined at his bedside in the presence of his and this case was reviewed in detail with himself, charge nurse, Shalini Brannon, registered nurse and Dr. Kishor Chris from Cardiology. The patient continues to diurese nicely on IV Lasix and oral Zaroxolyn. This is accomplished also with p.o. fluid restriction. The patient had a urine output of approximately 1350 mL yesterday and has had a urine output of over 550 mL thus far today. He continues on fluid restriction of 1000 mL daily. Of note, his bilateral legs anasarca is improving and the patient denies any open sores or chest pain or shortness of breath. PHYSICAL EXAMINATION: GENERAL: The patient is sitting at the side of his bed. VITAL SIGNS: Temperature 98.6, respirations 18, pulse 61, blood pressure 139/76. HEENT: Head: Normocephalic, atraumatic. Eyes: No icterus. Ears: Clear. Throat: Noninjected. NECK: Supple. HEART: Irregular S1, S2. LUNGS: Clear. ABDOMEN: Obese. EXTREMITIES: Decreasing edema. SKIN: Without rash. NEUROLOGICAL: Intact. PSYCHOLOGICAL: Alert. VASCULAR: Legs warm to touch. LABORATORY DATA: White count 9200, hemoglobin 10.8, hematocrit 35.2, platelets 323,000. PT/INR 1.86, PT/INR yesterday 1.93, random blood sugar 252. Sodium 138, K 4.7, chloride 101, bicarb 23, BUN 67, creatinine 2.0, calcium 9.2. IMPRESSION: A 71-year-old male with fngft-[id number] systolic congestive heart failure, history of permanent pacemaker placement, chronic atrial fibrillation, on oral Coumadin, now with a subtherapeutic PT/INR and having INR managed with adjusting doses of Coumadin daily while monitoring INR daily and holding Coumadin for any INR greater than 3. Also with history of stable atherosclerotic heart disease with coronary artery stents and history of aortic stenosis, mitral and tricuspid regurgitation, right heart failure with anasarca manifested by bilateral pedal edema, comorbidities of chronic hypertension, degenerative arthritis, gouty arthritis, insulin-dependent diabetes mellitus, obesity, hyperlipidemia, chronic renal failure stage 3 and anxiety neurosis. PLAN: The plan as discussed with nursing, family, the patient, Dr. Chris will be to continue p.o. fluid restrictions. The patient will be allowed to take a shower and have legs redressed with a Shanika and Ever bandages that are removed at bedtime. The patient is advised to elevate his legs whenever he is resting and to ambulate with the assistance of staff and family. He continues on heart-healthy diabetic renal diet with 1000 mL p.o. fluid restriction. He will continue on Zaroxolyn, Pepcid, tapering Medrol Dosepak, Lopressor, Lipitor, IV Lasix, Imdur, insulin, Uloric, Coumadin, hydralazine. He is ordered to have a basic metabolic panel and INR in the a.m. I have discussed this case in detail with Dr. Chris. He will be re-reviewing his echocardiogram most recently completed and additional diagnostic workup will be entertained based on his recommendations. Greater than 35 minutes was spent in the care management, review of x-rays, labs, medication and discussion of this patient with staff, consultants and family. All questions were answered. Meena Ling MD MTDJoe
[2017-04-20] MEDS: guaiFENesin DM 100 mg-10 mg/5 ml UD PO SCH ×4 (03:01→20:29)
[2017-04-20] MEDS: Insulin Lispro (humaLOG) LOW Coverage SC SCH ×4 (06:56→23:57)
[2017-04-20 07:38] LABS: INR 1.92 (0.93-1.08); PROTHROMBIN TIME 22.4 SECONDS (9.4-12.5)
--- NOTE | 2017-04-20 07:39 | CP.PCM.PN ---
Subjective - Date & Time of Evaluation Date of Evaluation: 04/20/17 Time of Evaluation: 07:00 - Subjective Subjective: Stable on TCU. No CP or SOB V/S noted. PE: Lungs: few rhonchi Cor.: S1S2, systolic murmur Abd: soft Ext.: + edema, improving Neuro.: alert I/O= 360/550 Labs pedning Echo 03/28/17 noted: Severe LVD, moderate , mild to mod MR, mod. PH Objective - Vital Signs/Intake and Output Vital Signs (last 24 hours): Temp Pulse Resp BP Pulse Ox 98.2 F 68 16 137/78 96 04/20/17 06:00 04/20/17 06:00 04/20/17 06:00 04/20/17 06:00 04/20/17 06:00 Intake and Output: 04/20/17 04/20/17 06:59 18:59 Intake Total 360 Output Total 550 Balance -190 - Medications Medications: Current Medications Acetaminophen (Tylenol 325mg Tab) 650 mg PO Q6H PRN; Protocol PRN Reason: Fever >100.4 F Last Admin: 04/18/17 13:48 Dose: 650 mg Atorvastatin Calcium (Lipitor) 10 mg PO DIN [facility] PRN Reason: Protocol Last Admin: 04/19/17 18:16 Dose: 10 mg Famotidine (Pepcid) 20 mg PO HS [facility] Last Admin: 04/19/17 22:03 Dose: 20 mg Furosemide (Lasix) 40 mg IVP 0600,1400,2200 [facility] PRN Reason: Protocol Last Admin: 04/20/17 05:18 Dose: 40 mg Guaifenesin/Dextromethorphan (Robitussin Dm) 5 ml PO Q6H [facility] PRN Reason: Protocol Last Admin: 04/20/17 03:01 Dose: Not Given Home Med (Home Med) 1 unit PO DAILY [facility] PRN Reason: Protocol Last Admin: 04/19/17 10:56 Dose: 1 unit Hydralazine HCl (Apresoline) 50 mg PO TID [facility] PRN Reason: Protocol Last Admin: 04/19/17 18:12 Dose: 50 mg Insulin Human Lispro (Humalog Low) 0 units SC ACHS [facility] PRN Reason: Protocol Last Admin: 04/20/17 06:56 Dose: 1 units Isosorbide Mononitrate (Imdur) 60 mg PO 0600 [facility] PRN Reason: Protocol Last Admin: 04/20/17 05:17 Dose: 60 mg Methylprednisolone (Medrol) 4 mg PO 5XD [facility] PRN Reason: Taper Stop: 04/24/17 09:59 Last Admin: 04/20/17 05:17 Dose: 4 mg Metolazone (Zaroxolyn) 2.5 mg PO DAILY [facility] Last Admin: 04/19/17 10:55 Dose: 2.5 mg Metoprolol Tartrate (Lopressor) 25 mg PO 0800,1800 [facility] PRN Reason: Protocol Last Admin: 04/19/17 18:16 Dose: 25 mg Nitroglycerin (Nitro-Bid 2% Oint) 1 ea TOP Q6 PRN PRN Reason: Shortness of Breath Ondansetron HCl (Zofran Inj) 4 mg IVP Q8H PRN; Protocol PRN Reason: Nausea/Vomiting Warfarin Sodium (Coumadin) 7.5 mg PO 1800 [facility] PRN Reason: Protocol Last Admin: 04/19/17 18:14 Dose: 7.5 mg - Labs Labs: 04/18/17 07:00 04/18/17 07:00 PT 21.7 SECONDS (9.4-12.5) H 04/19/17 07:30 INR 1.86 (0.93-1.08) H 04/19/17 07:30 Assessment and Plan - Assessment and Plan (Free Text) Assessment: Edema CAD/ID/PCI/Severe LVD , moderate with mild/mod MR and mod. PH on echo AF on warfarin PPM COPD/Former Smoker Diabetes HBP Anemia HD PVD/PVI Discogenic Disease Carpel tunnel surgery Plan: Await AM labs, INR Continue diuresis Monitor labs, I/O, INR's PT/Rehab Efforts.
[2017-04-20] MEDS: metOLazone 2.5 MG TAB PO SCH (10:59)
[2017-04-20 17:40] VITALS: TEMP 98.3
--- NOTE | 2017-04-20 22:01 | PN ---
DATE: 04/20/2017 SUBJECTIVE: This 71-year-old male was examined at the bedside and his case was reviewed in detail with his nurse, Ceci Bocanegra, registered nurse. The patient is resting in bed. Anasarca is improving on p.o. fluid restriction and IV Lasix with oral Zaroxolyn. PHYSICAL EXAMINATION: VITAL SIGNS: Temperature is 98.3, respirations 18, pulse 61 and blood pressure 116/70 with a pulse ox of 96% on room air. Yesterday's urine output was approximately 750 mL with a p.o. intake of 360 mL for 24 hours. HEENT: Head: Normocephalic, atraumatic. Eyes: No icterus. Ears: Clear. Throat: Noninjected. NECK: Supple. HEART: Irregular S1, S2. LUNGS: Clear. ABDOMEN: Obese. EXTREMITIES: Decreasing edema. SKIN: Without rash. NEUROLOGICAL: Unchanged. PSYCHOLOGICAL: Alert. VASCULAR: Legs warm to touch. LABORATORY DATA: White count 9200, hemoglobin 10.8, hematocrit 35.2, platelets 323,000. PT/INR 1.92, previously 1.86. Sodium 135, K 4.1, chloride 99, bicarb 23, BUN 92, creatinine 2.3, random blood sugar is 272. IMPRESSION: A 71-year-old male with decompensated eesqx-ze-fexndkw systolic congestive heart failure with improving anasarca and pedal edema and comorbidities of chronic hypertension, chronic renal failure stage IV, chronic atrial fibrillation, permanent pacemaker placement, history of atherosclerotic heart disease with coronary artery stents, cardiomyopathy, aortic stenosis and mitral and tricuspid regurgitation, degenerative arthritis, gout, insulin-dependent diabetes mellitus, hyperlipidemia, anemia of chronic disease, peptic ulcer disease with gastroesophageal reflux disease and anxiety neurosis. PLAN: The plan as discussed with the patient, family, nursing and Dr. Moss from cardiology will be to maintain this patient on p.o. fluid restriction of 1000 mL daily. He continues with physical and occupational therapy daily and is having strict I's and O's, p.o. fluid restriction fall protocol and a heart-healthy renal diabetic diet maintained. The patient will have a hose including Ever bandages wrapped around his forefoot to his knees daily and I have instructed the nursing staff to instruct his and family members how to properly perform this for continuation upon discharge to home. At present, the patient continues on Zaroxolyn 2.5 mg p.o. daily, Pepcid 20 mg p.o. at bedtime, Medrol Dosepak on tapering protocol, Lopressor 25 mg p.o. b.i.d., Lipitor 10 mg p.o. at bedtime, Lasix 40 mg IV q. 8, Imdur 60 mg p.o. daily, regular low-dose insulin protocol before meals and at bedtime, Uloric 80 mg p.o. daily, Coumadin 7.5 mg p.o. daily with a PT/INR check daily and holding Coumadin for any INR greater than 3, hydralazine 50 mg p.o. t.i.d. The patient will have a repeat basic metabolic panel and INR in the a.m. and ultimate plan will be for discharge to home when medically stable. I have reviewed this case in detail with Dr. Kishor Chris from Cardiology, who did review the patient's most recent cardiac cath and echocardiography and feels that medical therapy is appropriate at present and he has no plans for a cardiac cath repeat at this time in the patient's clinical course. All of the above was discussed with the patient, family, nursing and greater than 35 minutes was spent in the care management, review of x-rays, labs and consultations for this patient today. All questions were answered. Meena Ling MD MTDD
[2017-04-21] MEDS: guaiFENesin DM 100 mg-10 mg/5 ml UD PO SCH ×4 (02:04→20:12)
--- NOTE | 2017-04-21 07:25 | CP.PCM.PN ---
Subjective - Date & Time of Evaluation Date of Evaluation: 04/21/17 Time of Evaluation: 07:00 - Subjective Subjective: Stable on TCU. No CP or SOB V/S noted. PE: Lungs: few rhonchi Cor.: S1S2, systolic murmur Abd: soft Ext.: + edema, improving Neuro.: alert I/O= 360/1450 Labs today pending Echo 03/28/17 noted: Severe LVD, moderate , mild to mod MR, mod. PH Objective - Vital Signs/Intake and Output Vital Signs (last 24 hours): Temp Pulse Resp BP Pulse Ox 98.3 F 61 18 130/72 96 04/20/17 17:39 04/20/17 17:39 04/20/17 17:39 04/21/17 05:23 04/20/17 17:39 Intake and Output: 04/21/17 04/21/17 06:59 18:59 Intake Total 360 Output Total 1450 Balance -1090 - Medications Medications: Current Medications Acetaminophen (Tylenol 325mg Tab) 650 mg PO Q6H PRN; Protocol PRN Reason: Fever >100.4 F Last Admin: 04/20/17 22:30 Dose: 650 mg Atorvastatin Calcium (Lipitor) 10 mg PO DIN [facility] PRN Reason: Protocol Last Admin: 04/20/17 17:19 Dose: 10 mg Famotidine (Pepcid) 20 mg PO HS [facility] Last Admin: 04/20/17 22:15 Dose: 20 mg Furosemide (Lasix) 40 mg IVP 0600,1400,2200 [facility] PRN Reason: Protocol Last Admin: 04/21/17 05:23 Dose: 40 mg Guaifenesin/Dextromethorphan (Robitussin Dm) 5 ml PO Q6H [facility] PRN Reason: Protocol Last Admin: 04/21/17 02:04 Dose: Not Given Home Med (Home Med) 1 unit PO DAILY [facility] PRN Reason: Protocol Last Admin: 04/20/17 10:58 Dose: 1 unit Hydralazine HCl (Apresoline) 50 mg PO TID [facility] PRN Reason: Protocol Last Admin: 04/20/17 17:16 Dose: 50 mg Insulin Human Lispro (Humalog Low) 0 units SC ACHS [facility] PRN Reason: Protocol Last Admin: 04/20/17 23:57 Dose: Not Given Isosorbide Mononitrate (Imdur) 60 mg PO 0600 [facility] PRN Reason: Protocol Last Admin: 04/21/17 05:23 Dose: 60 mg Methylprednisolone (Medrol) 4 mg PO QID [facility] PRN Reason: Taper Stop: 04/24/17 09:59 Last Admin: 04/20/17 22:15 Dose: 4 mg Metolazone (Zaroxolyn) 2.5 mg PO DAILY [facility] Last Admin: 04/20/17 10:59 Dose: 2.5 mg Metoprolol Tartrate (Lopressor) 25 mg PO 0800,1800 [facility] PRN Reason: Protocol Last Admin: 04/20/17 17:19 Dose: 25 mg Nitroglycerin (Nitro-Bid 2% Oint) 1 ea TOP Q6 PRN PRN Reason: Shortness of Breath Ondansetron HCl (Zofran Inj) 4 mg IVP Q8H PRN; Protocol PRN Reason: Nausea/Vomiting Warfarin Sodium (Coumadin) 7.5 mg PO 1800 [facility] PRN Reason: Protocol Last Admin: 04/20/17 17:17 Dose: 7.5 mg - Labs Labs: 04/18/17 07:00 04/20/17 06:30 PT 22.4 SECONDS (9.4-12.5) H 04/20/17 06:30 INR 1.92 (0.93-1.08) H 04/20/17 06:30 Assessment and Plan - Assessment and Plan (Free Text) Assessment: Edema CAD/AL/PCI/Severe LVD , moderate with mild/mod MR and mod. PH on echo AF on warfarin PPM COPD/Former Smoker Diabetes HBP Anemia HD PVD/PVI Discogenic Disease Carpel tunnel surgery Plan: Await AM labs, INR Continue diuresis Monitor labs, I/O, INR's PT/Rehab Efforts.
[2017-04-21] MEDS: Insulin Lispro (humaLOG) LOW Coverage SC SCH ×5 (07:38→22:18)
[2017-04-21 07:45] LABS: INR 2.46 (0.93-1.08); PROTHROMBIN TIME 28.8 SECONDS (9.4-12.5)
[2017-04-21 08:05] LABS: CALCIUM 9.1 mg/dL (8.4-10.5)
--- NOTE | 2017-04-21 15:52 | PN ---
DATE: 04/21/2017 SUBJECTIVE: This 71-year-old male was examined at the bedside in the presence of his and this case was reviewed in detail with charge nurse, Shalini Brannon, registered nurse. The patient is out of bed to chair. He is cooperating with physical therapy for reconditioning and gait training. I have asked Physical Therapy to practice the patient on staircase safety today in anticipation of discharge in the a.m. To date, there have been no reports of fever, chills, chest pain, shortness of breath, hemoptysis or hematemesis or melena and both legs show no evidence of edema at the present time. PHYSICAL EXAMINATION: VITAL SIGNS: Temperature 98.3, respirations 18, pulse 83 and blood pressure 130/72. Urine output is 900 mL thus far today. Pulse ox is 96% on room air. HEENT: Head normocephalic, atraumatic. Eyes: No icterus. Ears: Clear. Throat: Noninjected. NECK: Supple. HEART: Irregular S1, S2. LUNGS: Clear. ABDOMEN: Obese. EXTREMITIES: No edema. SKIN: Without rash. NEUROLOGICAL: Intact. PSYCHOLOGICAL: Alert. VASCULAR: Legs warm to touch. LABORATORY DATA: White count 9200, hemoglobin 10.8, hematocrit 35.2, platelets 323,000. PT/INR 2.46, previously 1.92. Sodium 136, K 4.8, chloride 98, bicarb 23, BUN 109, creatinine 2.6, random blood sugar 273. IMPRESSION: A 71-year-old male with decompensated [id number] systolic congestive heart failure with manifestation of anasarca, now resolved in the setting of comorbidities of stable atherosclerotic heart disease with coronary artery stents, severe cardiomyopathy with reduced left ventricular ejection fraction, history of moderate aortic stenosis, mitral regurgitation, tricuspid regurgitation, permanent pacemaker and hypertension, chronic atrial fibrillation, on Coumadin, now with a therapeutic PT/INR, which will result with the patient having Coumadin level adjusted. Also with comorbidities of degenerative arthritis, gout, insulin-dependent diabetes mellitus, hyperlipidemia, chronic renal failure stage 4, peptic ulcer disease with gastroesophageal reflux disease, anemia of chronic disease and deconditioning. PLAN: Plan as discussed with the patient, , other family members and nursing as well as Physical Therapy will be to continue physical and occupational therapy with staircase safety training today. The patient remains on p.o. fluid restriction of 1000 mL daily and continues a heart-healthy renal diabetic diet while maintaining fall precautions. I have asked the nursing staff to continue I and O's and to train the family on the proper method of Ever bandage wrapping of lower extremities. The patient will continue on Pepcid, Lopressor, Lipitor, Lasix, Imdur, low-dose insulin coverage before meals and at bedtime, Uloric, Coumadin 4 mg p.o. daily and hydralazine 50 mg p.o. t.i.d. He is ordered to have a basic metabolic panel and INR in a.m. and will most likely be discharged if clinically stable in the a.m. for outpatient monitoring of all of the above-mentioned comorbidities. As discussed with Cardiology, there are no plans by them for any cardiac cath at this time and the patient's overall prognosis remains stable at present. Greater than 35 minutes was spent in the care and management, review of x-rays, labs, medication and adjustment of orders and discussion of this patient's care with family, nursing therapy. All questions were answered. Meena Ling MD MTDJoe
[2017-04-21 16:38] VITALS: RESP 20; O2SAT 100
[2017-04-22] MEDS: guaiFENesin DM 100 mg-10 mg/5 ml UD PO SCH ×2 (02:46→08:52)
--- NOTE | 2017-04-22 07:17 | CP.PCM.PN ---
Subjective - Date & Time of Evaluation Date of Evaluation: 04/22/17 Time of Evaluation: 07:00 - Subjective Subjective: Stable on TCU. No CP or SOB. He feels good. D/C planned for today. V/S noted. PE: Lungs: few rhonchi Cor.: S1S2, systolic murmur Abd: soft Ext.: no edema Neuro.: alert I/O= N/A Labs today pending. yesterday. Cr.= 2.6, INR= 2.46 Echo 03/28/17 noted: Severe LVD, moderate , mild to mod MR, mod. PH Objective - Vital Signs/Intake and Output Vital Signs (last 24 hours): Temp Pulse Resp BP Pulse Ox 98.3 F 70 20 115/67 100 04/21/17 16:00 04/21/17 17:08 04/21/17 16:00 04/21/17 17:08 04/21/17 16:00 - Medications Medications: Current Medications Acetaminophen (Tylenol 325mg Tab) 650 mg PO Q6H PRN; Protocol PRN Reason: Fever >100.4 F Last Admin: 04/21/17 17:29 Dose: 650 mg Atorvastatin Calcium (Lipitor) 10 mg PO DIN TAYLER PRN Reason: Protocol Last Admin: 04/21/17 17:11 Dose: 10 mg Famotidine (Pepcid) 20 mg PO HS TAYLER Last Admin: 04/21/17 21:13 Dose: 20 mg Furosemide (Lasix) 40 mg IVP 0600,1400,2200 TAYLER PRN Reason: Protocol Last Admin: 04/21/17 05:23 Dose: 40 mg Guaifenesin/Dextromethorphan (Robitussin Dm) 5 ml PO Q6H TAYLER PRN Reason: Protocol Last Admin: 04/22/17 02:46 Dose: Not Given Home Med (Home Med) 1 unit PO DAILY TAYLER PRN Reason: Protocol Last Admin: 04/21/17 09:46 Dose: 1 unit Hydralazine HCl (Apresoline) 50 mg PO TID TAYLER PRN Reason: Protocol Last Admin: 04/21/17 17:08 Dose: 50 mg Insulin Human Lispro (Humalog Low) 0 units SC ACHS TAYLER PRN Reason: Protocol Last Admin: 04/21/17 22:18 Dose: Not Given Isosorbide Mononitrate (Imdur) 60 mg PO 0600 TAYLER PRN Reason: Protocol Last Admin: 04/22/17 06:06 Dose: 60 mg Metoprolol Tartrate (Lopressor) 25 mg PO 0800,1800 TAYLER PRN Reason: Protocol Last Admin: 04/21/17 17:12 Dose: 25 mg Nitroglycerin (Nitro-Bid 2% Oint) 1 ea TOP Q6 PRN PRN Reason: Shortness of Breath Ondansetron HCl (Zofran Inj) 4 mg IVP Q8H PRN; Protocol PRN Reason: Nausea/Vomiting Warfarin Sodium (Coumadin) 4 mg PO 1800 TAYLER PRN Reason: Protocol Last Admin: 04/21/17 17:09 Dose: 4 mg - Labs Labs: 04/18/17 07:00 04/21/17 07:00 PT 28.8 SECONDS (9.4-12.5) H 04/21/17 07:00 INR 2.46 (0.93-1.08) H 04/21/17 07:00 Assessment and Plan - Assessment and Plan (Free Text) Assessment: Edema, resolved CAD/CO/PCI/Severe LVD , moderate with mild/mod MR and mod. PH on echo AF on warfarin CKD PPM COPD/Former Smoker Diabetes HBP Anemia HD PVD/PVI Discogenic Disease Carpel tunnel surgery Plan: Await AM labs, IN D/C planned for later today. Out-pt cardiac and pacer F/U to be arranged.
[2017-04-22 07:38] LABS: CALCIUM 9.1 mg/dL (8.4-10.5)
[2017-04-22 07:42] LABS: PROTHROMBIN TIME 35.3 SECONDS (9.4-12.5)
[2017-04-22] MEDS: Insulin Lispro (humaLOG) LOW Coverage SC SCH ×2 (07:49→12:30)
[2017-04-22 08:54] VITALS: BP 147/90; PULSE 84
--- NOTE | 2017-04-22 16:16 | DS ---
FINAL DIAGNOSES: Decompensated [id number] systolic congestive heart failure - improved, chronic renal failure stage IV, chronic hypertension, history of stable atherosclerotic heart disease with coronary artery stents, history of valvular heart disease with aortic stenosis, mitral and tricuspid regurgitation, history of permanent pacemaker placement, chronic atrial fibrillation, obesity, peptic ulcer disease with gastroesophageal reflux disease, anemia of chronic disease, degenerative arthritis, gouty arthritis, hyperlipidemia. DISPOSITION: Home. FOLLOWUP: Follow up with Cardiology regarding pacemaker checks. Follow up in my office in 1 week for clinical followup and blood testing of PT/INR on chronic Coumadin. DISCHARGE DIET: 2 g sodium, heart-healthy renal diabetic. Also the patient will take low-dose regular insulin protocol a.c. meals and at bedtime. DISCHARGE MEDICATIONS: Also include hydralazine 50 mg p.o. t.i.d., Coumadin 4 mg p.o. at bedtime to resume on Monday - 04/24/2017, Lopressor 25 mg p.o. b.i.d., Imdur 60 mg p.o. daily, Lasix 40 mg p.o. b.i.d. to resume on Monday - 04/24/2017, Uloric 80 mg p.o. daily, Lipitor 10 mg p.o. daily. SUMMARY: This 71-year-old male, who was admitted to [facility] for decompensated [id number] congestive heart failure with multiple medical issues as listed above, was treated with parenteral diuretics and oral Zaroxolyn as well as compression stockings, leg elevation with daily monitoring of basic metabolic panel, PT/INR, and I's and O's. The result was excellent diuresis with resolution of pedal edema, and at the time of discharge, vital signs showed temperature 98.3, respirations 20, pulse 84, and blood pressure 147/90 with a pulse ox of 100% on room air. Discharge labs showed white count 9200, hemoglobin 10.8, hematocrit 35.2, platelets 323,000. PT/INR 3.0. Sodium 135, K 4.5, chloride 98, bicarb 23, BUN 122, creatinine 2.5, random blood sugar 198. The patient was discharged to home. He was monitored during his hospital course by Dr. Fredi Moss from Cardiology. This case was reviewed in detail with Cardiology, and there were no further plans for any cardiac cath at this time regarding his multiple cardiac issues. The patient was independent in ambulation at the time of discharge. He was safe on staircase. Greater than 35 minutes was spent in the care management of discharge for this patient today with review of labs, medication, x-rays, and diagnoses with the patient and daughter, Chiquis Osuna, and nursing at bedside. All questions were answered. Meena Ling MD MTDD
== END 2017-04-22 13:02 | disposition home or self-care (01) | DRG 291 ==
LOC: TRCU 18:04
PROVIDERS: ADMIT Internal Medicine; ATTEND Internal Medicine
PROC: F07Z9ZZ Gait Training/Functional Ambulation Treatment (ICD-10-PCS; principal; 2017-04-16)
DX: I13.0 Hypertensive heart and chronic kidney disease with heart failure and stage 1 through stage 4 chronic kidney disease, or unspecified chronic kidney disease (principal); I50.23 Acute on chronic systolic (congestive) heart failure; N18.4 Chronic kidney disease, stage 4 (severe); E11.22 Type 2 diabetes mellitus with diabetic chronic kidney disease; E11.51 Type 2 diabetes mellitus with diabetic peripheral angiopathy without gangrene; I08.3 Combined rheumatic disorders of mitral, aortic and tricuspid valves; I50.82 Biventricular heart failure; I48.2 Chronic atrial fibrillation; J44.9 Chronic obstructive pulmonary disease, unspecified; M19.90 Unspecified osteoarthritis, unspecified site; M10.9 Gout, unspecified; K21.9 Gastro-esophageal reflux disease without esophagitis; I25.10 Atherosclerotic heart disease of native coronary artery without angina pectoris; E78.5 Hyperlipidemia, unspecified; E66.9 Obesity, unspecified; D63.8 Anemia in other chronic diseases classified elsewhere; M51.86 Other intervertebral disc disorders, lumbar region; F41.1 Generalized anxiety disorder; K27.9 Peptic ulcer, site unspecified, unspecified as acute or chronic, without hemorrhage or perforation; Z95.5 Presence of coronary angioplasty implant and graft; Z95.0 Presence of cardiac pacemaker; Z79.01 Long term (current) use of anticoagulants; Z87.891 Personal history of nicotine dependence; Z79.4 Long term (current) use of insulin; Z68.34 Body mass index [BMI] 34.0-34.9, adult